=== PATIENT | female | born 1935 | race Caucasian/White ===

== ENCOUNTER 2016-07-18 16:26 | Inpatient (IN) | payer MEDICARE, OTHER ==
[~2016-07-18] VITALS: Ht 121.9 cm; Wt 68.0 kg
[2016-07-18 16:00] VITALS: BP 159/62
[2016-07-18] MEDS ORDERED: TRAM50TA2 PO (17:15)
[2016-07-18] MEDS ORDERED: MAGN30OR PO (17:15)
[2016-07-18] MEDS ORDERED: ATOR20TA PO (17:15)
[2016-07-18] MEDS ORDERED: OXYB5TAB11 PO (17:15)
[2016-07-18] MEDS ORDERED: NIFE20CA PO (17:15)
[2016-07-18] MEDS ORDERED: MAG30ORA2 PO (17:15)
[2016-07-18] MEDS ORDERED: CEPH-569 PO (17:15)
[2016-07-18] MEDS ORDERED: CLON0.1T PO (17:15)
[2016-07-18] MEDS ORDERED: ASPI-605 PO (17:15)
[2016-07-18] MEDS ORDERED: HYDR-3326 PO (17:15)
[2016-07-18] MEDS ORDERED: METO-302 PO (17:15)
[2016-07-18] MEDS ORDERED: BACL10TA PO (17:15)
[2016-07-18] MEDS ORDERED: ACET-73 PO (17:15)
[2016-07-18] MEDS ORDERED: HYDR-4076 PO (17:15)
--- NOTE | 2016-07-18 19:30 | NUR ---
RECEIVED PATIENT AWAKE AND ALERT WITH DAUGHTER JOHNIE AND OTHER FAMILY MEMBERS AT BEDSIDE IN NO ACUTE DISTRESS. AT 1999 PATIENT C/O EPIGASTRIC PAIN, POINTING TO LOWER STERNUM, UNABLE TO DISCRIBE PAIN OR RATE PAIN LEVEL PER DAUGHTER WHO TRANSLATED FROM HUNGARIAN TO JAPANESE. PATIENT DENIED FEELING NAUSEATED OR HAVING SHORTNESS OR BREATH. VITAL SIGNS TAKEN AND STABLE 154/64 HR 72 RR 16 ROOM AIR SAT 96% AND TEMP. 97.7 ORAL. DAUGHTER JOHNIE STATED PT HAS PROBLEMS WITH STOMACH. PATIENT ANSWERED YES WHEN ASKED IF HAVING ANY NUMBNESS OR TINGLING AND POINTED TO LEFT ARM AND FINGERS. AT [address] PATEL WHO JUST SAW PATIENT AND MENTIONED THE PATIENT C/O PAIN. EKG ORDERED PER DR. PATEL ALONG WITH PATIENTS RECON MEDS OK'D WITH READ BACK TELEPHONE ORDER FROM DR. OLIVIA, [facility]. AN HOUR LATER CALLED AND REPORTED RESULTS OF EKG TO DR. PATEL AND OTHER ORDERS WERE REC'D AND CARRIED OUT. 2200 TROP. AND CARDIAC ENZYMES, AND OXYGEN WAS ORDERED. PT IN NO ACUTE DISTRESS AWAKE AND ALERT TALKING TO STAFF, HS MEDS AND NORCO GIVEN FOR PAIN AND MAALOX FOR INDIGESTION. AT 2300 TROP. AND CARDIAC ENZYMES DRAWN, RESULTS PENDING.
[2016-07-18 20:00] VITALS: BP 154/60
[2016-07-18] MEDS ORDERED: HYDROCODONE/APAP 5-325MG TABLET PO PRN (21:00)
[2016-07-18] MEDS: OXYBUTYNIN CHLORIDE 5 MG TABLET PO SCH (21:00)
[2016-07-18] MEDS ORDERED: CLONIDINE HCL 0.1 MG TABLET PO PRN (21:00)
[2016-07-18] MEDS ORDERED: ACETAMINOPHEN 325 MG TABLET PO PRN (21:00)
[2016-07-18] MEDS ORDERED: TRAMADOL HCL 50 MG TABLET PO PRN (21:00)
[2016-07-18] MEDS ORDERED: MAGNESIUM HYDROXIDE 30 ML LIQUID UDC PO PRN (21:00)
[2016-07-18] MEDS ORDERED: MAG HYDROX/AL HYDROX/SIMETH 30 ML LIQUID UDC ONE (21:40)
[2016-07-18] MEDS ORDERED: METOPROLOL SUCCINATE XL 25 MG TAB.SR.24H PO ONE (21:41)
[2016-07-18] MEDS ORDERED: ATORVASTATIN 20 MG TABLET ONE (21:41)
[2016-07-18] MEDS ORDERED: OXYBUTYNIN XL 5 MG TABSR PO ONE (21:42)
[2016-07-18] MEDS ORDERED: HYDROCODONE/APAP 5-325MG TABLET ONE (21:42)
[2016-07-18] MEDS ORDERED: NITROGLYCERIN 0.3 MG/TAB BOTTLE SL PRN (22:00)
[2016-07-18] MEDS: ATORVASTATIN 20 MG TABLET PO SCH (22:12)
[2016-07-18] MEDS: METOPROLOL SUCCINATE XL 25 MG TAB.SR.24H PO SCH (22:16)
[2016-07-18] MEDS: MAG HYDROX/AL HYDROX/SIMETH 30 ML LIQUID UDC PO PRN (22:16)
--- NOTE | 2016-07-18 23:40 | NUR ---
PT QUIETLY RESTING IN BED DENIES ANY FURTHER PAIN. BP 146/56 HR 61 OXYGEN ON 2L/MIN NC 100% SAT. NEGATIVE RESULTS OF TROPONIN AND CK REPORTED TO DR. PATEL. TROP 0.027 AND CK 33, NO NEW ORDERED RECEIVED AT THIS TIME.
--- NOTE | 2016-07-19 06:38 | NUR ---
PATIENT SLEPTED INTERMITTENT;Y EASILY AROUSABLE IN NO ACUTE DISTRESS OR COMPLAINTS OF ANY PAIN. CONTINUE WITH PLAN OF CARE.
[2016-07-19 06:54] LABS: BASOPHILS # (AUTO) 0.1 K/uL (0.0-8.0); BASOPHILS % (AUTO) 0.6 % (0.0-2.0); EOSINOPHILS # (AUTO) 0.3 K/uL (0.0-0.7); EOSINOPHILS % (AUTO) 3.3 % (0.0-7.0); HEMATOCRIT 32.9 % (37-47); HEMOGLOBIN 10.9 G/DL (12.0-16.0); LYMPHOCYTES # (AUTO) 1.5 K/UL (0.8-4.8); LYMPHOCYTES % (AUTO) 17.1 % (20.5-51.5); MEAN CORPUSCULAR HEMOGLOBIN 29.6 UUG (27.0-31.0); MEAN CORPUSCULAR HGB CONC 33 g/dL (32.0-37.0); MEAN CORPUSCULAR VOLUME 89.1 FL (81.0-99.0); MONOCYTES % (AUTO) 11.3 % (0.0-11.0); NEUTROPHILS # (AUTO) 5.8 K/UL (1.8-8.9); NEUTROPHILS % (AUTO) 67.7 % (38.5-71.5); PLATELET COUNT (AUTO) 265 K/UL (150-450); RED BLOOD CELL COUNT(AUTO) 3.69 MIL/UL (4.2-5.4); WHITE BLOOD COUNT (AUTO) 8.7 K/UL (4.0-11.2)
[2016-07-19 07:21] LABS: MAGNESIUM 2.5 mg/dL (1.8-2.4); PHOSPHOROUS 3.7 mg/dL (2.5-4.9); POTASSIUM 4.7 mmol/L (3.5-5.1)
[2016-07-19 07:29] LABS: CREATININE 1.9 mg/dL (0.6-1.3)
[2016-07-19 08:00] VITALS: BP 149/59
--- NOTE | 2016-07-19 08:00 | NUR ---
Awake, alert, oriented x 3 , macanese speaking. Verbalized still with chest pain but more of epigastric. Repositioned in bed comfortably. Dr. Caicedo informed of condition, PA real estate administrative assistant's seen and examined patient. Cardio consult called
[2016-07-19] MEDS: METOPROLOL SUCCINATE XL 25 MG TAB.SR.24H PO SCH ×2 (09:41→17:51)
[2016-07-19] MEDS: OXYBUTYNIN CHLORIDE 5 MG TABLET PO SCH ×2 (09:41→21:06)
[2016-07-19] MEDS: MAG HYDROX/AL HYDROX/SIMETH 30 ML LIQUID UDC PO PRN (09:43)
[2016-07-19] MEDS ORDERED: TRAMADOL HCL 50 MG TABLET PO PRN (10:00)
--- NOTE | 2016-07-19 18:00 | NUR ---
No BM x 1 week. informed.
--- NOTE | 2016-07-19 19:00 | NUR ---
Daughter at bedside. Waiting for cardiac consult. Endorsed for further care
--- NOTE | 2016-07-19 19:15 | NUR ---
Received report from Annabelle. Received patient in bed. Alert and verbally responsive. Able to make needs known. Pt. is English speaking. Denies any pain and discomfort at this time. No acute distress. No SOB. On O2 2L via NC. Daughter at bedside at this time. Per daughter, she verbalized that she brought patient's belongings. Items added to belonging sheet. Daughter also brought home medications. Verbalized that patient takes Etodolac 400mg daily. Told her I will inform MD of medication and if it's okay for patient to receive. Medication bottle put in pharmacy bag and given to Otto at Pharmacy. Will inform MD of medication. Patient Kept clean and dry. All needs attended to promptly. Call light within reach. Will continue to monitor.
[2016-07-19 20:00] VITALS: BP 152/58
[2016-07-19] MEDS ORDERED: ETOD400T PO (20:39)
[2016-07-19] MEDS: ATORVASTATIN 20 MG TABLET PO SCH (21:06)
--- NOTE | 2016-07-19 21:30 | NUR ---
Dr. Fang in facility and examined patient with new orders noted.
[2016-07-19] MEDS ORDERED: SENNOSIDES 1 TABLET PO SCH (21:45)
[2016-07-19] MEDS ORDERED: BISACODYL 5 MG TABLET.DR PO PRN (21:45)
[2016-07-19] MEDS: DOCUSATE SODIUM 100 MG CAPSULE PO SCH (23:00)
[2016-07-19] MEDS ORDERED: SENNOSIDES 1 TABLET ONE (23:08)
[2016-07-19] MEDS ORDERED: DOCUSATE SODIUM 100 MG CAPSULE PO ONE (23:09)
--- NOTE | 2016-07-20 06:00 | NUR ---
ECG done. Will endorse to AM shift.
--- NOTE | 2016-07-20 06:25 | NUR ---
Patient is awake and verbally responsive. Able to make needs known. Slept comfortably throughout the night. Denies any pain and discomfort at this time. No acute distress. No SOB. HOB elevated. Patient requested for prune juice. Tolerated well. No BM noted at this time. AM needs provided. All needs attended to promptly. Call light within reach. Will continue to monitor.
[2016-07-20 07:03] LABS: POTASSIUM 4.7 mmol/L (3.5-5.1)
--- NOTE | 2016-07-20 07:30 | NUR ---
Received patient up in bed, awake, verbally responsive, able to make needs know, not in any form of acute distress. She denies any pain or discomfort at this time. Environmental check for safety done. Call light placed within reach.
[2016-07-20] MEDS: ASPIRIN EC 81 MG TABLET.DR PO SCH (09:29)
[2016-07-20] MEDS: OXYBUTYNIN CHLORIDE 5 MG TABLET PO SCH ×2 (09:29→20:57)
[2016-07-20] MEDS: DOCUSATE SODIUM 100 MG CAPSULE PO SCH (09:37)
[2016-07-20] MEDS: CARVEDILOL 6.25 MG TABLET PO SCH (09:37)
[2016-07-20 10:40] VITALS: BP 144/56
--- NOTE | 2016-07-20 13:01 | NUR ---
Spoke to Dr. Fang (Aids Counselor) and relayed EKG, echocardiogram and lab results with no new order. Per MD patient is ok to resume physical therapy. Patient made aware and therapy made aware.
[2016-07-20 15:07] VITALS: BP 144/56
--- NOTE | 2016-07-20 15:30 | NUR ---
Movie Stunt Performer: SW met with patient at bedside to assess needs and provide support. Pt presented in a calm and cooperative mood during interview. Per pt, she was admitted due to elevated blood pressure after leaving a [facility]. Pt verbalized she wanted to go home, however understood that her rehab treatment has not been completed. Pt also expressed that she was feeling "better" now she had a bowel movement after two weeks. She is motivated to return home. She reported she has home health RN and PT at home. Additionally, per pt her daughter Annamaria "caregives" for her. Per pt, she has a supportive and involved family. However, later pt did appear depressed regarding her decline in ambulation. Pt stated she is unable to ambulate the way she "use to." SW provided supportive counseling and active listening during interview. SW will continue to provide support throughout hospitalization. SW will provide pt and family resources in order to better support transition home. Resources will include caregiving and mental health outpatient referrals. POLST is completed and in pt's chart.
[2016-07-20 20:00] VITALS: BP 167/63
[2016-07-20] MEDS: ATORVASTATIN 20 MG TABLET PO SCH (20:57)
--- NOTE | 2016-07-21 05:22 | NUR ---
Patient alert and oriented, verbally able to let needs known. Denies any pain or discomfort at this time, shows no signs of respiratory distress. Maintained clean and dry throughout the night, call light within reach, all needs attended to
--- NOTE | 2016-07-21 07:45 | NUR ---
PATIENT IS ALERT AND ORIENTED CONCERNED MOSTLY ABOUT HER BOWELS PATIENT APPARENTLY WAS CONSTIPATED AND WAS GIVEN SOME LAXATIVES BUT SHE THINKS THAT SHE IS NOW MOVING HER BOWELS TOO MUCH BUT THE NOC RN STATED THAT SHE MOVED HER BOWELS ONLY TWICE AND THE LAST ONE WAS VERY SMALL AND SEMI FORMED.PATIENT REASSURED MADE COMFORTABLE CALL LIGHT PLACED WITHIN EASY REACH AND WILL CONTINUE TO OBSERVE.
[2016-07-21] MEDS: CARVEDILOL 6.25 MG TABLET PO SCH ×2 (08:00→17:54)
[2016-07-21 08:48] VITALS: BP 163/63
[2016-07-21] MEDS: ASPIRIN EC 81 MG TABLET.DR PO SCH (09:37)
[2016-07-21] MEDS: OXYBUTYNIN CHLORIDE 5 MG TABLET PO SCH ×2 (09:37→20:46)
[2016-07-21 10:30] VITALS: BP 147/70
--- NOTE | 2016-07-21 14:04 | NUR ---
IDT MEETING 07/21/16
--- NOTE | 2016-07-21 15:18 | NUR ---
PATIENT SEEN AND EXAMINED BY DR BANKS THE CHIEF YEOMAN WITH NEW ORDERS AND NOTED.
[2016-07-21 16:14] VITALS: BP 148/56
--- NOTE | 2016-07-21 18:00 | NUR ---
RESTING WITH NO DISTRESS AT THIS TIME.
[2016-07-21 19:59] VITALS: BP 144/47
[2016-07-21] MEDS: ATORVASTATIN 20 MG TABLET PO SCH (20:45)
--- NOTE | 2016-07-22 05:57 | NUR ---
Patient alert and oriented and verbally able to let needs known, slept intermittently throughout the night. Had no complains of pain or discomfort, no signs of SOB or distress. Maintained clean and dry, all needs attended to, call light within reach.
--- NOTE | 2016-07-22 07:10 | NUR ---
Patient received from police shift commander, resting comfortably in bed. No signs of acute distress noted, respirations even and unlabored. VS WNL, no complaints of pain, no other verbalized needs at this time. Safety precautions and fall precautions maintained, call light within reach.
[2016-07-22 08:00] VITALS: BP 148/62
[2016-07-22] MEDS: ASPIRIN EC 81 MG TABLET.DR PO SCH (09:02)
[2016-07-22] MEDS: CARVEDILOL 6.25 MG TABLET PO SCH ×2 (09:02→17:12)
[2016-07-22] MEDS: OXYBUTYNIN CHLORIDE 5 MG TABLET PO SCH ×2 (09:02→21:23)
--- NOTE | 2016-07-22 14:46 | NUR ---
PATIENT IS WALKING WITH WALKER WITH PHYSICAL THERAPY PATIENT IS TOLERATING WELL.
--- NOTE | 2016-07-22 15:27 | NUR ---
INFORMED PATIENT VIDEO SWALLOW TEST WILL BE RESCHEDULED UNTIL TOMORROW.
--- NOTE | 2016-07-22 15:27 | NUR ---
PATIENT IS WALKING BACK TO ROOM WITH WALKER AND PHYSICAL THERAPIST.
[2016-07-22 16:44] VITALS: BP 161/65
[2016-07-22] MEDS: hydrALAZINE HCL 25 MG TABLET PO PRN (18:49)
--- NOTE | 2016-07-22 19:04 | NUR ---
PATIENT IS FEELING ANIOUS WITH NOSE CONGESTION STATES DIFFICULTY SWALLOWING HAVING A VIDEO SWALLOW THAT IS PENDING TOMORROW. PATIENT ALSO STATES THAT SHE TAKES AN INHALER AT HOME ON A REGULAR BASIS WHICH SHE DOES NOT HAVE ORDER FOR HERE. CALLED DAUGHTER TO FIND OUT THE MEDICATION SHE TAKES AND INFORMED DR. GUAJARDO FOR PATIENT VENTOLIN HFA INHALER THAT SHE TAKES UPTO 4 PUFFS/DAY. PENDING CALL BACK FROM DOCTOR CASANDRA. PATIENT BP RECHECKED AND WAS ALSO 181/80 SATURATING 97% WITH HEART RATE OF 64. HYDRALAZINE PRN GIVEN AT THIS TIME.
[2016-07-22 20:00] VITALS: BP 141/57
[2016-07-22] MEDS ORDERED: ALBUTEROL SULFATE 2.5 MG/ 0.5 ML NEBU NEB PRN (20:00)
[2016-07-22] MEDS: PATIENT MAY USE OWN MED- MD OK INH SCH (20:00)
--- NOTE | 2016-07-22 20:00 | NUR ---
Patient is alert and verbally responsive. Peruvian speaking and able to make needs known. Daughters at bedside. Patient still noted to c/o congestion. Dr. Yee in patients room and examined patient. Lung sounds are clear. Congestion noted to be in the nasal area. On oxygen 2L via NC. O2 saturation at 97%. No acute distress noted. No c/o pain and discomfort at this time. Daughter Annamaria brought patient's Ventolin inhaler that patient takes at home. Dr. Yee made aware of home medication with new orders noted and carried out. Pharmacy Otto also made aware. Daughters made aware of new orders. All needs attended to promptly. Call light within reach. Will continue to monitor.
[2016-07-22] MEDS: ATORVASTATIN 20 MG TABLET PO SCH (21:23)
--- NOTE | 2016-07-22 21:45 | NUR ---
NSG: PATIENT B/P 141/57 AFTER HYDRALAZINE GIVEN. PRN EFFECTIVE.
--- NOTE | 2016-07-22 21:45 | NUR ---
GPS: Patient alert and oriented, verbally able to let needs known.Daughter @ bedside.patient c/p congestion. md ordered berating inhaler. Denies any pain at this time, md and charge nurse made aware. Maintained clean and dry, call light within reach, all needs attended.
[2016-07-23] MEDS: PATIENT MAY USE OWN MED- MD OK INH SCH ×4 (02:00→20:45)
[2016-07-23 06:53] LABS: BASOPHILS # (AUTO) 0.1 K/uL (0.0-8.0); BASOPHILS % (AUTO) 0.8 % (0.0-2.0); EOSINOPHILS # (AUTO) 0.4 K/uL (0.0-0.7); EOSINOPHILS % (AUTO) 5.3 % (0.0-7.0); HEMATOCRIT 29.3 % (37-47); HEMOGLOBIN 9.8 G/DL (12.0-16.0); LYMPHOCYTES # (AUTO) 1.1 K/UL (0.8-4.8); LYMPHOCYTES % (AUTO) 14.9 % (20.5-51.5); MEAN CORPUSCULAR HEMOGLOBIN 29.8 UUG (27.0-31.0); MEAN CORPUSCULAR HGB CONC 34 g/dL (32.0-37.0); MEAN CORPUSCULAR VOLUME 89.1 FL (81.0-99.0); MONOCYTES # (AUTO) 0.7 K/UL (0.1-1.30); NEUTROPHILS # (AUTO) 5.2 K/UL (1.8-8.9); PLATELET COUNT (AUTO) 229 K/UL (150-450); RED BLOOD CELL COUNT(AUTO) 3.28 MIL/UL (4.2-5.4); WHITE BLOOD COUNT (AUTO) 7.5 K/UL (4.0-11.2)
--- NOTE | 2016-07-23 06:55 | NUR ---
NSG: Remain alert and oriented and verbally able to let needs known, slept intermittently throughout the night. Had no complains of pain or discomfort this time, no signs of SOB or distress. Maintained clean and dry, all needs attended to, call light within reach.
[2016-07-23 07:21] LABS: THYROID STIMULATING HORMONE 0.621 mIU/mL (0.358-3.740)
[2016-07-23 07:57] LABS: ALANINE AMINOTRANSFERASE 15 U/L (14-59); ASPARTATE AMINOTRANSFERASE 19 U/L (15-37); BILIRUBIN,TOTAL 0.5 mg/dL (0.2-1.0); CARBON DIOXIDE 28 mmol/L (21-32); CHLORIDE 105 mmol/L (98-107); GLUCOSE 97 mg/dL (74-106); MAGNESIUM 2.6 mg/dL (1.8-2.4); PHOSPHOROUS 4.6 mg/dL (2.5-4.9); POTASSIUM 4.7 mmol/L (3.5-5.1); TOTAL PROTEIN, SERUM 6.1 g/dL (6.4-8.2); UREA NITROGEN, BLOOD 27 mg/dL (7-18)
[2016-07-23 08:00] VITALS: BP 173/57
[2016-07-23 08:24] LABS: ALKALINE PHOSPHATASE < 10 U/L (50-136)
[2016-07-23 08:25] LABS: CREATININE 1.9 mg/dL (0.6-1.3)
[2016-07-23] MEDS: PATIENT MAY USE OWN MED- MD OK IH PRN (08:46)
[2016-07-23] MEDS: OXYBUTYNIN CHLORIDE 5 MG TABLET PO SCH ×2 (08:47→20:46)
[2016-07-23] MEDS: CARVEDILOL 6.25 MG TABLET PO SCH ×2 (08:47→17:58)
[2016-07-23] MEDS: ASPIRIN EC 81 MG TABLET.DR PO SCH (08:47)
[2016-07-23 14:35] VITALS: BP 143/60
--- NOTE | 2016-07-23 19:30 | NUR ---
NSG: Pt a/o x 4, lithuanian speaking only. denies discomfort. however, bp elevated 174/65, hr 58. just received bp med. will cont to monitor. family at the bedside.
--- NOTE | 2016-07-23 20:20 | NUR ---
nsg: bp elevated, sbp 170's, medicated with hydralazine 25mg po prn. will recheck.
[2016-07-23 20:23] VITALS: BP 174/65
[2016-07-23] MEDS: hydrALAZINE HCL 25 MG TABLET PO PRN (20:46)
[2016-07-23] MEDS: ATORVASTATIN 20 MG TABLET PO SCH (20:46)
[2016-07-23 22:10] VITALS: BP 139/53
--- NOTE | 2016-07-23 22:10 | NUR ---
nsg: recheck bp 139/53 hr 61. denies discomfort at this time.
[2016-07-24] MEDS: PATIENT MAY USE OWN MED- MD OK INH SCH ×5 (01:30→20:00)
--- NOTE | 2016-07-24 05:23 | NUR ---
nsg: no change in condition. all needs attended. cont to monitor.
[2016-07-24 08:00] VITALS: BP 158/65
--- NOTE | 2016-07-24 08:51 | NUR ---
RECEIVED PATIENT AWAKE IN BED. ALERT AND ORIENTED. NO S/S OF DISTRESS. NO COMPLAINTS OF PAIN AT THIS TIME. NO COMPLAINTS OF SOB. MAINTAINED O2 AT 2LMP. BP AT 158/65.
[2016-07-24] MEDS: OXYBUTYNIN CHLORIDE 5 MG TABLET PO SCH ×2 (08:54→20:36)
[2016-07-24] MEDS: ASPIRIN EC 81 MG TABLET.DR PO SCH (08:54)
[2016-07-24] MEDS: CARVEDILOL 6.25 MG TABLET PO SCH ×2 (08:54→17:39)
[2016-07-24] MEDS ORDERED: CLONIDINE HCL 0.1 MG TABLET PO PRN (11:45)
[2016-07-24] MEDS ORDERED: hydrALAZINE HCL 25 MG TABLET PO PRN (11:45)
[2016-07-24] MEDS ORDERED: BACLOFEN 10 MG TABLET PO PRN (11:45)
[2016-07-24] MEDS ORDERED: ACETAMINOPHEN ES 500 MG TABLET PO PRN (11:45)
[2016-07-24] MEDS ORDERED: TRAMADOL HCL 50 MG TABLET PO PRN (11:45)
[2016-07-24] MEDS ORDERED: HYDROCODONE/APAP 5-325MG TABLET PO PRN (11:45)
[2016-07-24] MEDS: NIFEdipine XL 60 MG TABSR PO SCH (13:15)
[2016-07-24] MEDS ORDERED: OXYBUTYNIN CHLORIDE 5 MG TABLET PO SCH (17:00)
[2016-07-24] MEDS: CEPHALEXIN MONOHYDRATE 250 MG CAPSULE PO SCH (17:09)
--- NOTE | 2016-07-24 17:55 | NUR ---
PATIENT TOLERATED THERAPY WELL. NO COMPLAINTS OF PAIN OR DISCOMFORT AT THIS TIME. ENSURED SAFETY THROUGHOUT THE SHIFT. ATTENDED TO NEEDS PROMPTLY. BP AT 153/65. NO S/S OF DISTRESS. ALL DUE MEDS GIVEN. WILL CONTINUE TO MONITOR
--- NOTE | 2016-07-24 19:30 | NUR ---
Received patient awake, no s/s of distress noted. Verbalized absence of pain at this time. Reminded to call for assistance whenever necessary. Call light within reach. Will continue to monitor.
[2016-07-24 20:00] VITALS: BP 117/48
[2016-07-24] MEDS: PATIENT MAY USE OWN MED- MD OK IH PRN (20:28)
[2016-07-24] MEDS: ATORVASTATIN 20 MG TABLET PO SCH (20:36)
[2016-07-24] MEDS ORDERED: ATORVASTATIN 20 MG TABLET PO SCH (21:00)
[2016-07-24 22:12] VITALS: BP 124/47
[2016-07-25] MEDS: PATIENT MAY USE OWN MED- MD OK INH SCH ×4 (02:00→20:00)
--- NOTE | 2016-07-25 02:26 | NUR ---
Oxycodone 30mg given as ordered for pain level at 09/06. Will reassess for effectiveness. Addendum: 07/25/16 at 0229 by HA JOVEL RN WRONG PATIENT
--- NOTE | 2016-07-25 06:39 | NUR ---
Patient asleep with no s/s of distress. Respirations even and unlabored with O2 at 2L/min. Due meds given. Call light kept within reach. Needs attended. Kept clean and dry. Supervised during ambulation. Safety measures in place. Frequent checks done. Slept well throughout the night. Endorsed accordingly.
--- NOTE | 2016-07-25 06:46 | NUR ---
No complaints of pain throughout shift. Demonstrated a pleasant disposition during waking hours.
--- NOTE | 2016-07-25 08:16 | NUR ---
RECEIVED PATIENT AWAKE IN BED WITH O2 AT 2LMP. NO COMPLAINTS OF DISCOMFORT AT THIS TIME. NO S/S OF DISTRESS. BP AT 126/55. CALL LIGHT WITHIN REACH. ENSURED SAFETY.
[2016-07-25] MEDS: CARVEDILOL 6.25 MG TABLET PO SCH ×2 (08:37→17:35)
[2016-07-25] MEDS: ASPIRIN EC 81 MG TABLET.DR PO SCH (08:37)
[2016-07-25] MEDS: CEPHALEXIN MONOHYDRATE 250 MG CAPSULE PO SCH ×2 (08:38→17:35)
[2016-07-25] MEDS: NIFEdipine XL 60 MG TABSR PO SCH (08:38)
[2016-07-25] MEDS: OXYBUTYNIN CHLORIDE 5 MG TABLET PO SCH ×2 (08:38→21:00)
[2016-07-25] MEDS ORDERED: NIFEdipine 10 MG CAPSULE PO SCH (09:00)
[2016-07-25] MEDS ORDERED: ASPIRIN EC 81 MG TABLET.DR PO SCH (09:00)
--- NOTE | 2016-07-25 15:00 | NUR ---
PATIENT STILL AT O2 AT 2LPM O2 SAT AT 95%. PATIENT RESTING COMFORTABLY IN BED WITH FAMILY MEMBERS AT BEDSIDE. PATIENT TOLERATED OT AND PT WELL. NO OTHERS COMPLAINTS AT THIS TIME.
--- NOTE | 2016-07-25 18:22 | NUR ---
DAUGHTER JOHNIE AT BEDSIDE, CLARIFIED ORDER FOR DNI AND DNR WITH PATIENT AND DAUGHTER AND CONFIRMED AND CLARIFIED PREFERENCE FOR DNI AND DNR ORDER. NOTIFIED DR. PATEL OF PATIENT REQUEST.
[2016-07-25 20:37] VITALS: BP 126/62
[2016-07-25] MEDS: ATORVASTATIN 20 MG TABLET PO SCH (20:59)
[2016-07-25] MEDS: PATIENT MAY USE OWN MED- MD OK IH PRN (20:59)
[2016-07-25] MEDS ORDERED: HYDROCODONE/APAP 5-325MG TABLET PO PRN (21:00)
[2016-07-26] MEDS: PATIENT MAY USE OWN MED- MD OK INH SCH ×4 (02:00→20:45)
--- NOTE | 2016-07-26 02:13 | NUR ---
Refused inhaler at this time, stated that she doesn't need it right now
--- NOTE | 2016-07-26 05:28 | NUR ---
Patient slept intermittently throughout the night, had no complains of pain or discomfort. Didn't need supplemental O2, pulse O2 >92% throughout the shift. Patient maintained clean and dry. She does have call light within reach, will continue to monitor.
[2016-07-26 07:16] VITALS: BP 121/50
[2016-07-26] MEDS: NIFEdipine XL 60 MG TABSR PO SCH (08:29)
[2016-07-26] MEDS: ASPIRIN EC 81 MG TABLET.DR PO SCH (08:29)
[2016-07-26] MEDS: OXYBUTYNIN CHLORIDE 5 MG TABLET PO SCH ×2 (08:30→20:45)
[2016-07-26] MEDS: CARVEDILOL 6.25 MG TABLET PO SCH ×2 (08:30→17:31)
[2016-07-26] MEDS: CEPHALEXIN MONOHYDRATE 250 MG CAPSULE PO SCH ×2 (08:31→17:30)
[2016-07-26] MEDS: PATIENT MAY USE OWN MED- MD OK IH PRN ×3 (08:32→17:33)
[2016-07-26] MEDS ORDERED: IV 1/2NS 1000 ML 1,000 ML IV ONE (17:00)
--- NOTE | 2016-07-26 19:30 | NUR ---
pt shows no signs of breathe. pt given 2 puffs of ventolin for breathing. pt given 20 gaugge on left forearm w 1/2 ns @ 70mls/hr. Seen by Dr Oneil to explain to family about need of NS. pt adheres to medication and was more adherent to PT/OT exercises. Vital signs WNL. no signs of acute distress. pt assessed for edema +2. will continue to monitor for complications
--- NOTE | 2016-07-26 19:30 | NUR ---
Received patient awake on her bed with no s/s of distress. Verbalized absence of pain at this time. Call light within reach. IVF infusing well. Will continue to monitor.
[2016-07-26 20:09] VITALS: BP 135/88
[2016-07-26] MEDS: ATORVASTATIN 10 MG TABLET PO SCH (20:46)
[2016-07-26] MEDS ORDERED: ATORVASTATIN 20 MG TABLET PO SCH (21:00)
[2016-07-27] MEDS: PATIENT MAY USE OWN MED- MD OK INH SCH ×4 (02:00→20:43)
[2016-07-27 07:37] LABS: ALANINE AMINOTRANSFERASE 13 U/L (14-59); ASPARTATE AMINOTRANSFERASE 19 U/L (15-37); BILIRUBIN,TOTAL 0.4 mg/dL (0.2-1.0); CARBON DIOXIDE 26 mmol/L (21-32); CHLORIDE 104 mmol/L (98-107); GLUCOSE 95 mg/dL (74-106); MAGNESIUM 2.1 mg/dL (1.8-2.4); PHOSPHOROUS 4.7 mg/dL (2.5-4.9); POTASSIUM 4.4 mmol/L (3.5-5.1); TOTAL PROTEIN, SERUM 6.1 g/dL (6.4-8.2); UREA NITROGEN, BLOOD 26 mg/dL (7-18)
[2016-07-27 07:46] LABS: BASOPHILS % (AUTO) 0.6 % (0.0-2.0); EOSINOPHILS # (AUTO) 0.3 K/uL (0.0-0.7); EOSINOPHILS % (AUTO) 5.1 % (0.0-7.0); HEMATOCRIT 27.4 % (37-47); HEMOGLOBIN 9.6 G/DL (12.0-16.0); LYMPHOCYTES # (AUTO) 0.9 K/UL (0.8-4.8); LYMPHOCYTES % (AUTO) 15.3 % (20.5-51.5); MEAN CORPUSCULAR HGB CONC 35 g/dL (32.0-37.0); MEAN CORPUSCULAR VOLUME 88.2 FL (81.0-99.0); MONOCYTES # (AUTO) 0.6 K/UL (0.1-1.30); MONOCYTES % (AUTO) 10.1 % (0.0-11.0); NEUTROPHILS # (AUTO) 4.4 K/UL (1.8-8.9); NEUTROPHILS % (AUTO) 68.9 % (38.5-71.5); PLATELET COUNT (AUTO) 220 K/UL (150-450); RED BLOOD CELL COUNT(AUTO) 3.11 MIL/UL (4.2-5.4); WHITE BLOOD COUNT (AUTO) 6.2 K/UL (4.0-11.2)
[2016-07-27 07:47] LABS: ALKALINE PHOSPHATASE < 10 U/L (50-136)
[2016-07-27 08:04] LABS: CREATININE 1.7 mg/dL (0.6-1.3)
--- NOTE | 2016-07-27 08:10 | NUR ---
Patient awake with no s/s of distress. No complaints of pain during the shift. Call light kept within reach. Supervised during ambulation. Due meds given, needs attended. IVF infusing well. Frequent checks done. Endorsed accordingly.
[2016-07-27] MEDS: CEPHALEXIN MONOHYDRATE 250 MG CAPSULE PO SCH ×2 (08:29→17:27)
[2016-07-27] MEDS: NIFEdipine XL 60 MG TABSR PO SCH (08:30)
[2016-07-27] MEDS: CARVEDILOL 6.25 MG TABLET PO SCH ×2 (08:30→17:27)
[2016-07-27] MEDS: ASPIRIN EC 81 MG TABLET.DR PO SCH (08:31)
[2016-07-27] MEDS: OXYBUTYNIN CHLORIDE 5 MG TABLET PO SCH ×2 (08:31→20:43)
[2016-07-27 11:10] VITALS: BP 133/53
[2016-07-27] MEDS: PATIENT MAY USE OWN MED- MD OK IH PRN ×2 (15:32→17:11)
--- NOTE | 2016-07-27 18:51 | NUR ---
pt was found going up alone. took off the IV line because Dr. Oneil only ordered ns 1000ml x1. pt verbalizes that she doesnt like the other roommate. pt vital signs within normal limits. pt was given ventolin for breathing. pt vital signs stable within shift.
[2016-07-27 20:00] VITALS: BP 125/42
--- NOTE | 2016-07-27 20:00 | NUR ---
PATIENT AWAKE, RESTING IN BED. A/O X4. SOUTH KOREAN SPEAKING BUT ABLE TO MAKE NEEDS KNOWN. DENIES PAIN. DENIES SOB. VSS. HEPLOCK NOTED TO LEFT FA, INTACT AND PATENT. CALL LIGHT IN REACH. ALL NEEDS ATTENDED. WILL CONTINUE TO MONITOR.
[2016-07-27] MEDS: ATORVASTATIN 10 MG TABLET PO SCH (20:43)
[2016-07-28] MEDS: PATIENT MAY USE OWN MED- MD OK INH SCH ×4 (01:48→20:46)
--- NOTE | 2016-07-28 01:48 | NUR ---
PATIENT ASLEEP IN BED. NO S/S OF ANY PAIN OR DISCOMFORT. NO RESP. DISTRESS NOTED. CALL LIGHT IN REACH. ALL NEEDS ATTENDED.
--- NOTE | 2016-07-28 06:36 | NUR ---
PATIENT ASLEEP. NO RESP. DISTRESS NOTED. CALL LIGHT IN REACH. ALL NEEDS ATTENDED. WILL CONTINUE TO MONITOR.
[2016-07-28 08:00] VITALS: BP 130/60
[2016-07-28] MEDS: ASPIRIN EC 81 MG TABLET.DR PO SCH (08:10)
[2016-07-28] MEDS: CARVEDILOL 6.25 MG TABLET PO SCH ×2 (08:11→17:57)
[2016-07-28] MEDS: OXYBUTYNIN CHLORIDE 5 MG TABLET PO SCH ×2 (08:11→20:44)
[2016-07-28] MEDS: CEPHALEXIN MONOHYDRATE 250 MG CAPSULE PO SCH ×2 (08:12→17:58)
[2016-07-28] MEDS: NIFEdipine XL 60 MG TABSR PO SCH (08:16)
--- NOTE | 2016-07-28 12:42 | NUR ---
pt found walking on the unit. pt instructed to use call light to call for assistance or supervision. pt refuses. walked pt back to room with supervision. no signs of acute distress. will continue to provide medications.
--- NOTE | 2016-07-28 14:55 | NUR ---
IDT MEETING 07/28/16
[2016-07-28] MEDS: ATORVASTATIN 10 MG TABLET PO SCH (20:44)
[2016-07-28] MEDS: PATIENT MAY USE OWN MED- MD OK IH PRN (20:45)
--- NOTE | 2016-07-28 21:12 | NUR ---
pt vital signs stable. pt still goes out of bed when instructed by family not go up by herself. pt urinates and bmx 1. no respiratory issues. provided comfort measures and medication regimen. will continue to assess for complications
[2016-07-28 21:33] VITALS: BP 138/56
[2016-07-29] MEDS: PATIENT MAY USE OWN MED- MD OK INH SCH ×4 (02:12→20:32)
--- NOTE | 2016-07-29 06:06 | NUR ---
Patient alert and oriented and verbally able to let needs known. Stated that she feels she might have a urine infection due to the fact that she has been urinating more than normal. I told her we would contact the doctor today to see if he wanted to order a urine test for her. Also patients IV site on L forearm was removed, all pieces intact.
--- NOTE | 2016-07-29 07:05 | NUR ---
Patient received from construction services technician, resting comfortably in bed. No signs of acute distress noted, respirations even and unlabored on RA. Skin clean, dry, and intact. No other needs noted at this time. Safety precautions maintained. Call light within reach.
[2016-07-29 08:00] VITALS: BP 133/53
[2016-07-29] MEDS: CEPHALEXIN MONOHYDRATE 250 MG CAPSULE PO SCH ×2 (08:21→16:10)
[2016-07-29] MEDS: NIFEdipine XL 60 MG TABSR PO SCH (08:22)
[2016-07-29] MEDS: OXYBUTYNIN CHLORIDE 5 MG TABLET PO SCH ×2 (08:22→20:31)
[2016-07-29] MEDS: ASPIRIN EC 81 MG TABLET.DR PO SCH (08:23)
[2016-07-29] MEDS: CARVEDILOL 6.25 MG TABLET PO SCH ×2 (08:23→17:52)
[2016-07-29 20:30] VITALS: BP 121/47
[2016-07-29] MEDS: ATORVASTATIN 10 MG TABLET PO SCH (20:31)
[2016-07-29] MEDS: PATIENT MAY USE OWN MED- MD OK IH PRN (20:32)
[2016-07-30] MEDS: PATIENT MAY USE OWN MED- MD OK INH SCH ×4 (02:00→20:41)
--- NOTE | 2016-07-30 06:13 | NUR ---
Patient slept well throughout the night, had no c/o pain or discomfort. No signs of respiratory distress, didn't need O2 throughout the night. Patient has call light within reach, all needs attended to.
--- NOTE | 2016-07-30 07:05 | NUR ---
Patient received from overnight houseperson, resting comfortably in bed. No signs of acute distress noted, respirations even and unlabored, on RA. VS WNL, no complaints of pain at this time. No other complications noted at this time. Safety and fall precautions maintained, call light within reach.
[2016-07-30 08:00] VITALS: BP 135/58
[2016-07-30] MEDS: ASPIRIN EC 81 MG TABLET.DR PO SCH (09:09)
[2016-07-30] MEDS: OXYBUTYNIN CHLORIDE 5 MG TABLET PO SCH ×2 (09:09→20:40)
[2016-07-30] MEDS: CEPHALEXIN MONOHYDRATE 250 MG CAPSULE PO SCH ×2 (09:09→17:53)
[2016-07-30] MEDS: CARVEDILOL 6.25 MG TABLET PO SCH ×2 (09:10→19:06)
[2016-07-30] MEDS: NIFEdipine XL 60 MG TABSR PO SCH (09:10)
[2016-07-30 15:51] VITALS: BP 118/58
--- NOTE | 2016-07-30 20:00 | NUR ---
RECEIVED PATIENT AWAKE IN BED. A/O X4. [place]EALANDER SPEAKING BUT ABLE TO MAKE SIMPLE NEEDS KNOWN. DENIES PAIN OR DISCOMFORT. NO RESP. DISTRESS NOTED. VSS. CALL LIGHT IN REACH. ALL NEEDS ATTENDED. WILL CONTINUE TO MONITOR.
[2016-07-30 20:02] VITALS: BP 125/55
[2016-07-30] MEDS: ATORVASTATIN 10 MG TABLET PO SCH (20:40)
[2016-07-31] MEDS: PATIENT MAY USE OWN MED- MD OK INH SCH ×4 (02:00→20:50)
--- NOTE | 2016-07-31 06:07 | NUR ---
PATIENT SLEEPING. SLEPT WELL THROUGHOUT THE NIGHT. NO RESP. DISTRESS NOTED. CALL LIGHT IN REACH. ALL NEEDS ATTENDED. WILL CONTINUE TO MONITOR.
[2016-07-31 08:05] VITALS: BP 126/57
[2016-07-31] MEDS: CARVEDILOL 6.25 MG TABLET PO SCH ×2 (08:15→17:09)
[2016-07-31] MEDS: ASPIRIN EC 81 MG TABLET.DR PO SCH (08:15)
[2016-07-31] MEDS: NIFEdipine XL 60 MG TABSR PO SCH (08:16)
[2016-07-31] MEDS: OXYBUTYNIN CHLORIDE 5 MG TABLET PO SCH ×2 (08:16→20:45)
--- NOTE | 2016-07-31 09:19 | NUR ---
pt refused med. asked a supervisor cooler service to translate consequences of not taking the med. pt accepted bp meds. will continue to reassess for med side effects.
[2016-07-31] MEDS: CEPHALEXIN MONOHYDRATE 250 MG CAPSULE PO SCH ×2 (09:43→17:09)
--- NOTE | 2016-07-31 18:58 | NUR ---
pt showed no signs of acute distress during shift. pt vital signs stable throughout. pt encouraged to drink fluids because of UTI. pt provided comfort measures. pt assisted to get up on bed and minimal assist to go to the bathroom. pt seen walking around the unit. pt showed no signs of hypoxemia. pt provided meds and adhered to med regimen.
--- NOTE | 2016-07-31 19:00 | NUR ---
Received report from LEONARD Kumar. Received patient in bed. Alert and verbally responsive. Able to make needs known. Denies any pain and discomfort. No acute distress. No SOB. Kept clean and dry. All needs attended to promptly. Call light within reach. Will continue to monitor.
[2016-07-31 20:00] VITALS: BP 131/50
[2016-07-31] MEDS: ATORVASTATIN 10 MG TABLET PO SCH (20:45)
[2016-07-31] MEDS: PATIENT MAY USE OWN MED- MD OK IH PRN (20:45)
[2016-08-01] MEDS: PATIENT MAY USE OWN MED- MD OK INH SCH ×2 (02:00→08:36)
--- NOTE | 2016-08-01 06:52 | NUR ---
Patient slept well throughout the night. No c/o pain and discomfort. No acute distress noted. No SOB. Kept clean and dry. All needs attended to promptly. Call light within reach. Will continue to monitor.
--- NOTE | 2016-08-01 07:20 | NUR ---
Received report form morning shift. Safety check, bed in locked/low position, side rails up x2.
[2016-08-01 07:22] LABS: BASOPHILS % (AUTO) 0.6 % (0.0-2.0); CARBON DIOXIDE 27 mmol/L (21-32); CHLORIDE 101 mmol/L (98-107); CREATININE 1.6 mg/dL (0.6-1.3); EOSINOPHILS # (AUTO) 0.3 K/uL (0.0-0.7); EOSINOPHILS % (AUTO) 4.2 % (0.0-7.0); GLUCOSE 99 mg/dL (74-106); LYMPHOCYTES # (AUTO) 1.3 K/UL (0.8-4.8); LYMPHOCYTES % (AUTO) 15.8 % (20.5-51.5); MEAN CORPUSCULAR HEMOGLOBIN 30.7 UUG (27.0-31.0); MEAN CORPUSCULAR HGB CONC 34 g/dL (32.0-37.0); MEAN CORPUSCULAR VOLUME 89.5 FL (81.0-99.0); MONOCYTES # (AUTO) 0.7 K/UL (0.1-1.30); MONOCYTES % (AUTO) 8.6 % (0.0-11.0); NEUTROPHILS # (AUTO) 5.7 K/UL (1.8-8.9); NEUTROPHILS % (AUTO) 70.8 % (38.5-71.5); PLATELET COUNT (AUTO) 263 K/UL (150-450); POTASSIUM 4.3 mmol/L (3.5-5.1); UREA NITROGEN, BLOOD 22 mg/dL (7-18)
[2016-08-01 07:32] LABS: RED BLOOD CELL COUNT(AUTO) 3.58 MIL/UL (4.2-5.4)
[2016-08-01 08:00] VITALS: BP 124/50
[2016-08-01] MEDS: CEPHALEXIN MONOHYDRATE 250 MG CAPSULE PO SCH (08:35)
[2016-08-01] MEDS: OXYBUTYNIN CHLORIDE 5 MG TABLET PO SCH (08:36)
[2016-08-01] MEDS: ASPIRIN EC 81 MG TABLET.DR PO SCH (08:36)
[2016-08-01 08:43] VITALS: BP 120/45
[2016-08-01] MEDS: NIFEdipine XL 60 MG TABSR PO SCH (08:43)
[2016-08-01] MEDS: CARVEDILOL 6.25 MG TABLET PO SCH (08:43)
[2016-08-01] MEDS ORDERED: CARV6.252 PO (11:21)
--- NOTE | 2016-08-01 12:00 | NUR ---
Patient is ambulating with seated walker with BRP. Patient tolerated well.
--- NOTE | 2016-08-01 13:35 | NUR ---
Patient discharged to family home.
== END 2016-08-01 13:35 | disposition home health service (06) | DRG 947 ==
PROVIDERS: ADMIT Physical Medicine & Rehabilitation Pain Medicine; ATTEND Physical Medicine & Rehabilitation Pain Medicine
DX: R53.81 Other malaise (principal); N17.0 Acute kidney failure with tubular necrosis; G93.40 Encephalopathy, unspecified; N30.00 Acute cystitis without hematuria; M19.90 Unspecified osteoarthritis, unspecified site; M81.0 Age-related osteoporosis without current pathological fracture; Z96.642 Presence of left artificial hip joint; Z96.652 Presence of left artificial knee joint; R42 Dizziness and giddiness; F09 Unspecified mental disorder due to known physiological condition; Z79.1 Long term (current) use of non-steroidal anti-inflammatories (NSAID); Z87.440 Personal history of urinary (tract) infections; R53.1 Weakness; E78.5 Hyperlipidemia, unspecified; R07.89 Other chest pain; R10.9 Unspecified abdominal pain; R94.31 Abnormal electrocardiogram [ECG] [EKG]; G89.29 Other chronic pain; Z86.73 Personal history of transient ischemic attack (TIA), and cerebral infarction without residual deficits; K21.9 Gastro-esophageal reflux disease without esophagitis; I12.9 Hypertensive chronic kidney disease with stage 1 through stage 4 chronic kidney disease, or unspecified chronic kidney disease; N18.9 Chronic kidney disease, unspecified; K59.09 Other constipation; R41.89 Other symptoms and signs involving cognitive functions and awareness
CPT/HCPCS: 36415; 70030-TC; 74230; 83735; 84100; 84443; 85025; 92526; 92610; 92611; 93005; 93307; 97110; 97112; 97116; 97165; 97530; 97535; A4217; A4663; J7030

== ENCOUNTER 2016-08-07 09:42 | Inpatient (IN) | payer MEDICARE, OTHER ==
[~2016-08-07] VITALS: Ht 139.7 cm; Wt 56.7 kg
[~2016-08-07 09:42] MED LIST: ACET-73 PO; ASPI-605 PO; ATOR20TA PO; BACL10TA PO; CARV6.252 PO; CEPH-569 PO; CLON0.1T PO; ETOD400T PO; HYDR-3326 PO; HYDR-4076 PO; MAG30ORA2 PO; MAGN30OR PO; METO-302 PO; NIFE20CA PO; OXYB5TAB11 PO; TRAM50TA2 PO
[2016-08-07] MEDS ORDERED: IV NORMAL SALINE 1000 ML BAG IV ONE (10:00)
[2016-08-07] MEDS ORDERED: LEVOFLOXACIN 500 MG/D5W 100ML PIGGYBACK IV ONE (10:00)
[2016-08-07] MEDS ORDERED: GENTAMICIN SULFATE INJ 80 MG in IV DEXTROSE 5% 100 ML IV ONE (10:00)
[2016-08-07 10:30] LABS: *BILIRUBIN,URIN NEGATIVE (NEGATIVE); *BLOOD, URINE Trace-lysed (NEGATIVE); *CLARITY,URINE CLOUDY (CLEAR); *COLOR,URINE YELLOW (YELLOW); *KETONES,URINE NEGATIVE (NEGATIVE); *PROTEIN,URINE 2+ (NEGATIVE); *UROBILINOGEN,URINE 0.2 E.U./dl (NORMAL); LEUKOCYTE ESTERASE ,URINE 2+ (NEGATIVE); NITRITE, URINE POSITIVE (NEGATIVE); UGLUCOSE NEGATIVE (NEGATIVE)
[2016-08-07 10:34] LABS: CARBON DIOXIDE 26 mmol/L (21-32); CHLORIDE 102 mmol/L (98-107); CREATININE 1.5 mg/dL (0.6-1.3); GLUCOSE 103 mg/dL (74-106); UREA NITROGEN, BLOOD 23 mg/dL (7-18)
[2016-08-07 10:37] LABS: RBC,URINE 0-3 /HPF (0-3)
[2016-08-07 10:38] LABS: BACTERIA,URINE MANY /HPF (NONE SEEN); SQUAMOUS EPITHELIAL CELL,UR FEW /HPF (NONE SEEN); WBC,URINE 80-100 /HPF (0-3)
--- NOTE | 2016-08-07 10:38 | NUR ---
pt is in room #2a. dr henson evaluated the pt.
[2016-08-07 10:41] LABS: BASOPHILS % (AUTO) 0.6 % (0.0-2.0); EOSINOPHILS # (AUTO) 0.2 K/uL (0.0-0.7); EOSINOPHILS % (AUTO) 2.7 % (0.0-7.0); HEMATOCRIT 32.7 % (37-47); LYMPHOCYTES # (AUTO) 1.1 K/UL (0.8-4.8); MEAN CORPUSCULAR HEMOGLOBIN 29.7 UUG (27.0-31.0); MEAN CORPUSCULAR HGB CONC 34 g/dL (32.0-37.0); MEAN CORPUSCULAR VOLUME 88.1 FL (81.0-99.0); MONOCYTES # (AUTO) 0.5 K/UL (0.1-1.30); MONOCYTES % (AUTO) 6.7 % (0.0-11.0); NEUTROPHILS # (AUTO) 5.9 K/UL (1.8-8.9); PLATELET COUNT (AUTO) 246 K/UL (150-450); RED BLOOD CELL COUNT(AUTO) 3.71 MIL/UL (4.2-5.4); WHITE BLOOD COUNT (AUTO) 7.8 K/UL (4.0-11.2)
[2016-08-07 10:47] LABS: ALANINE AMINOTRANSFERASE 16 U/L (14-59); ALKALINE PHOSPHATASE < 10 U/L (50-136); ASPARTATE AMINOTRANSFERASE 16 U/L (15-37); BILIRUBIN,DIRECT 0.1 mg/dL (0.0-0.2); BILIRUBIN,TOTAL 0.5 mg/dL (0.2-1.0); TOTAL PROTEIN, SERUM 7.6 g/dL (6.4-8.2)
[2016-08-07] MEDS ORDERED: GENTAMICIN SULFATE 80 MG/2 ML VIAL ONE (10:56)
[2016-08-07] MEDS ORDERED: LEVOFLOXACIN 500 MG/D5W 100 ML ONE (10:57)
[2016-08-07] MEDS ORDERED: ONDANSETRON 4 MG/2 ML VIAL IV ONE (11:00)
[2016-08-07] MEDS ORDERED: ASPI81TA31 PO (11:04)
[2016-08-07] MEDS ORDERED: MAG30ORA PO (11:04)
[2016-08-07] MEDS ORDERED: NIFE60TA2 PO (11:04)
[2016-08-07] MEDS ORDERED: ATOR20TA PO (11:04)
[2016-08-07] MEDS ORDERED: OXYB5TAB11 PO (11:04)
[2016-08-07] MEDS ORDERED: CARV12.52 PO (11:04)
[2016-08-07] MEDS ORDERED: HYDR-4076 PO (11:04)
[2016-08-07] MEDS ORDERED: CLON0.1T PO (11:04)
[2016-08-07] MEDS ORDERED: TRAM50TA2 PO (11:04)
[2016-08-07] MEDS ORDERED: MAGN400O4 PO (11:04)
[2016-08-07] MEDS ORDERED: HYDR-3326 PO (11:04)
[2016-08-07] MEDS ORDERED: ACET-2154 PO (11:04)
[2016-08-07] MEDS ORDERED: BACL10TA PO (11:04)
[2016-08-07] MEDS ORDERED: ONDANSETRON 4 MG/2 ML VIAL ONE (11:21)
--- NOTE | 2016-08-07 12:28 | NUR ---
pt was transfered to telemetry room #222. report was given to manager internet.
--- NOTE | 2016-08-07 13:00 | NUR ---
At this time patient in from ER. stable. Place on telemetry monitoring, vitals as follow 98.3, heart rate of 65, rr 20, 98% on room air. 150/60. Pt's daughter at bedside.
[2016-08-07 13:23] VITALS: BP 150/60
[2016-08-07 13:49] VITALS: BP 150/60
[2016-08-07] MEDS ORDERED: TRAMADOL HCL 50 MG TABLET PO PRN (14:30)
[2016-08-07] MEDS ORDERED: CLONIDINE HCL 0.1 MG TABLET PO PRN (14:30)
[2016-08-07] MEDS ORDERED: BACLOFEN 10 MG TABLET PO PRN (14:30)
[2016-08-07] MEDS ORDERED: hydrALAZINE HCL 25 MG TABLET PO PRN (14:30)
[2016-08-07] MEDS ORDERED: HYDROCODONE/APAP 5-325MG TABLET PO PRN (14:30)
[2016-08-07] MEDS ORDERED: MAG HYDROX/AL HYDROX/SIMETH 30 ML LIQUID UDC PO PRN (14:30)
[2016-08-07] MEDS ORDERED: MAGNESIUM HYDROXIDE 30 ML LIQUID UDC PO PRN (14:30)
[2016-08-07 16:28] VITALS: BP 145/70
[2016-08-07] MEDS: CARVEDILOL 12.5 MG TABLET PO SCH (16:46)
[2016-08-07] MEDS: OXYBUTYNIN CHLORIDE 5 MG TABLET PO SCH (16:46)
--- NOTE | 2016-08-07 17:30 | NUR ---
RECEIVED PATIENT ALERT ORIENTED RESTING IN BED, DAUGHTER AT BEDSIDE.
--- NOTE | 2016-08-07 18:00 | NUR ---
INCONTINENT OF URINE, BLADDER SANDED FOR 267CC OF URINE WILL MONITOR
--- NOTE | 2016-08-07 18:33 | NUR ---
STABLE AT THIS TIME ALL NEEDS MET REPOSITIONED IN BED HEELS FLOATED
[2016-08-07 19:00] VITALS: BP 134/55
[2016-08-07] MEDS: ATORVASTATIN 20 MG TABLET PO SCH (21:11)
[2016-08-07] MEDS: PIPERACILLIN/TAZOBACTAM/D5W 2.25 G in PREMIXED 1 EACH IV SCH (21:12)
[2016-08-07] MEDS ORDERED: PIPERACILLIN/TAZOBACTAM/D5W 3.375 G in PREMIXED 1 EACH IV SCH (22:00)
[2016-08-08 00:15] VITALS: BP 119/48
[2016-08-08 05:12] VITALS: BP 104/42
[2016-08-08 07:00] LABS: CARBON DIOXIDE 28 mmol/L (21-32); CHLORIDE 105 mmol/L (98-107); CREATININE 1.6 mg/dL (0.6-1.3); GLUCOSE 88 mg/dL (74-106); PHOSPHOROUS 3.6 mg/dL (2.5-4.9); POTASSIUM 5.3 mmol/L (3.5-5.1); UREA NITROGEN, BLOOD 22 mg/dL (7-18)
[2016-08-08 07:06] LABS: BASOPHILS % (AUTO) 0.4 % (0.0-2.0); EOSINOPHILS # (AUTO) 0.1 K/uL (0.0-0.7); EOSINOPHILS % (AUTO) 1.8 % (0.0-7.0); LYMPHOCYTES # (AUTO) 1.3 K/UL (0.8-4.8); LYMPHOCYTES % (AUTO) 20.4 % (20.5-51.5); MEAN CORPUSCULAR HEMOGLOBIN 29.7 UUG (27.0-31.0); MEAN CORPUSCULAR HGB CONC 34 g/dL (32.0-37.0); MEAN CORPUSCULAR VOLUME 88.4 FL (81.0-99.0); MONOCYTES # (AUTO) 0.6 K/UL (0.1-1.30); MONOCYTES % (AUTO) 9.1 % (0.0-11.0); NEUTROPHILS # (AUTO) 4.3 K/UL (1.8-8.9); NEUTROPHILS % (AUTO) 68.3 % (38.5-71.5); PLATELET COUNT (AUTO) 231 K/UL (150-450); WHITE BLOOD COUNT (AUTO) 6.3 K/UL (4.0-11.2)
[2016-08-08] MEDS: PIPERACILLIN/TAZOBACTAM/D5W 2.25 G in PREMIXED 1 EACH IV SCH ×3 (07:07→21:00)
[2016-08-08 07:10] LABS: HEMATOCRIT 27.5 % (37-47); HEMOGLOBIN 9.3 G/DL (12.0-16.0); RED BLOOD CELL COUNT(AUTO) 3.12 MIL/UL (4.2-5.4)
--- NOTE | 2016-08-08 07:10 | NUR ---
RECEIVED REPORT FROM SALES ANALYST, SAFETY CHECK, BED IN LOW POSITION SIDE RAILS UP X2
[2016-08-08] MEDS: OXYBUTYNIN CHLORIDE 5 MG TABLET PO SCH ×2 (08:49→17:38)
[2016-08-08] MEDS: ASPIRIN 81 MG TAB.CHEW PO SCH (08:49)
[2016-08-08] MEDS: NIFEdipine XL 60 MG TABSR PO SCH (08:55)
[2016-08-08] MEDS: CARVEDILOL 12.5 MG TABLET PO SCH ×3 (08:55→17:38)
[2016-08-08 12:00] VITALS: BP 133/54
[2016-08-08] MEDS: ENOXAPARIN SODIUM 30 MG/0.3 ML DISP.SYRIN SUBCUT SCH (13:50)
--- NOTE | 2016-08-08 14:00 | NUR ---
NEW LABS ORDERED FOR POTASSIUM TO EVALUATE PRIOR ELEVATED LEVELS. POTASSIUM WITHIN NORMAL LIMITS AT SECOND DRAW.
[2016-08-08 16:14] VITALS: BP 111/43
[2016-08-08] MEDS: IV NS 1000 ML 1,000 ML IV PRN (18:12)
[2016-08-08 19:00] VITALS: BP 108/41
--- NOTE | 2016-08-08 19:00 | NUR ---
PATIENT AWAKE, SPEAK SLOVAK BUT UNDERSTAND MALAGASY, NO SOB NO CHEST PAIN, CONT TO MONITOR.
--- NOTE | 2016-08-08 19:37 | NUR ---
REPORT GIVEN TO DIE SET UP WORKER NURSE, PATIENT HAS MILD HEADACHE
[2016-08-08] MEDS: ATORVASTATIN 20 MG TABLET PO SCH (20:51)
[2016-08-08] MEDS: ACETAMINOPHEN 325 MG TABLET PO PRN (20:59)
[2016-08-09 04:42] VITALS: BP 109/48
[2016-08-09] MEDS: PIPERACILLIN/TAZOBACTAM/D5W 2.25 G in PREMIXED 1 EACH IV SCH ×2 (05:36→14:00)
--- NOTE | 2016-08-09 06:48 | NUR ---
PATIENT AWAKE ABLE TO MAKE SOME NEEDS KNOW, NO SOB NO CHEST NOTED, VOIDING FAIRLY WELL, WITH SOAK DIAPER, X2, NO S/S OF DISTRESS.
[2016-08-09 07:17] LABS: CARBON DIOXIDE 24 mmol/L (21-32); CHLORIDE 109 mmol/L (98-107); CREATININE 1.8 mg/dL (0.6-1.3); GLUCOSE 97 mg/dL (74-106); MAGNESIUM 1.8 mg/dL (1.8-2.4); POTASSIUM 4.4 mmol/L (3.5-5.1); UREA NITROGEN, BLOOD 23 mg/dL (7-18)
--- NOTE | 2016-08-09 07:20 | NUR ---
RECEIVED REPORT FROM SOCIAL MEDIA SPECIALIST, PATIENT IN BED, LOW POSITION AND SIDE RAILS UP X2.
[2016-08-09] MEDS: CARVEDILOL 12.5 MG TABLET PO SCH ×2 (09:15→18:06)
[2016-08-09] MEDS: ASPIRIN 81 MG TAB.CHEW PO SCH (09:15)
[2016-08-09] MEDS: NIFEdipine XL 60 MG TABSR PO SCH (09:15)
[2016-08-09] MEDS: OXYBUTYNIN CHLORIDE 5 MG TABLET PO SCH ×2 (09:15→17:54)
[2016-08-09] MEDS: IV NS 1000 ML 1,000 ML IV PRN (09:18)
[2016-08-09 10:03] LABS: EOSINOPHILS # (AUTO) 0.1 K/uL (0.0-0.7); EOSINOPHILS % (AUTO) 2.4 % (0.0-7.0); HEMATOCRIT 28.1 % (37-47); HEMOGLOBIN 9.7 G/DL (12.0-16.0); LYMPHOCYTES # (AUTO) 1.2 K/UL (0.8-4.8); LYMPHOCYTES % (AUTO) 22.9 % (20.5-51.5); MEAN CORPUSCULAR HEMOGLOBIN 30.9 UUG (27.0-31.0); MEAN CORPUSCULAR HGB CONC 34 g/dL (32.0-37.0); MEAN CORPUSCULAR VOLUME 89.8 FL (81.0-99.0); MONOCYTES # (AUTO) 0.5 K/UL (0.1-1.30); MONOCYTES % (AUTO) 10.4 % (0.0-11.0); NEUTROPHILS # (AUTO) 3.4 K/UL (1.8-8.9); NEUTROPHILS % (AUTO) 64.3 % (38.5-71.5); PLATELET COUNT (AUTO) 228 K/UL (150-450); RED BLOOD CELL COUNT(AUTO) 3.13 MIL/UL (4.2-5.4); WHITE BLOOD COUNT (AUTO) 5.2 K/UL (4.0-11.2)
--- NOTE | 2016-08-09 10:30 | NUR ---
PATIENT GOT UP WITH PT, PATIENT TOLERATED WELL.
[2016-08-09 11:57] VITALS: BP 102/55
--- NOTE | 2016-08-09 12:10 | NUR ---
NOTIFIED THAT PATIENT HAS ESBL IN URINE
[2016-08-09] MEDS: ENOXAPARIN SODIUM 30 MG/0.3 ML DISP.SYRIN SUBCUT SCH (13:05)
[2016-08-09 16:11] VITALS: BP 119/50
[2016-08-09] MEDS ORDERED: MEROPENEM 0.5 G in IV NORMAL SALINE 50 ML IV SCH (17:15)
[2016-08-09] MEDS: MEROPENEM 0.5 G in IV NORMAL SALINE 50 ML IV SCH (17:55)
--- NOTE | 2016-08-09 19:30 | NUR ---
GAVE REPORT TO CLAY PIGEON SETTER NURSE. PATIENT IS IN BED SIDE RAILS UP X2, BED IN LOW POSITION
[2016-08-09 20:00] VITALS: BP 136/54
[2016-08-09] MEDS: TAMSULOSIN HCL 0.4 MG CAP.SR.24H PO SCH (20:33)
[2016-08-09] MEDS: ATORVASTATIN 20 MG TABLET PO SCH (20:34)
[2016-08-09] MEDS: ACETAMINOPHEN 325 MG TABLET PO PRN (22:06)
--- NOTE | 2016-08-10 00:45 | NUR ---
INCONTINENT OF URINE. POST VOID RESIDUAL >300ML, OBTAINED 650ML VIA STRAIGHT CATH. PROCEDURE TOLERATED WELL.
[2016-08-10 04:29] VITALS: BP 131/56
[2016-08-10] MEDS: MEROPENEM 0.5 G in IV NORMAL SALINE 50 ML IV SCH ×2 (05:22→17:12)
[2016-08-10] MEDS: IV NS 1000 ML 1,000 ML IV PRN ×2 (05:24→22:11)
--- NOTE | 2016-08-10 06:47 | NUR ---
PT IN BED, SLEPT INTERMITTENTLY, IN NO ACUTE SIGN OF DISTRESS, TURNED AND REPOSITIONED, C/O OCHOA, WAS GIVEN WITH TYLENOL PRESCRIBED. NO FURTHER C/O PAIN. SAFETY MAINTAINED. CALL LIGHT WITHIN REACH.
[2016-08-10] MEDS: ASPIRIN 81 MG TAB.CHEW PO SCH (09:37)
[2016-08-10] MEDS: CARVEDILOL 12.5 MG TABLET PO SCH ×2 (09:37→16:15)
[2016-08-10] MEDS: NIFEdipine XL 60 MG TABSR PO SCH (09:37)
[2016-08-10] MEDS: OXYBUTYNIN CHLORIDE 5 MG TABLET PO SCH ×2 (09:37→16:12)
--- NOTE | 2016-08-10 10:00 | NUR ---
VOIDED 200 ML, PVR BY BLADDER SCAN 400, IN AND OUT CATH 500 ML
[2016-08-10 11:51] LABS: *BILIRUBIN,URIN NEGATIVE (NEGATIVE); *BLOOD, URINE Trace-intact (NEGATIVE); *CLARITY,URINE CLEAR (CLEAR); *COLOR,URINE LIGHT YELLOW (YELLOW); *KETONES,URINE NEGATIVE (NEGATIVE); *PROTEIN,URINE TRACE (NEGATIVE); *UROBILINOGEN,URINE 0.2 E.U./dl (NORMAL); LEUKOCYTE ESTERASE ,URINE 1+ (NEGATIVE); NITRITE, URINE NEGATIVE (NEGATIVE); UGLUCOSE NEGATIVE (NEGATIVE)
[2016-08-10 11:54] LABS: *CREATININE,URINE 30.9 mg/dL (30-125); *URINE TOTAL PROTEIN RANDOM 24.9 mg/dL (<150/24HR)
[2016-08-10 12:16] VITALS: BP 132/51
[2016-08-10 12:22] LABS: BACTERIA,URINE NONE SEEN /HPF (NONE SEEN); SQUAMOUS EPITHELIAL CELL,UR FEW /HPF (NONE SEEN)
[2016-08-10] MEDS: ENOXAPARIN SODIUM 30 MG/0.3 ML DISP.SYRIN SUBCUT SCH (12:34)
--- NOTE | 2016-08-10 12:44 | NUR ---
NO ACUTE CHANGE
--- NOTE | 2016-08-10 12:44 | NUR ---
DENIES PAIN OR DISTRESS, CONTINUE WITH IV ANTIBIOTIC ORDERED NO ADVERSE REACTION. VOIDING FREQUENTLY
[2016-08-10 16:13] VITALS: BP 144/62
--- NOTE | 2016-08-10 17:29 | NUR ---
CONTINUE IV ANTIBIOTIC FOR UTI NO ADVERSE REACTION
--- NOTE | 2016-08-10 19:40 | NUR ---
nsg: pt received a/o x 4, arabic speaking only. denies discomfort. on cont ivf. on contact isolation for esbl of urine. cont to monitor.
[2016-08-10 20:00] VITALS: BP 130/57
--- NOTE | 2016-08-10 20:30 | NUR ---
nsg: checked post void residual, pt is retaining 625ml. inserted f/c 16 fr.
[2016-08-10] MEDS: TAMSULOSIN HCL 0.4 MG CAP.SR.24H PO SCH (20:43)
[2016-08-10] MEDS: ATORVASTATIN 20 MG TABLET PO SCH (20:43)
--- NOTE | 2016-08-11 | NUR ---
nsg: no change in condition.
[2016-08-11 04:00] VITALS: BP 123/54
--- NOTE | 2016-08-11 05:41 | NUR ---
nsg: no acute distress noted. v/s stable. f/c still in place. denies discomfort.
[2016-08-11] MEDS: MEROPENEM 0.5 G in IV NORMAL SALINE 50 ML IV SCH (06:17)
[2016-08-11 06:42] LABS: BASOPHILS % (AUTO) 0.4 % (0.0-2.0); EOSINOPHILS # (AUTO) 0.1 K/uL (0.0-0.7); HEMATOCRIT 28.9 % (37-47); HEMOGLOBIN 9.9 G/DL (12.0-16.0); LYMPHOCYTES % (AUTO) 15.5 % (20.5-51.5); MEAN CORPUSCULAR HEMOGLOBIN 30.4 UUG (27.0-31.0); MEAN CORPUSCULAR HGB CONC 34 g/dL (32.0-37.0); MEAN CORPUSCULAR VOLUME 88.7 FL (81.0-99.0); MONOCYTES # (AUTO) 0.5 K/UL (0.1-1.30); MONOCYTES % (AUTO) 8.2 % (0.0-11.0); NEUTROPHILS # (AUTO) 4.8 K/UL (1.8-8.9); NEUTROPHILS % (AUTO) 73.9 % (38.5-71.5); PLATELET COUNT (AUTO) 227 K/UL (150-450); RED BLOOD CELL COUNT(AUTO) 3.26 MIL/UL (4.2-5.4); WHITE BLOOD COUNT (AUTO) 6.4 K/UL (4.0-11.2)
[2016-08-11 07:02] LABS: ALANINE AMINOTRANSFERASE 13 U/L (14-59); ALKALINE PHOSPHATASE < 10 U/L (50-136); ASPARTATE AMINOTRANSFERASE 14 U/L (15-37); BILIRUBIN,TOTAL 0.3 mg/dL (0.2-1.0); CARBON DIOXIDE 24 mmol/L (21-32); CHLORIDE 109 mmol/L (98-107); GLUCOSE 88 mg/dL (74-106); MAGNESIUM 1.6 mg/dL (1.8-2.4); POTASSIUM 4.2 mmol/L (3.5-5.1); TOTAL PROTEIN, SERUM 6.2 g/dL (6.4-8.2); UREA NITROGEN, BLOOD 15 mg/dL (7-18)
[2016-08-11] MEDS ORDERED: MERO500V IV (07:29)
[2016-08-11] MEDS ORDERED: TAMS-3 PO (07:29)
--- NOTE | 2016-08-11 08:00 | NUR ---
RESTING IN BED NO SIGNS OF PAIN OR DISTRESS WITH FLAHERTY DRAINING CLEAR ERYN URINE. IVF ORDERED PERIPHERALLY/ AOBSERVED.
[2016-08-11] MEDS: NIFEdipine XL 60 MG TABSR PO SCH (08:53)
[2016-08-11] MEDS: ASPIRIN 81 MG TAB.CHEW PO SCH (08:53)
[2016-08-11] MEDS: CARVEDILOL 12.5 MG TABLET PO SCH ×2 (08:54→17:51)
[2016-08-11] MEDS: OXYBUTYNIN CHLORIDE 5 MG TABLET PO SCH ×2 (08:54→17:51)
--- NOTE | 2016-08-11 10:00 | NUR ---
SEEN BY DR [place] WITH ORDERS FOR DISCHARGE TO [employer] AUDRA WILL NOTIFY FAMILY
[2016-08-11 12:14] VITALS: BP 142/57
[2016-08-11] MEDS: ENOXAPARIN SODIUM 30 MG/0.3 ML DISP.SYRIN SUBCUT SCH (12:41)
[2016-08-11] MEDS ORDERED: MAGNESIUM OXIDE 400 MG TABLET PO ONE (13:00)
--- NOTE | 2016-08-11 13:00 | NUR ---
LUMBER INSPECTOR AWARE OF DC ORDER MARC ZHU NOTIFIED
--- NOTE | 2016-08-11 16:03 | NUR ---
REPORT GIVEN TO [facility] FOR CONTINUITY OF CARE
[2016-08-11 16:34] VITALS: BP 132/49
[2016-08-11 17:51] VITALS: BP 136/69
--- NOTE | 2016-08-11 18:07 | NUR ---
DISCHARGED TO [facility] STABLE
== END 2016-08-11 18:20 | DRG 871 ==
LOC: ER 09:42 → TELE 12:23 → MED 08-08 11:08
PROVIDERS: ADMIT Internal Medicine; ATTEND Internal Medicine
DX: A41.9 Sepsis, unspecified organism (principal); G92 Toxic encephalopathy; I67.4 Hypertensive encephalopathy; N39.0 Urinary tract infection, site not specified; N18.4 Chronic kidney disease, stage 4 (severe); I16.1 Hypertensive emergency; N17.9 Acute kidney failure, unspecified; Z79.82 Long term (current) use of aspirin; I12.9 Hypertensive chronic kidney disease with stage 1 through stage 4 chronic kidney disease, or unspecified chronic kidney disease; E87.5 Hyperkalemia; M19.90 Unspecified osteoarthritis, unspecified site; I51.9 Heart disease, unspecified; E78.5 Hyperlipidemia, unspecified; I67.2 Cerebral atherosclerosis; E88.81 Metabolic syndrome and other insulin resistance; D64.9 Anemia, unspecified; F03.90 Unspecified dementia, unspecified severity, without behavioral disturbance, psychotic disturbance, mood disturbance, and anxiety; I70.0 Atherosclerosis of aorta; K59.00 Constipation, unspecified; K21.9 Gastro-esophageal reflux disease without esophagitis; Z16.12 Extended spectrum beta lactamase (ESBL) resistance; N13.9 Obstructive and reflux uropathy, unspecified; Z79.899 Other long term (current) drug therapy; Z96.659 Presence of unspecified artificial knee joint; Z96.649 Presence of unspecified artificial hip joint; Z87.440 Personal history of urinary (tract) infections
CPT/HCPCS: 36415; 70030-TC; 70450; 71010; 83605; 83735; 84100; 84132; 84156; 84300; 85025; 85730; 87040; 87077; 87086; 93005; 97161; A4663; J1580; J1650; J1956; J2185; J2405; J2543; J3490

== ENCOUNTER 2016-09-29 16:21 | Emergency (ER) | payer MEDICARE, OTHER ==
[~2016-09-29] VITALS: Ht 152.4 cm; Wt 56.7 kg
[~2016-09-29 16:21] MED LIST changes: +ACET-2154 PO; -ACET-73 PO; -ASPI-605 PO; +ASPI81TA31 PO; +CARV12.52 PO; -CARV6.252 PO; -CEPH-569 PO; -ETOD400T PO; +MAG30ORA PO; -MAG30ORA2 PO; -MAGN30OR PO; +MAGN400O6 PO; +MERO500V IV; -METO-302 PO; -NIFE20CA PO; +NIFE60TA2 PO; +TAMS-3 PO
--- NOTE | 2016-09-29 16:30 | NUR ---
Dr Richardson at the bedside for eval and exam. Daughter is the main health care manager and translating for pt, pt speaks mainly armenian.
[2016-09-29] MEDS: IV NORMAL SALINE 500 ML BAG IV ONE ×2 (16:45→18:10)
[2016-09-29] MEDS: PIPERACILLIN SODIUM/TAZOBACTAM 3.375 G in IV DEXTROSE 5% 50 ML IV ONE (16:53)
[2016-09-29 17:02] LABS: *BLOOD, URINE 1+ (NEGATIVE); *CLARITY,URINE CLOUDY (CLEAR); *COLOR,URINE YELLOW (YELLOW); *KETONES,URINE NEGATIVE (NEGATIVE); *PROTEIN,URINE 2+ (NEGATIVE); *UROBILINOGEN,URINE 0.2 E.U./dl (NORMAL); LEUKOCYTE ESTERASE ,URINE 1+ (NEGATIVE); NITRITE, URINE NEGATIVE (NEGATIVE); PH,URINE 5.5 (5.0-8.0); UGLUCOSE NEGATIVE (NEGATIVE)
[2016-09-29] MEDS ORDERED: PIPERACILLIN/TAZOBACTAM/D5W 50 ML IV ONE (17:03)
[2016-09-29 17:10] LABS: BASOPHILS % (AUTO) 0.4 % (0.0-2.0); EOSINOPHILS % (AUTO) 0.2 % (0.0-7.0); HEMATOCRIT 29.6 % (37-47); HEMOGLOBIN 9.7 G/DL (12.0-16.0); LYMPHOCYTES # (AUTO) 0.8 K/UL (0.8-4.8); LYMPHOCYTES % (AUTO) 8.6 % (20.5-51.5); MEAN CORPUSCULAR HEMOGLOBIN 29.4 UUG (27.0-31.0); MEAN CORPUSCULAR HGB CONC 33 g/dL (32.0-37.0); MEAN CORPUSCULAR VOLUME 89.8 FL (81.0-99.0); MONOCYTES # (AUTO) 0.9 K/UL (0.1-1.30); MONOCYTES % (AUTO) 9.4 % (0.0-11.0); NEUTROPHILS # (AUTO) 7.5 K/UL (1.8-8.9); NEUTROPHILS % (AUTO) 81.4 % (38.5-71.5); PLATELET COUNT (AUTO) 190 K/UL (150-450); WHITE BLOOD COUNT (AUTO) 9.2 K/UL (4.0-11.2)
[2016-09-29 17:34] LABS: CARBON DIOXIDE 22 mmol/L (21-32); CHLORIDE 104 mmol/L (98-107); CREATININE 1.6 mg/dL (0.6-1.3); GLUCOSE 147 mg/dL (74-106); UREA NITROGEN, BLOOD 29 mg/dL (7-18)
[2016-09-29 17:38] LABS: *BILIRUBIN,URIN NEGATIVE (NEGATIVE)
--- NOTE | 2016-09-29 17:44 | NUR ---
Patient is resting comfortably in bed with eyes closed, NAD noted.
[2016-09-29 17:49] LABS: ALANINE AMINOTRANSFERASE 22 U/L (14-59); ALKALINE PHOSPHATASE < 10 U/L (50-136); ASPARTATE AMINOTRANSFERASE 21 U/L (15-37); BILIRUBIN,DIRECT 0.2 mg/dL (0.0-0.2); BILIRUBIN,TOTAL 0.7 mg/dL (0.2-1.0); TOTAL PROTEIN, SERUM 6.5 g/dL (6.4-8.2)
--- NOTE | 2016-09-29 17:50 | NUR ---
Paged Dr Cao per md request.
[2016-09-29 17:55] LABS: LIPASE 167 U/L (73-393)
[2016-09-29 18:00] LABS: BACTERIA,URINE MANY /HPF (NONE SEEN); SQUAMOUS EPITHELIAL CELL,UR MODERATE /HPF (NONE SEEN); WBC,URINE 80-100 /HPF (0-3)
--- NOTE | 2016-09-29 18:11 | NUR ---
Dr Richardson spoke to Dr Cao, per Dr cao's request pt will have 2nd lactic acid drawn and more fluids to be given, and then reevaluated.
--- NOTE | 2016-09-29 19:10 | NUR ---
Received report from LEONARD Young. Assumed care of pt at this time. Pt up to br with steady gait using walker. Repeat lactic drawn, awaiting results.
--- NOTE | 2016-09-29 20:27 | NUR ---
Repeat lactic resulted normal. Pt stable for discharge per MD. IV dc'd, catheter intact, drsg applied. No problems noted to site. Pt and daughter given ACI. Both verbalized understanding of dc instructions. Pt ambulated out of er with steady gait using walker.
[2016-09-29 20:30] VITALS: BP 155/59
== END 2016-09-29 20:31 | disposition home or self-care (01) ==
LOC: ER 16:21
DX: N39.0 Urinary tract infection, site not specified (principal); Z79.82 Long term (current) use of aspirin; I10 Essential (primary) hypertension; K21.9 Gastro-esophageal reflux disease without esophagitis; M19.90 Unspecified osteoarthritis, unspecified site; F03.90 Unspecified dementia, unspecified severity, without behavioral disturbance, psychotic disturbance, mood disturbance, and anxiety
CPT/HCPCS: 36415; 71010; 83605; 83690; 85025; 87040; 87077; 87086; 93005; A4663; J2543; J7030

== ENCOUNTER 2017-01-01 01:35 | Emergency (ER) | payer MEDICARE, OTHER ==
[~2017-01-01] VITALS: Ht 134.6 cm; Wt 63.5 kg
[~2017-01-01 01:35] MED LIST changes: -MERO500V IV; -TAMS-3 PO
--- NOTE | 2017-01-01 02:00 | NUR ---
Pt ambulated to room with steady gait and use of walker. Pt c/o headache from elevated bp earlier. Daughter concerned about possible hypotension or adverse reaction because pt took an extra clonidine and metoprolol for her elevated bp. Pt alert and oriented at base line per daughter, no neuro deficits noted. BP WNL at triage. Dr. Pritchett at bedside, awaiting further orders.
[2017-01-01 02:11] LABS: *BILIRUBIN,URIN NEGATIVE (NEGATIVE); *BLOOD, URINE NEGATIVE (NEGATIVE); *COLOR,URINE YELLOW (YELLOW); *KETONES,URINE NEGATIVE (NEGATIVE); *PROTEIN,URINE 2+ (NEGATIVE); *UROBILINOGEN,URINE 0.2 E.U./dl (NORMAL); LEUKOCYTE ESTERASE ,URINE TRACE (NEGATIVE); NITRITE, URINE POSITIVE (NEGATIVE); UGLUCOSE NEGATIVE (NEGATIVE)
[2017-01-01 02:13] LABS: *CLARITY,URINE HAZY (CLEAR)
[2017-01-01] MEDS ORDERED: OXYCODONE/APAP 5-325 MG TABLET PO ONE (02:15)
--- NOTE | 2017-01-01 02:15 | NUR ---
Pt medicated for discomfort, will monitor for effects of medication.
[2017-01-01 02:16] LABS: BACTERIA,URINE MANY /HPF (NONE SEEN); RBC,URINE 0-3 /HPF (0-3); SQUAMOUS EPITHELIAL CELL,UR FEW /HPF (NONE SEEN)
[2017-01-01] MEDS ORDERED: OXYCODONE/APAP 5-325 MG TABLET ONE (02:27)
--- NOTE | 2017-01-01 02:35 | NUR ---
Blood pressure remains WNL. Pt sts headache improved. Pt stable for discharge per Dr. Pritchett. Pt and daughter given ACI. Both verbalized understanding of dc instructions. Pt ambulated out of ER with steady gait using walker with ride home.
[2017-01-01 03:09] VITALS: BP 142/66
== END 2017-01-01 02:35 | disposition home or self-care (01) ==
LOC: ER 01:38
DX: R51 Headache (principal); I10 Essential (primary) hypertension; K21.9 Gastro-esophageal reflux disease without esophagitis; Z79.82 Long term (current) use of aspirin; F03.90 Unspecified dementia, unspecified severity, without behavioral disturbance, psychotic disturbance, mood disturbance, and anxiety
CPT/HCPCS: 81001; 93005; 99285; A4663

== ENCOUNTER 2017-05-22 14:43 | Emergency (ER) | payer MEDICARE, OTHER ==
[~2017-05-22] VITALS: Ht 134.6 cm; Wt 63.5 kg
--- NOTE | 2017-05-22 15:09 | NUR ---
On arrival, patient was assisted to [facility] from her own wheelchair with 2 person-assist, then patient immediately requested for a bedpan. Bedpan was given accordingly.
--- NOTE | 2017-05-22 15:29 | NUR ---
Patient refused to have the bedpan removed at the moment. Comfort & safety measures maintained.
--- NOTE | 2017-05-22 15:33 | NUR ---
Bedpan off, no micturation done.
--- NOTE | 2017-05-22 16:00 | NUR ---
DR BAUTISTA AT BEDSIDE MADE PATIENT AND DAUGHTER AWARE OF TEST RESULTS.WILL BE DC HOME.
[2017-05-22 16:08] VITALS: BP 151/78
--- NOTE | 2017-05-22 16:08 | NUR ---
Patient discharged to home in stable conditon. Written and verbal after care instructions given. Patient verbalizes understanding of instructions.
== END 2017-05-22 16:11 | disposition home or self-care (01) ==
LOC: ER 14:43
DX: G89.29 Other chronic pain (principal); M25.561 Pain in right knee; I10 Essential (primary) hypertension; K21.9 Gastro-esophageal reflux disease without esophagitis; Z79.82 Long term (current) use of aspirin; Z79.899 Other long term (current) drug therapy
CPT/HCPCS: 73502; 73551; A4663

== ENCOUNTER 2017-06-18 20:04 | Emergency (ER) | payer MEDICARE, OTHER ==
[~2017-06-18] VITALS: Ht 127 cm; Wt 55.3 kg
[2017-06-18] MEDS ORDERED: ONDANSETRON 4 MG/2 ML VIAL IV ONE (20:45)
[2017-06-18] MEDS ORDERED: IV NORMAL SALINE 500 ML BAG IV ONE (20:45)
[2017-06-18 20:53] LABS: *BILIRUBIN,URIN NEGATIVE (NEGATIVE); *BLOOD, URINE NEGATIVE (NEGATIVE); *COLOR,URINE LIGHT YELLOW (YELLOW); *KETONES,URINE NEGATIVE (NEGATIVE); *PROTEIN,URINE 1+ (NEGATIVE); *UROBILINOGEN,URINE 0.2 E.U./dl (NORMAL); LEUKOCYTE ESTERASE ,URINE 1+ (NEGATIVE); NITRITE, URINE NEGATIVE (NEGATIVE); PH,URINE 6.5 (5.0-8.0); UGLUCOSE NEGATIVE (NEGATIVE)
[2017-06-18 21:02] LABS: *CLARITY,URINE HAZY (CLEAR)
[2017-06-18 21:04] LABS: BACTERIA,URINE MANY /HPF (NONE SEEN); RBC,URINE 0-3 /HPF (0-3); SQUAMOUS EPITHELIAL CELL,UR FEW /HPF (NONE SEEN); TRANSITIONAL EPI CELLS,URINE FEW /LPF (NONE SEEN); WBC,URINE 20-50 /HPF (0-3)
[2017-06-18 21:11] LABS: BASOPHILS % (AUTO) 0.5 % (0.0-2.0); EOSINOPHILS # (AUTO) 0.1 K/uL (0.0-0.7); EOSINOPHILS % (AUTO) 1.2 % (0.0-7.0); HEMATOCRIT 35.2 % (31.2-41.9); LYMPHOCYTES # (AUTO) 1.2 K/uL (20.0-40.0); MEAN CORPUSCULAR HEMOGLOBIN 30.8 uug (24.7-32.8); MEAN CORPUSCULAR HGB CONC 34 g/dL (32.3-35.6); MEAN CORPUSCULAR VOLUME 90.3 fL (75.5-95.3); MONOCYTES # (AUTO) 0.6 K/uL (2.0-10.0); MONOCYTES % (AUTO) 6.7 % (0.0-11.0); NEUTROPHILS # (AUTO) 6.7 K/uL (1.8-8.9); NEUTROPHILS % (AUTO) 77.6 % (38.5-71.5); PLATELET COUNT (AUTO) 222 K/uL (179-408); WHITE BLOOD COUNT (AUTO) 8.6 K/uL (3.8-11.8)
[2017-06-18] MEDS ORDERED: CEFTRIAXONE 1 G in IV DEXTROSE 5% 50 ML IV ONE (21:15)
[2017-06-18] MEDS ORDERED: NITROFURANTOIN/NITROFURAN MAC 100 MG CAPSULE PO ONE (21:15)
[2017-06-18] MEDS ORDERED: ONDANSETRON 4 MG/2 ML VIAL ONE (21:16)
[2017-06-18 21:18] LABS: CARBON DIOXIDE 27 mmol/L (21-32); CHLORIDE 102 mmol/L (98-107); CREATININE 1.4 mg/dL (0.6-1.3); GLUCOSE 142 mg/dL (74-106); POTASSIUM 4.3 mmol/L (3.5-5.1); UREA NITROGEN, BLOOD 35 mg/dL (7-18)
[2017-06-18 21:23] LABS: ALANINE AMINOTRANSFERASE 20 U/L (14-59); ALKALINE PHOSPHATASE 14 U/L (50-136); ASPARTATE AMINOTRANSFERASE 15 U/L (15-37); BILIRUBIN,DIRECT 0.1 mg/dL (0.0-0.2); BILIRUBIN,TOTAL 0.5 mg/dL (0.2-1.0); LIPASE 237 U/L (73-393); TOTAL PROTEIN, SERUM 7.5 g/dL (6.4-8.2)
[2017-06-18] MEDS ORDERED: CEFTRIAXONE 1 G VIAL ONE (21:31)
[2017-06-18] MEDS ORDERED: NITROFURANTOIN/NITROFURAN MAC 100 MG CAPSULE ONE (21:31)
--- NOTE | 2017-06-18 21:43 | NUR ---
PT ALONG WITH CAREGIVER AT CT
--- NOTE | 2017-06-18 21:49 | NUR ---
PT BACK FROM CT. CAREGIVER AT BEDSIDE.
--- NOTE | 2017-06-18 23:15 | NUR ---
Patient discharged to home in stable conditon. Written and verbal after care instructions given. Patient verbalizes understanding of instructions. Peripheral IV was removed. Patient able to ambulate unassisted with steady gait. Patient left with all personal belongings.
[2017-06-18 23:24] VITALS: BP 180/76
== END 2017-06-18 23:15 | disposition home or self-care (01) ==
LOC: ER 20:05
DX: N39.0 Urinary tract infection, site not specified (principal); R11.2 Nausea with vomiting, unspecified; F03.90 Unspecified dementia, unspecified severity, without behavioral disturbance, psychotic disturbance, mood disturbance, and anxiety; I10 Essential (primary) hypertension; K21.9 Gastro-esophageal reflux disease without esophagitis; Z79.891 Long term (current) use of opiate analgesic; Z79.82 Long term (current) use of aspirin; Z79.899 Other long term (current) drug therapy
CPT/HCPCS: 36415; 70030-TC; 71045; 83690; 85025; 93005; A4663; J0696; J2405; J7030; J7060

== ENCOUNTER 2017-07-04 13:06 | Inpatient (IN) | payer MEDICARE, OTHER ==
[~2017-07-04] VITALS: Ht 127 cm; Wt 54.4 kg
[2017-07-04] MEDS ORDERED: IV NS 1000 ML 1,000 ML IV PRN (14:00)
--- NOTE | 2017-07-04 14:16 | NUR ---
CALLED/SPOKE TO CLARISSA RN-CHARGE NURSE FOR TELE BED WHOM STATED NO BEDS AVAIL AT THIS TIME AND SHE WOULD CALL ME BACK WHEN THERE WAS.
[2017-07-04 14:33] LABS: BASOPHILS % (AUTO) 0.4 % (0.0-2.0); EOSINOPHILS # (AUTO) 0.2 K/uL (0.0-0.7); HEMATOCRIT 32.2 % (31.2-41.9); HEMOGLOBIN 11.3 g/dL (10.9-14.3); LYMPHOCYTES % (AUTO) 12.7 % (20.5-51.5); MEAN CORPUSCULAR HEMOGLOBIN 31.5 uug (24.7-32.8); MEAN CORPUSCULAR HGB CONC 35 g/dL (32.3-35.6); MONOCYTES # (AUTO) 0.7 K/uL (2.0-10.0); NEUTROPHILS # (AUTO) 5.8 K/uL (1.8-8.9); NEUTROPHILS % (AUTO) 75.9 % (38.5-71.5); PLATELET COUNT (AUTO) 219 K/uL (179-408); RED BLOOD CELL COUNT(AUTO) 3.58 MIL/uL (3.63-4.92); WHITE BLOOD COUNT (AUTO) 7.7 K/uL (3.8-11.8)
[2017-07-04 14:40] LABS: CARBON DIOXIDE 26 mmol/L (21-32); CHLORIDE 107 mmol/L (98-107); CREATININE 1.3 mg/dL (0.6-1.3); GLUCOSE 108 mg/dL (74-106); POTASSIUM 4.4 mmol/L (3.5-5.1); UREA NITROGEN, BLOOD 34 mg/dL (7-18)
[2017-07-04 14:46] LABS: ALANINE AMINOTRANSFERASE 20 U/L (14-59); ALKALINE PHOSPHATASE 20 U/L (50-136); ASPARTATE AMINOTRANSFERASE 15 U/L (15-37); BILIRUBIN,TOTAL 0.3 mg/dL (0.2-1.0); CREATINE KINASE, TOTAL 29 U/L (26-192); TOTAL PROTEIN, SERUM 6.9 g/dL (6.4-8.2)
--- NOTE | 2017-07-04 14:54 | NUR ---
ALL MD ORDERS COMPLETED, PRESENTLY WAITING FOR TELE BED ASSIGNMENT. BELONGINGS LIST DONE.
[2017-07-04 14:56] LABS: *BILIRUBIN,URIN NEGATIVE (NEGATIVE); *BLOOD, URINE NEGATIVE (NEGATIVE); *CLARITY,URINE CLEAR (CLEAR); *COLOR,URINE YELLOW (YELLOW); *KETONES,URINE NEGATIVE (NEGATIVE); *PROTEIN,URINE 2+ (NEGATIVE); *UROBILINOGEN,URINE 0.2 E.U./dl (NORMAL); LEUKOCYTE ESTERASE ,URINE NEGATIVE (NEGATIVE); NITRITE, URINE NEGATIVE (NEGATIVE); PH,URINE 5.5 (5.0-8.0); UGLUCOSE NEGATIVE (NEGATIVE)
[2017-07-04 15:07] LABS: BACTERIA,URINE FEW /HPF (NONE SEEN); RBC,URINE 0-3 /HPF (0-3); SQUAMOUS EPITHELIAL CELL,UR FEW /HPF (NONE SEEN)
--- NOTE | 2017-07-04 15:26 | NUR ---
MEDICATION LIST REVIEWED WITH PT'S DAUGHTER.
--- NOTE | 2017-07-04 15:47 | NUR ---
CALLED DR RODRÍGUEZ'S OFFICE, GARDEN LABOURER STATED DR ANNE FRANCES.
[2017-07-04] MEDS ORDERED: CEFTRIAXONE 1 G VIAL ONE (16:15)
[2017-07-04] MEDS ORDERED: CEFTRIAXONE 1 G in IV DEXTROSE 5% 50 ML IV ONE (16:15)
--- NOTE | 2017-07-04 16:59 | NUR ---
SBAR REPORT TO HOMER EARLIER, ADMIT ORDER WRITTEN, BELONGINGS LIST DONE.
[2017-07-04 17:30] VITALS: BP 165/51
--- NOTE | 2017-07-04 18:00 | NUR ---
Received pt from ER. Daughter at bedside. Pt alert and oriented x 4 Citizen Of [place] speaking. Noted Left forehead bruising and bump. Offered ice pack to be applied in forehead but pt refused. IV on left forearm intact. Pt agreeable on plan of care re: fall precaution. Pt agreeable with plan of care. Bed alarm on. Call light is within reach.
[2017-07-04] MEDS ORDERED: TRAMADOL HCL 50 MG TABLET PO PRN (19:30)
[2017-07-04] MEDS ORDERED: HYDROCODONE/APAP 5-325MG TABLET PO PRN (19:30)
[2017-07-04] MEDS ORDERED: MAG HYDROX/AL HYDROX/SIMETH 30 ML LIQUID UDC PO PRN (19:30)
[2017-07-04] MEDS ORDERED: MAGNESIUM HYDROXIDE 30 ML LIQUID UDC PO PRN (19:30)
[2017-07-04] MEDS ORDERED: ONDANSETRON 4 MG/2 ML VIAL IV PRN (19:30)
[2017-07-04] MEDS ORDERED: hydrALAZINE HCL 25 MG TABLET PO PRN (19:30)
[2017-07-04] MEDS ORDERED: Z GUARD REMEDY PASTE 57 GM TUBE TOP PRN (19:30)
[2017-07-04] MEDS ORDERED: ZOLPIDEM 5 MG TABLET PO PRN (19:30)
[2017-07-04] MEDS ORDERED: CLONIDINE HCL 0.1 MG TABLET PO PRN (19:30)
--- NOTE | 2017-07-04 19:45 | NUR ---
RECEIVED PATIENT IN BED, NO SOB NO CHEST PAIN, RYTHM SINUS RYTHM, CONT ON PAIN MANAGEMENT, PATIENT HAS LEFT SIDE OF HEAD HEMATOMA DUE TO FALL FROM HOME, AND A BUMP ON HEAD, NO ALOC NOTED AT THIS TIME, CALL LIGHT WITHIN REACH.
[2017-07-04 20:45] VITALS: BP 131/59
[2017-07-04] MEDS: ACETAMINOPHEN 325 MG TABLET PO SCH (21:41)
[2017-07-04] MEDS: ATORVASTATIN 20 MG TABLET PO SCH (21:42)
[2017-07-05 00:02] VITALS: BP 92/38
[2017-07-05 04:18] VITALS: BP 122/41
--- NOTE | 2017-07-05 06:52 | NUR ---
PATIENT SLEPT MOST OF THE NIGHT NO SOB NO CHEST PAIN NOTED, ASSISTED WITH TOILETING, NO COMPLAIN OF PAIN, KEPT CLEAN DRY AND COMFORTABLE, CALL LIGHT WITHIN REACH.
[2017-07-05 06:57] LABS: CARBON DIOXIDE 24 mmol/L (21-32); CHLORIDE 109 mmol/L (98-107); CHOLESTEROL 186 mg/dL (<200); CREATININE 1.2 mg/dL (0.6-1.3); GLUCOSE 91 mg/dL (74-106); HDL CHOLESTEROL 51 mg/dL (40-60); MAGNESIUM 1.9 mg/dL (1.8-2.4); PHOSPHOROUS 5.5 mg/dL (2.5-4.9); POTASSIUM 3.9 mmol/L (3.5-5.1); TRIGLYCERIDES 98 MG/DL (30-150); UREA NITROGEN, BLOOD 32 mg/dL (7-18)
[2017-07-05 07:01] LABS: EOSINOPHILS # (AUTO) 0.2 K/uL (0.0-0.7); MEAN CORPUSCULAR HGB CONC 35 g/dL (32.3-35.6); MONOCYTES # (AUTO) 0.6 K/uL (2.0-10.0); PLATELET COUNT (AUTO) 179 K/uL (179-408)
[2017-07-05 07:34] LABS: BASOPHILS % (AUTO) 0.7 % (0.0-2.0); EOSINOPHILS % (AUTO) 3.3 % (0.0-7.0); HEMATOCRIT 29.5 % (31.2-41.9); HEMOGLOBIN 10.2 g/dL (10.9-14.3); LYMPHOCYTES % (AUTO) 18.6 % (20.5-51.5); MEAN CORPUSCULAR HEMOGLOBIN 31.3 uug (24.7-32.8); MEAN CORPUSCULAR VOLUME 90.5 fL (75.5-95.3); MONOCYTES % (AUTO) 10.9 % (0.0-11.0); NEUTROPHILS # (AUTO) 3.7 K/uL (1.8-8.9); NEUTROPHILS % (AUTO) 66.5 % (38.5-71.5); RED BLOOD CELL COUNT(AUTO) 3.26 MIL/uL (3.63-4.92)
[2017-07-05 07:37] LABS: WHITE BLOOD COUNT (AUTO) 5.5 K/uL (3.8-11.8)
--- NOTE | 2017-07-05 08:00 | NUR ---
Pt is in no acute distress. Pt right leg cramping - applied hot pack effective. IV right f/a intact. Call light is within within reach.
[2017-07-05] MEDS: OXYBUTYNIN CHLORIDE 5 MG TABLET PO SCH ×2 (08:23→16:58)
[2017-07-05] MEDS: BACLOFEN 10 MG TABLET PO SCH ×2 (08:23→16:58)
[2017-07-05] MEDS: ACETAMINOPHEN 325 MG TABLET PO SCH ×4 (08:23→20:20)
[2017-07-05] MEDS: ASPIRIN 81 MG TAB.CHEW PO SCH (08:24)
[2017-07-05] MEDS: NIFEdipine XL 60 MG TABSR PO SCH (08:25)
[2017-07-05] MEDS: CARVEDILOL 12.5 MG TABLET PO SCH ×2 (08:26→16:59)
[2017-07-05 11:06] VITALS: BP 149/49
[2017-07-05] MEDS: CEFTRIAXONE 1 G in IV DEXTROSE 5% 50 ML IV SCH (15:13)
[2017-07-05 15:15] VITALS: BP 138/39
--- NOTE | 2017-07-05 18:00 | NUR ---
pt's tolerated physical/ot eval. Call light is within reach.
[2017-07-05] MEDS: ATORVASTATIN 20 MG TABLET PO SCH (20:20)
[2017-07-05 20:58] VITALS: BP 115/52
[2017-07-06 00:06] VITALS: BP 131/44
[2017-07-06 04:36] VITALS: BP 132/48
[2017-07-06] MEDS: OXYBUTYNIN CHLORIDE 5 MG TABLET PO SCH ×2 (08:33→16:03)
[2017-07-06] MEDS: BACLOFEN 10 MG TABLET PO SCH ×2 (08:33→16:03)
[2017-07-06] MEDS: ACETAMINOPHEN 325 MG TABLET PO SCH ×4 (08:33→20:15)
[2017-07-06] MEDS: ASPIRIN 81 MG TAB.CHEW PO SCH (08:33)
[2017-07-06] MEDS: NIFEdipine XL 60 MG TABSR PO SCH (08:34)
[2017-07-06] MEDS: CARVEDILOL 12.5 MG TABLET PO SCH ×2 (09:00→16:03)
--- NOTE | 2017-07-06 09:44 | NUR ---
Pt slept well through the night. Only complaining of cramping of the right leg, which is something that happens often, according to pts daughter. Otherwise, in stable condition, VSS. Offered bedpan as needed. Call light within reach.
--- NOTE | 2017-07-06 09:49 | NUR ---
9AM coreg not given due to Pyxis drawer malfunction. Pharmacy notified. Pt did receive the 9AM Procardia XL.
[2017-07-06 11:23] VITALS: BP 158/69
--- NOTE | 2017-07-06 12:50 | NUR ---
Bedside report from glass inserter r.n. patient found sleeping. vitals stable. At 1230 patient reassessed AAOX4. no c/of pain and at this time, and patient able to transfer self to chair with minimal assistance and currently sitting at bedside. First step-mattress order cancelled. Pt's skin over all c.d.i.
[2017-07-06 15:19] VITALS: BP 150/42
[2017-07-06] MEDS: CEFTRIAXONE 1 G in IV DEXTROSE 5% 50 ML IV SCH (15:58)
[2017-07-06 20:00] VITALS: BP 124/51
--- NOTE | 2017-07-06 20:00 | NUR ---
Pt observed to be sleeping at this time, easily arousable to tactile and verbal stimuli. No apparent s/s of distress noted at this time. Bed in low, locked position. Bed alarm on. Call light within reach. Will carry out orders and continue to monitor closely.
[2017-07-06] MEDS: ATORVASTATIN 20 MG TABLET PO SCH (20:15)
[2017-07-06] MEDS: IV NS 1000 ML 1,000 ML IV SCH (20:15)
[2017-07-07 04:30] VITALS: BP_SYST 145; BP_SYST 150; BP_SYST 160; BP_DIAS 50; BP_DIAS 57; BP_DIAS 64
[2017-07-07 05:19] VITALS: BP 139/58
--- NOTE | 2017-07-07 05:27 | NUR ---
Pt slept comfortably throughout the night, and remains AAO x 3 and easily arousable to verbal and tactile stimuli. No s/s of distress noted at this time. Orthostatic BP order carried out and documented. Bed in low, locked position with bed alarm on. Call light within reach. Will continue to monitor and endorse accordingly.
[2017-07-07] MEDS: IV NS 1000 ML 1,000 ML IV SCH (05:41)
[2017-07-07 06:11] LABS: BASOPHILS % (AUTO) 0.8 % (0.0-2.0); EOSINOPHILS # (AUTO) 0.2 K/uL (0.0-0.7); EOSINOPHILS % (AUTO) 3.2 % (0.0-7.0); HEMATOCRIT 33.2 % (31.2-41.9); HEMOGLOBIN 11.6 g/dL (10.9-14.3); LYMPHOCYTES # (AUTO) 1.3 K/uL (20.0-40.0); LYMPHOCYTES % (AUTO) 20.7 % (20.5-51.5); MEAN CORPUSCULAR HEMOGLOBIN 31.2 uug (24.7-32.8); MEAN CORPUSCULAR HGB CONC 35 g/dL (32.3-35.6); MEAN CORPUSCULAR VOLUME 89.6 fL (75.5-95.3); MONOCYTES # (AUTO) 0.6 K/uL (2.0-10.0); NEUTROPHILS # (AUTO) 4.1 K/uL (1.8-8.9); NEUTROPHILS % (AUTO) 66.3 % (38.5-71.5); PLATELET COUNT (AUTO) 206 K/uL (179-408); WHITE BLOOD COUNT (AUTO) 6.2 K/uL (3.8-11.8)
[2017-07-07 06:39] LABS: IRON, SERUM 63 ug/dL (50-175)
[2017-07-07 06:58] LABS: ALANINE AMINOTRANSFERASE 18 U/L (14-59); ALKALINE PHOSPHATASE 15 U/L (50-136); ASPARTATE AMINOTRANSFERASE 16 U/L (15-37); BILIRUBIN,TOTAL 0.3 mg/dL (0.2-1.0); CARBON DIOXIDE 26 mmol/L (21-32); CHLORIDE 107 mmol/L (98-107); CREATININE 1.1 mg/dL (0.6-1.3); FERRITIN 344 ng/mL (8-252); GLUCOSE 98 mg/dL (74-106); PHOSPHOROUS 4.5 mg/dL (2.5-4.9); POTASSIUM 3.8 mmol/L (3.5-5.1); TOTAL PROTEIN, SERUM 6.6 g/dL (6.4-8.2); UREA NITROGEN, BLOOD 29 mg/dL (7-18)
--- NOTE | 2017-07-07 07:10 | NUR ---
Received patient laying in bed, in no acute distress. Denies any pain or SOB at this time. IV fluids running continuously at 100cc/hr, able to tolerate well. Will continue to monitor.
[2017-07-07] MEDS: ACETAMINOPHEN 325 MG TABLET PO SCH ×3 (08:55→16:57)
[2017-07-07] MEDS: NIFEdipine XL 60 MG TABSR PO SCH (08:55)
[2017-07-07] MEDS: CARVEDILOL 12.5 MG TABLET PO SCH ×2 (08:55→16:58)
[2017-07-07] MEDS: OXYBUTYNIN CHLORIDE 5 MG TABLET PO SCH ×2 (08:55→16:57)
[2017-07-07] MEDS: ASPIRIN 81 MG TAB.CHEW PO SCH (08:55)
[2017-07-07] MEDS: BACLOFEN 10 MG TABLET PO SCH ×2 (08:55→16:57)
[2017-07-07 11:29] VITALS: BP 114/63
[2017-07-07 15:15] VITALS: BP 142/40
[2017-07-07 16:58] VITALS: BP 142/40
--- NOTE | 2017-07-07 18:05 | NUR ---
End of shift note: patient is alert and oriented x4, in no acute distress. Denies any pain or SOB at this time. Assisted to the bathroom as needed. Patient scheduled for discharge home today, awaiting for daughter to come pick her up. Will continue to monitor.
--- NOTE | 2017-07-07 19:02 | NUR ---
Patient was discharged to home accompanied by daughter via private car, in stable condition. Discharge instructions were given, paperworks were signed. Instructed patient to follow up with PCP in one week. Left the hospital in stable condition.
== END 2017-07-07 19:00 | disposition home or self-care (01) | DRG 74 ==
LOC: ER 13:06 → TELE 17:03 → MED 07-06 20:15
PROVIDERS: ADMIT Internal Medicine; ATTEND Internal Medicine
DX: G90.8 Other disorders of autonomic nervous system (principal); D64.9 Anemia, unspecified; D50.0 Iron deficiency anemia secondary to blood loss (chronic); E86.0 Dehydration; E78.5 Hyperlipidemia, unspecified; S00.03XA Contusion of scalp, initial encounter; N39.0 Urinary tract infection, site not specified; R55 Syncope and collapse; W18.30XA Fall on same level, unspecified, initial encounter; I12.9 Hypertensive chronic kidney disease with stage 1 through stage 4 chronic kidney disease, or unspecified chronic kidney disease; M19.90 Unspecified osteoarthritis, unspecified site; Y92.013 Bedroom of single-family (private) house as the place of occurrence of the external cause; Z96.652 Presence of left artificial knee joint; Z96.642 Presence of left artificial hip joint; N18.9 Chronic kidney disease, unspecified
CPT/HCPCS: 36415; 70030-TC; 70450; 71045; 72170; 73551; 83550; 83735; 84100; 84443; 85025; 85610; 93005; 93307; 93880; 97110; 97112; 97165; A4663; J0696; J7030; J7060

== ENCOUNTER 2017-09-09 13:25 | Emergency (ER) | payer MEDICARE, OTHER ==
[~2017-09-09] VITALS: Ht 147.3 cm; Wt 52.2 kg
[2017-09-09] MEDS ORDERED: MORPHINE SULFATE 4 MG/1 ML DISP.SYRIN ONE (14:56)
[2017-09-09] MEDS ORDERED: ONDANSETRON 4 MG/2 ML VIAL ONE (14:56)
[2017-09-09] MEDS ORDERED: MORPHINE SULFATE 4 MG/1 ML DISP.SYRIN IM ONE (15:00)
[2017-09-09] MEDS ORDERED: ONDANSETRON 4 MG/2 ML VIAL IM ONE (15:00)
--- NOTE | 2017-09-09 15:00 | NUR ---
ELLIE COMNPLETED, MEDS ADMIN, PT D/C'D HOME. PT GOT DRESSED AND AMBULATED WITHOUT DIFF W DAUGHTER.
[2017-09-09 15:02] VITALS: BP 144/77
== END 2017-09-09 15:03 | disposition home or self-care (01) ==
LOC: ER 13:25
DX: M47.816 Spondylosis without myelopathy or radiculopathy, lumbar region (principal); I10 Essential (primary) hypertension; K21.9 Gastro-esophageal reflux disease without esophagitis; Z79.891 Long term (current) use of opiate analgesic; Z79.82 Long term (current) use of aspirin; Z79.899 Other long term (current) drug therapy
CPT/HCPCS: 72192; A4663; J2270; J2405

== ENCOUNTER 2017-09-16 18:13 | Emergency (ER) | payer MEDICARE, OTHER ==
[~2017-09-16] VITALS: Ht 129.5 cm; Wt 55.8 kg
--- NOTE | 2017-09-16 18:30 | NUR ---
assissted md to examin pt breasts.
[2017-09-16] MEDS ORDERED: ONDANSETRON 4 MG/2 ML VIAL ONE (18:45)
[2017-09-16] MEDS ORDERED: HYDROMORPHONE 1 MG/1 ML DISP.SYRIN IM ONE (18:45)
[2017-09-16] MEDS ORDERED: ONDANSETRON 4 MG/2 ML VIAL IM ONE (18:45)
[2017-09-16] MEDS ORDERED: HYDROMORPHONE 2 MG/1 ML DISP.SYRIN ONE (18:45)
--- NOTE | 2017-09-16 18:54 | NUR ---
Patient discharged to home in stable conditon. Written and verbal after care instructions given. Patient verbalizes understanding of instructions.pt with famiy members.
[2017-09-16 18:55] VITALS: BP 158/64
== END 2017-09-16 18:56 | disposition home or self-care (01) ==
LOC: ER 18:15
DX: M19.90 Unspecified osteoarthritis, unspecified site (principal); M25.559 Pain in unspecified hip; M79.604 Pain in right leg; I10 Essential (primary) hypertension; K21.9 Gastro-esophageal reflux disease without esophagitis; Z79.891 Long term (current) use of opiate analgesic; Z79.82 Long term (current) use of aspirin; Z79.899 Other long term (current) drug therapy
CPT/HCPCS: A4663; J1170; J2405

== ENCOUNTER 2017-09-23 18:20 | Emergency (ER) | payer MEDICARE, OTHER ==
[~2017-09-23] VITALS: Ht 121.9 cm; Wt 55.8 kg
--- NOTE | 2017-09-23 18:59 | NUR ---
SBAR REPORT TO PM SHIFT
[2017-09-23] MEDS ORDERED: diphenhydrAMINE 25 MG CAP PO ONE ×2 (19:30→19:41)
[2017-09-23 19:43] LABS: BASOPHILS % (AUTO) 0.5 % (0.0-2.0); EOSINOPHILS # (AUTO) 0.4 K/uL (0.0-0.7); EOSINOPHILS % (AUTO) 5.5 % (0.0-7.0); HEMOGLOBIN 11.8 g/dL (10.9-14.3); LYMPHOCYTES # (AUTO) 1.1 K/uL (20.0-40.0); LYMPHOCYTES % (AUTO) 14.8 % (20.5-51.5); MEAN CORPUSCULAR HEMOGLOBIN 31.7 uug (24.7-32.8); MEAN CORPUSCULAR HGB CONC 35 g/dL (32.3-35.6); MEAN CORPUSCULAR VOLUME 91.4 fL (75.5-95.3); MONOCYTES # (AUTO) 0.8 K/uL (2.0-10.0); MONOCYTES % (AUTO) 10.2 % (0.0-11.0); NEUTROPHILS # (AUTO) 5.2 K/uL (1.8-8.9); PLATELET COUNT (AUTO) 211 K/uL (179-408); RED BLOOD CELL COUNT(AUTO) 3.72 MIL/uL (3.63-4.92); WHITE BLOOD COUNT (AUTO) 7.6 K/uL (3.8-11.8)
[2017-09-23 19:44] LABS: *BILIRUBIN,URIN NEGATIVE (NEGATIVE); *BLOOD, URINE Trace-intact (NEGATIVE); *COLOR,URINE YELLOW (YELLOW); *KETONES,URINE NEGATIVE (NEGATIVE); *PROTEIN,URINE 2+ (NEGATIVE); *UROBILINOGEN,URINE 0.2 E.U./dl (NORMAL); LEUKOCYTE ESTERASE ,URINE 1+ (NEGATIVE); NITRITE, URINE POSITIVE (NEGATIVE); UGLUCOSE NEGATIVE (NEGATIVE)
[2017-09-23 19:52] LABS: CARBON DIOXIDE 26 mmol/L (21-32); CHLORIDE 104 mmol/L (98-107); CREATININE 1.4 mg/dL (0.6-1.3); GLUCOSE 140 mg/dL (74-106); POTASSIUM 3.9 mmol/L (3.5-5.1); UREA NITROGEN, BLOOD 33 mg/dL (7-18)
[2017-09-23 19:53] LABS: *CLARITY,URINE SLIGHTLY CLOUDY (CLEAR)
[2017-09-23 19:55] LABS: BACTERIA,URINE MANY /HPF (NONE SEEN); SQUAMOUS EPITHELIAL CELL,UR FEW /HPF (NONE SEEN); WBC,URINE 50-80 /HPF (0-3)
[2017-09-23 19:58] LABS: ALANINE AMINOTRANSFERASE 18 U/L (14-59); ALKALINE PHOSPHATASE 24 U/L (50-136); ASPARTATE AMINOTRANSFERASE 12 U/L (15-37); BILIRUBIN,DIRECT 0.1 mg/dL (0.0-0.2); BILIRUBIN,TOTAL 0.4 mg/dL (0.2-1.0); TOTAL PROTEIN, SERUM 6.6 g/dL (6.4-8.2)
--- NOTE | 2017-09-23 20:01 | NUR ---
PT IN ROUTE TO CT IN [facility] WITH TRANSPORTER
--- NOTE | 2017-09-23 20:13 | NUR ---
PT RETURNS FROM CT IN [facility] WITH TRANSPORTER
[2017-09-23] MEDS ORDERED: CEPHALEXIN MONOHYDRATE 500 MG CAPSULE PO ONE (20:15)
[2017-09-23] MEDS ORDERED: CEPHALEXIN MONOHYDRATE 500 MG CAPSULE ONE (20:21)
[2017-09-23] MEDS ORDERED: CLONIDINE HCL 0.1 MG TABLET PO ONE (20:30)
--- NOTE | 2017-09-23 20:41 | NUR ---
PT AND PT'S DAUGHTER DECIDED TO TAKE HOME MED THAT WERE IN PATIENT'S POSSESSION AT BEDSIDE INSTEAD OF ORDERED ED MEDS. MADE AWARE.
--- NOTE | 2017-09-23 21:18 | NUR ---
Patient discharged to home in stable conditon. Written and verbal after care instructions given. Patient verbalizes understanding of instructions. Patient left assisted by daughter with walker. Patient left with all personal belongings.
[2017-09-23 21:47] VITALS: BP 188/74
== END 2017-09-23 21:18 | disposition home or self-care (01) ==
LOC: ER 18:22
DX: I10 Essential (primary) hypertension (principal); N39.0 Urinary tract infection, site not specified; R55 Syncope and collapse; K21.9 Gastro-esophageal reflux disease without esophagitis; M81.0 Age-related osteoporosis without current pathological fracture; F03.90 Unspecified dementia, unspecified severity, without behavioral disturbance, psychotic disturbance, mood disturbance, and anxiety; E78.5 Hyperlipidemia, unspecified; Z79.891 Long term (current) use of opiate analgesic; Z79.82 Long term (current) use of aspirin; Z79.899 Other long term (current) drug therapy
CPT/HCPCS: 36415; 70030-TC; 70450; 71045; 85025; 85730; 87077; 87086; 93005; A4663; Q0163

== ENCOUNTER 2017-11-25 17:01 | Emergency (ER) | payer MEDICARE, OTHER ==
[~2017-11-25] VITALS: Ht 127 cm; Wt 55.8 kg
[2017-11-25 17:37] LABS: BASOPHILS # (AUTO) 0.1 K/uL (0.0-8.0); BASOPHILS % (AUTO) 0.8 % (0.0-2.0); EOSINOPHILS # (AUTO) 0.1 K/uL (0.0-0.7); EOSINOPHILS % (AUTO) 2.3 % (0.0-7.0); HEMATOCRIT 35.7 % (31.2-41.9); HEMOGLOBIN 12.2 g/dL (10.9-14.3); LYMPHOCYTES # (AUTO) 1.1 K/uL (20.0-40.0); LYMPHOCYTES % (AUTO) 17.3 % (20.5-51.5); MEAN CORPUSCULAR HEMOGLOBIN 31.2 uug (24.7-32.8); MEAN CORPUSCULAR HGB CONC 34 g/dL (32.3-35.6); MEAN CORPUSCULAR VOLUME 91.6 fL (75.5-95.3); MONOCYTES # (AUTO) 0.5 K/uL (2.0-10.0); MONOCYTES % (AUTO) 8.4 % (0.0-11.0); NEUTROPHILS # (AUTO) 4.6 K/uL (1.8-8.9); NEUTROPHILS % (AUTO) 71.2 % (38.5-71.5); PLATELET COUNT (AUTO) 222 K/uL (179-408); RED BLOOD CELL COUNT(AUTO) 3.89 MIL/uL (3.63-4.92); WHITE BLOOD COUNT (AUTO) 6.5 K/uL (3.8-11.8)
[2017-11-25 17:47] LABS: ALANINE AMINOTRANSFERASE 18 U/L (14-59); ALKALINE PHOSPHATASE 21 U/L (50-136); ASPARTATE AMINOTRANSFERASE 14 U/L (15-37); BILIRUBIN,DIRECT 0.1 mg/dL (0.0-0.2); BILIRUBIN,TOTAL 0.3 mg/dL (0.2-1.0); CARBON DIOXIDE 25 mmol/L (21-32); CHLORIDE 108 mmol/L (98-107); CREATININE 1.4 mg/dL (0.6-1.3); GLUCOSE 121 mg/dL (74-106); POTASSIUM 4.5 mmol/L (3.5-5.1); TOTAL PROTEIN, SERUM 7.4 g/dL (6.4-8.2); UREA NITROGEN, BLOOD 44 mg/dL (7-18)
[2017-11-25 17:55] LABS: *BILIRUBIN,URIN NEGATIVE (NEGATIVE); *BLOOD, URINE Trace-intact (NEGATIVE); *COLOR,URINE YELLOW (YELLOW); *KETONES,URINE NEGATIVE (NEGATIVE); *PROTEIN,URINE 2+ (NEGATIVE); *UROBILINOGEN,URINE 0.2 E.U./dl (NORMAL); LEUKOCYTE ESTERASE ,URINE TRACE (NEGATIVE); NITRITE, URINE NEGATIVE (NEGATIVE); PH,URINE 5.5 (5.0-8.0); UGLUCOSE NEGATIVE (NEGATIVE)
[2017-11-25] MEDS ORDERED: MORPHINE SULFATE 4 MG/1 ML DISP.SYRIN ONE (17:56)
[2017-11-25 17:58] LABS: *CLARITY,URINE SLIGHTLY HAZY (CLEAR)
[2017-11-25 18:00] LABS: RBC,URINE 0-3 /HPF (0-3)
[2017-11-25] MEDS ORDERED: MORPHINE SULFATE 4 MG/1 ML DISP.SYRIN IM ONE (18:00)
[2017-11-25 18:01] LABS: MUCUS,URINE MODERATE /LPF (0-FEW); SQUAMOUS EPITHELIAL CELL,UR FEW /HPF (NONE SEEN)
[2017-11-25] MEDS ORDERED: ONDANSETRON ODT 4 MG TAB.RAPDIS ONE (18:43)
[2017-11-25] MEDS ORDERED: ONDANSETRON ODT 4 MG TAB.RAPDIS SL ONE (19:00)
[2017-11-25 19:46] VITALS: BP 159/69
== END 2017-11-25 19:49 | disposition home or self-care (01) ==
LOC: ER 17:03
DX: N39.0 Urinary tract infection, site not specified (principal); M54.5 Low back pain; R07.89 Other chest pain; I10 Essential (primary) hypertension; K21.9 Gastro-esophageal reflux disease without esophagitis; E78.5 Hyperlipidemia, unspecified
CPT/HCPCS: 36415; 71045; 85025; 87077; 87086; 93005; A4663; C1758; J2270; Q0162

== ENCOUNTER 2017-12-19 16:56 | Inpatient (IN) | payer MEDICARE, OTHER ==
[~2017-12-19] VITALS: Ht 129.5 cm; Wt 52.2 kg
[~2017-12-19 16:56] MED LIST changes: -ACET-2154 PO; -BACL10TA PO; -CLON0.1T PO; -HYDR-3326 PO; -HYDR-4076 PO; -MAG30ORA PO; -MAGN400O6 PO
[2017-12-19] MEDS ORDERED: predniSONE 20 MG TABLET ONE (17:41)
[2017-12-19] MEDS ORDERED: HYDROCODONE/APAP 10-325 MG TABLET ONE (17:41)
[2017-12-19] MEDS ORDERED: ONDANSETRON ODT 4 MG TAB.RAPDIS ONE (17:42)
[2017-12-19] MEDS ORDERED: ACETAMINOPHEN ES 500 MG TABLET PO ONE (17:45)
[2017-12-19] MEDS ORDERED: ACETAMINOPHEN ES 500 MG TABLET ONE (17:46)
[2017-12-19 17:48] LABS: BASOPHILS % (AUTO) 0.5 % (0.0-2.0); EOSINOPHILS # (AUTO) 0.3 K/uL (0.0-0.7); EOSINOPHILS % (AUTO) 3.4 % (0.0-7.0); HEMATOCRIT 35.4 % (31.2-41.9); HEMOGLOBIN 11.8 g/dL (10.9-14.3); LYMPHOCYTES # (AUTO) 1.1 K/uL (20.0-40.0); LYMPHOCYTES % (AUTO) 14.7 % (20.5-51.5); MEAN CORPUSCULAR HEMOGLOBIN 30.7 uug (24.7-32.8); MEAN CORPUSCULAR HGB CONC 33 g/dL (32.3-35.6); MEAN CORPUSCULAR VOLUME 92.2 fL (75.5-95.3); MONOCYTES # (AUTO) 0.6 K/uL (2.0-10.0); MONOCYTES % (AUTO) 7.9 % (0.0-11.0); NEUTROPHILS # (AUTO) 5.4 K/uL (1.8-8.9); NEUTROPHILS % (AUTO) 73.5 % (38.5-71.5); PLATELET COUNT (AUTO) 222 K/uL (179-408); RED BLOOD CELL COUNT(AUTO) 3.83 MIL/uL (3.63-4.92); WHITE BLOOD COUNT (AUTO) 7.4 K/uL (3.8-11.8)
--- NOTE | 2017-12-19 17:56 | NUR ---
PT IS IN ROOM #1A.
[2017-12-19 18:02] LABS: CARBON DIOXIDE 29 mmol/L (21-32); CHLORIDE 105 mmol/L (98-107); CREATININE 1.2 mg/dL (0.6-1.3); GLUCOSE 111 mg/dL (74-106); POTASSIUM 4.7 mmol/L (3.5-5.1); UREA NITROGEN, BLOOD 37 mg/dL (7-18)
[2017-12-19 18:08] LABS: ALANINE AMINOTRANSFERASE 16 U/L (14-59); ALKALINE PHOSPHATASE 21 U/L (50-136); ASPARTATE AMINOTRANSFERASE 14 U/L (15-37); BILIRUBIN,DIRECT 0.1 mg/dL (0.0-0.2); BILIRUBIN,TOTAL 0.4 mg/dL (0.2-1.0); TOTAL PROTEIN, SERUM 7.5 g/dL (6.4-8.2)
[2017-12-19] MEDS ORDERED: ACET325T53 PO (18:43)
--- NOTE | 2017-12-19 18:58 | NUR ---
REPORT GIVEN TO CAREER DEVELOPMENT ASSOCIATE RN.
--- NOTE | 2017-12-19 19:49 | NUR ---
Pt. admitted to Telemetry , under care of Dr. Suarez. Diagnosis: Syncope. Belongs List completed. Report given to Nara VALLE.
--- NOTE | 2017-12-19 20:15 | NUR ---
Received pt via [employer]. Pt awake, alert and oriented x3. Kiswahili speaking. Pt placed on tele SR-SB at HR 58-60. Plan of care discussed and reviewed. Pertinent assessments done. Unit orientation provided. Safety precautions and comfort measures implemented. Call light within reach. Will continue to monitor closely.
[2017-12-19 20:39] VITALS: BP 178/82
[2017-12-19] MEDS: CARVEDILOL 12.5 MG TABLET PO SCH (22:06)
[2017-12-19] MEDS: OXYBUTYNIN CHLORIDE 5 MG TABLET PO SCH (22:06)
[2017-12-19] MEDS: ATORVASTATIN 20 MG TABLET PO SCH (22:06)
[2017-12-20] VITALS: BP 125/41
[2017-12-20 04:00] VITALS: BP 158/46
[2017-12-20] MEDS: ACETAMINOPHEN 325 MG TABLET PO PRN ×3 (04:45→23:36)
[2017-12-20 06:02] LABS: BASOPHILS % (AUTO) 0.5 % (0.0-2.0); EOSINOPHILS # (AUTO) 0.2 K/uL (0.0-0.7); EOSINOPHILS % (AUTO) 4.3 % (0.0-7.0); HEMATOCRIT 30.1 % (31.2-41.9); HEMOGLOBIN 10.3 g/dL (10.9-14.3); LYMPHOCYTES # (AUTO) 1.2 K/uL (20.0-40.0); LYMPHOCYTES % (AUTO) 22.8 % (20.5-51.5); MEAN CORPUSCULAR HEMOGLOBIN 30.7 uug (24.7-32.8); MEAN CORPUSCULAR HGB CONC 34 g/dL (32.3-35.6); MEAN CORPUSCULAR VOLUME 90.4 fL (75.5-95.3); MONOCYTES # (AUTO) 0.5 K/uL (2.0-10.0); MONOCYTES % (AUTO) 9.9 % (0.0-11.0); NEUTROPHILS # (AUTO) 3.4 K/uL (1.8-8.9); NEUTROPHILS % (AUTO) 62.5 % (38.5-71.5); PLATELET COUNT (AUTO) 181 K/uL (179-408); RED BLOOD CELL COUNT(AUTO) 3.33 MIL/uL (3.63-4.92); WHITE BLOOD COUNT (AUTO) 5.5 K/uL (3.8-11.8)
[2017-12-20 06:24] LABS: ALANINE AMINOTRANSFERASE 12 U/L (14-59); ALKALINE PHOSPHATASE 16 U/L (50-136); ASPARTATE AMINOTRANSFERASE 11 U/L (15-37); BILIRUBIN,TOTAL 0.4 mg/dL (0.2-1.0); CARBON DIOXIDE 25 mmol/L (21-32); CHLORIDE 107 mmol/L (98-107); CREATININE 1.2 mg/dL (0.6-1.3); GLUCOSE 107 mg/dL (74-106); TOTAL PROTEIN, SERUM 6.4 g/dL (6.4-8.2); UREA NITROGEN, BLOOD 35 mg/dL (7-18)
--- NOTE | 2017-12-20 06:35 | NUR ---
Pt resting comfortably in bed, easily arousable by name call and touch. Pt alert and oriented x4. Tele noted SR-SB with HR of 58. Pain meds given x1 with effect. Compliant with care. Pt shows no s/s of acute distress. No complaints of pain at this time. Safety precautions initiated, bed alarm on and in low locked position. Call light within reach. Will continue to monitor.
[2017-12-20] MEDS ORDERED: TRAMADOL HCL 50 MG TABLET PO PRN (07:15)
[2017-12-20] MEDS ORDERED: ACETAMINOPHEN 325 MG TABLET PO PRN (07:15)
[2017-12-20] MEDS ORDERED: CARVEDILOL 12.5 MG TABLET PO SCH (08:00)
--- NOTE | 2017-12-20 08:00 | NUR ---
awake alert speak tamazight but able to follow simple direction well no acute distress or pain on aspiration and fall precaution BED ALERM ON AND CALL LIGHT IN REACH EAT BREAKFAST WITH GOOD APPETITE
[2017-12-20] MEDS: ASPIRIN 81 MG TAB.CHEW PO SCH (08:37)
[2017-12-20] MEDS: CARVEDILOL 12.5 MG TABLET PO SCH ×2 (08:37→16:58)
[2017-12-20] MEDS: OXYBUTYNIN CHLORIDE 5 MG TABLET PO SCH ×2 (08:37→20:14)
[2017-12-20] MEDS ORDERED: OXYBUTYNIN CHLORIDE 5 MG TABLET PO SCH (09:00)
[2017-12-20] MEDS ORDERED: ASPIRIN 81 MG TAB.CHEW PO SCH (09:00)
[2017-12-20] MEDS ORDERED: NIFEdipine XL 60 MG TABSR PO SCH (09:00)
--- NOTE | 2017-12-20 09:40 | NUR ---
URINE UA AND C&S SENT TO LAB THIS AM
[2017-12-20 11:02] LABS: *BILIRUBIN,URIN NEGATIVE (NEGATIVE); *BLOOD, URINE NEGATIVE (NEGATIVE); *CLARITY,URINE SLIGHTLY CLOUDY (CLEAR); *COLOR,URINE YELLOW (YELLOW); *KETONES,URINE NEGATIVE (NEGATIVE); *PROTEIN,URINE 2+ (NEGATIVE); *UROBILINOGEN,URINE 0.2 E.U./dl (NORMAL); LEUKOCYTE ESTERASE ,URINE 1+ (NEGATIVE); NITRITE, URINE POSITIVE (NEGATIVE); PH,URINE 5.5 (5.0-8.0); UGLUCOSE NEGATIVE (NEGATIVE)
[2017-12-20 11:15] VITALS: BP 136/41
[2017-12-20 11:15] LABS: BACTERIA,URINE MANY /HPF (NONE SEEN); WBC,URINE 80-100 /HPF (0-3)
[2017-12-20 11:17] LABS: SQUAMOUS EPITHELIAL CELL,UR FEW /HPF (NONE SEEN)
--- NOTE | 2017-12-20 13:30 | NUR ---
DR DURÁN HERE PT LAB AND URINE RESULT NOTIFY NEW MED ANTIBIOTICS WAS ORDERED
[2017-12-20] MEDS: CIPROFLOXACIN HCL 250 MG TABLET PO SCH ×4 (14:10→20:14)
[2017-12-20 15:44] VITALS: BP 141/49
--- NOTE | 2017-12-20 18:00 | NUR ---
STABLE HEMODYNAMIC STATUS ,NO ACUTE DISTRESS PAIN UNDER CONTROL SAFETY MEASURE PROVIDED CALL LIGHT IN REACH AND REMIND TO CALL WHEN NEED
[2017-12-20 19:17] VITALS: BP 118/49
--- NOTE | 2017-12-20 20:00 | NUR ---
Received patient laying comfortably in bed. No acute distress noted. A/O x 3. Mainly Icelandic speaking but able to make her needs known in Marshallese. TELE SB at 64. FWW at bedside. Denies pain or SOB. IV on the right FA, patent and intact. Noted right shoulder bruise. Safety initiated. Call light within reach. Bed is kept in low and locked position. Will continue to monitor.
[2017-12-20] MEDS: ATORVASTATIN 20 MG TABLET PO SCH (20:14)
[2017-12-20] MEDS ORDERED: ATORVASTATIN 20 MG TABLET PO SCH (21:00)
[2017-12-20 23:38] VITALS: BP 168/46
--- NOTE | 2017-12-21 00:41 | NUR ---
B/P elevated 184/47 HR 61, 176/[address] Ko, he ordered Nitropaste 1/2 inch on CW Q6H, HOLD FOR SPB < 110. Will continue to monitor.
[2017-12-21] MEDS: NITROGLYCERIN OINT 1 GM PACKET TP SCH ×5 (00:52→23:10)
[2017-12-21] MEDS: TRAMADOL HCL 50 MG TABLET PO PRN ×2 (02:07→20:06)
[2017-12-21 03:21] VITALS: BP 158/46
--- NOTE | 2017-12-21 06:01 | NUR ---
Patient slept intermittently t/o shift. C/o back pain, medications given, stated relief. At midnight rounding, her BP was elevated. MD made aware, new orders executed. Latest BP was 158/46 HR 52. Patient remains in room air. Sating at 96-98%. TELE SB at 55. IV on the right AC remains patent and intact. Good urine output. Ambulates with a FWW. Safety and comfort measures maintained t/o shift. All meds given as ordered. All needs met.
[2017-12-21] MEDS: OXYBUTYNIN CHLORIDE 5 MG TABLET PO SCH ×2 (07:59→20:01)
[2017-12-21] MEDS: CARVEDILOL 12.5 MG TABLET PO SCH ×2 (07:59→17:13)
[2017-12-21] MEDS: ACETAMINOPHEN 325 MG TABLET PO PRN (07:59)
[2017-12-21] MEDS: ASPIRIN 81 MG TAB.CHEW PO SCH (07:59)
--- NOTE | 2017-12-21 08:00 | NUR ---
awake alert belgian speaking C/O OF COUGHING A LOT AND SOME NAUSEA AFTER EAT BREAKFAST NO ACUTE DISTRESS RESTING QUIET WITH CALL LIGHT IN REACH AND ON FALL PRECAUTION
[2017-12-21] MEDS: CIPROFLOXACIN HCL 250 MG TABLET PO SCH ×2 (08:06→20:01)
[2017-12-21 11:12] VITALS: BP 136/43
--- NOTE | 2017-12-21 13:30 | NUR ---
DR BIRMINGHAM WAS HERE .PATIENT CONDITION URINE CULTURE RESULT WAS GM NEGATIVE ALEXANDRA NOTIFY NO NEW ORDER
[2017-12-21 15:28] VITALS: BP 151/48
--- NOTE | 2017-12-21 19:10 | NUR ---
RECEIVED PT AWAKE ON BED, AAOX3, ITALIAN SPEAKING BUT ABLE TO FOLLOW INSTRUCTIONS. DENIES ANY SOB OR CHEST PAIN. IV SITE ON RAC, PATENT AND INTACT. SAFETY MEASURES INITIATED. PT BELONGINGS, WALKER AND CALL LIGHT WITHIN REACH
[2017-12-21 19:12] VITALS: BP 166/50
[2017-12-21] MEDS: ATORVASTATIN 20 MG TABLET PO SCH (20:02)
[2017-12-22 03:15] VITALS: BP 159/46
[2017-12-22] MEDS: NITROGLYCERIN OINT 1 GM PACKET TP SCH ×2 (06:23→13:17)
[2017-12-22 06:24] LABS: BASOPHILS # (AUTO) 0.1 K/uL (0.0-8.0); BASOPHILS % (AUTO) 0.7 % (0.0-2.0); EOSINOPHILS # (AUTO) 0.2 K/uL (0.0-0.7); HEMOGLOBIN 10.5 g/dL (10.9-14.3); LYMPHOCYTES # (AUTO) 1.3 K/uL (20.0-40.0); LYMPHOCYTES % (AUTO) 16.9 % (20.5-51.5); MEAN CORPUSCULAR HGB CONC 35 g/dL (32.3-35.6); MEAN CORPUSCULAR VOLUME 91.6 fL (75.5-95.3); MONOCYTES # (AUTO) 0.8 K/uL (2.0-10.0); MONOCYTES % (AUTO) 10.9 % (0.0-11.0); NEUTROPHILS # (AUTO) 5.1 K/uL (1.8-8.9); NEUTROPHILS % (AUTO) 68.5 % (38.5-71.5); PLATELET COUNT (AUTO) 181 K/uL (179-408); RED BLOOD CELL COUNT(AUTO) 3.28 MIL/uL (3.63-4.92); WHITE BLOOD COUNT (AUTO) 7.5 K/uL (3.8-11.8)
[2017-12-22 06:36] LABS: ALANINE AMINOTRANSFERASE 12 U/L (14-59); ALKALINE PHOSPHATASE 13 U/L (50-136); ASPARTATE AMINOTRANSFERASE 11 U/L (15-37); BILIRUBIN,TOTAL 0.3 mg/dL (0.2-1.0); CARBON DIOXIDE 27 mmol/L (21-32); CHLORIDE 105 mmol/L (98-107); CREATININE 1.4 mg/dL (0.6-1.3); GLUCOSE 88 mg/dL (74-106); MAGNESIUM 1.8 mg/dL (1.8-2.4); PHOSPHOROUS 5.1 mg/dL (2.5-4.9); POTASSIUM 4.2 mmol/L (3.5-5.1); TOTAL PROTEIN, SERUM 6.5 g/dL (6.4-8.2); UREA NITROGEN, BLOOD 31 mg/dL (7-18)
--- NOTE | 2017-12-22 06:55 | NUR ---
PT RESTING COMFORTABLY ON BED, DENIES ANY DISCOMFORT AT THIS TIME. IV SITE ON RAC, PATENT AND INTACT. SAFE ENVIRONMENT MAINTAINED AT ALL TIMES, CALL DUMAS WITHIN REACH.
--- NOTE | 2017-12-22 07:30 | NUR ---
PATIENT AOX3 IN BED AWAKE. EQUATORIAL GUINEAN AND CENTRAL AFRICAN SPEAKING. RIGHT AC IV SALINE LOCKED. FLUSHING WELL. PATIENT DENIES DISCOMFORT AT THIS TIME
[2017-12-22] MEDS: OXYBUTYNIN CHLORIDE 5 MG TABLET PO SCH (08:48)
[2017-12-22] MEDS: ASPIRIN 81 MG TAB.CHEW PO SCH (08:48)
[2017-12-22] MEDS: CIPROFLOXACIN HCL 250 MG TABLET PO SCH (08:48)
[2017-12-22] MEDS: CARVEDILOL 12.5 MG TABLET PO SCH (08:48)
[2017-12-22 11:14] VITALS: BP 135/51
[2017-12-22 13:17] VITALS: BP 135/51
[2017-12-22] MEDS ORDERED: NITROFURANTOIN/NITROFURAN MAC 100 MG CAPSULE PO SCH (13:53)
--- NOTE | 2017-12-22 15:08 | NUR ---
PATIENT DISCHARGED WITH DISCHARGE INSTRUCTIONS GIVEN TO PATIENT AND REVIEWED WITH PATIENT. IV TAKEN OUT. PATIENT IN STABLE CONDITION. PATIENT ACCOMPANIED BY DAUGHTER WHO THE PATIENT LIVES WITH
== END 2017-12-22 15:00 | disposition home health service (06) | DRG 690 ==
LOC: ER 16:56 → TELE 19:43 → MED 12-21 13:02
PROVIDERS: ADMIT Internal Medicine; ATTEND Internal Medicine Nephrology
DX: N39.0 Urinary tract infection, site not specified (principal); E86.0 Dehydration; S00.93XA Contusion of unspecified part of head, initial encounter; S20.211A Contusion of right front wall of thorax, initial encounter; W18.39XA Other fall on same level, initial encounter; Y93.89 Activity, other specified; Y92.019 Unspecified place in single-family (private) house as the place of occurrence of the external cause; G89.29 Other chronic pain; M54.5 Low back pain; Z96.652 Presence of left artificial knee joint; Z96.642 Presence of left artificial hip joint; Z79.82 Long term (current) use of aspirin; E78.5 Hyperlipidemia, unspecified; I44.7 Left bundle-branch block, unspecified; I10 Essential (primary) hypertension; F03.90 Unspecified dementia, unspecified severity, without behavioral disturbance, psychotic disturbance, mood disturbance, and anxiety; B96.20 Unspecified Escherichia coli [E. coli] as the cause of diseases classified elsewhere; D64.9 Anemia, unspecified; M81.0 Age-related osteoporosis without current pathological fracture; K21.9 Gastro-esophageal reflux disease without esophagitis; M25.512 Pain in left shoulder
CPT/HCPCS: 36415; 70030-TC; 70450; 71101; 72125; 73030; 83735; 84100; 85025; 85730; 87077; 87086; 93005; 93307; A4663; A9150; G0378; J7512; Q0162

== ENCOUNTER 2018-01-13 20:37 | Inpatient (IN) | payer MEDICARE, OTHER ==
[~2018-01-13] VITALS: Ht 149.9 cm; Wt 61.2 kg
[~2018-01-13 20:37] MED LIST changes: +ACET325T53 PO; -NIFE60TA2 PO
[2018-01-13] MEDS ORDERED: IV NORMAL SALINE 1000 ML BAG IV ONE (21:30)
[2018-01-13] MEDS ORDERED: CEFTRIAXONE 1 G in IV DEXTROSE 5% 50 ML IV ONE (21:30)
[2018-01-13] MEDS ORDERED: GENTAMICIN SULFATE INJ 80 MG in IV DEXTROSE 5% 100 ML IV ONE (21:30)
[2018-01-13] MEDS ORDERED: CEFTRIAXONE 1 G VIAL ONE (21:47)
[2018-01-13 21:51] LABS: BASOPHILS # (AUTO) 0.1 K/uL (0.0-8.0); BASOPHILS % (AUTO) 0.9 % (0.0-2.0); EOSINOPHILS # (AUTO) 0.2 K/uL (0.0-0.7); EOSINOPHILS % (AUTO) 2.9 % (0.0-7.0); HEMATOCRIT 33.1 % (31.2-41.9); HEMOGLOBIN 11.4 g/dL (10.9-14.3); LYMPHOCYTES % (AUTO) 18.5 % (20.5-51.5); MEAN CORPUSCULAR HEMOGLOBIN 31.8 uug (24.7-32.8); MEAN CORPUSCULAR HGB CONC 34 g/dL (32.3-35.6); MEAN CORPUSCULAR VOLUME 92.5 fL (75.5-95.3); MONOCYTES # (AUTO) 0.5 K/uL (2.0-10.0); MONOCYTES % (AUTO) 9.8 % (0.0-11.0); NEUTROPHILS # (AUTO) 3.7 K/uL (1.8-8.9); NEUTROPHILS % (AUTO) 67.9 % (38.5-71.5); PLATELET COUNT (AUTO) 207 K/uL (179-408); RED BLOOD CELL COUNT(AUTO) 3.58 MIL/uL (3.63-4.92); WHITE BLOOD COUNT (AUTO) 5.4 K/uL (3.8-11.8)
[2018-01-13 21:52] LABS: *BILIRUBIN,URIN NEGATIVE (NEGATIVE); *BLOOD, URINE Trace-lysed (NEGATIVE); *COLOR,URINE YELLOW (YELLOW); *KETONES,URINE NEGATIVE (NEGATIVE); *PROTEIN,URINE 3+ (NEGATIVE); *UROBILINOGEN,URINE 0.2 E.U./dl (NORMAL); LEUKOCYTE ESTERASE ,URINE 1+ (NEGATIVE); NITRITE, URINE NEGATIVE (NEGATIVE); PH,URINE 5.5 (5.0-8.0); UGLUCOSE NEGATIVE (NEGATIVE)
[2018-01-13] MEDS ORDERED: GENTAMICIN SULFATE 80 MG/2 ML VIAL ONE (21:56)
[2018-01-13 21:59] LABS: CARBON DIOXIDE 25 mmol/L (21-32); CHLORIDE 106 mmol/L (98-107); CREATININE 1.5 mg/dL (0.6-1.3); GLUCOSE 103 mg/dL (74-106); POTASSIUM 4.4 mmol/L (3.5-5.1); UREA NITROGEN, BLOOD 34 mg/dL (7-18)
[2018-01-13 22:05] LABS: ALANINE AMINOTRANSFERASE 16 U/L (14-59); ALKALINE PHOSPHATASE 17 U/L (50-136); ASPARTATE AMINOTRANSFERASE 12 U/L (15-37); BILIRUBIN,DIRECT 0.1 mg/dL (0.0-0.2); BILIRUBIN,TOTAL 0.3 mg/dL (0.2-1.0); TOTAL PROTEIN, SERUM 7.2 g/dL (6.4-8.2)
[2018-01-13] MEDS ORDERED: DULO20CA PO (22:07)
[2018-01-13 22:09] LABS: *CLARITY,URINE HAZY (CLEAR)
[2018-01-13 22:11] LABS: MUCUS,URINE FEW /LPF (0-FEW); SQUAMOUS EPITHELIAL CELL,UR FEW /HPF (NONE SEEN)
[2018-01-14] MEDS ORDERED: CEFTRIAXONE 1 G in IV DEXTROSE 5% 50 ML IV SCH ×2 (00:30→21:00)
[2018-01-14] MEDS ORDERED: ACETAMINOPHEN 325 MG TABLET PO PRN ×2 (00:30→09:15)
[2018-01-14] MEDS: CARVEDILOL 12.5 MG TABLET PO SCH ×3 (00:47→17:39)
[2018-01-14 04:00] VITALS: BP 165/60
[2018-01-14] MEDS ORDERED: TRAMADOL HCL 50 MG TABLET PO PRN (09:15)
[2018-01-14] MEDS ORDERED: CARVEDILOL 12.5 MG TABLET PO SCH (09:15)
[2018-01-14] MEDS: DULOXETINE 20 MG CAPSULE.DR PO SCH (10:14)
[2018-01-14] MEDS: ASPIRIN 81 MG TAB.CHEW PO SCH (10:14)
[2018-01-14] MEDS: OXYBUTYNIN CHLORIDE 5 MG TABLET PO SCH ×2 (10:14→17:37)
[2018-01-14] MEDS: IV NS 1000 ML 1,000 ML IV PRN (10:22)
[2018-01-14 11:44] VITALS: BP 159/52
[2018-01-14 15:20] VITALS: BP 178/51
[2018-01-14 19:27] VITALS: BP 181/67
[2018-01-14] MEDS ORDERED: ATORVASTATIN 20 MG TABLET PO SCH (21:00)
[2018-01-14] MEDS ORDERED: hydrALAZINE HCL 25 MG TABLET PO SCH (21:00)
[2018-01-14] MEDS: hydrALAZINE HCL 25 MG TABLET PO PRN (21:39)
[2018-01-15 00:01] VITALS: BP 159/51
[2018-01-15] MEDS: IV NS 1000 ML 1,000 ML IV PRN (01:57)
[2018-01-15 03:51] VITALS: BP 167/42
[2018-01-15] MEDS: hydrALAZINE HCL 25 MG TABLET PO PRN (06:13)
[2018-01-15] MEDS: CARVEDILOL 12.5 MG TABLET PO SCH (08:14)
[2018-01-15] MEDS: OXYBUTYNIN CHLORIDE 5 MG TABLET PO SCH (08:14)
[2018-01-15] MEDS: DULOXETINE 20 MG CAPSULE.DR PO SCH (08:14)
[2018-01-15] MEDS: ASPIRIN 81 MG TAB.CHEW PO SCH (08:14)
[2018-01-15] MEDS ORDERED: hydrALAZINE HCL 50 MG TABLET PO PRN (08:15)
[2018-01-15] MEDS ORDERED: NIFE60TA69 PO (10:19)
[2018-01-15] MEDS ORDERED: CEFTRIAXONE 1 G in IV DEXTROSE 5% 50 ML IV ONE (11:00)
[2018-01-15 11:49] VITALS: BP 158/53
[2018-01-15 15:37] VITALS: BP 159/48
[2018-01-16] MEDS ORDERED: CEFTRIAXONE 1 G in IV DEXTROSE 5% 50 ML IV SCH (11:00)
== END 2018-01-15 16:05 | disposition home health service (06) | DRG 689 ==
LOC: ER 20:39 → MED 23:34
PROVIDERS: ADMIT Internal Medicine Nephrology; ATTEND Internal Medicine Nephrology
DX: N39.0 Urinary tract infection, site not specified (principal); G92 Toxic encephalopathy; I13.10 Hypertensive heart and chronic kidney disease without heart failure, with stage 1 through stage 4 chronic kidney disease, or unspecified chronic kidney disease; N18.9 Chronic kidney disease, unspecified; M19.90 Unspecified osteoarthritis, unspecified site; K21.9 Gastro-esophageal reflux disease without esophagitis; M81.0 Age-related osteoporosis without current pathological fracture; F03.90 Unspecified dementia, unspecified severity, without behavioral disturbance, psychotic disturbance, mood disturbance, and anxiety; E78.5 Hyperlipidemia, unspecified; D64.9 Anemia, unspecified; I44.7 Left bundle-branch block, unspecified; Z96.649 Presence of unspecified artificial hip joint; Z87.440 Personal history of urinary (tract) infections; Z96.659 Presence of unspecified artificial knee joint; Z79.82 Long term (current) use of aspirin; Z79.899 Other long term (current) drug therapy
CPT/HCPCS: 36415; 70030-TC; 71045; 83605; 85025; 85730; 87040; 87077; 87086; 93005; A4663; G0378; J0696; J1580; J7030; J7060

== ENCOUNTER 2018-02-03 16:38 | Emergency (ER) | payer MEDICARE, OTHER ==
[~2018-02-03] VITALS: Ht 152.4 cm; Wt 53.1 kg
[~2018-02-03 16:38] MED LIST changes: +DULO20CA PO; +NIFE60TA69 PO
--- NOTE | 2018-02-03 16:50 | NUR ---
BIB daughter (who is translating for the pt) in a w/c. Per daughter pt has chronic back pain but the pain has been worse for the last few days. No reported fall or trauma.
[2018-02-03] MEDS ORDERED: ONDANSETRON 4 MG/2 ML VIAL IV ONE (17:45)
[2018-02-03] MEDS ORDERED: MORPHINE SULFATE 2 MG/1 ML DISP.SYRIN IV ONE (17:45)
[2018-02-03] MEDS ORDERED: IV NORMAL SALINE 1000 ML BAG IV ONE (17:45)
[2018-02-03 18:06] LABS: BASOPHILS % (AUTO) 0.7 % (0.0-2.0); EOSINOPHILS # (AUTO) 0.1 K/uL (0.0-0.7); EOSINOPHILS % (AUTO) 2.1 % (0.0-7.0); HEMOGLOBIN 11.8 g/dL (10.9-14.3); LYMPHOCYTES # (AUTO) 1.1 K/uL (20.0-40.0); MEAN CORPUSCULAR HEMOGLOBIN 31.9 uug (24.7-32.8); MEAN CORPUSCULAR HGB CONC 35 g/dL (32.3-35.6); MEAN CORPUSCULAR VOLUME 92.3 fL (75.5-95.3); MONOCYTES # (AUTO) 0.5 K/uL (2.0-10.0); MONOCYTES % (AUTO) 7.3 % (0.0-11.0); NEUTROPHILS # (AUTO) 4.7 K/uL (1.8-8.9); NEUTROPHILS % (AUTO) 72.9 % (38.5-71.5); PLATELET COUNT (AUTO) 204 K/uL (179-408); RED BLOOD CELL COUNT(AUTO) 3.68 MIL/uL (3.63-4.92); WHITE BLOOD COUNT (AUTO) 6.5 K/uL (3.8-11.8)
[2018-02-03] MEDS ORDERED: IOHEXOL 300MG/ML 100 ML INFUS..BTL ONE (18:07)
[2018-02-03] MEDS ORDERED: SWABABLE VALVE TRANSFER SET EA MC ONE (18:07)
[2018-02-03] MEDS ORDERED: NORMAL SALINE FLUSH 10 ML DISP.SYRIN ONE (18:07)
[2018-02-03] MEDS ORDERED: IV NORMAL SALINE 250 ML IV ONE (18:07)
[2018-02-03] MEDS ORDERED: MORPHINE SULFATE 2 MG/1 ML DISP.SYRIN ONE (18:10)
[2018-02-03] MEDS ORDERED: ONDANSETRON 4 MG/2 ML VIAL ONE (18:10)
[2018-02-03 18:20] LABS: ALANINE AMINOTRANSFERASE 17 U/L (14-59); ALKALINE PHOSPHATASE 20 U/L (50-136); ASPARTATE AMINOTRANSFERASE 16 U/L (15-37); BILIRUBIN,DIRECT 0.1 mg/dL (0.0-0.2); BILIRUBIN,TOTAL 0.3 mg/dL (0.2-1.0); CARBON DIOXIDE 28 mmol/L (21-32); CHLORIDE 105 mmol/L (98-107); CREATININE 1.3 mg/dL (0.6-1.3); GLUCOSE 133 mg/dL (74-106); LIPASE 264 U/L (73-393); POTASSIUM 4.7 mmol/L (3.5-5.1); TOTAL PROTEIN, SERUM 7.2 g/dL (6.4-8.2); UREA NITROGEN, BLOOD 43 mg/dL (7-18)
[2018-02-03 18:36] LABS: *BILIRUBIN,URIN NEGATIVE (NEGATIVE); *BLOOD, URINE NEGATIVE (NEGATIVE); *CLARITY,URINE CLEAR (CLEAR); *COLOR,URINE YELLOW (YELLOW); *KETONES,URINE NEGATIVE (NEGATIVE); *PROTEIN,URINE 2+ (NEGATIVE); *UROBILINOGEN,URINE 0.2 E.U./dl (NORMAL); LEUKOCYTE ESTERASE ,URINE TRACE (NEGATIVE); NITRITE, URINE NEGATIVE (NEGATIVE); UGLUCOSE NEGATIVE (NEGATIVE)
[2018-02-03 18:40] LABS: MUCUS,URINE FEW /LPF (0-FEW); SQUAMOUS EPITHELIAL CELL,UR FEW /HPF (NONE SEEN)
--- NOTE | 2018-02-03 19:16 | NUR ---
Recceived pt alert and oriented x 4, montserratian speaking only. Daughter at bedside. No s/s of acute distress noted at this time. Per daughter, pt's back pain is relieved by morphine and rating intensity of pain at 3/10. Safe environment implemented, bed in low locked position with side rails up.
--- NOTE | 2018-02-03 20:15 | NUR ---
IV removed. Catheter intact and site benign. Pressure and 4x4 gauze applied to site. No bleeding noted. Patient discharged to home in stable conditon. Written and verbal after care instructions given to patient and pt's daughter. Patient and pt's daughter verbalizes understanding of instructions.
[2018-02-03 20:51] VITALS: BP 152/75
== END 2018-02-03 20:15 | disposition home or self-care (01) ==
LOC: ER 16:40
DX: G89.29 Other chronic pain (principal); M54.9 Dorsalgia, unspecified; R10.10 Upper abdominal pain, unspecified; E78.5 Hyperlipidemia, unspecified; K21.9 Gastro-esophageal reflux disease without esophagitis; I10 Essential (primary) hypertension; Z79.82 Long term (current) use of aspirin; Z79.899 Other long term (current) drug therapy; Z79.891 Long term (current) use of opiate analgesic
CPT/HCPCS: 36415; 71045; 74177; 80048; 80076; 81001; 83690; 84484; 85025; 87086; 93005; 96374; 96375; 99284; J2270; J2405; Q9967; 70030-TC; A4663; J3490; J7030; J7050

== ENCOUNTER 2018-03-27 11:54 | Outpatient (CLI) | payer MEDICARE, OTHER ==
[2018-03-27 13:23] LABS: ALANINE AMINOTRANSFERASE 15 U/L (14-59); ALKALINE PHOSPHATASE 25 U/L (50-136); ASPARTATE AMINOTRANSFERASE 14 U/L (15-37); BILIRUBIN,TOTAL 0.5 mg/dL (0.2-1.0); CARBON DIOXIDE 26 mmol/L (21-32); CHLORIDE 102 mmol/L (98-107); CREATININE 1.5 mg/dL (0.6-1.3); GLUCOSE 90 mg/dL (74-106); POTASSIUM 4.4 mmol/L (3.5-5.1); TOTAL PROTEIN, SERUM 7.8 g/dL (6.4-8.2); UREA NITROGEN, BLOOD 49 mg/dL (7-18)
[2018-03-27 13:25] LABS: BASOPHILS % (AUTO) 0.7 % (0.0-2.0); EOSINOPHILS # (AUTO) 0.1 K/uL (0.0-0.7); EOSINOPHILS % (AUTO) 2.1 % (0.0-7.0); HEMATOCRIT 35.8 % (31.2-41.9); HEMOGLOBIN 12.1 g/dL (10.9-14.3); LYMPHOCYTES # (AUTO) 0.9 K/uL (20.0-40.0); LYMPHOCYTES % (AUTO) 14.5 % (20.5-51.5); MEAN CORPUSCULAR HEMOGLOBIN 30.2 uug (24.7-32.8); MEAN CORPUSCULAR HGB CONC 34 g/dL (32.3-35.6); MEAN CORPUSCULAR VOLUME 89.6 fL (75.5-95.3); MONOCYTES # (AUTO) 0.5 K/uL (2.0-10.0); MONOCYTES % (AUTO) 7.4 % (0.0-11.0); NEUTROPHILS # (AUTO) 4.7 K/uL (1.8-8.9); NEUTROPHILS % (AUTO) 75.3 % (38.5-71.5); PLATELET COUNT (AUTO) 246 K/uL (179-408); RED BLOOD CELL COUNT(AUTO) 3.99 MIL/uL (3.63-4.92); WHITE BLOOD COUNT (AUTO) 6.3 K/uL (3.8-11.8)
[2018-03-28 14:08] LABS: CANCER AG, 125 8.5 U/mL (0.0-38.1)
[2018-05-19] MEDS ORDERED: PANT40VI IV (22:18)
== END 2018-03-27 23:59 | disposition home or self-care (01) ==
LOC: LAB 11:54
DX: K86.2 Cyst of pancreas (principal)
CPT/HCPCS: 36415; 82378; 85025; 85610; 85730

== ENCOUNTER 2018-04-15 10:14 | Inpatient (IN) | payer MEDICARE, MEDICAID ==
[~2018-04-15] VITALS: Ht 121.9 cm; Wt 56.7 kg
--- NOTE | 2018-04-15 10:25 | NUR ---
at bedside for MSE.
--- NOTE | 2018-04-15 10:44 | NUR ---
PATEINT IS AWAKE AND ALERT IN NO DISTRESS. DAUGHTER AT BEDSIDE.
[2018-04-15] MEDS ORDERED: ASPIRIN 81 MG TAB.CHEW ONE (10:59)
[2018-04-15 11:00] LABS: *BILIRUBIN,URIN NEGATIVE (NEGATIVE); *BLOOD, URINE Trace-lysed (NEGATIVE); *CLARITY,URINE CLEAR (CLEAR); *COLOR,URINE YELLOW (YELLOW); *KETONES,URINE NEGATIVE (NEGATIVE); *UROBILINOGEN,URINE 0.2 E.U./dl (NORMAL); LEUKOCYTE ESTERASE ,URINE TRACE (NEGATIVE); NITRITE, URINE NEGATIVE (NEGATIVE); UGLUCOSE NEGATIVE (NEGATIVE)
[2018-04-15] MEDS ORDERED: ASPIRIN 81 MG TAB.CHEW PO ONE (11:00)
[2018-04-15 11:11] LABS: BACTERIA,URINE FEW /HPF (NONE SEEN); RBC,URINE 0-3 /HPF (0-3); SQUAMOUS EPITHELIAL CELL,UR FEW /HPF (NONE SEEN)
[2018-04-15 11:18] LABS: BASOPHILS % (AUTO) 0.7 % (0.0-2.0); EOSINOPHILS # (AUTO) 0.2 K/uL (0.0-0.7); EOSINOPHILS % (AUTO) 2.3 % (0.0-7.0); HEMATOCRIT 34.1 % (31.2-41.9); HEMOGLOBIN 11.7 g/dL (10.9-14.3); LYMPHOCYTES # (AUTO) 0.9 K/uL (20.0-40.0); LYMPHOCYTES % (AUTO) 12.1 % (20.5-51.5); MEAN CORPUSCULAR HEMOGLOBIN 30.8 uug (24.7-32.8); MEAN CORPUSCULAR HGB CONC 34 g/dL (32.3-35.6); MEAN CORPUSCULAR VOLUME 89.6 fL (75.5-95.3); MONOCYTES # (AUTO) 0.6 K/uL (2.0-10.0); MONOCYTES % (AUTO) 7.7 % (0.0-11.0); NEUTROPHILS # (AUTO) 5.6 K/uL (1.8-8.9); NEUTROPHILS % (AUTO) 77.2 % (38.5-71.5); PLATELET COUNT (AUTO) 200 K/uL (179-408); RED BLOOD CELL COUNT(AUTO) 3.81 MIL/uL (3.63-4.92); WHITE BLOOD COUNT (AUTO) 7.3 K/uL (3.8-11.8)
[2018-04-15 11:25] LABS: CARBON DIOXIDE 29 mmol/L (21-32); CHLORIDE 104 mmol/L (98-107); CREATININE 1.6 mg/dL (0.6-1.3); GLUCOSE 106 mg/dL (74-106); POTASSIUM 4.3 mmol/L (3.5-5.1); UREA NITROGEN, BLOOD 42 mg/dL (7-18)
[2018-04-15 11:30] LABS: ALANINE AMINOTRANSFERASE 14 U/L (14-59); ALKALINE PHOSPHATASE 20 U/L (50-136); ASPARTATE AMINOTRANSFERASE 15 U/L (15-37); BILIRUBIN,DIRECT 0.1 mg/dL (0.0-0.2); BILIRUBIN,TOTAL 0.5 mg/dL (0.2-1.0); TOTAL PROTEIN, SERUM 7.6 g/dL (6.4-8.2)
[2018-04-15] MEDS ORDERED: CEFTRIAXONE 1 G in IV DEXTROSE 5% 50 ML IV ONE (11:45)
[2018-04-15] MEDS ORDERED: CEFTRIAXONE 1 G VIAL ONE (11:50)
--- NOTE | 2018-04-15 12:11 | NUR ---
JARON speaking with Dr. Wilson
--- NOTE | 2018-04-15 12:15 | NUR ---
PATIENT ADMIT TO TELE, NSR ON MONITOR, NO CHEST PAIN AT THE MOMENT FAMILY AT BEDSIDE DEVELOP PLAN OF CARE
--- NOTE | 2018-04-15 12:33 | NUR ---
PATIENT AND FAMILY AWARE OF PENDING ADMISSION TO HOSPITAL. REPORT GIVEN TO MIRANDA VALLE.
[2018-04-15 12:59] VITALS: BP 184/48
[2018-04-15 13:30] VITALS: BP 176/56
[2018-04-15] MEDS ORDERED: ACETAMINOPHEN 325 MG TABLET PO PRN (13:45)
[2018-04-15] MEDS ORDERED: TRAMADOL HCL 50 MG TABLET PO PRN ×2 (13:45)
[2018-04-15] MEDS: NIFEdipine XL 60 MG TABSR PO SCH (14:17)
[2018-04-15 15:16] VITALS: BP 138/35
[2018-04-15] MEDS: DULOXETINE 20 MG CAPSULE.DR PO SCH (15:49)
[2018-04-15] MEDS: CARVEDILOL 12.5 MG TABLET PO SCH (17:27)
[2018-04-15 17:28] VITALS: BP 140/58
--- NOTE | 2018-04-15 18:51 | NUR ---
PATIENT IS A/O 4, NO SOB , NO CHEST PAIN , NO DISTRESS, ON TELE NSR 70S, SAFETY REINFORCED, ORDERS CARED OUT, IV INTACT
--- NOTE | 2018-04-15 19:30 | NUR ---
RECEIVED PATIENT IN BED ALERT ORIENTED, SPEAK GREENLANDIC BUT UNDERSTAND WELSH. NO SOB NO CHEST PAIN, TELE SINUS RHYTHM AT THIS TIME. NO COMPLAIN OF PAIN AT THIS TIME. CALL LIGHT WITHIN REACH.
[2018-04-15 20:26] VITALS: BP 107/51
[2018-04-15] MEDS: ATORVASTATIN 20 MG TABLET PO SCH (20:43)
[2018-04-15] MEDS: OXYBUTYNIN CHLORIDE 5 MG TABLET PO SCH (20:43)
[2018-04-15 23:13] VITALS: BP 124/42
[2018-04-16 04:08] VITALS: BP 121/34
--- NOTE | 2018-04-16 04:27 | NUR ---
PATIENT SLEPT ON AND OFF, NO SOB NO CHEST PAIN, BUT COMPLAIN OF LEFT BREAST PAIN, MEDICATED WITH HELP AFTER ONE HOUR. PATIENT TURN AND REPOSITION SELF, DIAPER CHANGED NEEDED. PATIENT REFUSED DVT PUMP, KEPT BILATERAL LEGS WITH PILLOWS. CALL LIGHT WITHIN REACH.
[2018-04-16 05:40] LABS: BASOPHILS % (AUTO) 0.6 % (0.0-2.0); EOSINOPHILS # (AUTO) 0.2 K/uL (0.0-0.7); EOSINOPHILS % (AUTO) 3.3 % (0.0-7.0); HEMATOCRIT 30.2 % (31.2-41.9); HEMOGLOBIN 10.3 g/dL (10.9-14.3); LYMPHOCYTES # (AUTO) 1.1 K/uL (20.0-40.0); MEAN CORPUSCULAR HEMOGLOBIN 30.5 uug (24.7-32.8); MEAN CORPUSCULAR HGB CONC 34 g/dL (32.3-35.6); MEAN CORPUSCULAR VOLUME 89.3 fL (75.5-95.3); MONOCYTES # (AUTO) 0.6 K/uL (2.0-10.0); MONOCYTES % (AUTO) 9.4 % (0.0-11.0); NEUTROPHILS % (AUTO) 67.7 % (38.5-71.5); PLATELET COUNT (AUTO) 181 K/uL (179-408); RED BLOOD CELL COUNT(AUTO) 3.39 MIL/uL (3.63-4.92); WHITE BLOOD COUNT (AUTO) 5.9 K/uL (3.8-11.8)
[2018-04-16 05:51] LABS: CARBON DIOXIDE 26 mmol/L (21-32); CHLORIDE 104 mmol/L (98-107); CREATININE 1.3 mg/dL (0.6-1.3); GLUCOSE 94 mg/dL (74-106); POTASSIUM 4.1 mmol/L (3.5-5.1); UREA NITROGEN, BLOOD 40 mg/dL (7-18)
--- NOTE | 2018-04-16 07:30 | NUR ---
awake alert and oriented, bengali speaking but understands little Jamaican, states has mild pain below left breast, states doesnt need pain med at this time, denies of shortness of breath, tele SR 64, explained plan of care- verbalized understanding, safety measures maintained, call light within reach
[2018-04-16 08:00] VITALS: BP 132/41
[2018-04-16] MEDS: DULOXETINE 20 MG CAPSULE.DR PO SCH (08:22)
[2018-04-16] MEDS: ASPIRIN 81 MG TAB.CHEW PO SCH (08:23)
[2018-04-16] MEDS: CARVEDILOL 12.5 MG TABLET PO SCH ×2 (08:40→17:42)
[2018-04-16] MEDS ORDERED: ACETAMINOPHEN 325 MG TABLET PO PRN (08:45)
--- NOTE | 2018-04-16 08:51 | NUR ---
seen by Dr Wilson with orders
--- NOTE | 2018-04-16 09:15 | NUR ---
seen by PT for eval- see notes
[2018-04-16] MEDS ORDERED: MIRALAX 17 GM POWD.PACK PO PRN (09:30)
[2018-04-16] MEDS: NIFEdipine XL 60 MG TABSR PO SCH (09:55)
[2018-04-16] MEDS ORDERED: DULO30CA2 PO (11:37)
[2018-04-16 12:00] VITALS: BP 128/40
[2018-04-16] MEDS: CEFTRIAXONE 1 G in IV DEXTROSE 5% 50 ML IV SCH (12:00)
--- NOTE | 2018-04-16 12:00 | NUR ---
appetite good, turns herself independently, call light within reach, dvt pumps on
[2018-04-16 15:44] VITALS: BP 119/40
--- NOTE | 2018-04-16 19:01 | NUR ---
family at bedside, no acute distress, all needs attended, safety mesures maintained
[2018-04-16 19:52] VITALS: BP 123/43
[2018-04-16] MEDS: ATORVASTATIN 20 MG TABLET PO SCH (20:11)
[2018-04-16] MEDS: OXYBUTYNIN CHLORIDE 5 MG TABLET PO SCH (20:11)
[2018-04-17 04:36] VITALS: BP 127/40
--- NOTE | 2018-04-17 05:24 | NUR ---
patient rested well in between care; no acute distress; repositioned for comfort; report given to Zoey who assumed care.
--- NOTE | 2018-04-17 05:51 | NUR ---
PT RESTING IN BED, IN NO ACUTE SIGNS OF DISTRESS, TURNED AND REPOSITIONED FOR COMFORT, DIAPER CHANGED, PERICARE DONE. NO C/O PAIN AT THIS TIME.
[2018-04-17] MEDS: NIFEdipine XL 60 MG TABSR PO SCH (09:00)
[2018-04-17] MEDS: CARVEDILOL 12.5 MG TABLET PO SCH (09:00)
[2018-04-17] MEDS: ASPIRIN 81 MG TAB.CHEW PO SCH (10:14)
[2018-04-17] MEDS: DULOXETINE 20 MG CAPSULE.DR PO SCH (10:14)
[2018-04-17 11:27] VITALS: BP 119/49
--- NOTE | 2018-04-17 11:36 | NUR ---
DR. DURÁN NOTIFIED THAT BP MEDS WERE HELD FOR DT=737/33.
[2018-04-17] MEDS: CEFTRIAXONE 1 G in IV DEXTROSE 5% 50 ML IV SCH (13:22)
[2018-04-17 15:38] VITALS: BP 141/48
--- NOTE | 2018-04-17 18:00 | NUR ---
IV DISC. HOME INSTRUCTIONS ARE REVIEWED WITH PATIENT AND DAUGHTER D/C TO HOME WITH DAUGHTER PATIENT AND THE DAUGHTER UNDERSTOOD THE INSTRUCTIONS BY VERBALIZING THEM
[2018-05-19] MEDS ORDERED: PANT40VI IV (22:18)
== END 2018-04-17 18:00 | disposition home or self-care (01) | DRG 205 ==
LOC: ER 10:14 → TELE 12:17
PROVIDERS: ADMIT Internal Medicine Nephrology; ATTEND Internal Medicine Nephrology
DX: M94.0 Chondrocostal junction syndrome [Tietze] (principal); G92 Toxic encephalopathy; N39.0 Urinary tract infection, site not specified; N17.9 Acute kidney failure, unspecified; I13.10 Hypertensive heart and chronic kidney disease without heart failure, with stage 1 through stage 4 chronic kidney disease, or unspecified chronic kidney disease; N18.9 Chronic kidney disease, unspecified; E78.5 Hyperlipidemia, unspecified; K21.9 Gastro-esophageal reflux disease without esophagitis; M81.0 Age-related osteoporosis without current pathological fracture; M19.90 Unspecified osteoarthritis, unspecified site; Z96.642 Presence of left artificial hip joint; Z87.440 Personal history of urinary (tract) infections; F03.90 Unspecified dementia, unspecified severity, without behavioral disturbance, psychotic disturbance, mood disturbance, and anxiety; R00.1 Bradycardia, unspecified
CPT/HCPCS: 36415; 70030-TC; 71045; 73030; 85025; 85730; 93005; 97110; 97116; 97165; 97530; A4663; G0378; J0696; J3490; J7050; J7060

== ENCOUNTER 2018-04-20 16:02 | Emergency (ER) | payer MEDICARE, MEDICAID ==
[~2018-04-20] VITALS: Ht 121.9 cm; Wt 56.7 kg
[~2018-04-20 16:02] MED LIST changes: -DULO20CA PO; +DULO30CA2 PO
--- NOTE | 2018-04-20 16:40 | NUR ---
Dr perkins at the bedside for MSE.
[2018-04-20] MEDS ORDERED: IV NORMAL SALINE 500 ML BAG IV ONE (17:00)
[2018-04-20 17:02] LABS: BASOPHILS % (AUTO) 0.6 % (0.0-2.0); EOSINOPHILS # (AUTO) 0.1 K/uL (0.0-0.7); EOSINOPHILS % (AUTO) 1.7 % (0.0-7.0); HEMATOCRIT 32.8 % (31.2-41.9); HEMOGLOBIN 11.3 g/dL (10.9-14.3); LYMPHOCYTES % (AUTO) 12.7 % (20.5-51.5); MEAN CORPUSCULAR HEMOGLOBIN 30.6 uug (24.7-32.8); MEAN CORPUSCULAR HGB CONC 35 g/dL (32.3-35.6); MEAN CORPUSCULAR VOLUME 88.6 fL (75.5-95.3); MONOCYTES # (AUTO) 0.7 K/uL (2.0-10.0); MONOCYTES % (AUTO) 8.1 % (0.0-11.0); NEUTROPHILS # (AUTO) 6.2 K/uL (1.8-8.9); NEUTROPHILS % (AUTO) 76.9 % (38.5-71.5); PLATELET COUNT (AUTO) 239 K/uL (179-408)
[2018-04-20 17:13] LABS: CARBON DIOXIDE 28 mmol/L (21-32); CHLORIDE 106 mmol/L (98-107); CREATININE 1.3 mg/dL (0.6-1.3); GLUCOSE 112 mg/dL (74-106); POTASSIUM 3.9 mmol/L (3.5-5.1); UREA NITROGEN, BLOOD 35 mg/dL (7-18)
[2018-04-20 17:25] LABS: ALANINE AMINOTRANSFERASE 13 U/L (14-59); ALKALINE PHOSPHATASE 16 U/L (50-136); ASPARTATE AMINOTRANSFERASE 14 U/L (15-37); BILIRUBIN,DIRECT 0.1 mg/dL (0.0-0.2); BILIRUBIN,TOTAL 0.4 mg/dL (0.2-1.0); TOTAL PROTEIN, SERUM 7.2 g/dL (6.4-8.2)
[2018-04-20] MEDS ORDERED: hydrALAZINE HCL 20 MG/1 ML VIAL IV ONE (17:45)
[2018-04-20] MEDS ORDERED: hydrALAZINE HCL 20 MG/1 ML VIAL ONE (17:47)
[2018-04-20 18:17] VITALS: BP 145/61
--- NOTE | 2018-04-20 18:18 | NUR ---
Patient discharged to home in stable conditon. Written and verbal after care instructions given. Patient and pt's daughter verbalize understanding of instructions.
[2018-05-19] MEDS ORDERED: PANT40VI IV (22:18)
== END 2018-04-20 18:18 | disposition home or self-care (01) ==
LOC: ER 16:04
DX: R07.89 Other chest pain (principal); E78.5 Hyperlipidemia, unspecified; K21.9 Gastro-esophageal reflux disease without esophagitis; I10 Essential (primary) hypertension; Z79.82 Long term (current) use of aspirin; Z79.899 Other long term (current) drug therapy
CPT/HCPCS: 36415; 71045; 80048; 80076; 83880; 84484; 85025; 85730; 93005; 96374; 99284; J0360; 70030-TC; A4663; J7040

== ENCOUNTER 2018-06-15 11:54 | Outpatient (CLI) | payer MEDICARE, MEDICAID ==
[~2018-06-15 11:54] MED LIST changes: +PANT40VI IV
[2018-06-15 12:25] LABS: BASOPHILS % (AUTO) 0.7 % (0.0-2.0); EOSINOPHILS # (AUTO) 0.1 K/uL (0.0-0.7); EOSINOPHILS % (AUTO) 1.6 % (0.0-7.0); HEMATOCRIT 33.5 % (31.2-41.9); HEMOGLOBIN 11.3 g/dL (10.9-14.3); LYMPHOCYTES # (AUTO) 1.2 K/uL (20.0-40.0); LYMPHOCYTES % (AUTO) 20.3 % (20.5-51.5); MEAN CORPUSCULAR HEMOGLOBIN 30.1 uug (24.7-32.8); MEAN CORPUSCULAR HGB CONC 34 g/dL (32.3-35.6); MEAN CORPUSCULAR VOLUME 89.6 fL (75.5-95.3); MONOCYTES # (AUTO) 0.4 K/uL (2.0-10.0); MONOCYTES % (AUTO) 7.4 % (0.0-11.0); NEUTROPHILS # (AUTO) 4.2 K/uL (1.8-8.9); PLATELET COUNT (AUTO) 213 K/uL (179-408); RED BLOOD CELL COUNT(AUTO) 3.74 MIL/uL (3.63-4.92)
[2018-06-15 12:40] LABS: ALANINE AMINOTRANSFERASE 20 U/L (14-59); ALKALINE PHOSPHATASE 17 U/L (50-136); ASPARTATE AMINOTRANSFERASE 17 U/L (15-37); BILIRUBIN,TOTAL 0.5 mg/dL (0.2-1.0); CARBON DIOXIDE 25 mmol/L (21-32); CHLORIDE 104 mmol/L (98-107); CREATININE 1.2 mg/dL (0.6-1.3); GLUCOSE 92 mg/dL (74-106); POTASSIUM 4.6 mmol/L (3.5-5.1); UREA NITROGEN, BLOOD 29 mg/dL (7-18)
== END 2018-06-15 23:59 | disposition home or self-care (01) ==
LOC: LAB 11:54
DX: K86.2 Cyst of pancreas (principal); E11.9 Type 2 diabetes mellitus without complications; I10 Essential (primary) hypertension; N39.0 Urinary tract infection, site not specified
CPT/HCPCS: 36415; 85025; 86301

== ENCOUNTER 2018-06-24 18:08 | Emergency (ER) | payer MEDICARE, MEDICAID ==
[~2018-06-24] VITALS: Ht 121.9 cm; Wt 54.4 kg
--- NOTE | 2018-06-24 19:15 | NUR ---
PT IS IN ROOM #1A. DR CLARK EVALUATED THE PT.
--- NOTE | 2018-06-24 19:23 | NUR ---
Received report from yvan RN, pt. resting in bed w/ female nematologist at bedside, bed in low position, NAD
[2018-06-24] MEDS ORDERED: GENTAMICIN SULFATE INJ 80 MG in IV DEXTROSE 5% 100 ML IV ONE (19:45)
[2018-06-24] MEDS ORDERED: DEXAMETHASONE SOD PHOSPHATE 4 MG INJ IV ONE (19:45)
[2018-06-24] MEDS ORDERED: IV NORMAL SALINE 1000 ML BAG IV ONE (19:45)
[2018-06-24] MEDS ORDERED: PIPERACILLIN SODIUM/TAZOBACTAM 3.375 G in IV DEXTROSE 5% 50 ML IV ONE (19:45)
[2018-06-24 19:53] LABS: BASOPHILS % (AUTO) 0.7 % (0.0-2.0); EOSINOPHILS # (AUTO) 0.1 K/uL (0.0-0.7); EOSINOPHILS % (AUTO) 1.8 % (0.0-7.0); HEMATOCRIT 32.5 % (31.2-41.9); HEMOGLOBIN 11.3 g/dL (10.9-14.3); LYMPHOCYTES # (AUTO) 1.1 K/uL (20.0-40.0); LYMPHOCYTES % (AUTO) 17.7 % (20.5-51.5); MEAN CORPUSCULAR HEMOGLOBIN 31.2 uug (24.7-32.8); MEAN CORPUSCULAR HGB CONC 35 g/dL (32.3-35.6); MEAN CORPUSCULAR VOLUME 89.9 fL (75.5-95.3); MONOCYTES # (AUTO) 0.5 K/uL (2.0-10.0); MONOCYTES % (AUTO) 8.7 % (0.0-11.0); NEUTROPHILS # (AUTO) 4.3 K/uL (1.8-8.9); NEUTROPHILS % (AUTO) 71.1 % (38.5-71.5); PLATELET COUNT (AUTO) 228 K/uL (179-408); RED BLOOD CELL COUNT(AUTO) 3.61 MIL/uL (3.63-4.92)
[2018-06-24 20:02] LABS: CARBON DIOXIDE 26 mmol/L (21-32); CHLORIDE 105 mmol/L (98-107); CREATININE 1.2 mg/dL (0.6-1.3); GLUCOSE 113 mg/dL (74-106); POTASSIUM 4.1 mmol/L (3.5-5.1); UREA NITROGEN, BLOOD 31 mg/dL (7-18)
[2018-06-24 20:14] LABS: ALANINE AMINOTRANSFERASE 15 U/L (14-59); ALKALINE PHOSPHATASE 23 U/L (50-136); ASPARTATE AMINOTRANSFERASE 14 U/L (15-37); BILIRUBIN,DIRECT 0.1 mg/dL (0.0-0.2); BILIRUBIN,TOTAL 0.4 mg/dL (0.2-1.0); TOTAL PROTEIN, SERUM 6.8 g/dL (6.4-8.2)
[2018-06-24] MEDS ORDERED: DEXAMETHASONE SOD PHOSPHATE 10 MG INJ ONE (20:46)
[2018-06-24] MEDS ORDERED: PIPERACILLIN/TAZOBACTAM/D5W 50 ML IV ONE (20:47)
[2018-06-24 21:40] LABS: *BILIRUBIN,URIN NEGATIVE (NEGATIVE); *CLARITY,URINE CLEAR (CLEAR); *COLOR,URINE YELLOW (YELLOW); *KETONES,URINE NEGATIVE (NEGATIVE); *UROBILINOGEN,URINE 0.2 E.U./dl (NORMAL); LEUKOCYTE ESTERASE ,URINE 1+ (NEGATIVE); NITRITE, URINE NEGATIVE (NEGATIVE); PH,URINE 6.5 (5.0-8.0); UGLUCOSE NEGATIVE (NEGATIVE)
--- NOTE | 2018-06-24 21:40 | NUR ---
Pt. given bedpan to urinate - specimen collected and sent to lab - clear yellow fluid, no odor, no blood noted,
[2018-06-24 21:42] LABS: *BLOOD, URINE TRACE (NEGATIVE)
[2018-06-24] MEDS ORDERED: GENTAMICIN SULFATE 80 MG/2 ML VIAL ONE (21:42)
[2018-06-24 21:48] LABS: BACTERIA,URINE FEW /HPF (NONE SEEN); RBC,URINE 0-3 /HPF (0-3)
[2018-06-24 21:49] LABS: SQUAMOUS EPITHELIAL CELL,UR FEW /HPF (NONE SEEN)
[2018-06-24] MEDS ORDERED: hydrALAZINE HCL 20 MG/1 ML VIAL IV ONE ×2 (22:15→23:30)
[2018-06-24] MEDS ORDERED: LABETALOL HCL 100 MG/20 ML VIAL IV ONE (22:45)
--- NOTE | 2018-06-24 22:51 | NUR ---
Called Resolution Manager to request labetelol
[2018-06-24] MEDS ORDERED: LABETALOL HCL 100 MG/20 ML VIAL ONE (22:57)
[2018-06-24] MEDS ORDERED: hydrALAZINE HCL 20 MG/1 ML VIAL ONE (23:40)
--- NOTE | 2018-06-25 00:10 | NUR ---
Patient discharged to home in stable conditon. Written and verbal after care instructions given. Patient verbalizes understanding of instructions. Pt. d/c per MD order, d/c papers signed, all belongings w/ pt., IV/ID band removed, ambulated off unit using personal walker accompanied by daughter, DAYANA
[2018-06-25 00:33] VITALS: BP 168/72
== END 2018-06-25 00:13 | disposition home or self-care (01) ==
LOC: ER 18:08
DX: M54.5 Low back pain (principal); K21.9 Gastro-esophageal reflux disease without esophagitis; I10 Essential (primary) hypertension; E78.5 Hyperlipidemia, unspecified; Z79.82 Long term (current) use of aspirin; Z79.899 Other long term (current) drug therapy
CPT/HCPCS: 36415; 71045; 74176; 80048; 80076; 81001; 83605; 83880; 84484; 85025; 85730; 87040 ×2; 87086; 93005; 96365; 96366; 96367; 96375; 99284; J0360; J1100; J1580; J2543; J3490; J7060; 70030-TC; A4663; J7030

== ENCOUNTER 2018-09-28 22:49 | Emergency (ER) | payer MEDICARE, MEDICAID ==
[~2018-09-28] VITALS: Ht 121.9 cm; Wt 55.3 kg
[2018-09-28] MEDS ORDERED: HYDRALAZINE 25 MG (23:09)
[2018-09-28] MEDS ORDERED: VALSARTAN 160 MG (23:09)
[2018-09-28] MEDS ORDERED: CLONIDINE 0.1 MG (23:09)
[2018-09-28] MEDS ORDERED: ACETAMINOPHEN ES 500 MG TABLET ONE (23:28)
[2018-09-28] MEDS ORDERED: ACETAMINOPHEN ES 500 MG TABLET PO ONE (23:30)
--- NOTE | 2018-09-29 01:42 | NUR ---
Patient discharged to home in stable conditon WITH DAUGHTER TAKING PATIENT HOME. Written and verbal after care instructions given. Patient verbalizes understanding of instructions.
[2018-09-29 01:44] VITALS: BP 144/65
== END 2018-09-29 01:45 | disposition home or self-care (01) ==
LOC: ER 22:49
DX: I10 Essential (primary) hypertension (principal); R51 Headache; E78.5 Hyperlipidemia, unspecified; K21.9 Gastro-esophageal reflux disease without esophagitis; Z79.82 Long term (current) use of aspirin; Z79.899 Other long term (current) drug therapy
CPT/HCPCS: 70450; 93005; A4663; A9150

== ENCOUNTER 2018-11-13 19:35 | Inpatient (IN) | payer MEDICARE, MEDICAID ==
[~2018-11-13] VITALS: Ht 121.9 cm; Wt 54.4 kg
[~2018-11-13 19:35] MED LIST changes: +CLONIDINE 0.1 MG PO; +HYDRALAZINE 25 MG PO; +VALSARTAN 160 MG PO
[2018-11-13] MEDS ORDERED: GABAPENTIN 300 MG CAPSULE PO ONE (20:15)
[2018-11-13] MEDS ORDERED: GABAPENTIN 300 MG CAPSULE ONE (20:39)
[2018-11-13 21:44] LABS: BASOPHILS % (AUTO) 0.8 % (0.0-2.0); EOSINOPHILS # (AUTO) 0.2 K/uL (0.0-0.7); EOSINOPHILS % (AUTO) 2.6 % (0.0-7.0); HEMATOCRIT 34.5 % (31.2-41.9); HEMOGLOBIN 11.6 g/dL (10.9-14.3); LYMPHOCYTES # (AUTO) 1.2 K/uL (20.0-40.0); LYMPHOCYTES % (AUTO) 19.4 % (20.5-51.5); MEAN CORPUSCULAR HEMOGLOBIN 31.2 uug (24.7-32.8); MEAN CORPUSCULAR HGB CONC 34 g/dL (32.3-35.6); MEAN CORPUSCULAR VOLUME 93.1 fL (75.5-95.3); MONOCYTES # (AUTO) 0.5 K/uL (2.0-10.0); MONOCYTES % (AUTO) 8.4 % (0.0-11.0); NEUTROPHILS # (AUTO) 4.3 K/uL (1.8-8.9); NEUTROPHILS % (AUTO) 68.8 % (38.5-71.5); PLATELET COUNT (AUTO) 220 K/uL (179-408); WHITE BLOOD COUNT (AUTO) 6.2 K/uL (3.8-11.8)
[2018-11-13] MEDS ORDERED: hydrALAZINE HCL 20 MG/1 ML VIAL IV ONE (21:45)
[2018-11-13 21:50] LABS: CREATININE 1.2 mg/dL (0.6-1.3); POTASSIUM 4.4 mmol/L (3.5-5.1)
[2018-11-13 21:55] LABS: BILIRUBIN,DIRECT 0.1 mg/dL (0.0-0.2); BILIRUBIN,TOTAL 0.4 mg/dL (0.2-1.0); TOTAL PROTEIN, SERUM 7.2 g/dL (6.4-8.2)
[2018-11-13] MEDS ORDERED: hydrALAZINE HCL 20 MG/1 ML VIAL ONE ×2 (21:57→23:47)
[2018-11-13 23:46] LABS: *BILIRUBIN,URIN NEGATIVE (NEGATIVE); *CLARITY,URINE SLIGHTLY CLOUDY (CLEAR); *COLOR,URINE YELLOW (YELLOW); *KETONES,URINE NEGATIVE (NEGATIVE); *UROBILINOGEN,URINE 0.2 E.U./dl (NORMAL); LEUKOCYTE ESTERASE ,URINE TRACE (NEGATIVE); NITRITE, URINE POSITIVE (NEGATIVE); PH,URINE 5.5 (5.0-8.0); UGLUCOSE NEGATIVE (NEGATIVE)
[2018-11-13 23:59] LABS: *BLOOD, URINE TRACE (NEGATIVE)
[2018-11-14] MEDS ORDERED: hydrALAZINE HCL 20 MG/1 ML VIAL IV ONE
[2018-11-14 00:03] LABS: BACTERIA,URINE MANY /HPF (NONE SEEN); SQUAMOUS EPITHELIAL CELL,UR FEW /HPF (NONE SEEN); WBC,URINE 80-100 /HPF (0-3)
[2018-11-14 00:30] VITALS: BP 108/54
[2018-11-14] MEDS ORDERED: ACETAMINOPHEN 325 MG TABLET PO PRN (00:45)
[2018-11-14] MEDS ORDERED: CEFTRIAXONE 1 G in IV DEXTROSE 5% 50 ML IV SCH (00:45)
[2018-11-14] MEDS ORDERED: MAGNESIUM HYDROXIDE 30 ML LIQUID UDC PO PRN (00:45)
[2018-11-14] MEDS ORDERED: ZOLPIDEM 5 MG TABLET PO PRN (00:45)
[2018-11-14] MEDS ORDERED: Z GUARD REMEDY PASTE 57 GM TUBE TOP PRN (00:45)
[2018-11-14] MEDS ORDERED: ONDANSETRON 4 MG/2 ML VIAL IV PRN (00:45)
[2018-11-14] MEDS: VALSARTAN 160 MG TABLET PO SCH ×2 (01:00→09:00)
[2018-11-14] MEDS: hydrALAZINE HCL 50 MG TABLET PO SCH ×3 (01:00→13:45)
[2018-11-14] MEDS ORDERED: CLONIDINE 0.1 MG PO PRN (01:00)
[2018-11-14] MEDS ORDERED: CEFTRIAXONE 1 G VIAL ONE (01:08)
[2018-11-14 04:00] VITALS: BP 128/60
[2018-11-14] MEDS ORDERED: CLONIDINE HCL 0.1 MG TABLET PO PRN (07:00)
[2018-11-14] MEDS: CARVEDILOL 12.5 MG TABLET PO SCH ×2 (08:58→17:29)
[2018-11-14] MEDS ORDERED: NIFEdipine XL 60 MG TABSR PO SCH (09:00)
[2018-11-14] MEDS ORDERED: ASPIRIN 81 MG TAB.CHEW PO SCH (09:00)
[2018-11-14] MEDS ORDERED: HEPARIN SODIUM,PORCINE 5,000 UNITS/ML VIAL SQ SCH (09:00)
[2018-11-14] MEDS ORDERED: PANTOPRAZOLE SODIUM 40 MG VIAL IV SCH ×2 (09:00)
[2018-11-14] MEDS ORDERED: PANTOPRAZOLE SODIUM 40 MG TABLET.DR PO SCH (11:30)
[2018-11-14 11:55] VITALS: BP 112/46
[2018-11-14 16:07] VITALS: BP 133/38
[2018-11-14] MEDS ORDERED: CEPH-569 PO (19:40)
[2018-11-14 19:48] VITALS: BP 135/42
[2018-11-14] MEDS ORDERED: OXYBUTYNIN CHLORIDE 5 MG TABLET PO SCH (21:00)
[2018-11-14] MEDS ORDERED: ATORVASTATIN 20 MG TABLET PO SCH (21:00)
== END 2018-11-14 21:00 | disposition home or self-care (01) | DRG 305 ==
LOC: ER 19:40 → TELE3 23:00
PROVIDERS: ADMIT Internal Medicine; ATTEND Internal Medicine
DX: I16.0 Hypertensive urgency (principal); N39.0 Urinary tract infection, site not specified; M79.602 Pain in left arm; E78.5 Hyperlipidemia, unspecified; K21.9 Gastro-esophageal reflux disease without esophagitis; I13.10 Hypertensive heart and chronic kidney disease without heart failure, with stage 1 through stage 4 chronic kidney disease, or unspecified chronic kidney disease; F03.90 Unspecified dementia, unspecified severity, without behavioral disturbance, psychotic disturbance, mood disturbance, and anxiety; Z79.82 Long term (current) use of aspirin; Z79.899 Other long term (current) drug therapy; N18.9 Chronic kidney disease, unspecified; I44.7 Left bundle-branch block, unspecified; E86.0 Dehydration
CPT/HCPCS: 36415; 70030-TC; 71045; 73060; 73090; 85025; 85730; 87077; 87086; 93005; 93307; A4663; G0378; J0360; J0696; J1644; J7060

== ENCOUNTER 2019-04-05 19:54 | Inpatient (IN) | payer MEDICARE, OTHER ==
[~2019-04-05] VITALS: Ht 121.9 cm; Wt 57.3 kg
[2019-04-05 20:45] LABS: BASOPHILS % (AUTO) 0.7 % (0.0-2.0); EOSINOPHILS # (AUTO) 0.1 K/uL (0.0-0.7); EOSINOPHILS % (AUTO) 1.1 % (0.0-7.0); HEMATOCRIT 33.9 % (31.2-41.9); HEMOGLOBIN 11.5 g/dL (10.9-14.3); LYMPHOCYTES # (AUTO) 0.8 K/uL (20.0-40.0); LYMPHOCYTES % (AUTO) 12.7 % (20.5-51.5); MEAN CORPUSCULAR HGB CONC 34 g/dL (32.3-35.6); MEAN CORPUSCULAR VOLUME 91.5 fL (75.5-95.3); MONOCYTES # (AUTO) 0.7 K/uL (2.0-10.0); MONOCYTES % (AUTO) 11.4 % (0.0-11.0); NEUTROPHILS # (AUTO) 4.6 K/uL (1.8-8.9); NEUTROPHILS % (AUTO) 74.1 % (38.5-71.5); PLATELET COUNT (AUTO) 220 K/uL (179-408); WHITE BLOOD COUNT (AUTO) 6.2 K/uL (3.8-11.8)
--- NOTE | 2019-04-05 20:45 | NUR ---
PT ABLE TO STAND, TRANSFER GURNEY TO WHEELCHAIR TOWARDS RESTROOM
[2019-04-05 20:54] LABS: CARBON DIOXIDE 25 mmol/L (21-32); CHLORIDE 104 mmol/L (98-107); CREATININE 1.4 mg/dL (0.6-1.3); GLUCOSE 106 mg/dL (74-106); POTASSIUM 4.7 mmol/L (3.5-5.1); UREA NITROGEN, BLOOD 37 mg/dL (7-18)
--- NOTE | 2019-04-05 20:57 | NUR ---
PT DENIES PAIN RA C/O COUGHING MONITORED ACCORDINGLY
[2019-04-05 20:59] LABS: ALANINE AMINOTRANSFERASE 21 U/L (14-59); ALKALINE PHOSPHATASE 10 U/L (50-136); ASPARTATE AMINOTRANSFERASE 16 U/L (15-37); BILIRUBIN,DIRECT 0.1 mg/dL (0.0-0.2); BILIRUBIN,TOTAL 0.4 mg/dL (0.2-1.0); TOTAL PROTEIN, SERUM 7.9 g/dL (6.4-8.2)
[2019-04-05 21:10] LABS: *BILIRUBIN,URIN NEGATIVE (NEGATIVE); *BLOOD, URINE NEGATIVE (NEGATIVE); *COLOR,URINE YELLOW (YELLOW); *KETONES,URINE NEGATIVE (NEGATIVE); *UROBILINOGEN,URINE 0.2 E.U./dl (NORMAL); LEUKOCYTE ESTERASE ,URINE TRACE (NEGATIVE); NITRITE, URINE POSITIVE (NEGATIVE); UGLUCOSE NEGATIVE (NEGATIVE)
[2019-04-05] MEDS ORDERED: ALBUTEROL SULFATE 2.5 MG/3 ML NEBU NEB ONE (21:15)
[2019-04-05] MEDS ORDERED: IPRATROPIUM BROMIDE 0.5 MG/2.5 ML NEBU NEB ONE (21:15)
--- NOTE | 2019-04-05 21:23 | NUR ---
pt able to tolerate breathing tx O2SAT AT 96%
[2019-04-05 21:26] LABS: *CLARITY,URINE HAZY (CLEAR)
--- NOTE | 2019-04-05 21:26 | NUR ---
[facility] PAGED: [facility] CALL FOR BED DONE WAITING FOR CALL BACK FR TECHNICAL PROGRAMS MANAGER
[2019-04-05 21:27] LABS: BACTERIA,URINE MANY /HPF (NONE SEEN); MUCUS,URINE FEW /LPF (0-FEW); SQUAMOUS EPITHELIAL CELL,UR FEW /HPF (NONE SEEN)
--- NOTE | 2019-04-05 21:36 | NUR ---
ZULEMA CALLED BACK PT OK TO ADMIT TO TELE RM DX: [facility] PN RENAL INSUFFICIENCY PROLNGED QT BELONGINGS LIST SIGNED WAITING CALL BACK FRM SOFTWARE CLERK FOR BED
--- NOTE | 2019-04-05 22:50 | NUR ---
HAND OFF AND SBAR GIVEN TO JONATHAN
[2019-04-05] MEDS ORDERED: MAGNESIUM HYDROXIDE 30 ML LIQUID UDC PO PRN (23:00)
[2019-04-05] MEDS ORDERED: ONDANSETRON 4 MG/2 ML VIAL IV PRN (23:00)
[2019-04-05] MEDS ORDERED: Z GUARD REMEDY PASTE 57 GM TUBE TOP PRN (23:00)
[2019-04-05] MEDS ORDERED: HYDROCODONE/APAP 5-325MG TABLET PO PRN (23:00)
--- NOTE | 2019-04-05 23:11 | NUR ---
TRANSPORTED TO FLOOR VIA [facility] BY ORIANA ELIZALDE W/ IV INTACT TO R AC
--- NOTE | 2019-04-05 23:42 | NUR ---
New Admit Patient received into care from ER via [facility] with family at side. Patient is Central African speaking only but understands some Azeri and is alert/oriented x3 with no complaints of pain or acute distress at this time. Patient has left AC peripheral IV 20g which is patent and intact. All pertinent assessments completed and PMH received. All safety and fall precaution measures are in place. Call light and personal items are within reach at all times. Will continue to monitor and assess.
--- NOTE | 2019-04-06 01:55 | NUR ---
Patient has previous history of hypertensive crisis at this hospital and has a current BP of 170/57 HR 70. Notified REGULATORY COMPLIANCE COORDINATOR Alan requesting PRN BP med. Review of patient's home medications reflects PRN clonidine 0.1mg for BP >160. Waiting for REGULATORY COMPLIANCE COORDINATOR's response. Will continue to monitor and assess.
[2019-04-06 04:00] VITALS: BP 170/62
[2019-04-06] MEDS: IV 1/2NS 1000 ML 1,000 ML IV PRN ×2 (04:21→17:49)
--- NOTE | 2019-04-06 06:00 | NUR ---
Patient slept intermittently throughout night after admission with no complaints of pain or discomfort verbalized or noted/observed by nurse. IV fluids are running as ordered. All nursing needs were met promptly and patient is warm, dry, and comfortable. All safety and fall precaution measures remain in place. Call light and personal items remain within reach at all times.
[2019-04-06 06:33] LABS: BASOPHILS % (AUTO) 0.8 % (0.0-2.0); EOSINOPHILS # (AUTO) 0.1 K/uL (0.0-0.7); EOSINOPHILS % (AUTO) 1.1 % (0.0-7.0); HEMATOCRIT 30.2 % (31.2-41.9); HEMOGLOBIN 10.3 g/dL (10.9-14.3); LYMPHOCYTES # (AUTO) 0.9 K/uL (20.0-40.0); LYMPHOCYTES % (AUTO) 16.3 % (20.5-51.5); MEAN CORPUSCULAR HEMOGLOBIN 31.4 uug (24.7-32.8); MEAN CORPUSCULAR HGB CONC 34 g/dL (32.3-35.6); MEAN CORPUSCULAR VOLUME 91.8 fL (75.5-95.3); MONOCYTES # (AUTO) 0.9 K/uL (2.0-10.0); MONOCYTES % (AUTO) 16.1 % (0.0-11.0); NEUTROPHILS # (AUTO) 3.8 K/uL (1.8-8.9); NEUTROPHILS % (AUTO) 65.7 % (38.5-71.5); PLATELET COUNT (AUTO) 197 K/uL (179-408); WHITE BLOOD COUNT (AUTO) 5.7 K/uL (3.8-11.8)
[2019-04-06 08:04] LABS: CARBON DIOXIDE 22 mmol/L (21-32); CHLORIDE 108 mmol/L (98-107); CHOLESTEROL 227 mg/dL (<200); CREATININE 1.3 mg/dL (0.6-1.3); GLUCOSE 90 mg/dL (74-106); HDL CHOLESTEROL 48 mg/dL (40-60); MAGNESIUM 2.3 mg/dL (1.8-2.4); PHOSPHOROUS 5.4 mg/dL (2.5-4.9); POTASSIUM 4.4 mmol/L (3.5-5.1); TRIGLYCERIDES 194 MG/DL (30-150); UREA NITROGEN, BLOOD 34 mg/dL (7-18)
[2019-04-06 08:21] LABS: LYMPHOCYTES % (MANUAL) 17 % (20-40); MONOCYTES % (MANUAL) 11 % (2-10); NEUTROPHILS % (MANUAL) 72 % (42-75)
[2019-04-06] MEDS: ASPIRIN EC 81 MG TABLET.DR PO SCH (08:39)
[2019-04-06] MEDS ORDERED: ACETAMINOPHEN 325 MG TABLET PO PRN (09:30)
[2019-04-06] MEDS: hydrALAZINE HCL 25 MG TABLET PO SCH ×2 (09:42→20:34)
[2019-04-06] MEDS: CARVEDILOL 12.5 MG TABLET PO SCH ×2 (09:42→17:58)
[2019-04-06 11:53] VITALS: BP 146/46
[2019-04-06] MEDS: AMOXICILLIN-CLAVUL 500-125MG TABLET PO SCH ×2 (11:58→20:34)
[2019-04-06] MEDS: BENZONATATE 100 MG CAPSULE PO PRN ×2 (11:59→20:50)
[2019-04-06] MEDS: VALSARTAN 160 MG TABLET PO SCH (12:00)
[2019-04-06 15:36] VITALS: BP 113/55
[2019-04-06] MEDS ORDERED: HYDRALAZINE 25 MG PO SCH (17:00)
[2019-04-06] MEDS: ACETAMINOPHEN 325 MG TABLET PO PRN (17:42)
--- NOTE | 2019-04-06 18:39 | NUR ---
PATIENT IN BED RESTING WITH NO SOB NOTED AND NO C/O PAIN AT THIS TIME. IV INTACT AND PATENT. KEPT CLEAN AND DRY AT ALL TIMES. CALL LIGHT WITHIN REACH AND WILL CONTINUE TO MONITOR
[2019-04-06 20:17] VITALS: BP 171/46
[2019-04-06] MEDS: ATORVASTATIN 20 MG TABLET PO SCH (20:34)
[2019-04-06] MEDS ORDERED: AMOXICILLIN-CLAVUL 875-125MG TABLET PO SCH (21:00)
--- NOTE | 2019-04-06 23:18 | NUR ---
patient was short of breath, 84% on room air. Put on 2L via nasal cannula
[2019-04-07 04:56] VITALS: BP 142/64
[2019-04-07 07:13] LABS: CREATININE 1.1 mg/dL (0.6-1.3); MAGNESIUM 2.1 mg/dL (1.8-2.4); PHOSPHOROUS 5.1 mg/dL (2.5-4.9); POTASSIUM 4.5 mmol/L (3.5-5.1)
--- NOTE | 2019-04-07 07:30 | NUR ---
Received patient in Bed, awake and verbally responsive. Fijian speaking. No signs of distress noted. No SOB. On Oxygen at 2 LPM via Nasal canula, No complain of Pain or discomfort. denies chest pain. kept comfortable. Will continue to monitor.
[2019-04-07 08:11] LABS: BASOPHILS % (AUTO) 0.5 % (0.0-2.0); EOSINOPHILS # (AUTO) 0.1 K/uL (0.0-0.7); EOSINOPHILS % (AUTO) 2.4 % (0.0-7.0); HEMATOCRIT 27.9 % (31.2-41.9); HEMOGLOBIN 9.5 g/dL (10.9-14.3); LYMPHOCYTES % (AUTO) 16.8 % (20.5-51.5); MEAN CORPUSCULAR HEMOGLOBIN 31.6 uug (24.7-32.8); MEAN CORPUSCULAR HGB CONC 34 g/dL (32.3-35.6); MEAN CORPUSCULAR VOLUME 92.7 fL (75.5-95.3); MONOCYTES # (AUTO) 0.8 K/uL (2.0-10.0); MONOCYTES % (AUTO) 13.5 % (0.0-11.0); NEUTROPHILS # (AUTO) 4.1 K/uL (1.8-8.9); NEUTROPHILS % (AUTO) 66.8 % (38.5-71.5); PLATELET COUNT (AUTO) 175 K/uL (179-408); RED BLOOD CELL COUNT(AUTO) 3.01 MIL/uL (3.63-4.92); WHITE BLOOD COUNT (AUTO) 6.1 K/uL (3.8-11.8)
[2019-04-07] MEDS: CARVEDILOL 12.5 MG TABLET PO SCH ×2 (08:13→17:30)
[2019-04-07] MEDS: AMOXICILLIN-CLAVUL 500-125MG TABLET PO SCH ×2 (08:56→20:35)
[2019-04-07] MEDS: ASPIRIN EC 81 MG TABLET.DR PO SCH (08:56)
[2019-04-07] MEDS: NIFEdipine XL 60 MG TABSR PO SCH (08:56)
[2019-04-07] MEDS: VALSARTAN 160 MG TABLET PO SCH (08:56)
[2019-04-07] MEDS: hydrALAZINE HCL 25 MG TABLET PO SCH ×2 (08:56→20:35)
[2019-04-07] MEDS ORDERED: VALSARTAN 160 MG PO SCH (09:00)
[2019-04-07] MEDS: BENZONATATE 100 MG CAPSULE PO PRN ×3 (09:04→22:31)
[2019-04-07 11:33] VITALS: BP 164/65
[2019-04-07 15:23] VITALS: BP 129/50
--- NOTE | 2019-04-07 18:22 | NUR ---
patient in Bed, awake and verbally responsive. On Oxygen at 2LPM via nasal canula, saturating 94%. No SOB noted. No complain of Pain or discomfort. denies chest pain. Cough medication given as ordered. Still awaiting for UA C&S, All needs attended. Kept clean and comfortable. Will Endorse to Oncoming Nurse.
--- NOTE | 2019-04-07 19:52 | NUR ---
Received patient in bed, awake and verbally responsive. Barbadian speaking. No c/o pain or any discomfort. Verbalizes need for diaper change. No signs of distress noted. No SOB. On Oxygen at 2 LPM via Nasal canula. Denies chest pain. kept comfortable. Will continue to monitor.
[2019-04-07 20:07] VITALS: BP 143/52
[2019-04-07] MEDS: ATORVASTATIN 20 MG TABLET PO SCH (20:35)
[2019-04-08 05:40] VITALS: BP 132/64
[2019-04-08] MEDS: VALSARTAN 160 MG TABLET PO SCH (08:25)
[2019-04-08] MEDS: hydrALAZINE HCL 25 MG TABLET PO SCH ×2 (08:25→20:27)
[2019-04-08] MEDS: AMOXICILLIN-CLAVUL 500-125MG TABLET PO SCH ×2 (08:26→20:27)
[2019-04-08] MEDS: NIFEdipine XL 60 MG TABSR PO SCH (08:26)
[2019-04-08] MEDS: ASPIRIN EC 81 MG TABLET.DR PO SCH (08:26)
[2019-04-08] MEDS: CARVEDILOL 12.5 MG TABLET PO SCH ×2 (08:27→17:59)
[2019-04-08] MEDS: BENZONATATE 100 MG CAPSULE PO PRN (08:30)
[2019-04-08] MEDS ORDERED: POTASSIUM CHLORIDE 20 MEQ TAB.PRT.SR PO ONE (09:15)
[2019-04-08 11:47] VITALS: BP 146/65
[2019-04-08 15:47] VITALS: BP 123/51
[2019-04-08] MEDS: ACETAMINOPHEN 325 MG TABLET PO PRN (18:37)
--- NOTE | 2019-04-08 18:42 | NUR ---
PATIENT IN BED RESTING WATCHING TV WITH FAMILY AT BEDSIDE, NO SOB NOTED, C/O HEADACHE AND TYLENOL GIVEN ORDERED. KEPT CLEAN AND DRY AT ALL TIMES, SAFETY AND COMFORT PROVIDED. WILL CONTINUE TO MONITOR. CALL LIGHT WITHIN REACH.
[2019-04-08] MEDS: ATORVASTATIN 20 MG TABLET PO SCH (20:26)
[2019-04-08 20:43] VITALS: BP 134/48
[2019-04-09 06:35] LABS: CREATININE 1.3 mg/dL (0.6-1.3); MAGNESIUM 2.3 mg/dL (1.8-2.4); PHOSPHOROUS 4.8 mg/dL (2.5-4.9); POTASSIUM 4.4 mmol/L (3.5-5.1)
[2019-04-09 06:36] LABS: BASOPHILS % (AUTO) 0.4 % (0.0-2.0); EOSINOPHILS # (AUTO) 0.2 K/uL (0.0-0.7); EOSINOPHILS % (AUTO) 3.2 % (0.0-7.0); HEMOGLOBIN 9.9 g/dL (10.9-14.3); LYMPHOCYTES # (AUTO) 1.3 K/uL (20.0-40.0); LYMPHOCYTES % (AUTO) 19.8 % (20.5-51.5); MEAN CORPUSCULAR HEMOGLOBIN 31.3 uug (24.7-32.8); MEAN CORPUSCULAR HGB CONC 34 g/dL (32.3-35.6); MEAN CORPUSCULAR VOLUME 91.6 fL (75.5-95.3); MONOCYTES # (AUTO) 0.7 K/uL (2.0-10.0); MONOCYTES % (AUTO) 9.7 % (0.0-11.0); NEUTROPHILS # (AUTO) 4.5 K/uL (1.8-8.9); NEUTROPHILS % (AUTO) 66.9 % (38.5-71.5); PLATELET COUNT (AUTO) 203 K/uL (179-408); RED BLOOD CELL COUNT(AUTO) 3.17 MIL/uL (3.63-4.92); WHITE BLOOD COUNT (AUTO) 6.7 K/uL (3.8-11.8)
[2019-04-09 06:57] VITALS: BP 130/54
[2019-04-09] MEDS: CARVEDILOL 12.5 MG TABLET PO SCH ×2 (08:00→17:12)
[2019-04-09] MEDS: AMOXICILLIN-CLAVUL 500-125MG TABLET PO SCH ×2 (08:47→20:00)
[2019-04-09] MEDS: hydrALAZINE HCL 25 MG TABLET PO SCH ×2 (08:47→20:00)
[2019-04-09] MEDS: NIFEdipine XL 60 MG TABSR PO SCH (08:47)
[2019-04-09] MEDS: ASPIRIN EC 81 MG TABLET.DR PO SCH (08:48)
[2019-04-09] MEDS: VALSARTAN 160 MG TABLET PO SCH (08:48)
--- NOTE | 2019-04-09 10:11 | NUR ---
receievd patient aox2-3 on her bed , patient calm cooperative , watching TV, patient has heplock inplaced on her Right Forearm, noted some redness on the site , IV heplock removed applied sterile dressing on the site, patient tolerated the procedure
--- NOTE | 2019-04-09 10:51 | NUR ---
received patient AOx3-4, patient verbalizes that shes in pain, 8/10 pain scale that radiates in her back, pain meds given as needed , returned after an hour and check on the patient , patient asleep, denies any pain at this time, will continue monitor
[2019-04-09 11:57] VITALS: BP 142/64
--- NOTE | 2019-04-09 13:33 | NUR ---
patient sleeping in her room, denies any pain , in no distress at this time
[2019-04-09 15:37] VITALS: BP 126/56
--- NOTE | 2019-04-09 17:26 | NUR ---
patient calm cooperative, in good mood no distress at this time, compliant with her medication
[2019-04-09] MEDS: ATORVASTATIN 20 MG TABLET PO SCH (20:00)
--- NOTE | 2019-04-09 20:00 | NUR ---
RECEIVED PATIENT AWAKE IN BED. PATIENT IS A/O X3. ARMENIAN SPEAKING BUT ABLE TO MAKE SIMPLE NEEDS KNOWN. DENIES PAIN OR DISCOMFORT. NO RESP. DISTRESS NOTED. REPORTED DURING SHIFT CHANGE REPORT THAT PATIENT DOES NOT HAVE IV ACCESS, MD AWARE. BED ALARM ON. CALL LIGHT IN REACH. ALL NEEDS ATTENDED. WILL CONTINUE TO MONITOR AND ASSESS.
[2019-04-09 20:59] VITALS: BP 160/52
--- NOTE | 2019-04-09 21:00 | NUR ---
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 WANTS TO GO IN AM. PATENT COUNSEL NOTIFIED. WILL CONTINUE TO MONITOR AND ASSESS.
[2019-04-10 05:44] VITALS: BP 140/72
--- NOTE | 2019-04-10 06:50 | NUR ---
PATIENT ASLEEP IN BED. SLEPT WELL THROUGHOUT THE NIGHT. VSS. CALL LIGHT IN REACH. ALL NEEDS ATTENDED. WILL CONTINUE TO MONITOR AND ASSESS.
--- NOTE | 2019-04-10 07:30 | NUR ---
Patient calm and comfortable with no signs of distress; patient will continue to be monitored through out shift.
[2019-04-10] MEDS: AMOXICILLIN-CLAVUL 500-125MG TABLET PO SCH ×2 (10:00→20:56)
[2019-04-10] MEDS: ASPIRIN EC 81 MG TABLET.DR PO SCH (10:01)
[2019-04-10] MEDS: VALSARTAN 160 MG TABLET PO SCH (10:01)
[2019-04-10] MEDS: hydrALAZINE HCL 25 MG TABLET PO SCH ×2 (10:02→20:56)
[2019-04-10] MEDS: NIFEdipine XL 60 MG TABSR PO SCH (10:02)
[2019-04-10] MEDS: CARVEDILOL 12.5 MG TABLET PO SCH ×2 (10:02→19:00)
[2019-04-10 11:32] VITALS: BP 129/48
[2019-04-10 15:47] VITALS: BP 122/40
--- NOTE | 2019-04-10 18:25 | NUR ---
Patient calm and comfortable through out shift with no signs of distress; patient with stable vital signs ; ct scan ordered and relayed to attending ;md stated he wanted to have patient continue to stay due to results and will order thyroid ultrasound for further diagnostics. Patient otherwise medication compliant ; patient educated to hydrate more as not having regular urinary pattern. Patient had 1 BM during morning. Report given to oncoming nurse.
[2019-04-10] MEDS: BENZONATATE 100 MG CAPSULE PO PRN (19:03)
[2019-04-10 20:06] VITALS: BP 123/45
[2019-04-10] MEDS: ATORVASTATIN 20 MG TABLET PO SCH (20:56)
[2019-04-10 22:25] LABS: *BILIRUBIN,URIN NEGATIVE (NEGATIVE); *BLOOD, URINE NEGATIVE (NEGATIVE); *COLOR,URINE YELLOW (YELLOW); *KETONES,URINE NEGATIVE (NEGATIVE); *UROBILINOGEN,URINE 0.2 E.U./dl (NORMAL); LEUKOCYTE ESTERASE ,URINE TRACE (NEGATIVE); NITRITE, URINE NEGATIVE (NEGATIVE); UGLUCOSE NEGATIVE (NEGATIVE)
[2019-04-10 22:33] LABS: *CLARITY,URINE SLIGHTLY HAZY (CLEAR)
[2019-04-10 22:34] LABS: *URINE TOTAL PROTEIN RANDOM 75.8 mg/dL (<150/24HR)
[2019-04-10 22:35] LABS: MUCUS,URINE FEW /LPF (0-FEW); SQUAMOUS EPITHELIAL CELL,UR MODERATE /HPF (NONE SEEN)
[2019-04-11 04:15] VITALS: BP 131/46
--- NOTE | 2019-04-11 08:00 | NUR ---
Received patient in Bed, awake and verbally responsive. Kyrgyz speaking. No signs of distress noted. No SOB. Pt on RA with saturation of 93%, No complain of Pain or discomfort. denies chest pain. Pt states feeling much better today than in previous days.Will continue to monitor. for safety and comfort.
[2019-04-11] MEDS: CARVEDILOL 12.5 MG TABLET PO SCH ×2 (08:26→18:00)
[2019-04-11] MEDS ORDERED: CEphaleXIN 500 MG CAPSULE PO SCH (08:30)
[2019-04-11] MEDS: CEphaleXIN 250 MG CAPSULE PO SCH ×2 (08:55→13:48)
[2019-04-11] MEDS: ASPIRIN EC 81 MG TABLET.DR PO SCH (08:56)
[2019-04-11] MEDS: VALSARTAN 160 MG TABLET PO SCH (08:56)
[2019-04-11] MEDS: hydrALAZINE HCL 25 MG TABLET PO SCH (08:57)
[2019-04-11] MEDS: NIFEdipine XL 60 MG TABSR PO SCH (08:57)
[2019-04-11 09:33] LABS: BASOPHILS # (AUTO) 0.1 K/uL (0.0-8.0); EOSINOPHILS # (AUTO) 0.2 K/uL (0.0-0.7); HEMATOCRIT 29.6 % (31.2-41.9); HEMOGLOBIN 10.1 g/dL (10.9-14.3); LYMPHOCYTES % (AUTO) 14.1 % (20.5-51.5); MEAN CORPUSCULAR HEMOGLOBIN 31.4 uug (24.7-32.8); MEAN CORPUSCULAR HGB CONC 34 g/dL (32.3-35.6); MEAN CORPUSCULAR VOLUME 92.1 fL (75.5-95.3); MONOCYTES # (AUTO) 0.6 K/uL (2.0-10.0); MONOCYTES % (AUTO) 8.9 % (0.0-11.0); PLATELET COUNT (AUTO) 237 K/uL (179-408); RED BLOOD CELL COUNT(AUTO) 3.22 MIL/uL (3.63-4.92); WHITE BLOOD COUNT (AUTO) 6.9 K/uL (3.8-11.8)
[2019-04-11 11:00] VITALS: BP 110/34
[2019-04-11 11:16] LABS: ALANINE AMINOTRANSFERASE 8 U/L (14-59); ALKALINE PHOSPHATASE < 10 U/L (50-136); ASPARTATE AMINOTRANSFERASE 12 U/L (15-37); BILIRUBIN,TOTAL 0.4 mg/dL (0.2-1.0); CARBON DIOXIDE 27 mmol/L (21-32); CHLORIDE 105 mmol/L (98-107); CREATININE 1.2 mg/dL (0.6-1.3); GLUCOSE 173 mg/dL (74-106); MAGNESIUM 2.5 mg/dL (1.8-2.4); PHOSPHOROUS 6.3 mg/dL (2.5-4.9); POTASSIUM 4.3 mmol/L (3.5-5.1); TOTAL PROTEIN, SERUM 6.5 g/dL (6.4-8.2); UREA NITROGEN, BLOOD 33 mg/dL (7-18)
[2019-04-11 13:15] LABS: *CREATININE,URINE 73.3 mg/dL (30-125)
[2019-04-11 15:10] VITALS: BP 103/35
[2019-04-11] MEDS ORDERED: ALBUTEROL SULFATE 8 GM HFA.AER.AD IH PRN (15:45)
[2019-04-11] MEDS: ACETAMINOPHEN 325 MG TABLET PO PRN (16:10)
[2019-04-11] MEDS ORDERED: ALBUTEROL SULFATE 2.5 MG/3 ML NEBU NEB PRN ×2 (16:45)
[2019-04-11 18:00] VITALS: BP 103/40
--- NOTE | 2019-04-11 18:20 | NUR ---
DISCHARGE ORDER RECEIVED. NO ACUTE DISTRESS OR SOB NOTED. DISCHARGE INSTRUCTIONS GIVEN TO PATIENT WITH GOOD UNDERSTANDING. BELONGINGS LIST SIGNED. BELONGINGS RETURNED. RX SENT ELECTRONICALLY TO PT'S PREFERRED PHARMACY. AWAITING FOR NELLI (DAUGHTER) TO PICK PATIENT ON PRIVATE TRANSPORT. NO IV LINE PRESENT. WILL GIVE REPORT TO INCOMING NURSE.
--- NOTE | 2019-04-11 20:00 | NUR ---
DAUGHTER AT BEDSIDE TO ADVERTISING SALES CONSULTANT PATIENT TO TAKE HOME. PATIENT IS A/O X3. DENIES PAIN OR DISCOMFORT. NO RESP. DISTRESS NOTED. VSS. PATIENT LEFT FACILITY IN STABLE CONDITION.
== END 2019-04-11 21:04 | disposition home or self-care (01) | DRG 193 ==
LOC: ER 19:58 → TELE3 22:56 → MEDSURG3 04-06 15:45
PROVIDERS: ADMIT Student in an Organized Health Care Education/Training Program; ATTEND Student in an Organized Health Care Education/Training Program
DX: J18.9 Pneumonia, unspecified organism (principal); N17.0 Acute kidney failure with tubular necrosis; N39.0 Urinary tract infection, site not specified; J98.11 Atelectasis; D68.59 Other primary thrombophilia; J20.9 Acute bronchitis, unspecified; R07.89 Other chest pain; E78.5 Hyperlipidemia, unspecified; F03.90 Unspecified dementia, unspecified severity, without behavioral disturbance, psychotic disturbance, mood disturbance, and anxiety; I44.7 Left bundle-branch block, unspecified; I35.1 Nonrheumatic aortic (valve) insufficiency; B96.20 Unspecified Escherichia coli [E. coli] as the cause of diseases classified elsewhere; I13.10 Hypertensive heart and chronic kidney disease without heart failure, with stage 1 through stage 4 chronic kidney disease, or unspecified chronic kidney disease; N18.9 Chronic kidney disease, unspecified; K21.9 Gastro-esophageal reflux disease without esophagitis; B96.89 Other specified bacterial agents as the cause of diseases classified elsewhere; Z79.82 Long term (current) use of aspirin; I12.9 Hypertensive chronic kidney disease with stage 1 through stage 4 chronic kidney disease, or unspecified chronic kidney disease; N18.2 Chronic kidney disease, stage 2 (mild); E28.2 Polycystic ovarian syndrome; Z96.649 Presence of unspecified artificial hip joint; Z87.440 Personal history of urinary (tract) infections; J45.909 Unspecified asthma, uncomplicated; Z74.09 Other reduced mobility
CPT/HCPCS: 36415; 70030-TC; 71045; 71250; 83605; 83735; 84100; 84156; 84300; 84443; 85025; 87040; 87077; 87086; 87400; 93005; 93307; A4663; G0378; J3490; J3590; J7030

== ENCOUNTER 2020-03-31 15:40 | Emergency (ER) | payer MEDICARE, OTHER ==
[~2020-03-31] VITALS: Ht 121.9 cm; Wt 53.1 kg
[~2020-03-31 15:40] MED LIST changes: +CEPH250C PO; -CLONIDINE 0.1 MG PO; -DULO30CA2 PO; +NIFE-34 PO; -NIFE60TA69 PO; -OXYB5TAB11 PO; -PANT40VI IV; -TRAM50TA2 PO
[2020-03-31] MEDS ORDERED: BENAZEPRIL HCL 10 MG TABLET PO ONE (16:00)
[2020-03-31 16:03] VITALS: BP 192/84
[2020-03-31] MEDS ORDERED: BENAZEPRIL HCL 10 MG TABLET ONE (16:05)
[2020-03-31 16:19] LABS: CREATININE 1.3 mg/dL (0.6-1.3); POTASSIUM 5.3 mmol/L (3.5-5.1)
[2020-03-31 16:20] LABS: BASOPHILS # (AUTO) 0.1 K/uL (0.0-8.0); BASOPHILS % (AUTO) 0.8 % (0.0-2.0); EOSINOPHILS # (AUTO) 0.1 K/uL (0.0-0.7); EOSINOPHILS % (AUTO) 1.6 % (0.0-7.0); HEMATOCRIT 32.7 % (31.2-41.9); HEMOGLOBIN 10.9 g/dL (10.9-14.3); LYMPHOCYTES % (AUTO) 15.4 % (20.5-51.5); MEAN CORPUSCULAR HGB CONC 33 g/dL (32.3-35.6); MEAN CORPUSCULAR VOLUME 92.9 fL (75.5-95.3); MONOCYTES # (AUTO) 0.5 K/uL (2.0-10.0); MONOCYTES % (AUTO) 7.7 % (0.0-11.0); NEUTROPHILS % (AUTO) 74.5 % (38.5-71.5); PLATELET COUNT (AUTO) 275 K/uL (179-408); RED BLOOD CELL COUNT(AUTO) 3.52 MIL/uL (3.63-4.92); WHITE BLOOD COUNT (AUTO) 6.7 K/uL (3.8-11.8)
--- NOTE | 2020-03-31 16:37 | NUR ---
Dr. Richardson made aware of K 5.3
[2020-03-31] MEDS ORDERED: BENA20TA9 PO (16:43)
--- NOTE | 2020-03-31 16:51 | NUR ---
Per Dr. Richardson, pt stable for discharge. Made aware of BP of 192/82 at time of discharge. Stated ok to discharge patient. Pt left in care of daughter using a walker.
== END 2020-03-31 16:56 | disposition home or self-care (01) ==
LOC: ER 15:40
DX: I12.9 Hypertensive chronic kidney disease with stage 1 through stage 4 chronic kidney disease, or unspecified chronic kidney disease (principal); N18.9 Chronic kidney disease, unspecified; I44.7 Left bundle-branch block, unspecified; F03.90 Unspecified dementia, unspecified severity, without behavioral disturbance, psychotic disturbance, mood disturbance, and anxiety; Z87.01 Personal history of pneumonia (recurrent); Z96.652 Presence of left artificial knee joint; E78.5 Hyperlipidemia, unspecified; M19.90 Unspecified osteoarthritis, unspecified site; Z79.899 Other long term (current) drug therapy; Z79.82 Long term (current) use of aspirin
CPT/HCPCS: 36415; 70030-TC; 71045; 85025; 93005; A4663

== ENCOUNTER 2020-04-28 17:32 | Emergency (ER) | payer MEDICARE, OTHER ==
[~2020-04-28] VITALS: Ht 121.9 cm; Wt 53.1 kg
[~2020-04-28 17:32] MED LIST changes: +BENA20TA9 PO; -CEPH250C PO
[2020-04-28] MEDS ORDERED: ONDANSETRON 4 MG/2 ML VIAL IV ONE (18:00)
[2020-04-28] MEDS ORDERED: ONDANSETRON 4 MG/2 ML VIAL ONE (18:05)
[2020-04-28 18:19] LABS: *BILIRUBIN,URIN NEGATIVE (NEGATIVE); *BLOOD, URINE NEGATIVE (NEGATIVE); *CLARITY,URINE SLIGHTLY CLOUDY (CLEAR); *COLOR,URINE YELLOW (YELLOW); *KETONES,URINE NEGATIVE (NEGATIVE); *UROBILINOGEN,URINE 0.2 E.U./dl (NORMAL); LEUKOCYTE ESTERASE ,URINE TRACE (NEGATIVE); NITRITE, URINE NEGATIVE (NEGATIVE); UGLUCOSE NEGATIVE (NEGATIVE)
[2020-04-28 18:27] LABS: ALANINE AMINOTRANSFERASE 13 U/L (14-59); ALKALINE PHOSPHATASE 19 U/L (50-136); ASPARTATE AMINOTRANSFERASE 14 U/L (15-37); BILIRUBIN,DIRECT 0.1 mg/dL (0.0-0.2); BILIRUBIN,TOTAL 0.5 mg/dL (0.2-1.0); CARBON DIOXIDE 23 mmol/L (21-32); CHLORIDE 103 mmol/L (98-107); CREATININE 1.4 mg/dL (0.6-1.3); GLUCOSE 102 mg/dL (74-106); LIPASE 191 U/L (73-393); POTASSIUM 5.2 mmol/L (3.5-5.1); TOTAL PROTEIN, SERUM 7.5 g/dL (6.4-8.2)
[2020-04-28 18:29] LABS: BASOPHILS # (AUTO) 0.1 K/uL (0.0-8.0); BASOPHILS % (AUTO) 0.8 % (0.0-2.0); EOSINOPHILS # (AUTO) 0.1 K/uL (0.0-0.7); EOSINOPHILS % (AUTO) 1.7 % (0.0-7.0); HEMATOCRIT 32.8 % (31.2-41.9); HEMOGLOBIN 11.1 g/dL (10.9-14.3); LYMPHOCYTES # (AUTO) 1.1 K/uL (20.0-40.0); LYMPHOCYTES % (AUTO) 14.6 % (20.5-51.5); MEAN CORPUSCULAR HEMOGLOBIN 31.6 uug (24.7-32.8); MEAN CORPUSCULAR HGB CONC 34 g/dL (32.3-35.6); MEAN CORPUSCULAR VOLUME 93.6 fL (75.5-95.3); MONOCYTES # (AUTO) 0.5 K/uL (2.0-10.0); MONOCYTES % (AUTO) 6.6 % (0.0-11.0); NEUTROPHILS # (AUTO) 5.9 K/uL (1.8-8.9); NEUTROPHILS % (AUTO) 76.3 % (38.5-71.5); PLATELET COUNT (AUTO) 274 K/uL (179-408); WHITE BLOOD COUNT (AUTO) 7.7 K/uL (3.8-11.8)
[2020-04-28 18:42] LABS: UREA NITROGEN, BLOOD 40 mg/dL (7-18)
[2020-04-28] MEDS ORDERED: HYDROMORPHONE 1 MG/1 ML DISP.SYRIN IV ONE (18:45)
[2020-04-28] MEDS ORDERED: HYDROMORPHONE 1 MG/1 ML DISP.SYRIN ONE (18:51)
[2020-04-28] MEDS ORDERED: PANT40TA49 PO (19:13)
[2020-04-28] MEDS ORDERED: DULO30CA2 PO (19:13)
[2020-04-28] MEDS ORDERED: ONDA4TAB5 PO (19:13)
[2020-04-28] MEDS ORDERED: MIRA25TA PO (19:13)
[2020-04-28] MEDS ORDERED: DOCU100C36 PO (19:13)
[2020-04-28] MEDS ORDERED: LORA10TA7 PO (19:13)
[2020-04-28] MEDS ORDERED: ROPI0.5T4 PO (19:13)
[2020-04-28] MEDS ORDERED: TRAM50TA2 PO (19:13)
[2020-04-28] MEDS ORDERED: IV NORMAL SALINE 1000 ML BAG IV ONE (19:30)
[2020-04-28] MEDS ORDERED: CLONIDINE HCL 0.1 MG TABLET PO ONE (19:45)
[2020-04-28] MEDS ORDERED: CLONIDINE HCL 0.1 MG TABLET ONE (19:47)
--- NOTE | 2020-04-28 20:01 | NUR ---
Patient discharged to home in stable condition. Written and verbal after care instructions given. Patient verbalizes understanding of instructions. Stressed follow up or return to ER for worsening s/s. Patient's daughter taking her home. BP elevated. Pt was given catapres 0.1 mg. ok to discharge home per Dr. Pritchett. Patient verbalizes understanding to check BP at home in 1 hour & if systolic still high ok to take nighttime BP medication.
[2020-04-28 20:05] VITALS: BP 187/77
[2020-04-28 21:02] LABS: BACTERIA,URINE MODERATE /HPF (NONE SEEN); RBC,URINE 0-3 /HPF (0-3); SQUAMOUS EPITHELIAL CELL,UR FEW /HPF (NONE SEEN)
== END 2020-04-28 20:05 | disposition home or self-care (01) ==
LOC: ER 17:34
DX: R10.9 Unspecified abdominal pain (principal); R11.2 Nausea with vomiting, unspecified; R51.9 Headache, unspecified; I10 Essential (primary) hypertension; I44.7 Left bundle-branch block, unspecified; F03.90 Unspecified dementia, unspecified severity, without behavioral disturbance, psychotic disturbance, mood disturbance, and anxiety; Z87.01 Personal history of pneumonia (recurrent); K21.9 Gastro-esophageal reflux disease without esophagitis; N39.41 Urge incontinence; E78.5 Hyperlipidemia, unspecified; M19.90 Unspecified osteoarthritis, unspecified site; E28.2 Polycystic ovarian syndrome; Z79.899 Other long term (current) drug therapy
CPT/HCPCS: 36415; 70450; 71045; 74176; 80048; 80076; 81001; 83690; 84484; 85025; 87077; 87086; 87186; 93005; 96374; 96375; 99285; J1170; J2405; 70030-TC; A4663

== ENCOUNTER 2020-08-09 13:41 | Emergency (ER) | payer MEDICARE, OTHER ==
[~2020-08-09] VITALS: Ht 152.4 cm; Wt 52.2 kg
[~2020-08-09 13:41] MED LIST changes: -ASPI81TA31 PO; -ATOR20TA PO; +DOCU100C36 PO; +DULO30CA2 PO; -HYDRALAZINE 25 MG PO; +LORA10TA7 PO; +MIRA25TA PO; -NIFE-34 PO; +ONDA4TAB5 PO; +PANT40TA49 PO; +ROPI0.5T4 PO; +TRAM50TA2 PO; -VALSARTAN 160 MG PO
--- NOTE | 2020-08-09 14:10 | NUR ---
MD at bedside for assessment, small rash noted to right forearm
[2020-08-09 14:45] LABS: BASOPHILS % (AUTO) 0.6 % (0.0-2.0); EOSINOPHILS # (AUTO) 0.3 K/uL (0.0-0.7); EOSINOPHILS % (AUTO) 4.7 % (0.0-7.0); HEMATOCRIT 29.5 % (31.2-41.9); HEMOGLOBIN 9.9 g/dL (10.9-14.3); LYMPHOCYTES # (AUTO) 1.1 K/uL (20.0-40.0); LYMPHOCYTES % (AUTO) 18.3 % (20.5-51.5); MEAN CORPUSCULAR HGB CONC 34 g/dL (32.3-35.6); MEAN CORPUSCULAR VOLUME 92.3 fL (75.5-95.3); MONOCYTES # (AUTO) 0.5 K/uL (2.0-10.0); MONOCYTES % (AUTO) 8.9 % (0.0-11.0); NEUTROPHILS # (AUTO) 3.9 K/uL (1.8-8.9); NEUTROPHILS % (AUTO) 67.5 % (38.5-71.5); PLATELET COUNT (AUTO) 247 K/uL (179-408); WHITE BLOOD COUNT (AUTO) 5.8 K/uL (3.8-11.8)
[2020-08-09 14:53] LABS: CARBON DIOXIDE 25 mmol/L (21-32); CHLORIDE 110 mmol/L (98-107); CREATININE 1.7 mg/dL (0.6-1.3); GLUCOSE 109 mg/dL (74-106); POTASSIUM 4.5 mmol/L (3.5-5.1); UREA NITROGEN, BLOOD 40 mg/dL (7-18)
[2020-08-09 14:59] LABS: ALANINE AMINOTRANSFERASE 15 U/L (14-59); ALKALINE PHOSPHATASE 26 U/L (50-136); ASPARTATE AMINOTRANSFERASE 13 U/L (15-37); BILIRUBIN,TOTAL 0.2 mg/dL (0.2-1.0); TOTAL PROTEIN, SERUM 6.6 g/dL (6.4-8.2)
--- NOTE | 2020-08-09 15:21 | NUR ---
Patient discharged to home in stable condition. Patient assisted to car with daughter with use of walker. Written and verbal after care instructions given. Patient verbalizes understanding of instructions. Stressed follow up or return to ER for worsening s/s.
[2020-08-09 15:23] VITALS: BP 143/96
== END 2020-08-09 15:24 | disposition home or self-care (01) ==
LOC: ER 13:41
DX: D69.2 Other nonthrombocytopenic purpura (principal); F03.90 Unspecified dementia, unspecified severity, without behavioral disturbance, psychotic disturbance, mood disturbance, and anxiety; E78.5 Hyperlipidemia, unspecified; K21.9 Gastro-esophageal reflux disease without esophagitis; J45.909 Unspecified asthma, uncomplicated; I44.7 Left bundle-branch block, unspecified; Z87.01 Personal history of pneumonia (recurrent); Z79.899 Other long term (current) drug therapy; M19.90 Unspecified osteoarthritis, unspecified site; I10 Essential (primary) hypertension; Z87.440 Personal history of urinary (tract) infections; Z96.659 Presence of unspecified artificial knee joint; Z96.649 Presence of unspecified artificial hip joint
CPT/HCPCS: 36415; 85025; 85730; A4663

== ENCOUNTER 2020-09-02 16:35 | Inpatient (IN) | payer MEDICARE, OTHER ==
[~2020-09-02] VITALS: Ht 121.9 cm; Wt 52.2 kg
[2020-09-02] MEDS ORDERED: ONDA4TAB5 PO (17:21)
[2020-09-02] MEDS ORDERED: HYDR-894 PO (17:21)
[2020-09-02] MEDS ORDERED: NIFE-34 PO (17:21)
[2020-09-02] MEDS ORDERED: BENZ200C53 PO (17:21)
[2020-09-02] MEDS ORDERED: DOCU100C36 PO (17:21)
[2020-09-02] MEDS ORDERED: BENA20TA9 PO (17:21)
[2020-09-02 18:09] LABS: HEMATOCRIT 28.9 % (31.2-41.9); MEAN CORPUSCULAR HEMOGLOBIN 31.8 uug (24.7-32.8); MEAN CORPUSCULAR VOLUME 92.4 fL (75.5-95.3); PLATELET COUNT (AUTO) 262 K/uL (179-408)
[2020-09-02 18:12] LABS: *BILIRUBIN,URIN NEGATIVE (NEGATIVE); *COLOR,URINE YELLOW (YELLOW); *KETONES,URINE NEGATIVE (NEGATIVE); *UROBILINOGEN,URINE 0.2 E.U./dl (NORMAL); LEUKOCYTE ESTERASE ,URINE 1+ (NEGATIVE); NITRITE, URINE POSITIVE (NEGATIVE); PH,URINE 5.5 (5.0-8.0); UGLUCOSE NEGATIVE (NEGATIVE)
[2020-09-02 18:13] LABS: *BLOOD, URINE TRACE (NEGATIVE)
[2020-09-02 18:24] LABS: ALANINE AMINOTRANSFERASE 16 U/L (14-59); ALKALINE PHOSPHATASE 35 U/L (50-136); ASPARTATE AMINOTRANSFERASE 12 U/L (15-37); BILIRUBIN,DIRECT 0.1 mg/dL (0.0-0.2); BILIRUBIN,TOTAL 0.2 mg/dL (0.2-1.0); CARBON DIOXIDE 25 mmol/L (21-32); CHLORIDE 110 mmol/L (98-107); CREATININE 1.4 mg/dL (0.6-1.3); GLUCOSE 114 mg/dL (74-106); POTASSIUM 4.6 mmol/L (3.5-5.1); TOTAL PROTEIN, SERUM 6.6 g/dL (6.4-8.2); UREA NITROGEN, BLOOD 37 mg/dL (7-18)
[2020-09-02 18:31] LABS: THYROID STIMULATING HORMONE 0.244 mIU/mL (0.358-3.740)
[2020-09-02 18:49] LABS: *CLARITY,URINE SLIGHTLY CLOUDY (CLEAR)
[2020-09-02 18:50] LABS: BACTERIA,URINE MANY /HPF (NONE SEEN); SQUAMOUS EPITHELIAL CELL,UR FEW /HPF (NONE SEEN)
--- NOTE | 2020-09-02 19:10 | NUR ---
Pt resting with NAD noted. Daughter remains at bedside. Hand off report given to LEONARD Pardo.
[2020-09-02] MEDS ORDERED: CEFTRIAXONE 1 G in IV DEXTROSE 5% 50 ML IV ONE ×2 (19:15→21:15)
[2020-09-02] MEDS ORDERED: CEFTRIAXONE /D5W 50ML IVPB **ER PYXIS IV ONE (19:25)
--- NOTE | 2020-09-02 20:48 | NUR ---
MVP paged, Dr. Cao space controller.
--- NOTE | 2020-09-02 21:56 | NUR ---
Pt. admitted to med/surge , under care of Dr. Cao Belongs List completed. Report given to LEONARD Tanner
[2020-09-02] MEDS ORDERED: ACETAMINOPHEN 325 MG TABLET PO PRN (22:45)
[2020-09-02] MEDS ORDERED: hydrALAZINE HCL 25 MG TABLET PO PRN (22:45)
[2020-09-02] MEDS ORDERED: TRAMADOL HCL 50 MG TABLET PO PRN (22:45)
[2020-09-02] MEDS ORDERED: HYDROCODONE/APAP 5-325MG TABLET PO PRN (22:45)
[2020-09-02] MEDS ORDERED: NIFEdipine XL 60 MG TABSR PO SCH (23:00)
[2020-09-02] MEDS ORDERED: BENAZEPRIL HCL 20 MG TABLET PO SCH (23:00)
[2020-09-02] MEDS: CARVEDILOL 12.5 MG TABLET PO SCH (23:09)
[2020-09-02 23:11] VITALS: BP 187/60
[2020-09-03 04:10] VITALS: BP 152/41
[2020-09-03] MEDS ORDERED: ACETAMINOPHEN 325 MG TABLET PO PRN (07:30)
[2020-09-03] MEDS ORDERED: ONDANSETRON HCL 4 MG TABLET PO PRN (07:30)
[2020-09-03] MEDS ORDERED: TRAMADOL HCL 50 MG TABLET PO PRN ×2 (07:30→07:45)
[2020-09-03] MEDS ORDERED: hydrALAZINE HCL 25 MG TABLET PO PRN (07:30)
--- NOTE | 2020-09-03 07:30 | NUR ---
RECEIVED PATIENT IN BED AWAKE ALERT VERBALLY RESPONSIVE MOSTLY IN TELUGU BUT UNDERSTANDS SIMPLE BARBADIAN ABLE TO MAKE NEEDS KNOWN REMAIN ON ATB ORDERED WITH NO ADVERSE OR ALLERGIC REACTIONS AT THIS TIME CALL LIGHTS AND PERSONAL BELONGINGS ARE WITHIN EASY REACH WILL CONTINUE TO OBSERVE.
[2020-09-03] MEDS ORDERED: BENZONATATE 100 MG CAPSULE PO PRN (07:33)
[2020-09-03] MEDS: DOCUSATE SODIUM 100 MG CAPSULE PO SCH ×2 (08:25→17:15)
[2020-09-03] MEDS: NIFEdipine XL 60 MG TABSR PO SCH ×2 (08:26→20:19)
[2020-09-03] MEDS: CARVEDILOL 12.5 MG TABLET PO SCH ×2 (08:26→17:29)
--- NOTE | 2020-09-03 08:56 | NUR ---
ALL DUE MEDICATIONS GIVEN AND TOLERATED WELL EATING BREAKFAST FEEDING SELF WITH NO C/O AT THIS TIME.
[2020-09-03] MEDS ORDERED: LORATADINE 10 MG TABLET PO SCH (09:00)
[2020-09-03 12:00] VITALS: BP 125/42
[2020-09-03] MEDS: BENAZEPRIL HCL 20 MG TABLET PO SCH ×2 (12:12→20:19)
--- NOTE | 2020-09-03 13:49 | NUR ---
CALLED AND SPOKE WITH PATIENTS DAUGHTER NELLI REGARDING BRINGING IN [facility] AND SHE STATED WILL TRY TO GO TO THE PATIENTS HOUSE LATER TO BRING THE MEDICINE HERE.
[2020-09-03 17:01] VITALS: BP 121/46
--- NOTE | 2020-09-03 17:02 | NUR ---
PATIENT SEEN AND EXAMINED BY DR BRIANA COE WITH NEW ORDERS AND NOTED.
[2020-09-03] MEDS: DULOXETINE 30 MG CAPSULE.DR PO SCH (17:33)
--- NOTE | 2020-09-03 18:04 | NUR ---
PATIENTS DAUGHTER NELLI HERE AND BROUGHT PATIENTS MEDICATIONS WILL SEND IT TO THE PHARMACY FOR VERIFICATION.
[2020-09-03] MEDS: MYRBETRIQ 25MG TABLET PO SCH (19:37)
[2020-09-03 20:00] VITALS: BP 115/60
[2020-09-03] MEDS ORDERED: CEFTRIAXONE 1 G in IV DEXTROSE 5% 50 ML IV SCH ×2 (20:00→22:00)
[2020-09-04 04:55] VITALS: BP 125/68
[2020-09-04 05:54] LABS: CARBON DIOXIDE 24 mmol/L (21-32); CHLORIDE 108 mmol/L (98-107); CREATININE 1.4 mg/dL (0.6-1.3); GLUCOSE 96 mg/dL (74-106); POTASSIUM 4.7 mmol/L (3.5-5.1); UREA NITROGEN, BLOOD 35 mg/dL (7-18)
[2020-09-04 06:01] LABS: IRON, SERUM 48 ug/dL (50-175)
[2020-09-04] MEDS ORDERED: PANTOPRAZOLE SODIUM 40 MG TABLET.DR PO SCH (07:33)
[2020-09-04] MEDS: DULOXETINE 30 MG CAPSULE.DR PO SCH (08:14)
[2020-09-04] MEDS: DOCUSATE SODIUM 100 MG CAPSULE PO SCH ×2 (08:14→16:24)
[2020-09-04] MEDS: CARVEDILOL 12.5 MG TABLET PO SCH ×2 (08:14→17:34)
[2020-09-04] MEDS: NIFEdipine XL 60 MG TABSR PO SCH (08:14)
[2020-09-04] MEDS: BENAZEPRIL HCL 20 MG TABLET PO SCH (08:15)
[2020-09-04 11:06] VITALS: BP 130/36
--- NOTE | 2020-09-04 11:12 | NUR ---
PT ENDORSED TO [facility]. PT STABLE AND IN NO ACUTE DISTRESS. PRESCRIBED MEDICATION TOLERATED WELL.
--- NOTE | 2020-09-04 11:15 | NUR ---
RECEIVED PATIENT. A&O X3. AMBULATORY WITH ASSISTANCE.
[2020-09-04] MEDS ORDERED: CEPH250C PO (13:41)
[2020-09-04 15:26] VITALS: BP 135/43
--- NOTE | 2020-09-04 16:00 | NUR ---
Prepared for discharge. iv DC'D. aNGIOCATH REMOVED INTACT. PREPARED FOR DISCHARGE.
[2020-09-04] MEDS: MYRBETRIQ 25MG TABLET PO SCH (16:24)
[2020-09-04 17:34] VITALS: BP 135/43
--- NOTE | 2020-09-04 18:00 | NUR ---
DISCHARGED VIA W/C, ACCOMPANIED BY DAUGHTER TO AUTO. NO C/O DISCOMFORT.
[2020-09-05] MEDS ORDERED: LORATADINE 10 MG TABLET PO SCH (09:00)
== END 2020-09-04 18:00 | disposition home or self-care (01) | DRG 689 ==
LOC: ER 16:42 → MEDSURG3 21:56
PROVIDERS: ADMIT Internal Medicine Nephrology; ATTEND Internal Medicine Nephrology
DX: N39.0 Urinary tract infection, site not specified (principal); N17.0 Acute kidney failure with tubular necrosis; Z96.642 Presence of left artificial hip joint; B96.20 Unspecified Escherichia coli [E. coli] as the cause of diseases classified elsewhere; I10 Essential (primary) hypertension; D64.9 Anemia, unspecified; E78.5 Hyperlipidemia, unspecified; F03.90 Unspecified dementia, unspecified severity, without behavioral disturbance, psychotic disturbance, mood disturbance, and anxiety
CPT/HCPCS: 36415; 70030-TC; 71045; 72170; 76770; 83550; 84443; 85025; 85730; 87077; 87086; 93005; A4663; G0378; J0696; J7040; J7060

== ENCOUNTER 2020-10-04 14:39 | Emergency (ER) | payer MEDICARE, OTHER ==
[~2020-10-04] VITALS: Ht 121.9 cm; Wt 53.5 kg
[~2020-10-04 14:39] MED LIST changes: +BENZ200C53 PO; +HYDR-894 PO; +NIFE-34 PO; -ROPI0.5T4 PO
[2020-10-04 15:26] LABS: *BILIRUBIN,URIN NEGATIVE (NEGATIVE); *BLOOD, URINE NEGATIVE (NEGATIVE); *COLOR,URINE YELLOW (YELLOW); *KETONES,URINE NEGATIVE (NEGATIVE); *UROBILINOGEN,URINE 0.2 E.U./dl (NORMAL); LEUKOCYTE ESTERASE ,URINE NEGATIVE (NEGATIVE); NITRITE, URINE NEGATIVE (NEGATIVE); PH,URINE 5.5 (5.0-8.0); UGLUCOSE NEGATIVE (NEGATIVE)
[2020-10-04 15:28] LABS: HEMATOCRIT 31.4 % (31.2-41.9); MEAN CORPUSCULAR HEMOGLOBIN 31.2 uug (24.7-32.8); MEAN CORPUSCULAR VOLUME 91.9 fL (75.5-95.3); PLATELET COUNT (AUTO) 231 K/uL (179-408)
[2020-10-04 15:28] LABS: *CLARITY,URINE HAZY (CLEAR); BACTERIA,URINE MODERATE /HPF (NONE SEEN); RBC,URINE 0-3 /HPF (0-3); SQUAMOUS EPITHELIAL CELL,UR FEW /HPF (NONE SEEN)
[2020-10-04 15:40] LABS: CARBON DIOXIDE 25 mmol/L (21-32); CHLORIDE 105 mmol/L (98-107); CREATININE 1.5 mg/dL (0.6-1.3); GLUCOSE 86 mg/dL (74-106); POTASSIUM 5.1 mmol/L (3.5-5.1); UREA NITROGEN, BLOOD 36 mg/dL (7-18)
[2020-10-04 15:45] LABS: ALANINE AMINOTRANSFERASE 8 U/L (14-59); ALKALINE PHOSPHATASE 15 U/L (50-136); ASPARTATE AMINOTRANSFERASE 12 U/L (15-37); BILIRUBIN,DIRECT 0.1 mg/dL (0.0-0.2); BILIRUBIN,TOTAL 0.3 mg/dL (0.2-1.0); TOTAL PROTEIN, SERUM 6.8 g/dL (6.4-8.2)
[2020-10-04] MEDS ORDERED: CEPH500T PO (16:34)
[2020-10-04 17:31] VITALS: BP 132/56
== END 2020-10-04 17:32 | disposition home or self-care (01) ==
LOC: ER 14:39
DX: M54.5 Low back pain (principal); I44.7 Left bundle-branch block, unspecified; F03.90 Unspecified dementia, unspecified severity, without behavioral disturbance, psychotic disturbance, mood disturbance, and anxiety; J45.909 Unspecified asthma, uncomplicated; K21.9 Gastro-esophageal reflux disease without esophagitis; E78.5 Hyperlipidemia, unspecified; I11.9 Hypertensive heart disease without heart failure; Z79.899 Other long term (current) drug therapy; Z87.01 Personal history of pneumonia (recurrent)
CPT/HCPCS: 36415; 70030-TC; 71045; 85025; 87077; 87086; 93005; A4663

== ENCOUNTER 2021-01-05 20:32 | Inpatient (IN) | payer MEDICARE, OTHER ==
[~2021-01-05] VITALS: Ht 157.5 cm; Wt 51.0 kg
[~2021-01-05 20:32] MED LIST changes: +CEPH500T PO
--- NOTE | 2021-01-05 20:32 | NUR ---
PT CAME TO ER WITH DAUGHTER CO PT CALLING THE DAUGHTER AT 1700 TODAY CO RIGHT THUMB/RIGHT HAND WEAKNESS, PT'S DAUGHTER ALSO NOTICED THAT THE PT SPEECH WAS NOT USUAL. UPON ARRIVAL, PT'S DAUGHTER SAYS THAT THE PT'S SPEECH HAS IMPROVED. PT ALSO MENTIONS THE THE WEAKNESS IN THE RIGHT HAND HAS IMPROVED. PT HAS BLE LIMITED ROM A BASE LINE.
--- NOTE | 2021-01-05 21:00 | NUR ---
ER CALLED FOR CODE STROKE
--- NOTE | 2021-01-05 21:05 | NUR ---
TELE STROKE INITIATED VIA TELE MED IQ
[2021-01-05 21:10] LABS: HEMATOCRIT 34.2 % (31.2-41.9); MEAN CORPUSCULAR HEMOGLOBIN 30.8 uug (24.7-32.8); MEAN CORPUSCULAR VOLUME 90.5 fL (75.5-95.3); PLATELET COUNT (AUTO) 296 K/uL (179-408)
[2021-01-05 21:16] LABS: CARBON DIOXIDE 24 mmol/L (21-32); CHLORIDE 107 mmol/L (98-107); CREATININE 1.8 mg/dL (0.6-1.3); GLUCOSE 115 mg/dL (74-106); POTASSIUM 4.7 mmol/L (3.5-5.1); UREA NITROGEN, BLOOD 31 mg/dL (7-18)
--- NOTE | 2021-01-05 21:30 | NUR ---
DR. MARIA GUADALUPE GUZMÁN TALKING TO PT'S DAUGHTRER VIA PHONE AND TELE STROKE MONITOR
[2021-01-05] MEDS ORDERED: ROPI0.5T4 PO (22:00)
[2021-01-05 22:26] LABS: *BILIRUBIN,URIN NEGATIVE (NEGATIVE); *BLOOD, URINE NEGATIVE (NEGATIVE); *CLARITY,URINE SLIGHTLY CLOUDY (CLEAR); *COLOR,URINE YELLOW (YELLOW); *KETONES,URINE NEGATIVE (NEGATIVE); *UROBILINOGEN,URINE 0.2 E.U./dl (NORMAL); LEUKOCYTE ESTERASE ,URINE 1+ (NEGATIVE); NITRITE, URINE NEGATIVE (NEGATIVE); PH,URINE 5.5 (5.0-8.0); UGLUCOSE NEGATIVE (NEGATIVE)
[2021-01-05 22:34] LABS: BACTERIA,URINE MANY /HPF (NONE SEEN); RBC,URINE 0-3 /HPF (0-3); SQUAMOUS EPITHELIAL CELL,UR FEW /HPF (NONE SEEN)
--- NOTE | 2021-01-05 23:40 | NUR ---
DR. COE ADMITTED THE PT TO TELE. NO BED AVAILABLE AT THIS TIME
[2021-01-05] MEDS ORDERED: ACETAMINOPHEN 325 MG TABLET PO PRN (23:45)
[2021-01-05] MEDS ORDERED: ONDANSETRON HCL 4 MG TABLET PO PRN (23:45)
--- NOTE | 2021-01-06 05:57 | NUR ---
TEXTED DR. HAND FOR MRI APPROVAL.
[2021-01-06 06:30] LABS: THYROID STIMULATING HORMONE 0.508 mIU/mL (0.358-3.740)
--- NOTE | 2021-01-06 07:31 | NUR ---
PT IS IN ROOM #2B. PT IS RESTING COMFORTABLY IN BED NO S/S OF ACUTE DISTRESS. CONTINUE TO MONITOR THE PT.
[2021-01-06] MEDS ORDERED: PANTOPRAZOLE SODIUM 40 MG TABLET.DR PO SCH (09:00)
[2021-01-06] MEDS ORDERED: ASPIRIN 81 MG TAB.CHEW PO SCH (09:00)
[2021-01-06] MEDS: DULOXETINE 30 MG CAPSULE.DR PO SCH (09:34)
[2021-01-06] MEDS: NIFEdipine XL 60 MG TABSR PO SCH ×2 (09:34→16:38)
[2021-01-06] MEDS: BENAZEPRIL HCL 20 MG TABLET PO SCH ×2 (09:35→16:38)
[2021-01-06] MEDS: DOCUSATE SODIUM 100 MG CAPSULE PO SCH ×2 (09:42→16:38)
[2021-01-06] MEDS: LORATADINE 10 MG TABLET PO SCH (09:42)
[2021-01-06] MEDS: PANTOPRAZOLE SODIUM 40 MG TABLET.DR PO SCH (09:43)
[2021-01-06] MEDS: CARVEDILOL 12.5 MG TABLET PO SCH ×2 (09:43→16:38)
[2021-01-06] MEDS ORDERED: LORATADINE 10 MG TABLET ONE (09:45)
[2021-01-06] MEDS ORDERED: DOCUSATE SODIUM 100 MG CAPSULE PO ONE (09:46)
[2021-01-06] MEDS ORDERED: CARVEDILOL 12.5 MG TABLET ONE (09:46)
[2021-01-06] MEDS ORDERED: PANTOPRAZOLE SODIUM 40 MG TABLET.DR PO ONE (09:47)
--- NOTE | 2021-01-06 10:37 | NUR ---
PT IS GOING TO BE TRANSFERED [facility]IA [facility] FOR MRI OF THE BRAIN. [facility] ([facility] [phone]) WILL EMAIL MARKETING MANAGER THE PT AT 13:00.
[2021-01-06 11:37] VITALS: BP 163/47
--- NOTE | 2021-01-06 12:11 | NUR ---
PT WAS TRANSFERED TO ROOM #304. REPORT WAS GIVEN TO MECHANICAL PIPING DESIGNER.
--- NOTE | 2021-01-06 13:00 | NUR ---
Received pt from ER. Noted Weakness on right side. Sacrum redness noted. SNR in TELE no ectopy noted. IV on LEFT arm infiltrated. Restarted IV on RIGHT AC #22. PT denies any c/o pain. welsh speaking but able to make her needs known. Call light is within reach.
--- NOTE | 2021-01-06 13:30 | NUR ---
PT picked up for MRI.
[2021-01-06 15:42] VITALS: BP 127/43
[2021-01-06] MEDS: ASPIRIN 81 MG TAB.CHEW PO SCH (16:32)
[2021-01-06] MEDS: CEFTRIAXONE 1 G in IV DEXTROSE 5% 50 ML IV SCH (16:34)
--- NOTE | 2021-01-06 16:45 | NUR ---
Dr marsh notified of acute infarct result from MRI. Notified DR May neurology of result. Placed call to MARIA GUADALUPE DEL CID TElemed awaiting call back Addendum: 01/06/21 at 1955 by BLANK MAHONEY RN DR RESTREPO wanted maria guadalupe del cid to be contacted instead of DR may. awaiting call back.
--- NOTE | 2021-01-06 17:05 | NUR ---
Call back from DR vivian DONIS [phone] covering MARIA GUADALUPE del cid neuro. States that they dont usually follow pt care after first tele robot. notified dr cristina.
[2021-01-06 20:05] VITALS: BP 117/43
[2021-01-06] MEDS: CLOPIDOGREL 75 MG TABLET PO SCH (20:51)
[2021-01-06] MEDS ORDERED: ropiniROLE 0.5 MG TABLET PO SCH (21:00)
[2021-01-06] MEDS ORDERED: ATORVASTATIN 40 MG TABLET PO SCH (21:00)
[2021-01-07 00:05] VITALS: BP_SYST 117; BP_SYST 122; BP_DIAS 43; BP_DIAS 45
[2021-01-07 04:05] VITALS: BP 117/43
--- NOTE | 2021-01-07 06:00 | NUR ---
Pt rested well in between care; no acute distress; neuro check done q4h; safety maintaine; assisted with hygiene needs; continue to monitor.
[2021-01-07 07:01] LABS: CARBON DIOXIDE 24 mmol/L (21-32); CHLORIDE 108 mmol/L (98-107); CREATININE 1.4 mg/dL (0.6-1.3); GLUCOSE 91 mg/dL (74-106); POTASSIUM 4.5 mmol/L (3.5-5.1); UREA NITROGEN, BLOOD 32 mg/dL (7-18)
--- NOTE | 2021-01-07 08:00 | NUR ---
AWAKE ALERT AND VERBALLY RESPONSIVE, ANSWERS QUESTIONS APPROPRIATELY SR ON MONITOR
[2021-01-07] MEDS: ASPIRIN 81 MG TAB.CHEW PO SCH (09:11)
[2021-01-07] MEDS: NIFEdipine XL 60 MG TABSR PO SCH ×2 (09:13→16:45)
[2021-01-07] MEDS: CARVEDILOL 12.5 MG TABLET PO SCH ×2 (09:13→16:45)
[2021-01-07] MEDS: DOCUSATE SODIUM 100 MG CAPSULE PO SCH ×2 (09:13→16:45)
[2021-01-07] MEDS: PANTOPRAZOLE SODIUM 40 MG TABLET.DR PO SCH (09:14)
[2021-01-07] MEDS: LORATADINE 10 MG TABLET PO SCH (09:14)
[2021-01-07] MEDS: DULOXETINE 30 MG CAPSULE.DR PO SCH (09:14)
[2021-01-07] MEDS: BENAZEPRIL HCL 20 MG TABLET PO SCH ×2 (09:14→16:45)
--- NOTE | 2021-01-07 10:35 | NUR ---
WOUND CARE CONSULT: PT PRESENTS WITH SOME SACRAL SCARRING/DISCOLORATION, PRESENT ON ADMISSION. PT IS INCONTINENT. RECOMMENDATIONS MADE FOR SKIN PROTECTION. DISCUSSED WITH NURSING STAFF. MD IN AGREEMENT WITH PLAN OF CARE.
[2021-01-07] MEDS ORDERED: Z GUARD REMEDY PASTE 57 GM TUBE TOP PRN (10:45)
[2021-01-07] MEDS ORDERED: ATOR40TA PO (11:10)
[2021-01-07] MEDS ORDERED: CLOP75TA33 PO (11:10)
[2021-01-07] MEDS ORDERED: ASPI81TA31 PO (11:10)
[2021-01-07] MEDS ORDERED: NITR100C6 PO (11:10)
[2021-01-07 11:46] VITALS: BP 158/50
--- NOTE | 2021-01-07 12:00 | NUR ---
SEEN BY PHYSICAL THERAPIST, OT SEE NOTES
[2021-01-07] MEDS: CEFTRIAXONE 1 G in IV DEXTROSE 5% 50 ML IV SCH (14:52)
[2021-01-07] MEDS: CLOPIDOGREL 75 MG TABLET PO SCH (14:53)
[2021-01-07 16:00] VITALS: BP 139/56
[2021-01-07 16:45] VITALS: BP 139/56
--- NOTE | 2021-01-07 18:22 | NUR ---
SEEN BY NEUROLOGIST SAID WILL CONTINUE TO FOLLOW-UP PATIENT. PLAN DC TO [facility]
[2021-01-07] MEDS ORDERED: Z GUARD REMEDY PASTE 57 GM TUBE TOP SCH (21:00)
[2021-01-07] MEDS ORDERED: ROPI0.5T4 PO (21:25)
[2021-01-07] MEDS ORDERED: PANT40TA2 PO (21:25)
[2021-01-07] MEDS ORDERED: ONDA-104 PO (21:25)
== END 2021-01-07 19:56 | DRG 64 ==
LOC: ER 20:40 → OBSER 01-06 08:31 → TRANSITION 01-06 08:32 → TELE3 01-06 10:33
PROVIDERS: ADMIT Internal Medicine Nephrology; ATTEND Internal Medicine
DX: I63.9 Cerebral infarction, unspecified (principal); N17.0 Acute kidney failure with tubular necrosis; N39.0 Urinary tract infection, site not specified; I10 Essential (primary) hypertension; E78.5 Hyperlipidemia, unspecified; F03.90 Unspecified dementia, unspecified severity, without behavioral disturbance, psychotic disturbance, mood disturbance, and anxiety; Z86.73 Personal history of transient ischemic attack (TIA), and cerebral infarction without residual deficits; Z87.440 Personal history of urinary (tract) infections; R29.704 NIHSS score 4; J45.909 Unspecified asthma, uncomplicated; K21.9 Gastro-esophageal reflux disease without esophagitis; Z79.82 Long term (current) use of aspirin; Z96.642 Presence of left artificial hip joint; R47.1 Dysarthria and anarthria; R53.1 Weakness; Z20.822 Contact with and (suspected) exposure to COVID-19
CPT/HCPCS: 36415; 70030-TC; 70450; 70551; 71045; 84443; 85025; 85730; 86850; 86900; 86901; 87086; 93005; 93307; 93880; 97161; A4663; G0378; J0696; J7060

== ENCOUNTER 2021-01-07 15:14 | Inpatient (IN) | payer MEDICARE, OTHER ==
[~2021-01-07] VITALS: Ht 152.4 cm; Wt 54.4 kg
[~2021-01-07 15:14] MED LIST changes: +ASPI81TA31 PO; +ATOR40TA PO; -CEPH500T PO; +CLOP75TA33 PO; +NITR100C6 PO; +ROPI0.5T4 PO
[2021-01-07 20:05] VITALS: BP 119/44
[2021-01-07] MEDS ORDERED: ONDA-104 PO (21:25)
[2021-01-07] MEDS ORDERED: PANT40TA2 PO (21:25)
[2021-01-07] MEDS ORDERED: ROPI0.5T4 PO (21:25)
[2021-01-07] MEDS ORDERED: ONDANSETRON HCL 4 MG TABLET PO PRN (21:45)
[2021-01-07] MEDS ORDERED: hydrALAZINE HCL 25 MG TABLET PO PRN (21:45)
--- NOTE | 2021-01-08 02:29 | NUR ---
Received a 85 yr old female admitted for REHAB with admitting diagnosis of Acute CVA with left side weakness. Hx of HTN, Dementia, GERD and syncope. AAOx3-4 with periods of forgetfulness. Chinese speaking only.Lung CTA. Abdomen soft non tender. Last BM 01/06/21. Incontinent of bowel and bladder. Kept clean and dry. Skin intact. Will monitor patient. VSS. No acute distress noted. Kept comfortable.
[2021-01-08 04:05] VITALS: BP 139/61
[2021-01-08] MEDS: TRAMADOL HCL 50 MG TABLET PO PRN (04:18)
--- NOTE | 2021-01-08 07:50 | NUR ---
Received patient awake, alert, oriented x 4, Setswana speaking afebrile, not in any form of respiratory distress distress on room air. He denies any pain or discomfort. Incontinent of B&B pt noted with right side weakness Assisted with his needs. Call light and frequently used items placed within patient's reach. Will continue to monitor closely.
[2021-01-08] MEDS ORDERED: NITROFURANTOIN/NITROFURAN MAC 100 MG CAPSULE PO SCH ×2 (08:00)
[2021-01-08 08:45] VITALS: BP 139/53
[2021-01-08] MEDS ORDERED: CARVEDILOL 12.5 MG TABLET PO SCH (09:00)
[2021-01-08] MEDS: PANTOPRAZOLE SODIUM 40 MG TABLET.DR PO SCH (09:02)
[2021-01-08] MEDS: DOCUSATE SODIUM 100 MG CAPSULE PO SCH ×2 (09:03→16:36)
[2021-01-08] MEDS: BENAZEPRIL HCL 20 MG TABLET PO SCH ×2 (09:03→21:50)
[2021-01-08] MEDS: ASPIRIN 81 MG TAB.CHEW PO SCH (09:03)
[2021-01-08] MEDS: DULOXETINE 30 MG CAPSULE.DR PO SCH (09:04)
[2021-01-08] MEDS: CLOPIDOGREL 75 MG TABLET PO SCH (09:04)
[2021-01-08] MEDS: BENZONATATE 100 MG CAPSULE PO SCH ×3 (09:04→16:36)
[2021-01-08] MEDS: LORATADINE 10 MG TABLET PO SCH (09:05)
[2021-01-08] MEDS: NIFEdipine XL 60 MG TABSR PO SCH ×2 (11:12→21:50)
--- NOTE | 2021-01-08 11:30 | NUR ---
SW NOTE: SW meet with patient and conducted the PHQ9 post stroke depression screening and patient scored (16) which requires a psychiatry consultation and RN must conduct a suicide risk screening. Commissions Manager informed about the importance of stroke. Patient accepted stroke referrals such as: Stroke Family Warm[facility] at (2-764-4-STROKE) and Caring for a stroke survivor ( ). farmworker pullet farm also educated patient on the signs of Stroke and to immediately call 911. Commissions Manager provided patient with a stroke educational packet with information such as; Dietary food, what stroke is, risks, emotional support, finding support, medical management, and effects of stroke. SW spoke with LEONARD Cassidy and informed that patient scored high on the PHQ9 and requires a psychiatry consultation.
[2021-01-08 12:04] VITALS: BP 117/51
[2021-01-08 15:57] VITALS: BP 145/55
[2021-01-08] MEDS: CARVEDILOL 12.5 MG TABLET PO SCH (17:02)
[2021-01-08] MEDS: MYRBETRIQ 25 MG PO SCH (18:01)
--- NOTE | 2021-01-08 18:11 | NUR ---
Pt remain AAOx4. Kiswahili speaking only. no respiratory distress ,respiration even and unlabored Abdomen soft not tender .Last BM 01/06/21. Incontinent of bowel and bladder. Kept clean and dry up in W/C by PT visited by aids social worker today. Skin intact with right side weakness. all do meds given as order Will monitor patient. family at bed side no acute distress noted. Kept comfortable.
--- NOTE | 2021-01-08 19:10 | NUR ---
Received report, pt sitting up watching tv, awake, alert, oriented x 4. Call lights within reach, bed alarm on, safety measures initiated. Will continue to monitor
[2021-01-08 20:05] VITALS: BP 124/46
[2021-01-08] MEDS: ropiniROLE 0.5 MG TABLET PO SCH (20:09)
[2021-01-08] MEDS: ATORVASTATIN 40 MG TABLET PO SCH (20:10)
[2021-01-08] MEDS: CEphaleXIN 250 MG CAPSULE PO SCH (23:50)
[2021-01-08] MEDS ORDERED: CEphaleXIN 250 MG CAPSULE ONE (23:54)
[2021-01-09 04:05] VITALS: BP 129/46
[2021-01-09] MEDS: CEphaleXIN 250 MG CAPSULE PO SCH ×3 (05:18→21:32)
--- NOTE | 2021-01-09 07:10 | NUR ---
Received report. Patient asleep. Bed placed in lowest position with call light within reach.
[2021-01-09 07:41] VITALS: BP 124/45
[2021-01-09] MEDS: MYRBETRIQ 25 MG PO SCH (08:17)
[2021-01-09] MEDS: DULOXETINE 30 MG CAPSULE.DR PO SCH (08:18)
[2021-01-09] MEDS: BENZONATATE 100 MG CAPSULE PO SCH ×3 (08:18→16:30)
[2021-01-09] MEDS: NIFEdipine XL 60 MG TABSR PO SCH ×2 (08:19→20:37)
[2021-01-09] MEDS: CLOPIDOGREL 75 MG TABLET PO SCH (08:21)
[2021-01-09] MEDS: DOCUSATE SODIUM 100 MG CAPSULE PO SCH ×2 (08:22→16:30)
[2021-01-09] MEDS: LORATADINE 10 MG TABLET PO SCH (08:23)
[2021-01-09] MEDS: CARVEDILOL 12.5 MG TABLET PO SCH ×2 (08:23→18:00)
[2021-01-09] MEDS: PANTOPRAZOLE SODIUM 40 MG TABLET.DR PO SCH (08:23)
[2021-01-09] MEDS: ASPIRIN 81 MG TAB.CHEW PO SCH (08:24)
[2021-01-09] MEDS: TRAMADOL HCL 50 MG TABLET PO PRN (08:29)
[2021-01-09] MEDS: BENAZEPRIL HCL 20 MG TABLET PO SCH ×2 (08:30→20:37)
[2021-01-09 15:32] VITALS: BP 101/52
--- NOTE | 2021-01-09 19:50 | NUR ---
nsg: Received pt lying on bed.patient is awake, alert, oriented x 4 St Helenian speaking.Call lights within reach, bed alarm on, safety measures initiated. Will continue to monitor
[2021-01-09 20:10] VITALS: BP 119/50
[2021-01-09] MEDS: ATORVASTATIN 40 MG TABLET PO SCH (20:36)
[2021-01-09] MEDS: ropiniROLE 0.5 MG TABLET PO SCH (20:36)
--- NOTE | 2021-01-09 23:30 | NUR ---
patient sleeping comfortably. no s/s of pain or discomfort noted. call light w/in reach.
[2021-01-10 04:06] VITALS: BP 117/59
--- NOTE | 2021-01-10 05:04 | NUR ---
NSG: Remain alert and oriented x 4, Kittitian speaking afebrile, no s/s of respiratory distress. on room air. patient denies any pain or discomfort at this time. Incontinent of B&B good viji care provided. Right side weakness need Assisted with his adl's. Call light within patient's reach. Will continue to monitor closely.
[2021-01-10] MEDS: CEphaleXIN 250 MG CAPSULE PO SCH ×3 (05:27→21:14)
[2021-01-10 07:35] VITALS: BP 124/45
[2021-01-10] MEDS: MYRBETRIQ 25 MG PO SCH (08:04)
[2021-01-10] MEDS: ASPIRIN 81 MG TAB.CHEW PO SCH (08:04)
[2021-01-10] MEDS: NIFEdipine XL 60 MG TABSR PO SCH ×2 (08:05→21:13)
[2021-01-10] MEDS: DOCUSATE SODIUM 100 MG CAPSULE PO SCH ×2 (08:05→16:19)
[2021-01-10] MEDS: TRAMADOL HCL 50 MG TABLET PO PRN (08:05)
[2021-01-10] MEDS: BENAZEPRIL HCL 20 MG TABLET PO SCH ×2 (08:05→21:13)
[2021-01-10] MEDS: CLOPIDOGREL 75 MG TABLET PO SCH (08:05)
[2021-01-10] MEDS: CARVEDILOL 12.5 MG TABLET PO SCH ×2 (08:05→17:03)
[2021-01-10] MEDS: PANTOPRAZOLE SODIUM 40 MG TABLET.DR PO SCH (08:05)
[2021-01-10] MEDS: LORATADINE 10 MG TABLET PO SCH (08:05)
[2021-01-10] MEDS: BENZONATATE 100 MG CAPSULE PO SCH ×3 (08:05→16:19)
[2021-01-10] MEDS: DULOXETINE 30 MG CAPSULE.DR PO SCH (08:05)
[2021-01-10] MEDS: ENSURE ENLIVE (VAN) 240 ML LIQUID PO SCH (09:10)
[2021-01-10] MEDS ORDERED: OXYCODONE/APAP 5-325 MG TABLET PO PRN (13:15)
[2021-01-10] MEDS: PREGABALIN 25 MG CAPSULE PO SCH ×2 (13:29→21:14)
--- NOTE | 2021-01-10 13:37 | NUR ---
INDIVIDUALIZED PLAN OF CARE
--- NOTE | 2021-01-10 14:32 | NUR ---
INDIVIDUALIZED PLAN OF CARE
[2021-01-10 15:11] VITALS: BP 109/43
[2021-01-10 20:03] VITALS: BP 138/45
[2021-01-10] MEDS: ropiniROLE 0.5 MG TABLET PO SCH (21:13)
[2021-01-10] MEDS: ATORVASTATIN 40 MG TABLET PO SCH (21:14)
--- NOTE | 2021-01-10 21:29 | NUR ---
Received pt sleeping comfortably. Aroused easily to verbal stimuli. Alert and oriented x4, Albanian speaking, able to make needs known. No acute distress noted. Denies pain/ discomfort. Due meds given as ordered, given one at a time with apple sauce, tolerated well. Safety measures maintained. Call light within reach. Will continue to monitor.
[2021-01-11] MEDS: CEphaleXIN 250 MG CAPSULE PO SCH ×3 (05:01→21:01)
[2021-01-11] MEDS: PREGABALIN 25 MG CAPSULE PO SCH ×3 (05:01→20:59)
[2021-01-11 07:30] VITALS: BP 121/36
--- NOTE | 2021-01-11 08:00 | NUR ---
Pt Kinyarwanda speaking but able to make her needs known. Fall precaution implemented. Turn Pt q 2 hrs. Pt denies any c/o pain.
[2021-01-11] MEDS: ENSURE ENLIVE (VAN) 240 ML LIQUID PO SCH (09:00)
[2021-01-11] MEDS: DOCUSATE SODIUM 100 MG CAPSULE PO SCH ×2 (10:09→17:11)
[2021-01-11] MEDS: DULOXETINE 30 MG CAPSULE.DR PO SCH (10:10)
[2021-01-11] MEDS: NIFEdipine XL 60 MG TABSR PO SCH ×2 (10:10→20:59)
[2021-01-11] MEDS: BENAZEPRIL HCL 20 MG TABLET PO SCH ×2 (10:10→20:59)
[2021-01-11] MEDS: PANTOPRAZOLE SODIUM 40 MG TABLET.DR PO SCH (10:10)
[2021-01-11] MEDS: ASPIRIN 81 MG TAB.CHEW PO SCH (10:10)
[2021-01-11] MEDS: CLOPIDOGREL 75 MG TABLET PO SCH (10:10)
[2021-01-11] MEDS: CARVEDILOL 12.5 MG TABLET PO SCH ×2 (10:10→17:11)
[2021-01-11] MEDS: LORATADINE 10 MG TABLET PO SCH (10:11)
[2021-01-11] MEDS: BENZONATATE 100 MG CAPSULE PO SCH ×3 (10:11→17:11)
[2021-01-11] MEDS: MYRBETRIQ 25 MG PO SCH (10:12)
[2021-01-11] MEDS ORDERED: LORAZEPAM 2 MG/1 ML VIAL IV PRN (10:30)
[2021-01-11 16:21] VITALS: BP 152/45
[2021-01-11] MEDS ORDERED: MAGNESIUM HYDROXIDE 30 ML LIQUID UDC PO PRN (18:00)
[2021-01-11] MEDS: CULTURELLE CAPSULE PO SCH (18:22)
[2021-01-11] MEDS: ropiniROLE 0.5 MG TABLET PO SCH (20:59)
[2021-01-11] MEDS: POLYVINYL ALCOHOL OPHT DROPS 15 ML BOTTLE EACHEYE SCH (21:02)
[2021-01-11] MEDS: ATORVASTATIN 40 MG TABLET PO SCH (21:02)
[2021-01-11 22:15] VITALS: BP 124/55
[2021-01-12] MEDS: PREGABALIN 25 MG CAPSULE PO SCH ×2 (05:33→14:37)
[2021-01-12] MEDS: CEphaleXIN 250 MG CAPSULE PO SCH ×3 (05:34→21:05)
[2021-01-12 06:32] VITALS: BP 117/46
--- NOTE | 2021-01-12 06:54 | NUR ---
PT is in no acute distress. Call light is within reach.
[2021-01-12 07:30] VITALS: BP 145/48
--- NOTE | 2021-01-12 08:00 | NUR ---
Received pt sleeping comfortably. easily aroused to verbal stimuli. Alert and oriented x4, Latvian speaking, able to make needs known. No acute distress noted. Denies pain/ discomfort at this time c/o of feeling tired. Due meds given as ordered, given one at a time with apple sauce, tolerated well. Safety measures maintained. Call light within reach. Will continue to monitor.
[2021-01-12] MEDS: CLOPIDOGREL 75 MG TABLET PO SCH (08:39)
[2021-01-12] MEDS: DULOXETINE 30 MG CAPSULE.DR PO SCH (08:39)
[2021-01-12] MEDS: BENAZEPRIL HCL 20 MG TABLET PO SCH ×2 (08:39→20:58)
[2021-01-12] MEDS: CARVEDILOL 12.5 MG TABLET PO SCH ×2 (08:39→17:49)
[2021-01-12] MEDS: PANTOPRAZOLE SODIUM 40 MG TABLET.DR PO SCH (08:40)
[2021-01-12] MEDS: ASPIRIN 81 MG TAB.CHEW PO SCH (08:40)
[2021-01-12] MEDS: DOCUSATE SODIUM 100 MG CAPSULE PO SCH ×2 (08:40→17:47)
[2021-01-12] MEDS: NIFEdipine XL 60 MG TABSR PO SCH ×2 (08:40→20:58)
[2021-01-12] MEDS: BENZONATATE 100 MG CAPSULE PO SCH ×3 (08:41→17:47)
[2021-01-12] MEDS: MYRBETRIQ 25 MG PO SCH (08:51)
[2021-01-12] MEDS: LORATADINE 10 MG TABLET PO SCH (08:51)
[2021-01-12] MEDS: ENSURE ENLIVE (VAN) 240 ML LIQUID PO SCH (08:52)
[2021-01-12 15:37] VITALS: BP 108/45
--- NOTE | 2021-01-12 16:24 | NUR ---
Notified DR PATEL of PT C/O of feeling sleepy and tired she believed can be the pain medicine Lyrica [address] replied and give new order to change Lyrica 25 mg Q12 order noted and carry out will continue to monitor closely
[2021-01-12] MEDS: CULTURELLE CAPSULE PO SCH (17:47)
[2021-01-12] MEDS: POLYVINYL ALCOHOL OPHT DROPS 15 ML BOTTLE EACHEYE SCH (17:47)
--- NOTE | 2021-01-12 19:45 | NUR ---
patient in bed sleeping comfortably. no s/s of pain or discomfort noted. call light w/in reach.all needs attended
[2021-01-12 20:41] VITALS: BP 135/48
[2021-01-12] MEDS: ropiniROLE 0.5 MG TABLET PO SCH (20:57)
[2021-01-12] MEDS: ATORVASTATIN 40 MG TABLET PO SCH (20:58)
[2021-01-13 04:42] VITALS: BP 106/43
[2021-01-13] MEDS: CEphaleXIN 250 MG CAPSULE PO SCH ×2 (05:54→13:16)
--- NOTE | 2021-01-13 06:44 | NUR ---
Shift End Report: VS stable. Slept good. Medicated once with [place] for complaint of pain on right hand and lower back with relief. No further complaint presented. All needs attended and met. No significant event reported all night. Safety measures and fall prevention observed and maintained. Continue care as planned.
--- NOTE | 2021-01-13 06:47 | NUR ---
Shift End Report: VS stable. Slept good. Medicated once with [place] for complaint of pain left hip incision site with relief. No further complaint presented. All needs attended and met. No significant event reported all night. Safety measures and fall prevention observed and maintained. Continue care as planned.
--- NOTE | 2021-01-13 07:47 | NUR ---
Received pt sleeping comfortably. easily aroused to verbal stimuli. Alert and oriented x4, Kyrgyz speaking, able to make needs known. No acute distress noted. Denies pain/ discomfort , tolerated well. Safety and aspiration measures maintained. Call light within reach. Will continue to monitor.
[2021-01-13 08:00] VITALS: BP 113/47
[2021-01-13] MEDS: POLYVINYL ALCOHOL OPHT DROPS 15 ML BOTTLE EACHEYE SCH ×2 (08:29→17:06)
[2021-01-13] MEDS: ASPIRIN 81 MG TAB.CHEW PO SCH (08:29)
[2021-01-13] MEDS: DULOXETINE 30 MG CAPSULE.DR PO SCH (08:29)
[2021-01-13] MEDS: LORATADINE 10 MG TABLET PO SCH (08:29)
[2021-01-13] MEDS: DOCUSATE SODIUM 100 MG CAPSULE PO SCH ×2 (08:29→17:07)
[2021-01-13] MEDS: PANTOPRAZOLE SODIUM 40 MG TABLET.DR PO SCH (08:30)
[2021-01-13] MEDS: CLOPIDOGREL 75 MG TABLET PO SCH (08:30)
[2021-01-13] MEDS: PREGABALIN 25 MG CAPSULE PO SCH ×2 (08:30→20:45)
[2021-01-13] MEDS: BENZONATATE 100 MG CAPSULE PO SCH ×3 (08:30→17:07)
[2021-01-13] MEDS: CARVEDILOL 12.5 MG TABLET PO SCH ×2 (08:30→17:07)
[2021-01-13] MEDS: ENSURE ENLIVE (VAN) 240 ML LIQUID PO SCH (08:31)
[2021-01-13] MEDS: MYRBETRIQ 25 MG PO SCH (08:31)
[2021-01-13] MEDS: BENAZEPRIL HCL 20 MG TABLET PO SCH ×2 (09:00→20:46)
[2021-01-13] MEDS: NIFEdipine XL 60 MG TABSR PO SCH (09:00)
[2021-01-13 16:00] VITALS: BP 101/41
[2021-01-13] MEDS: CULTURELLE CAPSULE PO SCH (17:06)
[2021-01-13 20:15] VITALS: BP 115/48
[2021-01-13] MEDS: ropiniROLE 0.5 MG TABLET PO SCH (20:45)
[2021-01-13] MEDS: ATORVASTATIN 40 MG TABLET PO SCH (20:45)
[2021-01-13] MEDS: NIFEdipine XL 30 MG TABSR PO SCH (20:46)
[2021-01-13] MEDS ORDERED: NIFEdipine XL 60 MG TABSR PO SCH (21:00)
[2021-01-14 04:15] VITALS: BP 146/49
--- NOTE | 2021-01-14 04:33 | NUR ---
awake alert and oriented x2-3 . Confused and disoriented at times. Needs attended. BP meds held earlier this shift, BP 115/48 Patient asymptomatic. Incontinenet of bowel and bladder. No acute distress noted. No BM noted this shift. Fall precautions maintained. On Keflex for UTI. Needs attended. Kept comfortable.Siderails up for safety.
[2021-01-14 07:41] VITALS: BP 180/64
[2021-01-14] MEDS: BENZONATATE 100 MG CAPSULE PO SCH ×3 (08:31→16:58)
[2021-01-14] MEDS: ASPIRIN 81 MG TAB.CHEW PO SCH (08:31)
[2021-01-14] MEDS: PREGABALIN 25 MG CAPSULE PO SCH (08:31)
[2021-01-14] MEDS: LORATADINE 10 MG TABLET PO SCH (08:31)
[2021-01-14] MEDS: PANTOPRAZOLE SODIUM 40 MG TABLET.DR PO SCH (08:31)
[2021-01-14] MEDS: DULOXETINE 30 MG CAPSULE.DR PO SCH (08:31)
[2021-01-14] MEDS: CLOPIDOGREL 75 MG TABLET PO SCH (08:31)
[2021-01-14] MEDS: DOCUSATE SODIUM 100 MG CAPSULE PO SCH ×2 (08:31→16:58)
[2021-01-14] MEDS: ENSURE ENLIVE (VAN) 240 ML LIQUID PO SCH (08:36)
[2021-01-14] MEDS: POLYVINYL ALCOHOL OPHT DROPS 15 ML BOTTLE EACHEYE SCH ×2 (08:36→16:58)
[2021-01-14] MEDS: NIFEdipine XL 30 MG TABSR PO SCH ×2 (08:41→20:55)
[2021-01-14] MEDS: CARVEDILOL 12.5 MG TABLET PO SCH ×2 (08:41→18:20)
[2021-01-14] MEDS: BENAZEPRIL HCL 20 MG TABLET PO SCH ×2 (08:42→20:56)
[2021-01-14] MEDS: MYRBETRIQ 25 MG PO SCH (10:19)
[2021-01-14 11:55] VITALS: BP 137/48
--- NOTE | 2021-01-14 13:37 | NUR ---
INTERDISCIPLINARY TEAM CONFERENCE
[2021-01-14 16:00] VITALS: BP 116/41
[2021-01-14] MEDS: CULTURELLE CAPSULE PO SCH (18:05)
[2021-01-14 20:00] VITALS: BP 113/38
[2021-01-14] MEDS: ropiniROLE 0.5 MG TABLET PO SCH (20:55)
[2021-01-14] MEDS: ATORVASTATIN 40 MG TABLET PO SCH (20:56)
[2021-01-15] MEDS: ACETAMINOPHEN 325 MG TABLET PO PRN (01:30)
[2021-01-15 04:00] VITALS: BP 128/33
--- NOTE | 2021-01-15 06:50 | NUR ---
Shift End Report: VS stable. Slept well. No significant event reported all night. Continue care as planned.
[2021-01-15 07:33] VITALS: BP 151/48
[2021-01-15] MEDS: POLYVINYL ALCOHOL OPHT DROPS 15 ML BOTTLE EACHEYE SCH ×2 (08:20→16:29)
[2021-01-15] MEDS: PANTOPRAZOLE SODIUM 40 MG TABLET.DR PO SCH (08:21)
[2021-01-15] MEDS: CARVEDILOL 12.5 MG TABLET PO SCH ×2 (08:21→17:07)
[2021-01-15] MEDS: ASPIRIN 81 MG TAB.CHEW PO SCH (08:21)
[2021-01-15] MEDS: LORATADINE 10 MG TABLET PO SCH (08:21)
[2021-01-15] MEDS: DULOXETINE 30 MG CAPSULE.DR PO SCH (08:22)
[2021-01-15] MEDS: NIFEdipine XL 30 MG TABSR PO SCH ×2 (08:22→20:18)
[2021-01-15] MEDS: DOCUSATE SODIUM 100 MG CAPSULE PO SCH ×2 (08:22→16:30)
[2021-01-15] MEDS: CLOPIDOGREL 75 MG TABLET PO SCH (08:22)
[2021-01-15] MEDS: MYRBETRIQ 25 MG PO SCH (08:22)
[2021-01-15] MEDS: BENZONATATE 100 MG CAPSULE PO SCH ×3 (08:22→16:30)
[2021-01-15] MEDS: BENAZEPRIL HCL 20 MG TABLET PO SCH ×2 (08:23→20:17)
[2021-01-15] MEDS: ENSURE ENLIVE (VAN) 240 ML LIQUID PO SCH (08:23)
[2021-01-15 15:06] VITALS: BP 133/45
[2021-01-15] MEDS: CULTURELLE CAPSULE PO SCH (17:07)
--- NOTE | 2021-01-15 18:46 | NUR ---
Skin intact. Kept patient patient comfortable during the shift. all needs attended. denies pain or discomfort. Kept call light within reach. safety measure maintained at all times. will continue to monitor.
[2021-01-15 20:05] VITALS: BP 108/40
[2021-01-15] MEDS: ATORVASTATIN 40 MG TABLET PO SCH (20:19)
[2021-01-15] MEDS: ropiniROLE 0.5 MG TABLET PO SCH (20:19)
[2021-01-16 04:05] VITALS: BP 128/40
--- NOTE | 2021-01-16 06:24 | NUR ---
patient remained comfortable and no distress identified during the shift. denies pain or discomfort. kept call light within reach. all due meds given as ordered. safety measures maintained. frequent checks done. all needs attended. will endorse to the next shift for continuity of care.
[2021-01-16 08:00] VITALS: BP 142/44
[2021-01-16] MEDS: PANTOPRAZOLE SODIUM 40 MG TABLET.DR PO SCH (09:54)
[2021-01-16] MEDS: BENZONATATE 100 MG CAPSULE PO SCH ×3 (09:54→16:34)
[2021-01-16] MEDS: BENAZEPRIL HCL 20 MG TABLET PO SCH ×2 (09:54→21:00)
[2021-01-16] MEDS: LORATADINE 10 MG TABLET PO SCH (09:54)
[2021-01-16] MEDS: NIFEdipine XL 30 MG TABSR PO SCH ×2 (09:55→21:00)
[2021-01-16] MEDS: DOCUSATE SODIUM 100 MG CAPSULE PO SCH ×2 (09:55→16:34)
[2021-01-16] MEDS: CARVEDILOL 12.5 MG TABLET PO SCH ×2 (09:55→16:34)
[2021-01-16] MEDS: DULOXETINE 30 MG CAPSULE.DR PO SCH (09:55)
[2021-01-16] MEDS: ASPIRIN 81 MG TAB.CHEW PO SCH (09:55)
[2021-01-16] MEDS: POLYVINYL ALCOHOL OPHT DROPS 15 ML BOTTLE EACHEYE SCH ×2 (09:55→16:34)
[2021-01-16] MEDS: ENSURE ENLIVE (VAN) 240 ML LIQUID PO SCH (09:56)
[2021-01-16] MEDS: CLOPIDOGREL 75 MG TABLET PO SCH (09:56)
[2021-01-16] MEDS: MYRBETRIQ 25 MG PO SCH (09:56)
[2021-01-16 15:12] VITALS: BP 112/40
[2021-01-16] MEDS: CULTURELLE CAPSULE PO SCH (16:34)
[2021-01-16 20:05] VITALS: BP 113/56
[2021-01-16] MEDS: ATORVASTATIN 40 MG TABLET PO SCH (20:17)
[2021-01-16] MEDS: ropiniROLE 0.5 MG TABLET PO SCH (20:17)
--- NOTE | 2021-01-16 21:09 | NUR ---
Received pt resting in bed. AAO x2-3, Cymraes speaking, able to make needs known. No acute distress noted. Denies pain/ discomfort. Due meds given as ordered. Held BP meds this evening due to decreased BP. Denies dizziness, SOB, or CP. Safety measures maintained. Call light and personal items within reach. Will continue to monitor.
[2021-01-17 04:05] VITALS: BP 151/45
[2021-01-17 08:00] VITALS: BP 85/50
[2021-01-17] MEDS: DOCUSATE SODIUM 100 MG CAPSULE PO SCH ×2 (09:09→17:51)
[2021-01-17] MEDS: LORATADINE 10 MG TABLET PO SCH (09:10)
[2021-01-17] MEDS: BENAZEPRIL HCL 20 MG TABLET PO SCH ×2 (09:10→20:28)
[2021-01-17] MEDS: BENZONATATE 100 MG CAPSULE PO SCH ×3 (09:10→17:51)
[2021-01-17] MEDS: PANTOPRAZOLE SODIUM 40 MG TABLET.DR PO SCH (09:10)
[2021-01-17] MEDS: ASPIRIN 81 MG TAB.CHEW PO SCH (09:11)
[2021-01-17] MEDS: CARVEDILOL 12.5 MG TABLET PO SCH ×2 (09:11→17:51)
[2021-01-17] MEDS: NIFEdipine XL 30 MG TABSR PO SCH ×2 (09:11→20:28)
[2021-01-17] MEDS: POLYVINYL ALCOHOL OPHT DROPS 15 ML BOTTLE EACHEYE SCH ×2 (09:12→17:52)
[2021-01-17] MEDS: DULOXETINE 30 MG CAPSULE.DR PO SCH (09:12)
[2021-01-17] MEDS: CLOPIDOGREL 75 MG TABLET PO SCH (09:12)
[2021-01-17] MEDS: MYRBETRIQ 25 MG PO SCH (09:12)
[2021-01-17] MEDS: ENSURE ENLIVE (VAN) 240 ML LIQUID PO SCH (09:13)
[2021-01-17 12:00] VITALS: BP 102/54
[2021-01-17] MEDS ORDERED: METHYL SALICYLATE/MENTHOL CREAM 28 GM TUBE TOP PRN (15:45)
[2021-01-17] MEDS ORDERED: TRAMADOL HCL 50 MG TABLET PO PRN (15:45)
[2021-01-17 16:33] VITALS: BP 162/45
[2021-01-17] MEDS: CULTURELLE CAPSULE PO SCH (17:51)
[2021-01-17 20:25] VITALS: BP 105/59
[2021-01-17 20:26] VITALS: BP 150/80
[2021-01-17] MEDS: ropiniROLE 0.5 MG TABLET PO SCH (20:27)
[2021-01-17] MEDS: ATORVASTATIN 40 MG TABLET PO SCH (20:27)
[2021-01-18 04:00] VITALS: BP 116/39
[2021-01-18 06:22] LABS: MEAN CORPUSCULAR VOLUME 90.6 fL (75.5-95.3); PLATELET COUNT (AUTO) 297 K/uL (179-408)
--- NOTE | 2021-01-18 06:28 | NUR ---
PATIENT REMAINED COMFORTABLE AND STABLE DURING THE SHIFT. NO DISTRESS OR PAIN IDENTIFIED. KEPT CALL LIGHT WITHIN REACH. ALL DUE MEDS GIVEN ORDERED. SAFETY AND ASPIRATION PRECAUTION MAINTAINED. FREQUENT CHECKS DONE. ALL NEEDS ATTENDED. WILL ENDORSE TO THE NEXT SHIFT FOR CONTINUITY OF CARE.
[2021-01-18 06:36] LABS: CARBON DIOXIDE 29 mmol/L (21-32); CHLORIDE 103 mmol/L (98-107); CREATININE 1.5 mg/dL (0.6-1.3); GLUCOSE 93 mg/dL (74-106); POTASSIUM 4.8 mmol/L (3.5-5.1); UREA NITROGEN, BLOOD 44 mg/dL (7-18)
[2021-01-18 07:25] VITALS: BP 143/47
[2021-01-18] MEDS: ASPIRIN 81 MG TAB.CHEW PO SCH (08:24)
[2021-01-18] MEDS: LORATADINE 10 MG TABLET PO SCH (08:24)
[2021-01-18] MEDS: DOCUSATE SODIUM 100 MG CAPSULE PO SCH ×2 (08:25→16:36)
[2021-01-18] MEDS: PANTOPRAZOLE SODIUM 40 MG TABLET.DR PO SCH (08:32)
[2021-01-18] MEDS: CLOPIDOGREL 75 MG TABLET PO SCH (08:32)
[2021-01-18] MEDS: CARVEDILOL 12.5 MG TABLET PO SCH ×2 (08:32→17:48)
[2021-01-18] MEDS: BENZONATATE 100 MG CAPSULE PO SCH ×3 (08:32→16:36)
[2021-01-18] MEDS: DULOXETINE 30 MG CAPSULE.DR PO SCH (08:32)
[2021-01-18] MEDS: ENSURE ENLIVE (VAN) 240 ML LIQUID PO SCH (08:33)
[2021-01-18] MEDS: POLYVINYL ALCOHOL OPHT DROPS 15 ML BOTTLE EACHEYE SCH ×2 (08:33→16:36)
[2021-01-18] MEDS: MYRBETRIQ 25 MG PO SCH (08:33)
[2021-01-18] MEDS: NIFEdipine XL 30 MG TABSR PO SCH ×2 (10:00→21:00)
[2021-01-18] MEDS: BENAZEPRIL HCL 20 MG TABLET PO SCH ×2 (10:00→21:00)
[2021-01-18 15:06] VITALS: BP 101/41
[2021-01-18] MEDS: CULTURELLE CAPSULE PO SCH (17:47)
--- NOTE | 2021-01-18 18:56 | NUR ---
Patient remains alert, oriented x 4, not in any form of distress, on room air. She is compliant with medications and care. Daughter at bed side. Assisted with her needs promptly. Patient participated with PT and OT. Call light and frequently used items placed within patient's reach.
--- NOTE | 2021-01-18 19:30 | NUR ---
Received patient sleeping in bed. AOX3-4. On room air, saturating at 95%. No acute distress noted at this time. Patient denies chest pain, shortness of breath or dizziness. Safety and comfort measures initiated. Call light button and bedside table within reach. Will continue to monitor.
[2021-01-18 20:32] VITALS: BP 120/42
[2021-01-18] MEDS: ATORVASTATIN 40 MG TABLET PO SCH (21:47)
[2021-01-18] MEDS: ropiniROLE 0.5 MG TABLET PO SCH (21:47)
[2021-01-19 05:05] VITALS: BP 133/42
--- NOTE | 2021-01-19 06:58 | NUR ---
Patient slept through the night. No acute distress noted at this time. Patient denies SOB, chest pain or dizziness. All due medications were given as ordered. Aspiration precautions maintained. Safety and comfort measures maintained. Call light button and bedside table within reach. Will endorse to day shift nurse.
[2021-01-19 07:32] VITALS: BP 141/45
[2021-01-19] MEDS: DOCUSATE SODIUM 100 MG CAPSULE PO SCH ×2 (09:15→17:01)
[2021-01-19] MEDS: ASPIRIN 81 MG TAB.CHEW PO SCH (09:15)
[2021-01-19] MEDS: CLOPIDOGREL 75 MG TABLET PO SCH (09:15)
[2021-01-19] MEDS: PANTOPRAZOLE SODIUM 40 MG TABLET.DR PO SCH (09:15)
[2021-01-19] MEDS: BENZONATATE 100 MG CAPSULE PO SCH ×3 (09:15→17:01)
[2021-01-19] MEDS: DULOXETINE 30 MG CAPSULE.DR PO SCH (09:16)
[2021-01-19] MEDS: LORATADINE 10 MG TABLET PO SCH (09:16)
[2021-01-19] MEDS: CARVEDILOL 12.5 MG TABLET PO SCH ×2 (09:17→17:01)
[2021-01-19] MEDS: MYRBETRIQ 25 MG PO SCH (09:17)
[2021-01-19] MEDS: BENAZEPRIL HCL 20 MG TABLET PO SCH ×2 (09:17→20:33)
[2021-01-19] MEDS: NIFEdipine XL 30 MG TABSR PO SCH ×2 (09:17→20:33)
[2021-01-19] MEDS: POLYVINYL ALCOHOL OPHT DROPS 15 ML BOTTLE EACHEYE SCH ×2 (09:18→17:02)
[2021-01-19] MEDS: ENSURE ENLIVE (VAN) 240 ML LIQUID PO SCH (09:18)
[2021-01-19 15:15] VITALS: BP 138/43
[2021-01-19] MEDS: CULTURELLE CAPSULE PO SCH (17:02)
--- NOTE | 2021-01-19 18:50 | NUR ---
Patient remained pleasant and cooperative throughout shift. Medications administered as due. Tolerated well. VSS. No signs of acute distress noted. Safety precautions maintained. Call light within reach. Will endorse accordingly
[2021-01-19 20:03] VITALS: BP 127/42
[2021-01-19] MEDS: ropiniROLE 0.5 MG TABLET PO SCH (20:32)
[2021-01-19] MEDS: ATORVASTATIN 40 MG TABLET PO SCH (20:33)
[2021-01-20 04:03] VITALS: BP 122/52
[2021-01-20 07:30] VITALS: BP 104/41
--- NOTE | 2021-01-20 07:41 | NUR ---
Patient received sleeping in bed. On room air. No signs of acute distress noted.Call light within reach, safety precautions in place. Will continue to monitor
[2021-01-20] MEDS: CARVEDILOL 12.5 MG TABLET PO SCH ×2 (08:00→17:57)
[2021-01-20] MEDS: LORATADINE 10 MG TABLET PO SCH (08:42)
[2021-01-20] MEDS: CLOPIDOGREL 75 MG TABLET PO SCH (08:42)
[2021-01-20] MEDS: DOCUSATE SODIUM 100 MG CAPSULE PO SCH ×2 (08:42→17:56)
[2021-01-20] MEDS: BENZONATATE 100 MG CAPSULE PO SCH ×3 (08:42→17:56)
[2021-01-20] MEDS: ASPIRIN 81 MG TAB.CHEW PO SCH (08:42)
[2021-01-20] MEDS: PANTOPRAZOLE SODIUM 40 MG TABLET.DR PO SCH (08:42)
[2021-01-20] MEDS: DULOXETINE 30 MG CAPSULE.DR PO SCH (08:42)
[2021-01-20] MEDS: MYRBETRIQ 25 MG PO SCH (08:43)
[2021-01-20] MEDS: POLYVINYL ALCOHOL OPHT DROPS 15 ML BOTTLE EACHEYE SCH ×2 (08:43→17:56)
[2021-01-20] MEDS: ENSURE ENLIVE (VAN) 240 ML LIQUID PO SCH (08:44)
[2021-01-20] MEDS: BENAZEPRIL HCL 20 MG TABLET PO SCH ×2 (08:44→20:53)
[2021-01-20] MEDS: NIFEdipine XL 30 MG TABSR PO SCH ×2 (08:44→20:53)
[2021-01-20 15:46] VITALS: BP 111/42
[2021-01-20] MEDS: CULTURELLE CAPSULE PO SCH (17:56)
[2021-01-20 20:05] VITALS: BP 104/41
[2021-01-20] MEDS: ATORVASTATIN 40 MG TABLET PO SCH (20:53)
[2021-01-20] MEDS: ropiniROLE 0.5 MG TABLET PO SCH (20:53)
[2021-01-21 04:05] VITALS: BP 136/43
[2021-01-21 08:00] VITALS: BP 165/41
--- NOTE | 2021-01-21 09:00 | NUR ---
Patient remains alert, oriented x 4, not in any form of distress, on room air. She is compliant with medications and care. Up ambulating with walker Assisted with as needs it. Patient participated with PT and OT. Call light and frequently used items placed within patient's reach.
[2021-01-21] MEDS: ASPIRIN 81 MG TAB.CHEW PO SCH (09:29)
[2021-01-21] MEDS: BENZONATATE 100 MG CAPSULE PO SCH ×3 (09:30→16:57)
[2021-01-21] MEDS: POLYVINYL ALCOHOL OPHT DROPS 15 ML BOTTLE EACHEYE SCH ×2 (09:30→16:56)
[2021-01-21] MEDS: PANTOPRAZOLE SODIUM 40 MG TABLET.DR PO SCH (09:30)
[2021-01-21] MEDS: DULOXETINE 30 MG CAPSULE.DR PO SCH (09:30)
[2021-01-21] MEDS: BENAZEPRIL HCL 20 MG TABLET PO SCH ×2 (09:31→20:52)
[2021-01-21] MEDS: CLOPIDOGREL 75 MG TABLET PO SCH (09:32)
[2021-01-21] MEDS: DOCUSATE SODIUM 100 MG CAPSULE PO SCH ×2 (09:32→16:57)
[2021-01-21] MEDS: NIFEdipine XL 30 MG TABSR PO SCH ×2 (09:32→20:52)
[2021-01-21] MEDS: LORATADINE 10 MG TABLET PO SCH (09:33)
[2021-01-21] MEDS: CARVEDILOL 12.5 MG TABLET PO SCH ×2 (09:33→17:18)
[2021-01-21] MEDS: MYRBETRIQ 25 MG PO SCH (09:33)
[2021-01-21] MEDS: ENSURE ENLIVE (VAN) 240 ML LIQUID PO SCH (09:41)
--- NOTE | 2021-01-21 10:41 | NUR ---
INTERDISCIPLINARY TEAM CONFERENCE
[2021-01-21 16:00] VITALS: BP 110/47
[2021-01-21] MEDS: CULTURELLE CAPSULE PO SCH (17:18)
--- NOTE | 2021-01-21 18:30 | NUR ---
Patient remained comfortable and no distress noted during the shift. denies pain or discomfort. Up in WC with PT/OT tolerated exercises well, kept call light within reach. all due meds given as ordered. safety measures maintained. frequent checks done. all needs attended. will endorse to the next shift for continuity of care.
[2021-01-21 20:05] VITALS: BP 134/39
[2021-01-21] MEDS: ropiniROLE 0.5 MG TABLET PO SCH (20:51)
[2021-01-21] MEDS: ATORVASTATIN 40 MG TABLET PO SCH (20:52)
[2021-01-22 04:05] VITALS: BP 146/43
[2021-01-22] MEDS: BENZONATATE 100 MG CAPSULE PO SCH ×3 (08:06→16:59)
[2021-01-22] MEDS: CARVEDILOL 12.5 MG TABLET PO SCH ×2 (08:06→17:00)
[2021-01-22] MEDS: DOCUSATE SODIUM 100 MG CAPSULE PO SCH ×2 (08:06→16:59)
[2021-01-22] MEDS: ASPIRIN 81 MG TAB.CHEW PO SCH (08:07)
[2021-01-22] MEDS: BENAZEPRIL HCL 20 MG TABLET PO SCH ×2 (08:07→20:32)
[2021-01-22] MEDS: CLOPIDOGREL 75 MG TABLET PO SCH (08:07)
[2021-01-22] MEDS: NIFEdipine XL 30 MG TABSR PO SCH ×2 (08:07→20:31)
[2021-01-22] MEDS: PANTOPRAZOLE SODIUM 40 MG TABLET.DR PO SCH (08:07)
[2021-01-22] MEDS: DULOXETINE 30 MG CAPSULE.DR PO SCH (08:07)
[2021-01-22] MEDS: LORATADINE 10 MG TABLET PO SCH (08:07)
[2021-01-22] MEDS: MYRBETRIQ 25 MG PO SCH (08:08)
[2021-01-22] MEDS: ENSURE ENLIVE (VAN) 240 ML LIQUID PO SCH (08:09)
[2021-01-22] MEDS: POLYVINYL ALCOHOL OPHT DROPS 15 ML BOTTLE EACHEYE SCH ×2 (08:09→16:59)
[2021-01-22 16:00] VITALS: BP 147/48
[2021-01-22] MEDS: CULTURELLE CAPSULE PO SCH (17:00)
--- NOTE | 2021-01-22 17:29 | NUR ---
PT STABLE THROUGHOUT THE SHIFT. SEEN BY PT/OT UP IN THE WHEELCHAIR. BP WELL CONTROLLED. DENIES PAIN/ACUTE DISTRESS. COMFORT CARE AND NEEDS ATTENDED. SAFETY MEASURES IN PLACE. WILL ENDORSE TO ONCOMING NURSE.
--- NOTE | 2021-01-22 19:49 | NUR ---
received with no iv access. with no untoward complaints
[2021-01-22 20:07] VITALS: BP 124/43
[2021-01-22] MEDS: ropiniROLE 0.5 MG TABLET PO SCH (20:31)
[2021-01-22] MEDS: ATORVASTATIN 40 MG TABLET PO SCH (20:31)
[2021-01-23 04:25] VITALS: BP 133/41
[2021-01-23 07:31] VITALS: BP 103/40
[2021-01-23] MEDS: CARVEDILOL 12.5 MG TABLET PO SCH ×2 (08:00→17:24)
[2021-01-23] MEDS: BENAZEPRIL HCL 20 MG TABLET PO SCH ×2 (09:00→20:20)
[2021-01-23] MEDS: PANTOPRAZOLE SODIUM 40 MG TABLET.DR PO SCH (09:00)
[2021-01-23] MEDS: NIFEdipine XL 30 MG TABSR PO SCH (09:00)
[2021-01-23] MEDS: CLOPIDOGREL 75 MG TABLET PO SCH (09:02)
[2021-01-23] MEDS: MYRBETRIQ 25 MG PO SCH (09:03)
[2021-01-23] MEDS: BENZONATATE 100 MG CAPSULE PO SCH ×3 (09:03→17:24)
[2021-01-23] MEDS: ASPIRIN 81 MG TAB.CHEW PO SCH (09:03)
[2021-01-23] MEDS: DULOXETINE 30 MG CAPSULE.DR PO SCH (09:03)
[2021-01-23] MEDS: LORATADINE 10 MG TABLET PO SCH (09:03)
[2021-01-23] MEDS: DOCUSATE SODIUM 100 MG CAPSULE PO SCH ×2 (09:03→17:24)
[2021-01-23] MEDS: TRAMADOL HCL 50 MG TABLET PO PRN (09:08)
[2021-01-23] MEDS: POLYVINYL ALCOHOL OPHT DROPS 15 ML BOTTLE EACHEYE SCH ×2 (09:29→17:25)
[2021-01-23] MEDS: ENSURE ENLIVE (VAN) 240 ML LIQUID PO SCH (09:29)
[2021-01-23] MEDS: ACETAMINOPHEN 325 MG TABLET PO PRN (13:41)
[2021-01-23 15:35] VITALS: BP 137/47
[2021-01-23] MEDS: CULTURELLE CAPSULE PO SCH (17:24)
--- NOTE | 2021-01-23 19:30 | NUR ---
Received patient sleeping in bed. AOX4.Patient denies chest pain, dizziness or shortness of breath. Skin is intact. Safety and comfort measures maintained. Bed in locked position, call light and frequently used items within reach. Will continue to monitor.
[2021-01-23 20:00] VITALS: BP 140/49
[2021-01-23] MEDS: ropiniROLE 0.5 MG TABLET PO SCH (20:13)
[2021-01-23] MEDS: ATORVASTATIN 40 MG TABLET PO SCH (20:17)
[2021-01-24 04:00] VITALS: BP 135/50
[2021-01-24 06:22] LABS: HEMATOCRIT 27.2 % (31.2-41.9); MEAN CORPUSCULAR HEMOGLOBIN 30.6 uug (24.7-32.8); MEAN CORPUSCULAR VOLUME 91.1 fL (75.5-95.3); PLATELET COUNT (AUTO) 264 K/uL (179-408)
--- NOTE | 2021-01-24 06:30 | NUR ---
Patient slept through the night. No acute distress noted at this time. All medications were given as ordered. All needs were attended to and met. Safety measures and aspiration precautions were maintained. Will endorse to AM shift.
[2021-01-24 07:28] LABS: ALANINE AMINOTRANSFERASE 14 U/L (14-59); ALKALINE PHOSPHATASE 22 U/L (50-136); ASPARTATE AMINOTRANSFERASE 13 U/L (15-37); BILIRUBIN,TOTAL 0.2 mg/dL (0.2-1.0); CARBON DIOXIDE 29 mmol/L (21-32); CHLORIDE 102 mmol/L (98-107); CHOLESTEROL 151 mg/dL (<200); CREATININE 1.8 mg/dL (0.6-1.3); GLUCOSE 87 mg/dL (74-106); HDL CHOLESTEROL 44 mg/dL (40-60); MAGNESIUM 2.1 mg/dL (1.8-2.4); PHOSPHOROUS 6.2 mg/dL (2.5-4.9); POTASSIUM 4.6 mmol/L (3.5-5.1); TOTAL PROTEIN, SERUM 6.2 g/dL (6.4-8.2); TRIGLYCERIDES 129 MG/DL (30-150); UREA NITROGEN, BLOOD 43 mg/dL (7-18)
[2021-01-24 08:00] VITALS: BP 127/44
[2021-01-24] MEDS: CARVEDILOL 12.5 MG TABLET PO SCH ×2 (08:31→17:04)
[2021-01-24] MEDS: BENZONATATE 100 MG CAPSULE PO SCH ×3 (08:31→17:01)
[2021-01-24] MEDS: DOCUSATE SODIUM 100 MG CAPSULE PO SCH ×2 (08:31→17:01)
[2021-01-24] MEDS: PANTOPRAZOLE SODIUM 40 MG TABLET.DR PO SCH (08:31)
[2021-01-24] MEDS: DULOXETINE 30 MG CAPSULE.DR PO SCH (08:31)
[2021-01-24] MEDS: CLOPIDOGREL 75 MG TABLET PO SCH (08:32)
[2021-01-24] MEDS: ASPIRIN 81 MG TAB.CHEW PO SCH (08:32)
[2021-01-24] MEDS: BENAZEPRIL HCL 20 MG TABLET PO SCH ×2 (08:32→20:51)
[2021-01-24] MEDS: MYRBETRIQ 25 MG PO SCH (08:33)
[2021-01-24] MEDS: LORATADINE 10 MG TABLET PO SCH (08:33)
[2021-01-24] MEDS: POLYVINYL ALCOHOL OPHT DROPS 15 ML BOTTLE EACHEYE SCH ×2 (08:34→17:00)
[2021-01-24] MEDS: ENSURE ENLIVE (VAN) 240 ML LIQUID PO SCH (08:34)
--- NOTE | 2021-01-24 10:00 | NUR ---
Received pt from plant operator/shift supervisor. pt is a/o x 4 liberian speaking only. Pt participated with PT today and is currently sitting in the chair. pt able to take a few steps form bed to wheelchair with walker and assistance. Pt is stable on room air, takes medications as prescribed. No signs of acute distress, call light within reach. Will continue to monitor.
[2021-01-24 11:47] VITALS: BP 140/45
[2021-01-24 16:12] VITALS: BP 156/49
[2021-01-24 16:16] LABS: *BILIRUBIN,URIN NEGATIVE (NEGATIVE); *BLOOD, URINE 2+ (NEGATIVE); *COLOR,URINE YELLOW (YELLOW); *KETONES,URINE NEGATIVE (NEGATIVE); *UROBILINOGEN,URINE 0.2 E.U./dl (NORMAL); LEUKOCYTE ESTERASE ,URINE 3+ (NEGATIVE); NITRITE, URINE NEGATIVE (NEGATIVE); PH,URINE 6.5 (5.0-8.0); UGLUCOSE NEGATIVE (NEGATIVE)
[2021-01-24 16:23] LABS: *CREATININE,URINE 59.9 mg/dL (30-125); *URINE TOTAL PROTEIN RANDOM 64.7 mg/dL (<150/24HR)
[2021-01-24 16:25] LABS: *CLARITY,URINE TURBID (CLEAR); WBC,URINE TNTC /HPF (0-3)
[2021-01-24 16:27] LABS: BACTERIA,URINE MANY /HPF (NONE SEEN); SQUAMOUS EPITHELIAL CELL,UR FEW /HPF (NONE SEEN)
[2021-01-24] MEDS: CULTURELLE CAPSULE PO SCH (17:01)
--- NOTE | 2021-01-24 19:30 | NUR ---
Received patient sleeping in bed. AOX4, estonian speaking. Patient denies chest pain, dizziness or shortness of breath. Skin is intact. Safety and comfort measures maintained. Bed in locked position, call light and frequently used items within reach. Will continue to monitor.
[2021-01-24 20:00] VITALS: BP 122/50
[2021-01-24] MEDS: ATORVASTATIN 40 MG TABLET PO SCH (20:51)
[2021-01-24] MEDS: ropiniROLE 0.5 MG TABLET PO SCH (20:51)
[2021-01-25 04:00] VITALS: BP 141/40
--- NOTE | 2021-01-25 06:33 | NUR ---
Patient slept through the night with no complains of shortness of breath, chest pain or dizziness. All due medications were given as ordered. Safety measures and aspiration precautions were maintained.
[2021-01-25 07:30] VITALS: BP 146/48
--- NOTE | 2021-01-25 08:00 | NUR ---
Pt is awake, calm on approach, no distress noted. Breathing is non-labored. pt denies distress. Safety measures are in place. Side rails are up and call light is in reach.
[2021-01-25 08:25] LABS: HEMATOCRIT 27.4 % (31.2-41.9); MEAN CORPUSCULAR HEMOGLOBIN 30.6 uug (24.7-32.8); MEAN CORPUSCULAR VOLUME 91.2 fL (75.5-95.3); PLATELET COUNT (AUTO) 246 K/uL (179-408)
[2021-01-25 08:38] LABS: CARBON DIOXIDE 29 mmol/L (21-32); CHLORIDE 107 mmol/L (98-107); CREATININE 1.6 mg/dL (0.6-1.3); GLUCOSE 91 mg/dL (74-106); MAGNESIUM 2.2 mg/dL (1.8-2.4); PHOSPHOROUS 6.4 mg/dL (2.5-4.9); UREA NITROGEN, BLOOD 43 mg/dL (7-18)
[2021-01-25] MEDS: POLYVINYL ALCOHOL OPHT DROPS 15 ML BOTTLE EACHEYE SCH ×2 (09:46→17:38)
[2021-01-25] MEDS: BENAZEPRIL HCL 20 MG TABLET PO SCH ×2 (09:47→20:12)
[2021-01-25] MEDS: DOCUSATE SODIUM 100 MG CAPSULE PO SCH ×2 (09:48→17:36)
[2021-01-25] MEDS: LORATADINE 10 MG TABLET PO SCH (09:48)
[2021-01-25] MEDS: DULOXETINE 30 MG CAPSULE.DR PO SCH (09:48)
[2021-01-25] MEDS: PANTOPRAZOLE SODIUM 40 MG TABLET.DR PO SCH (09:48)
[2021-01-25] MEDS: MYRBETRIQ 25 MG PO SCH (09:48)
[2021-01-25] MEDS: CARVEDILOL 12.5 MG TABLET PO SCH ×2 (09:48→17:37)
[2021-01-25] MEDS: BENZONATATE 100 MG CAPSULE PO SCH ×3 (09:48→17:36)
[2021-01-25] MEDS: CLOPIDOGREL 75 MG TABLET PO SCH (09:48)
[2021-01-25] MEDS: ASPIRIN 81 MG TAB.CHEW PO SCH (09:48)
[2021-01-25] MEDS: ENSURE ENLIVE (VAN) 240 ML LIQUID PO SCH (09:57)
[2021-01-25] MEDS: ACETAMINOPHEN 325 MG TABLET PO PRN (13:58)
[2021-01-25 16:01] VITALS: BP 140/49
[2021-01-25] MEDS: CULTURELLE CAPSULE PO SCH (17:36)
[2021-01-25 20:03] VITALS: BP 143/41
[2021-01-25] MEDS: ropiniROLE 0.5 MG TABLET PO SCH (20:11)
[2021-01-25] MEDS: TRAMADOL HCL 50 MG TABLET PO PRN (20:12)
[2021-01-25] MEDS: ATORVASTATIN 40 MG TABLET PO SCH (20:12)
[2021-01-26 04:06] VITALS: BP 149/45
--- NOTE | 2021-01-26 05:37 | NUR ---
Shift End Report: Slept good. No significant event reported all night. All needs attended and met. Continue current rehab plan of care. VS stable.
[2021-01-26 08:00] VITALS: BP 161/51
[2021-01-26] MEDS: ASPIRIN 81 MG TAB.CHEW PO SCH (08:20)
[2021-01-26] MEDS: CLOPIDOGREL 75 MG TABLET PO SCH (08:20)
[2021-01-26] MEDS: LORATADINE 10 MG TABLET PO SCH (08:20)
[2021-01-26] MEDS: CARVEDILOL 12.5 MG TABLET PO SCH ×2 (08:20→17:22)
[2021-01-26] MEDS: PANTOPRAZOLE SODIUM 40 MG TABLET.DR PO SCH (08:20)
[2021-01-26] MEDS: DULOXETINE 30 MG CAPSULE.DR PO SCH (08:20)
[2021-01-26] MEDS: BENAZEPRIL HCL 20 MG TABLET PO SCH ×2 (08:20→20:49)
[2021-01-26] MEDS: BENZONATATE 100 MG CAPSULE PO SCH ×3 (08:20→16:31)
[2021-01-26] MEDS: DOCUSATE SODIUM 100 MG CAPSULE PO SCH ×2 (08:21→16:31)
[2021-01-26] MEDS: ENSURE ENLIVE (VAN) 240 ML LIQUID PO SCH ×2 (08:22→16:32)
[2021-01-26] MEDS: MYRBETRIQ 25 MG PO SCH (08:28)
[2021-01-26] MEDS: POLYVINYL ALCOHOL OPHT DROPS 15 ML BOTTLE EACHEYE SCH ×2 (08:28→16:31)
[2021-01-26 15:53] VITALS: BP 136/64
[2021-01-26] MEDS: CULTURELLE CAPSULE PO SCH (17:22)
--- NOTE | 2021-01-26 18:18 | NUR ---
PATIENT REMAINED STABLE DURING THE SHIFT. DENIES PAIN AND DISCOMFORT. ALL DUE MEDS GIVEN ORDERED. ALL NEEDS ATTENDED. KEPT CALL LIGHT WITHIN REACH. FREQUENT CHECKS DONE. SAFETY MEASURES MAINTAINED. ENDORSED TO THE NEXT SHIFT.
[2021-01-26 20:05] VITALS: BP 143/50
[2021-01-26] MEDS: ATORVASTATIN 40 MG TABLET PO SCH (20:48)
[2021-01-26] MEDS: ropiniROLE 0.5 MG TABLET PO SCH (20:49)
--- NOTE | 2021-01-27 03:13 | NUR ---
Patient sleeping in bed, No acute distress noted at this time. All medications were given as ordered. All needs were attended to and met. Safety measures and aspiration precautions were maintained. continue with current plan of care. Will endorse to AM shift accordingly.
[2021-01-27 04:03] VITALS: BP 139/50
[2021-01-27 07:30] VITALS: BP 148/42
[2021-01-27] MEDS: POLYVINYL ALCOHOL OPHT DROPS 15 ML BOTTLE EACHEYE SCH (08:56)
[2021-01-27] MEDS: MYRBETRIQ 25 MG PO SCH (08:57)
[2021-01-27] MEDS: ASPIRIN 81 MG TAB.CHEW PO SCH (08:57)
[2021-01-27] MEDS: BENZONATATE 100 MG CAPSULE PO SCH ×2 (08:57→12:29)
[2021-01-27] MEDS: BENAZEPRIL HCL 20 MG TABLET PO SCH (08:57)
[2021-01-27 08:58] VITALS: BP 148/42
[2021-01-27] MEDS: PANTOPRAZOLE SODIUM 40 MG TABLET.DR PO SCH (08:58)
[2021-01-27] MEDS: DOCUSATE SODIUM 100 MG CAPSULE PO SCH (08:58)
[2021-01-27] MEDS: CARVEDILOL 12.5 MG TABLET PO SCH (08:58)
[2021-01-27] MEDS: LORATADINE 10 MG TABLET PO SCH (08:58)
[2021-01-27] MEDS: DULOXETINE 30 MG CAPSULE.DR PO SCH (08:58)
[2021-01-27] MEDS: CLOPIDOGREL 75 MG TABLET PO SCH (08:58)
[2021-01-27] MEDS: ENSURE ENLIVE (VAN) 240 ML LIQUID PO SCH (08:59)
--- NOTE | 2021-01-27 15:00 | NUR ---
DISCHARGED PATIENT VIA AMBULANCE WITH 2 ORACLE ENGINEER TO [facility], REPORT GIVEN TO LEONARD MOORE. PATIENT REMAINED STABLE, NO DISTRESS IDENTIFIED DURING THE SHIFT. DISCHARGE INSTRUCTIONS GIVEN AND SIGNED. BELONGINGS SIGNED AND WITH THE PATIENT. SKIN IS INTACT. PHOTO TAKEN IN CHART. ALL NEEDS ATTENDED. KEPT PATIENT SAFE AND MAINTAINED COMFORT. ALL DUE MEDS GIVEN ORDERED.
[2021-01-28] MEDS ORDERED: SULFAMETH/TRIMETH 800/160 MG TABLET PO SCH (09:00)
== END 2021-01-27 15:00 | DRG 56 ==
PROVIDERS: ADMIT Physical Medicine & Rehabilitation Pain Medicine; ATTEND Physical Medicine & Rehabilitation Pain Medicine
DX: I69.331 Monoplegia of upper limb following cerebral infarction affecting right dominant side (principal); N17.0 Acute kidney failure with tubular necrosis; I69.351 Hemiplegia and hemiparesis following cerebral infarction affecting right dominant side; N39.0 Urinary tract infection, site not specified; I69.322 Dysarthria following cerebral infarction; E78.5 Hyperlipidemia, unspecified; F03.90 Unspecified dementia, unspecified severity, without behavioral disturbance, psychotic disturbance, mood disturbance, and anxiety; I10 Essential (primary) hypertension; K21.9 Gastro-esophageal reflux disease without esophagitis; Z79.82 Long term (current) use of aspirin; Z96.642 Presence of left artificial hip joint; B96.89 Other specified bacterial agents as the cause of diseases classified elsewhere; Z79.899 Other long term (current) drug therapy; G89.29 Other chronic pain; M51.16 Intervertebral disc disorders with radiculopathy, lumbar region; M19.90 Unspecified osteoarthritis, unspecified site; M25.531 Pain in right wrist; R26.89 Other abnormalities of gait and mobility
CPT/HCPCS: 36415; 73110; 83735; 84100; 84156; 84300; 85025; 87077; 87086; 97161; A4663; A6209

== ENCOUNTER 2021-05-16 14:42 | Inpatient (IN) | payer MEDICARE, OTHER ==
[~2021-05-16] VITALS: Ht 152.4 cm; Wt 49.9 kg
[~2021-05-16 14:42] MED LIST changes: +ONDA-104 PO; +PANT40TA2 PO
[2021-05-16] MEDS ORDERED: PROP15DR EACHEYE (15:09)
--- NOTE | 2021-05-16 15:20 | NUR ---
Pending MD evaluation. Patient alert and oriented x2-3, complaints of Right upper extremities pain 8/10 and Right hand swelling. History of lower back pain, hyperlipidemia and hypertension, s/p fall in nursing facility 2 months ago. Vitals stable. No complaints of headache, nausea/vomiting, not in any form of distress.
--- NOTE | 2021-05-16 15:25 | NUR ---
MD at bedside, medeical screening exam in process.
--- NOTE | 2021-05-16 16:36 | NUR ---
Urine collected using in and out straight catheter 8 german aseptically. Urine specimen sent to lab.
[2021-05-16 16:45] LABS: CARBON DIOXIDE 25 mmol/L (21-32); CHLORIDE 104 mmol/L (98-107); CREATININE 1.6 mg/dL (0.6-1.3); GLUCOSE 133 mg/dL (74-106); HEMATOCRIT 28.4 % (31.2-41.9); MEAN CORPUSCULAR HEMOGLOBIN 30.8 uug (24.7-32.8); MEAN CORPUSCULAR VOLUME 90.7 fL (75.5-95.3); PLATELET COUNT (AUTO) 231 K/uL (179-408); POTASSIUM 5.6 mmol/L (3.5-5.1); UREA NITROGEN, BLOOD 42 mg/dL (7-18)
[2021-05-16 16:58] LABS: ALANINE AMINOTRANSFERASE 21 U/L (14-59); ALKALINE PHOSPHATASE 27 U/L (50-136); ASPARTATE AMINOTRANSFERASE 17 U/L (15-37); BILIRUBIN,DIRECT 0.1 mg/dL (0.0-0.2); BILIRUBIN,TOTAL 0.4 mg/dL (0.2-1.0); TOTAL PROTEIN, SERUM 6.6 g/dL (6.4-8.2)
[2021-05-16 17:08] LABS: *BILIRUBIN,URIN NEGATIVE (NEGATIVE); *BLOOD, URINE NEGATIVE (NEGATIVE); *CLARITY,URINE CLEAR (CLEAR); *COLOR,URINE YELLOW (YELLOW); *KETONES,URINE NEGATIVE (NEGATIVE); *UROBILINOGEN,URINE 0.2 E.U./dl (NORMAL); LEUKOCYTE ESTERASE ,URINE NEGATIVE (NEGATIVE); NITRITE, URINE NEGATIVE (NEGATIVE); PH,URINE 5.5 (5.0-8.0); UGLUCOSE NEGATIVE (NEGATIVE)
[2021-05-16] MEDS ORDERED: DEXTROSE 50% 50 ML DISP.SYRIN IV ONE (18:00)
[2021-05-16] MEDS ORDERED: INSULIN REGULAR, HUMAN 300 UNIT/3 ML VIAL IV ONE (18:00)
[2021-05-16] MEDS ORDERED: SODIUM BICARBONATE 8.4% 50 MEQ/50 ML DISP.SYRIN IV ONE ×2 (18:00→18:44)
[2021-05-16] MEDS ORDERED: SODIUM POLYSTYRENE SULFONATE 15 G/60 ML LIQUID UDC PO ONE (18:00)
[2021-05-16] MEDS ORDERED: DEXTROSE 50% 50 ML DISP.SYRIN ONE (18:41)
[2021-05-16] MEDS ORDERED: INSULIN REGULAR, HUMAN 300 UNIT/3 ML VIAL ONE (18:44)
[2021-05-16] MEDS ORDERED: SODIUM POLYSTYRENE SULFONATE 15 G/60 ML LIQUID UDC ONE (18:44)
[2021-05-16] MEDS ORDERED: ONDANSETRON 4 MG/2 ML VIAL IV PRN (19:15)
[2021-05-16] MEDS ORDERED: ACETAMINOPHEN 325 MG TABLET PO PRN (19:15)
[2021-05-16] MEDS ORDERED: MORPHINE SULFATE 2 MG/1 ML DISP.SYRIN IV PRN (19:15)
[2021-05-16] MEDS ORDERED: MAGNESIUM HYDROXIDE 30 ML LIQUID UDC PO PRN (19:15)
--- NOTE | 2021-05-16 20:14 | NUR ---
bed assigned, pt and family updated as to plan of care. pt lying in bed alert, vitals stable, family at the bedside. RN attempted to give report accepting RN unavailable. accepting floor states they will call ROTATIONAL MOULDING OPERATOR back.
--- NOTE | 2021-05-16 20:55 | NUR ---
RN attempted to give report, accepting RN unavailable, will call AUDIO RECORDING ENGINEER back in 10-15 minutes. pt and family updated on plan of care. pt complaining increased pain to right upper extremity, ER MD reassessed pt, and ordered additional medication. AUDIO RECORDING ENGINEER administered medication providing pt with moderate relief. vitals stable NAD noted
[2021-05-16] MEDS ORDERED: MORPHINE SULFATE 2 MG/1 ML DISP.SYRIN IV ONE (21:00)
[2021-05-16] MEDS ORDERED: VANCOMYCIN 1G/D5W 200 ML PIGGYBACK IV ONE (21:00)
[2021-05-16] MEDS ORDERED: MORPHINE SULFATE 2 MG/1 ML DISP.SYRIN ONE (21:29)
[2021-05-16] MEDS ORDERED: VANCOMYCIN IV 200 ML ONE (21:30)
--- NOTE | 2021-05-16 21:41 | NUR ---
Pts daughter Krystyna [phone] - at bedside
--- NOTE | 2021-05-16 22:00 | NUR ---
Received patient from ER via gurney, transferred to bed, Alert, oriented x 1-2, not in respiratory distress, With IV line at at Right arm g-20, intact and patent. Routine admission care done. Instructed for the use of call light.
[2021-05-16 23:14] VITALS: BP 140/43
[2021-05-16] MEDS: ATORVASTATIN 40 MG TABLET PO SCH (23:22)
[2021-05-17] MEDS: IV NS 1000 ML 1,000 ML IV PRN ×2 (01:32→15:10)
[2021-05-17 04:30] VITALS: BP 152/56
[2021-05-17 06:34] LABS: HEMATOCRIT 27.3 % (31.2-41.9); MEAN CORPUSCULAR HEMOGLOBIN 30.9 uug (24.7-32.8); MEAN CORPUSCULAR VOLUME 90.9 fL (75.5-95.3); PLATELET COUNT (AUTO) 212 K/uL (179-408)
[2021-05-17] MEDS: PANTOPRAZOLE SODIUM 40 MG TABLET.DR PO SCH (06:44)
[2021-05-17 06:54] LABS: CARBON DIOXIDE 26 mmol/L (21-32); CHLORIDE 105 mmol/L (98-107); CREATININE 1.5 mg/dL (0.6-1.3); GLUCOSE 101 mg/dL (74-106); MAGNESIUM 2.3 mg/dL (1.8-2.4); POTASSIUM 4.1 mmol/L (3.5-5.1); UREA NITROGEN, BLOOD 38 mg/dL (7-18)
--- NOTE | 2021-05-17 07:00 | NUR ---
Patient slept well, no shortness of breath, on room air. IV line dislodged, inserted new IV line at left arm g-22. With continuous NS 1L at 75cc/hr as ordered. No complaint of pain. Right arm elevated with 1 pillow. Patient in fair condition.
[2021-05-17] MEDS: DOCUSATE SODIUM 100 MG CAPSULE PO SCH ×2 (08:58→17:27)
[2021-05-17] MEDS: CLOPIDOGREL 75 MG TABLET PO SCH (08:59)
[2021-05-17] MEDS: DULOXETINE 30 MG CAPSULE.DR PO SCH (08:59)
[2021-05-17] MEDS: BENAZEPRIL HCL 20 MG TABLET PO SCH ×2 (08:59→17:27)
[2021-05-17] MEDS: BENZONATATE 100 MG CAPSULE PO SCH ×3 (08:59→17:27)
[2021-05-17] MEDS: CARVEDILOL 12.5 MG TABLET PO SCH ×2 (08:59→17:28)
[2021-05-17] MEDS ORDERED: PANTOPRAZOLE SODIUM 40 MG TABLET.DR PO SCH (09:00)
[2021-05-17] MEDS ORDERED: NIFEdipine XL 60 MG TABSR PO SCH (09:00)
[2021-05-17] MEDS: HYDROCODONE/APAP 5-325MG TABLET PO PRN ×2 (09:14→20:09)
[2021-05-17 11:54] VITALS: BP 140/50
[2021-05-17 15:18] VITALS: BP 106/62
[2021-05-17 16:14] LABS: THYROID STIMULATING HORMONE 0.535 mIU/mL (0.358-3.740)
[2021-05-17] MEDS: ATORVASTATIN 40 MG TABLET PO SCH (20:09)
[2021-05-17] MEDS: NIFEdipine XL 60 MG TABSR PO SCH (20:11)
[2021-05-17 20:12] VITALS: BP 120/48
[2021-05-18] MEDS: IV NS 1000 ML 1,000 ML IV PRN ×2 (04:00→22:19)
[2021-05-18 04:12] VITALS: BP 143/45
--- NOTE | 2021-05-18 06:14 | NUR ---
TEXT DR. HAND FOR MRI APPROVAL.
[2021-05-18] MEDS: PANTOPRAZOLE SODIUM 40 MG TABLET.DR PO SCH (06:16)
--- NOTE | 2021-05-18 06:45 | NUR ---
Telephone consent received from daughter Annamaria for MRI/MRA with contrast. Second nurse witnessed consent.
[2021-05-18] MEDS: BENZONATATE 100 MG CAPSULE PO SCH ×3 (08:12→16:42)
[2021-05-18] MEDS: CLOPIDOGREL 75 MG TABLET PO SCH (08:12)
[2021-05-18] MEDS: DOCUSATE SODIUM 100 MG CAPSULE PO SCH ×2 (08:12→16:42)
[2021-05-18] MEDS: DULOXETINE 30 MG CAPSULE.DR PO SCH (08:12)
[2021-05-18] MEDS: BENAZEPRIL HCL 20 MG TABLET PO SCH ×2 (08:13→16:42)
[2021-05-18] MEDS: CARVEDILOL 12.5 MG TABLET PO SCH ×2 (08:13→16:42)
[2021-05-18] MEDS: NIFEdipine XL 60 MG TABSR PO SCH ×2 (08:30→20:41)
--- NOTE | 2021-05-18 09:45 | NUR ---
PATIENT IS FOR MRI BRAIN AND MRA NECK AND MULTIPLE ATTEMPTS TO INSERT IV FAILED MD AWARE WITH NEW ORDER FOR MID LINE INSERTION AND NOTED LEONARDO ANDERSON AWARE AND WILL INSERT LATER RUIZ FREGOSO NOTIFIED.
--- NOTE | 2021-05-18 11:31 | NUR ---
LEONARDO ANNE RAILROAD SURVEYOR HERE AND INSERTED A MIDLINE TO HER LEFT UPPER ARM AND TOLERATED PROCEDURE WELL
--- NOTE | 2021-05-18 11:43 | NUR ---
[facility] HERE AND PATIENT TAKEN TO [place] FOR MRA AND MRA ORDERED.
[2021-05-18 11:44] VITALS: BP 122/60
--- NOTE | 2021-05-18 14:15 | NUR ---
PATIENT RETURNED TO HER ROOM FROM [facility] AFTER MRI/MRA DONE AWAITING FOR RESULTS.
[2021-05-18 16:16] VITALS: BP 146/53
[2021-05-18] MEDS: REMEDY ESSENTIAL ZINC PASTE 113 GM TP PRN (16:51)
--- NOTE | 2021-05-18 17:00 | NUR ---
DR VELAZQUEZ HERE AND SEEN PATIENT WITH NEW ORDERS.
--- NOTE | 2021-05-18 17:30 | NUR ---
CALLED AND SPOKE WITH DR VELAZQUEZ TO CLARIFY HIS ORDERS STATED WANTS PATIENT TO DO THE MRI SPINE STATED THAT HE DID SEE THE FILMS OF THE PREVIOUS MRI AND MRA DONE TODAY.
--- NOTE | 2021-05-18 17:31 | NUR ---
PATIENTS DAUGHTER JOHNIE HERE AND SIGNED CONSCENT FOR THE MRI SPINE ORDERED.
--- NOTE | 2021-05-18 18:37 | NUR ---
PATIENT IN BED WITH HER DAUGHTER AT THE BEDSIDE AND THE PATIENT C/O HAVING CHEST PAIN AT THIS TIME VITALS CHECKED PULSE IS 77 B/P 109/30 O2 IS 9/ PERCENT WITH O2 AT 2L DR GAURANG NEUMANN CALLED WITH ORDERS FOR STAT EKG AND TROPONIN AND NOTED.
--- NOTE | 2021-05-18 19:00 | NUR ---
RESULT OF THE EKG CALLED IN TO DR GAURANG NEUMANN WITH NO NEW ORDERS AT THIS TIME STILL AWAITING FOR THE TROPONIN RESULT ENDORSED PATIENT IS COMFORTABLE WITH NO C/O CHEST PAIN AT THIS TIME.
--- NOTE | 2021-05-18 19:37 | NUR ---
Patient resting comfortable in bed, no complaints of chest pain. Troponin levels reported to Dr. Tucker, no new orders. Still noted with swelling to right arm and weakness. Mexican speaking, able to make needs known. Safety measures initiated.
[2021-05-18 20:00] VITALS: BP 104/42
[2021-05-18] MEDS: HYDROCODONE/APAP 5-325MG TABLET PO PRN (20:29)
[2021-05-18] MEDS: ATORVASTATIN 40 MG TABLET PO SCH (20:29)
[2021-05-19 04:00] VITALS: BP 136/51
[2021-05-19] MEDS: PANTOPRAZOLE SODIUM 40 MG TABLET.DR PO SCH (06:10)
--- NOTE | 2021-05-19 06:14 | NUR ---
No further complaints of chest pain. Slept well this shift. No agitation or trying to get out of bed unattended. Safety measures continued. Call light within reach.
[2021-05-19 06:25] LABS: HEMATOCRIT 23.9 % (31.2-41.9); MEAN CORPUSCULAR VOLUME 89.5 fL (75.5-95.3); PLATELET COUNT (AUTO) 198 K/uL (179-408)
[2021-05-19 06:41] LABS: CREATININE 1.1 mg/dL (0.6-1.3); MAGNESIUM 1.9 mg/dL (1.8-2.4); PHOSPHOROUS 5.6 mg/dL (2.5-4.9); POTASSIUM 3.8 mmol/L (3.5-5.1)
[2021-05-19] MEDS: DULOXETINE 30 MG CAPSULE.DR PO SCH (08:42)
[2021-05-19] MEDS: DOCUSATE SODIUM 100 MG CAPSULE PO SCH ×2 (08:42→16:16)
[2021-05-19] MEDS: BENZONATATE 100 MG CAPSULE PO SCH ×3 (08:42→16:16)
[2021-05-19] MEDS: CLOPIDOGREL 75 MG TABLET PO SCH (08:42)
[2021-05-19] MEDS: REMEDY ESSENTIAL ZINC PASTE 113 GM TP PRN (08:45)
[2021-05-19] MEDS: BENAZEPRIL HCL 20 MG TABLET PO SCH ×2 (08:47→16:17)
[2021-05-19] MEDS: CARVEDILOL 12.5 MG TABLET PO SCH ×2 (08:48→16:17)
[2021-05-19] MEDS: NIFEdipine XL 60 MG TABSR PO SCH ×2 (08:48→20:54)
--- NOTE | 2021-05-19 09:00 | NUR ---
RECEIVED PATIENT IN BED AWAKE MORE ALERT BUT MOSTLY NEPALI WITH LITTLE POLISH ON O2 AT 2L/M BY NASAL CANULA WITH NO SOB AT THIS TIME ABLE TO MAKE SIMPLE NEEDS KNOWN TOTALLY DEPENDENT FOR ALL ADL ASSISTED WITH REPOSITIONING Q2H DUE MEDICATIONS GIVEN CALL LIGHTS AND PERSONAL BELONGINGS ARE WITHIN EASY REACH IVF VIA MIDLINE WITH NO S/S OF INFILTERATION ON SITE MADE COMFORTABLE WILL CONTINUE TO OBSERVE.
--- NOTE | 2021-05-19 10:17 | NUR ---
CALL RECEIVED FROM LENNIE AT [facility] STATED THAT PATIENT HAS AN APPOINTMENT AT 1300 FOR MRI SPINE BOMB LOADER AWARE AND WILL ARRANGE TRANSPORTATION.
--- NOTE | 2021-05-19 11:30 | NUR ---
PER THE CLOTH PAINTER AMBULANCE IS SCHEDULED TO NEMATOLOGIST PATIENT AT 1300 CALLED AND NOTIFIED LENNIE.
[2021-05-19 12:00] VITALS: BP 161/54
[2021-05-19] MEDS: IV NS 1000 ML 1,000 ML IV PRN (12:24)
--- NOTE | 2021-05-19 12:30 | NUR ---
PATIENT PICKED UP BY AMBULANCE TO [facility] FOR MRI OF SPINE ORDERED.
[2021-05-19 13:20] VITALS: BP 105/54
[2021-05-19] MEDS: GLUCERNA SHAKE VANILLA 237 ML CAN PO SCH (14:47)
--- NOTE | 2021-05-19 15:48 | NUR ---
PATIENT RETUNED AND BACK TO BED RESTING COMFORTABLY AT THIS TIME.
[2021-05-19 16:00] VITALS: BP 156/52
--- NOTE | 2021-05-19 16:33 | NUR ---
CURRENT BLOOD PRESSURE IS 156/52 HR 73DUE BLOOD PRESSURE MEDICATIONS GIVEN ORDERED MADE COMFORTABLE.
--- NOTE | 2021-05-19 17:56 | NUR ---
PATIENT IS ACCEPTED TO ACUTE REHAB PENDING CLEARANCE FROM DR PULLIAM AND A DISCHARGE PROCESS
--- NOTE | 2021-05-19 19:00 | NUR ---
Patient alert no sob no chest pain, no complain of pain, r arm elevated with pillow. patient require total assist with adl's, cont to monitor.
[2021-05-19 20:02] VITALS: BP 122/56
[2021-05-19] MEDS: ATORVASTATIN 40 MG TABLET PO SCH (20:54)
[2021-05-20 04:00] VITALS: BP 122/62
[2021-05-20] MEDS: PANTOPRAZOLE SODIUM 40 MG TABLET.DR PO SCH (06:27)
--- NOTE | 2021-05-20 06:56 | NUR ---
Patient awake no complain of pain at this time, patient was turn and reposition, kept comfortable. cont to monitor.
[2021-05-20] MEDS: DULOXETINE 30 MG CAPSULE.DR PO SCH (08:28)
[2021-05-20] MEDS: BENZONATATE 100 MG CAPSULE PO SCH ×2 (08:28→12:27)
[2021-05-20] MEDS: DOCUSATE SODIUM 100 MG CAPSULE PO SCH (08:28)
[2021-05-20] MEDS: CARVEDILOL 12.5 MG TABLET PO SCH (08:29)
[2021-05-20] MEDS: NIFEdipine XL 60 MG TABSR PO SCH (08:29)
[2021-05-20] MEDS: BENAZEPRIL HCL 20 MG TABLET PO SCH (08:30)
[2021-05-20] MEDS: CLOPIDOGREL 75 MG TABLET PO SCH (08:30)
[2021-05-20] MEDS: GLUCERNA SHAKE VANILLA 237 ML CAN PO SCH (08:35)
[2021-05-20] MEDS: HYDROCODONE/APAP 5-325MG TABLET PO PRN (11:14)
[2021-05-20 11:29] VITALS: BP 140/53
--- NOTE | 2021-05-20 12:06 | NUR ---
NEW ORDER TO D/C PATIENT. PATIENT TO BE ADMITTED UNDER ARU STATUS
--- NOTE | 2021-05-20 12:26 | NUR ---
discharge complete all paperwork signed. inventory list complete all belongings present
[2021-05-20] MEDS ORDERED: MAGN30OR PO (13:59)
[2021-05-20] MEDS ORDERED: HYDR-4209 PO (14:03)
[2021-05-20] MEDS ORDERED: hydrocodone (14:03)
== END 2021-05-20 12:28 | DRG 552 ==
LOC: ER 14:58 → TELE3 21:50 → MEDSURG3 22:22
PROC: 05HC33Z Insertion of Infusion Device into Left Basilic Vein, Percutaneous Approach (ICD-10-PCS; principal; 2021-05-18)
DX: M50.121 Cervical disc disorder at C4-C5 level with radiculopathy (principal); I69.351 Hemiplegia and hemiparesis following cerebral infarction affecting right dominant side; I67.89 Other cerebrovascular disease; M48.02 Spinal stenosis, cervical region; E87.5 Hyperkalemia; E28.2 Polycystic ovarian syndrome; I12.9 Hypertensive chronic kidney disease with stage 1 through stage 4 chronic kidney disease, or unspecified chronic kidney disease; N18.30 Chronic kidney disease, stage 3 unspecified; K21.9 Gastro-esophageal reflux disease without esophagitis; Z79.02 Long term (current) use of antithrombotics/antiplatelets; Z20.822 Contact with and (suspected) exposure to COVID-19; F32.A Depression, unspecified; F03.90 Unspecified dementia, unspecified severity, without behavioral disturbance, psychotic disturbance, mood disturbance, and anxiety; I25.10 Atherosclerotic heart disease of native coronary artery without angina pectoris; Z87.01 Personal history of pneumonia (recurrent); E78.5 Hyperlipidemia, unspecified; M19.90 Unspecified osteoarthritis, unspecified site; M79.89 Other specified soft tissue disorders; G89.29 Other chronic pain; Z91.81 History of falling; J44.9 Chronic obstructive pulmonary disease, unspecified; Z79.899 Other long term (current) drug therapy
CPT/HCPCS: 36415; 70030-TC; 70450; 70553; 71045; 72141; 72170; 73030; 73090; 73130; 73502; 83605; 83735; 84100; 84443; 84484; 85025; 85651; 87040; 87086; 93005; 93307; 97161; A4663; A6209; G0378; J1815; J2270; J3370; J3490; J7030; J7050

== ENCOUNTER 2021-05-20 13:17 | Inpatient (IN) | payer MEDICARE, OTHER ==
[~2021-05-20] VITALS: Ht 152.4 cm; Wt 49.9 kg
[~2021-05-20 13:17] MED LIST changes: -ASPI81TA31 PO; -LORA10TA7 PO; -NITR100C6 PO; -PANT40TA2 PO; +PROP15DR EACHEYE; -ROPI0.5T4 PO
--- NOTE | 2021-05-20 13:52 | NUR ---
swallow evaluation completed: D/W LEONARD Canas. Pt is alert and able to follow, agreeable to be visited premorbid diet: Reg/thin Dentition: u/l dentures (slightly loose) oral periphaeral WFL Trials: soft solids, dense solids, and thin oral phase: mild residue, slightly increased in a/p transit time, and functional bolus manipulation for softer textures.good oral acceptance, control, and initiation. pharyngeal phase: WFL with all consistencies. No s/sx of aspiration noted. Educated on aspiration precautions; results reviewed with RN/pt pt demonstrated back aspiration precautions meds: cut in half or whole with water or food
[2021-05-20] MEDS ORDERED: MAGN30OR PO (13:59)
[2021-05-20] MEDS ORDERED: REMEDY ESSENTIAL ZINC PASTE 113 GM TOP PRN (14:00)
[2021-05-20] MEDS ORDERED: hydrocodone (14:03)
[2021-05-20] MEDS ORDERED: HYDR-4209 PO (14:03)
[2021-05-20] MEDS ORDERED: ONDANSETRON HCL 4 MG TABLET PO PRN (15:15)
[2021-05-20] MEDS: DOCUSATE SODIUM 100 MG CAPSULE PO SCH (16:16)
[2021-05-20 16:20] VITALS: BP 148/47
--- NOTE | 2021-05-20 20:00 | NUR ---
NSG: Received patient lying on bed. left upper arm midline patent. right arm wrapped with amadou band. no c/o pain or discomfort noted at this time. call light w/in reach.
[2021-05-20 20:10] VITALS: BP 144/58
[2021-05-20] MEDS: BENAZEPRIL HCL 20 MG TABLET PO SCH ×2 (21:05→21:11)
[2021-05-20] MEDS: CARVEDILOL 12.5 MG TABLET PO SCH ×2 (21:05→21:13)
[2021-05-20] MEDS: NIFEdipine XL 60 MG TABSR PO SCH ×2 (21:06→21:11)
[2021-05-20] MEDS: ATORVASTATIN 40 MG TABLET PO SCH (21:06)
[2021-05-21 04:26] VITALS: BP 134/46
--- NOTE | 2021-05-21 04:54 | NUR ---
NSG: Remain calm and cooperative. assisted with adl's. call light w/in reach. bed alarm on for safety.
[2021-05-21] MEDS: PANTOPRAZOLE SODIUM 40 MG TABLET.DR PO SCH (06:06)
[2021-05-21] MEDS: DOCUSATE SODIUM 100 MG CAPSULE PO SCH ×2 (08:46→17:24)
[2021-05-21] MEDS: CARVEDILOL 12.5 MG TABLET PO SCH ×2 (08:47→20:48)
[2021-05-21] MEDS: DULOXETINE 30 MG CAPSULE.DR PO SCH (08:48)
[2021-05-21] MEDS: NIFEdipine XL 60 MG TABSR PO SCH ×2 (08:48→20:48)
[2021-05-21] MEDS: CLOPIDOGREL 75 MG TABLET PO SCH (08:48)
[2021-05-21] MEDS: BENAZEPRIL HCL 20 MG TABLET PO SCH ×2 (08:49→20:47)
[2021-05-21] MEDS ORDERED: PANTOPRAZOLE SODIUM 40 MG TABLET.DR PO SCH (09:00)
--- NOTE | 2021-05-21 10:15 | NUR ---
Received patient on bed sitting having breakfast.Respirations even and unlabored no SOB. left upper arm midline patent. right arm wrapped with amadou band .Up on W/C with PT ambulating with FWW . no c/o pain or discomfort at this time. call light w/in reach,bed in low position
[2021-05-21 11:52] VITALS: BP 148/49
[2021-05-21 16:00] VITALS: BP 136/49
[2021-05-21] MEDS: ENSURE ENLIVE (VAN) 240 ML LIQUID PO SCH (17:23)
[2021-05-21 20:00] VITALS: BP 147/47
[2021-05-21] MEDS: ATORVASTATIN 40 MG TABLET PO SCH (20:47)
[2021-05-21] MEDS: HYDROCODONE/APAP 5-325MG TABLET PO PRN (20:59)
--- NOTE | 2021-05-21 22:00 | NUR ---
NSG: Received patient lying on bed. midline on left upper am. Right arm wrapped with amadou band. c/o pain norco given and effective. bed alarm on. call light w/in reach.
[2021-05-22 04:00] VITALS: BP 143/50
--- NOTE | 2021-05-22 05:26 | NUR ---
NSG: Remain calm and cooperative. assisted with adl's. call light w/in reach. Denied pain at this time.bed alarm on for safety.
[2021-05-22] MEDS: PANTOPRAZOLE SODIUM 40 MG TABLET.DR PO SCH (06:20)
[2021-05-22 07:23] VITALS: BP 132/57
--- NOTE | 2021-05-22 07:30 | NUR ---
Awake, alert, oriented x 3, Greenlandic speaking. Room air O2 sat 96%
[2021-05-22] MEDS: CLOPIDOGREL 75 MG TABLET PO SCH (08:44)
[2021-05-22] MEDS: BENAZEPRIL HCL 20 MG TABLET PO SCH ×2 (08:44→20:38)
[2021-05-22] MEDS: CARVEDILOL 12.5 MG TABLET PO SCH ×2 (08:44→20:39)
[2021-05-22] MEDS: DULOXETINE 30 MG CAPSULE.DR PO SCH (08:44)
[2021-05-22] MEDS: NIFEdipine XL 60 MG TABSR PO SCH ×2 (08:45→20:38)
[2021-05-22] MEDS: DOCUSATE SODIUM 100 MG CAPSULE PO SCH ×3 (08:47→16:32)
[2021-05-22] MEDS: ENSURE ENLIVE (VAN) 240 ML LIQUID PO SCH ×2 (08:47→16:32)
[2021-05-22] MEDS: HYDROCODONE/APAP 5-325MG TABLET PO PRN ×2 (08:50→18:07)
--- NOTE | 2021-05-22 09:00 | NUR ---
Reports of R/L arm pain. [place] 1 tab po given with relief
--- NOTE | 2021-05-22 14:00 | NUR ---
Initially refused, but agreed to participate with PT. Ambulated in the hallway.
[2021-05-22 15:26] VITALS: BP 146/50
--- NOTE | 2021-05-22 18:18 | NUR ---
Reports of right arm pain. Noted swelling of RUE, agreed to amadou wrap, applied. [place] po given as ordered.
[2021-05-22 20:09] VITALS: BP 139/54
[2021-05-22] MEDS: ATORVASTATIN 40 MG TABLET PO SCH (20:38)
[2021-05-23 04:12] VITALS: BP 147/51
[2021-05-23] MEDS: PANTOPRAZOLE SODIUM 40 MG TABLET.DR PO SCH (06:30)
[2021-05-23 07:26] VITALS: BP 142/41
[2021-05-23] MEDS: HYDROCODONE/APAP 5-325MG TABLET PO PRN (08:42)
[2021-05-23] MEDS: DULOXETINE 30 MG CAPSULE.DR PO SCH (08:43)
[2021-05-23] MEDS: CARVEDILOL 12.5 MG TABLET PO SCH ×2 (08:43→20:26)
[2021-05-23] MEDS: CLOPIDOGREL 75 MG TABLET PO SCH (08:43)
[2021-05-23] MEDS: NIFEdipine XL 60 MG TABSR PO SCH ×2 (08:43→20:27)
[2021-05-23] MEDS: BENAZEPRIL HCL 20 MG TABLET PO SCH ×2 (08:43→20:27)
[2021-05-23] MEDS: DOCUSATE SODIUM 100 MG CAPSULE PO SCH ×2 (08:44→16:07)
[2021-05-23] MEDS: ENSURE ENLIVE (VAN) 240 ML LIQUID PO SCH ×2 (08:44→16:08)
[2021-05-23 11:13] VITALS: BP 129/55
[2021-05-23] MEDS ORDERED: ALBUTEROL SULFATE 2.5 MG/3 ML NEBU NEB PRN (11:30)
--- NOTE | 2021-05-23 12:07 | NUR ---
INDIVIDUALIZED PLAN OF CARE
[2021-05-23] MEDS: PREGABALIN 25 MG CAPSULE PO SCH ×2 (15:01→20:57)
[2021-05-23 15:14] VITALS: BP 138/52
--- NOTE | 2021-05-23 17:51 | NUR ---
no events noted during shift
--- NOTE | 2021-05-23 19:00 | NUR ---
Received patient on bed, awake, alert, no shortness of breath noted. Kept right arm elevated with 1 pillow. No complaint of pain and discomfort.
[2021-05-23] MEDS: ATORVASTATIN 40 MG TABLET PO SCH (20:26)
[2021-05-23 20:34] VITALS: BP 149/48
--- NOTE | 2021-05-23 20:45 | NUR ---
Pregabalin 25mg PO changed to BID ([id number]) as ordered.
[2021-05-24 04:53] VITALS: BP 135/53
[2021-05-24] MEDS: PANTOPRAZOLE SODIUM 40 MG TABLET.DR PO SCH (06:19)
[2021-05-24 06:28] LABS: HEMATOCRIT 25.6 % (31.2-41.9); MEAN CORPUSCULAR HEMOGLOBIN 30.9 uug (24.7-32.8); MEAN CORPUSCULAR VOLUME 89.6 fL (75.5-95.3); PLATELET COUNT (AUTO) 243 K/uL (179-408)
[2021-05-24 06:42] LABS: CREATININE 1.2 mg/dL (0.6-1.3); MAGNESIUM 1.9 mg/dL (1.8-2.4); PHOSPHOROUS 4.8 mg/dL (2.5-4.9); POTASSIUM 4.4 mmol/L (3.5-5.1)
--- NOTE | 2021-05-24 06:55 | NUR ---
Patient slept well, no complaint of pain. repositioned for comfort. Patient in fair condition.
[2021-05-24 08:00] VITALS: BP 136/48
[2021-05-24] MEDS: CLOPIDOGREL 75 MG TABLET PO SCH (08:00)
[2021-05-24] MEDS: DOCUSATE SODIUM 100 MG CAPSULE PO SCH ×2 (08:00→16:03)
[2021-05-24] MEDS: ENSURE ENLIVE (VAN) 240 ML LIQUID PO SCH ×2 (08:00→16:03)
[2021-05-24] MEDS: NIFEdipine XL 60 MG TABSR PO SCH ×2 (08:01→21:00)
[2021-05-24] MEDS: DULOXETINE 30 MG CAPSULE.DR PO SCH (08:01)
[2021-05-24] MEDS: PREGABALIN 25 MG CAPSULE PO SCH ×2 (08:01→16:03)
[2021-05-24] MEDS: BENAZEPRIL HCL 20 MG TABLET PO SCH ×2 (08:01→21:00)
[2021-05-24] MEDS: CARVEDILOL 12.5 MG TABLET PO SCH ×2 (08:02→21:36)
[2021-05-24 16:07] VITALS: BP 112/40
--- NOTE | 2021-05-24 19:00 | NUR ---
Received patient on bed, alert, no shortness of breath, no complaint of pain or discomfort.
[2021-05-24 20:12] VITALS: BP 114/47
[2021-05-24] MEDS: ATORVASTATIN 40 MG TABLET PO SCH (21:36)
[2021-05-25 04:09] VITALS: BP 156/55
--- NOTE | 2021-05-25 05:15 | NUR ---
Patient slept well, no complaint of pain. Right arm kept elevated with pillow. Patient needs minimal to moderate assist when changing diaper. Patient in fair condition.
[2021-05-25] MEDS: PANTOPRAZOLE SODIUM 40 MG TABLET.DR PO SCH (06:07)
[2021-05-25 08:00] VITALS: BP 133/50
[2021-05-25] MEDS: ENSURE ENLIVE (VAN) 240 ML LIQUID PO SCH ×2 (08:00→16:14)
[2021-05-25] MEDS: NIFEdipine XL 60 MG TABSR PO SCH ×2 (08:07→20:36)
[2021-05-25] MEDS: CLOPIDOGREL 75 MG TABLET PO SCH (08:07)
[2021-05-25] MEDS: CARVEDILOL 12.5 MG TABLET PO SCH ×2 (08:07→20:36)
[2021-05-25] MEDS: BENAZEPRIL HCL 20 MG TABLET PO SCH ×2 (08:07→20:35)
[2021-05-25] MEDS: PREGABALIN 25 MG CAPSULE PO SCH ×2 (08:07→16:14)
[2021-05-25] MEDS: DOCUSATE SODIUM 100 MG CAPSULE PO SCH ×2 (08:07→16:14)
[2021-05-25] MEDS: DULOXETINE 30 MG CAPSULE.DR PO SCH (08:07)
[2021-05-25 16:20] VITALS: BP 134/64
[2021-05-25] MEDS: ACETAMINOPHEN 325 MG TABLET PO PRN (19:34)
[2021-05-25 20:00] VITALS: BP 148/41
[2021-05-25] MEDS: ATORVASTATIN 40 MG TABLET PO SCH (20:35)
[2021-05-26 04:00] VITALS: BP 132/43
[2021-05-26] MEDS: PANTOPRAZOLE SODIUM 40 MG TABLET.DR PO SCH (06:12)
[2021-05-26 07:54] VITALS: BP 136/61
[2021-05-26] MEDS: ENSURE ENLIVE (VAN) 240 ML LIQUID PO SCH ×2 (08:55→17:31)
[2021-05-26] MEDS: DOCUSATE SODIUM 100 MG CAPSULE PO SCH ×2 (08:56→17:30)
[2021-05-26] MEDS: PREGABALIN 25 MG CAPSULE PO SCH ×2 (08:56→17:30)
[2021-05-26] MEDS: DULOXETINE 30 MG CAPSULE.DR PO SCH (08:56)
[2021-05-26] MEDS: BENAZEPRIL HCL 20 MG TABLET PO SCH ×2 (08:56→21:18)
[2021-05-26] MEDS: CARVEDILOL 12.5 MG TABLET PO SCH ×2 (08:56→21:18)
[2021-05-26] MEDS: NIFEdipine XL 60 MG TABSR PO SCH ×2 (08:57→21:18)
[2021-05-26] MEDS: CLOPIDOGREL 75 MG TABLET PO SCH (08:57)
[2021-05-26 16:27] VITALS: BP 112/68
[2021-05-26] MEDS: HYDROCODONE/APAP 5-325MG TABLET PO PRN (18:00)
--- NOTE | 2021-05-26 19:30 | NUR ---
Pt resting in bed, watching TV. Bengali speaking. No BP or blood draw on R ARM noted. No signs of acute distress noted at this time. Call lights within reach. Safety measures initiated.
[2021-05-26 20:12] VITALS: BP 127/44
[2021-05-26] MEDS: ATORVASTATIN 40 MG TABLET PO SCH (20:14)
[2021-05-27 04:12] VITALS: BP 115/41
--- NOTE | 2021-05-27 05:13 | NUR ---
Pt slept throughout the night. On room air saturating at 94% Pt is able to assist with turning during diaper changes. Right arm elevated. No signs of acute distress noted. Compliant with medication and care. Needs have been met. Call lights within reach. Safety measures maintained.
[2021-05-27] MEDS: PANTOPRAZOLE SODIUM 40 MG TABLET.DR PO SCH (06:13)
[2021-05-27] MEDS: HYDROCODONE/APAP 5-325MG TABLET PO PRN (06:16)
[2021-05-27 08:00] VITALS: BP 112/46
[2021-05-27] MEDS: ENSURE ENLIVE (VAN) 240 ML LIQUID PO SCH ×2 (09:19→16:50)
[2021-05-27] MEDS: CARVEDILOL 12.5 MG TABLET PO SCH ×2 (09:21→20:28)
[2021-05-27] MEDS: CLOPIDOGREL 75 MG TABLET PO SCH (09:21)
[2021-05-27] MEDS: DULOXETINE 30 MG CAPSULE.DR PO SCH (09:22)
[2021-05-27] MEDS: DOCUSATE SODIUM 100 MG CAPSULE PO SCH ×2 (09:22→16:50)
[2021-05-27] MEDS: NIFEdipine XL 60 MG TABSR PO SCH ×2 (09:22→20:30)
[2021-05-27] MEDS: BENAZEPRIL HCL 20 MG TABLET PO SCH ×2 (09:22→20:29)
[2021-05-27] MEDS: PREGABALIN 25 MG CAPSULE PO SCH ×3 (09:22→22:15)
[2021-05-27] MEDS: ACETAMINOPHEN 325 MG TABLET PO PRN (12:37)
--- NOTE | 2021-05-27 15:09 | NUR ---
INTERDISCIPLINARY TEAM CONFERENCE
[2021-05-27 16:00] VITALS: BP 137/55
[2021-05-27 20:00] VITALS: BP 104/56
[2021-05-27] MEDS: ATORVASTATIN 40 MG TABLET PO SCH (20:27)
[2021-05-28 04:00] VITALS: BP 124/58
--- NOTE | 2021-05-28 04:22 | NUR ---
In bed resting upon initial rounds watching TV. All needs attended. 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 All due meds given without difficulty. Incontinent of bowel and bladder. Kept clean and dry. Will monitor patient. Fall precautions maintained. No dizziness nor any vomiting noted.
[2021-05-28] MEDS: PANTOPRAZOLE SODIUM 40 MG TABLET.DR PO SCH (06:08)
[2021-05-28 07:51] VITALS: BP 126/47
[2021-05-28] MEDS: ENSURE ENLIVE (VAN) 240 ML LIQUID PO SCH ×2 (09:38→17:31)
[2021-05-28] MEDS: DOCUSATE SODIUM 100 MG CAPSULE PO SCH ×2 (09:38→17:08)
[2021-05-28] MEDS: DULOXETINE 30 MG CAPSULE.DR PO SCH (09:39)
[2021-05-28] MEDS: CLOPIDOGREL 75 MG TABLET PO SCH (09:39)
[2021-05-28] MEDS: NIFEdipine XL 60 MG TABSR PO SCH ×2 (09:39→21:42)
[2021-05-28] MEDS: CARVEDILOL 12.5 MG TABLET PO SCH ×2 (09:39→21:42)
[2021-05-28] MEDS: BENAZEPRIL HCL 20 MG TABLET PO SCH ×2 (09:40→21:42)
[2021-05-28] MEDS: PREGABALIN 25 MG CAPSULE PO SCH ×2 (09:40→17:08)
[2021-05-28] MEDS ORDERED: TRIAMCINOLONE ACETONIDE 40 MG/1 ML VIAL IJ ONE (11:30)
[2021-05-28 12:00] VITALS: BP 151/83
[2021-05-28] MEDS ORDERED: LIDOCAINE HCL 1% 20 ML VIAL IJ ONE ×2 (12:00→12:15)
[2021-05-28] MEDS ORDERED: LIDOCAINE-MPF 2% , 2 ML VIAL IJ ONE ×2 (12:15)
[2021-05-28] MEDS ORDERED: LIDOCAINE HCL-MPF 1% 5 ML VIAL IJ ONE (12:15)
--- NOTE | 2021-05-28 13:16 | NUR ---
Pt seen by Dr Yee he administer triamcinolone 40 mg with Lidocaine 1% injection for right arm pain tolerated well.
[2021-05-28 16:00] VITALS: BP 158/51
[2021-05-28] MEDS: ACETAMINOPHEN 325 MG TABLET PO PRN (18:45)
--- NOTE | 2021-05-28 19:00 | NUR ---
Received patient on bed, no shortness of breath noted, no complaint of pain, rigth upper arm swelling noted with reduced swelling compaired to initial assessment, rigth arm kept elevated with 1 pillow. No complaint of pain.
[2021-05-28 20:00] VITALS: BP 155/62
[2021-05-28] MEDS: ATORVASTATIN 40 MG TABLET PO SCH (21:41)
[2021-05-29 04:00] VITALS: BP 146/65
--- NOTE | 2021-05-29 05:54 | NUR ---
Patient slept well, no complaint of pain, no shortness of breath, no significant unusualities noted. Patient able to tolerate her meds. Patient in fair condition.
[2021-05-29] MEDS: PANTOPRAZOLE SODIUM 40 MG TABLET.DR PO SCH (06:34)
[2021-05-29 07:57] VITALS: BP 110/39
[2021-05-29] MEDS: ENSURE ENLIVE (VAN) 240 ML LIQUID PO SCH ×2 (09:59→17:12)
[2021-05-29] MEDS: DOCUSATE SODIUM 100 MG CAPSULE PO SCH ×2 (10:01→17:11)
[2021-05-29] MEDS: CARVEDILOL 12.5 MG TABLET PO SCH ×2 (10:01→21:00)
[2021-05-29] MEDS: BENAZEPRIL HCL 20 MG TABLET PO SCH ×2 (10:02→21:00)
[2021-05-29] MEDS: CLOPIDOGREL 75 MG TABLET PO SCH (10:02)
[2021-05-29] MEDS: NIFEdipine XL 60 MG TABSR PO SCH ×2 (10:02→21:00)
[2021-05-29] MEDS: DULOXETINE 30 MG CAPSULE.DR PO SCH (10:03)
[2021-05-29] MEDS: PREGABALIN 25 MG CAPSULE PO SCH ×2 (10:06→17:11)
--- NOTE | 2021-05-29 11:30 | NUR ---
Received patient resting on bed, no shortness of breath noted, no complaint of pain, right upper arm swelling noted with reduced swelling , right arm kept elevated with a pillow. No complaint of pain at this time Up in W/C with PT for therapeutic exercises tolerated well safety measures in place will continue to monitor for comfort and safety.
[2021-05-29 16:36] VITALS: BP 120/40
--- NOTE | 2021-05-29 19:00 | NUR ---
Received patient resting on bed, no shortness of breath noted, alert, no complaint of pain, right upper arm swelling noted with reduced swelling , right arm kept elevated with a pillow. No complaint of pain.
[2021-05-29 20:37] VITALS: BP 105/38
[2021-05-29] MEDS: ATORVASTATIN 40 MG TABLET PO SCH (23:21)
[2021-05-30 04:00] VITALS: BP 122/36
[2021-05-30] MEDS: PANTOPRAZOLE SODIUM 40 MG TABLET.DR PO SCH (06:24)
--- NOTE | 2021-05-30 07:04 | NUR ---
Patient slept well, no complaint of pain, Repositioned for comfort , Meds given, tolerated well. No significant notation noted. Patient in fair condition.
[2021-05-30 08:00] VITALS: BP 122/48
[2021-05-30] MEDS: PREGABALIN 25 MG CAPSULE PO SCH ×2 (10:22→17:34)
[2021-05-30] MEDS: CLOPIDOGREL 75 MG TABLET PO SCH (10:22)
[2021-05-30] MEDS: NIFEdipine XL 60 MG TABSR PO SCH ×2 (10:22→20:25)
[2021-05-30] MEDS: BENAZEPRIL HCL 20 MG TABLET PO SCH ×2 (10:22→20:25)
[2021-05-30] MEDS: DULOXETINE 30 MG CAPSULE.DR PO SCH (10:23)
[2021-05-30] MEDS: CARVEDILOL 12.5 MG TABLET PO SCH ×2 (10:23→20:25)
[2021-05-30] MEDS: ENSURE ENLIVE (VAN) 240 ML LIQUID PO SCH ×2 (10:24→17:35)
[2021-05-30] MEDS: DOCUSATE SODIUM 100 MG CAPSULE PO SCH ×2 (10:26→17:34)
[2021-05-30 15:24] VITALS: BP 148/55
--- NOTE | 2021-05-30 19:22 | NUR ---
Received pt resting in bed. Japanese speaking, able to make needs known. No signs of acute distress noted. No complaints of pain at the moment. Call lights within reach. Safety measures initiated.
[2021-05-30 20:00] VITALS: BP 158/49
[2021-05-30] MEDS: ATORVASTATIN 40 MG TABLET PO SCH (20:25)
[2021-05-31 04:00] VITALS: BP 115/55
--- NOTE | 2021-05-31 05:24 | NUR ---
Patient slept comfortably throughout the night. Right arm kept elevated. No signs of acute distress. No complaints of pain. MI midline intact. Compliant with medication and care. Call lights within reach. Safety measures maintained. Will endorse to am shift.
[2021-05-31] MEDS: PANTOPRAZOLE SODIUM 40 MG TABLET.DR PO SCH (06:01)
[2021-05-31 07:30] VITALS: BP 134/49
[2021-05-31] MEDS: ENSURE ENLIVE (VAN) 240 ML LIQUID PO SCH ×2 (08:13→16:29)
[2021-05-31] MEDS: CARVEDILOL 12.5 MG TABLET PO SCH ×2 (10:07→22:08)
[2021-05-31] MEDS: NIFEdipine XL 60 MG TABSR PO SCH ×2 (10:07→22:08)
[2021-05-31] MEDS: DOCUSATE SODIUM 100 MG CAPSULE PO SCH ×2 (10:08→16:28)
[2021-05-31] MEDS: DULOXETINE 30 MG CAPSULE.DR PO SCH (10:09)
[2021-05-31] MEDS: CLOPIDOGREL 75 MG TABLET PO SCH (10:09)
[2021-05-31] MEDS: PREGABALIN 25 MG CAPSULE PO SCH ×2 (10:09→16:28)
[2021-05-31] MEDS: BENAZEPRIL HCL 20 MG TABLET PO SCH ×2 (10:11→22:08)
[2021-05-31 15:11] VITALS: BP 136/46
--- NOTE | 2021-05-31 19:00 | NUR ---
Received patient on bed, alert, no shortness of breath noted, no complaint of pain.
[2021-05-31 20:38] VITALS: BP 127/55
[2021-05-31] MEDS: ATORVASTATIN 40 MG TABLET PO SCH (22:08)
[2021-06-01 04:51] VITALS: BP 159/46
[2021-06-01] MEDS: PANTOPRAZOLE SODIUM 40 MG TABLET.DR PO SCH (06:27)
--- NOTE | 2021-06-01 06:48 | NUR ---
Patient slept well, no shortness of breath, compliant with medications, able to tolerate whole pills. Repositioned for comfort. Right arm reduced swelling from initial assessment. No complaint of pain. Patient in fair condition.
[2021-06-01 07:45] VITALS: BP 147/57
[2021-06-01] MEDS: PREGABALIN 25 MG CAPSULE PO SCH ×2 (10:22→16:33)
[2021-06-01] MEDS: DULOXETINE 30 MG CAPSULE.DR PO SCH (10:22)
[2021-06-01] MEDS: BENAZEPRIL HCL 20 MG TABLET PO SCH ×2 (10:26→18:54)
[2021-06-01] MEDS: CARVEDILOL 12.5 MG TABLET PO SCH ×2 (10:26→21:04)
[2021-06-01] MEDS: DOCUSATE SODIUM 100 MG CAPSULE PO SCH ×2 (10:27→16:33)
[2021-06-01] MEDS: NIFEdipine XL 60 MG TABSR PO SCH ×2 (10:27→21:04)
[2021-06-01] MEDS: CLOPIDOGREL 75 MG TABLET PO SCH (10:27)
[2021-06-01] MEDS: ENSURE ENLIVE (VAN) 240 ML LIQUID PO SCH ×2 (10:27→16:34)
[2021-06-01 16:26] VITALS: BP 164/48
--- NOTE | 2021-06-01 17:58 | NUR ---
Around 1630 Pt's BP is 164/48 OH: 68, no signs of distress, no signs of anxiety, no signs of pain. Patient looks comfortable in the bed. Recheck again after an hour the BP was : 169/51 OH: 67. Pt is having her dinner, no signs & symptoms of pain, no s/s of distress, no s/s anxiety. There is no BP PRN so I called [facility] hotline and spoke to Dr Lomax. As per MD continue to monitor Pt but if BP still high, I can give the BP medication early before the scheduled time at 2100.
[2021-06-01 20:34] VITALS: BP 125/50
[2021-06-01] MEDS: ATORVASTATIN 40 MG TABLET PO SCH (21:04)
[2021-06-02 04:11] VITALS: BP 110/43
[2021-06-02] MEDS: PANTOPRAZOLE SODIUM 40 MG TABLET.DR PO SCH (06:12)
--- NOTE | 2021-06-02 06:32 | NUR ---
No significant changes noted. BP WNL. Due medications given. All needs attended. Call light placed within reach. Will endorse to next shift.
[2021-06-02 07:48] VITALS: BP 147/40
[2021-06-02] MEDS: DULOXETINE 30 MG CAPSULE.DR PO SCH (09:45)
[2021-06-02] MEDS: CARVEDILOL 12.5 MG TABLET PO SCH ×2 (09:45→20:52)
[2021-06-02] MEDS: BENAZEPRIL HCL 20 MG TABLET PO SCH ×2 (09:45→20:51)
[2021-06-02] MEDS: DOCUSATE SODIUM 100 MG CAPSULE PO SCH ×2 (09:45→17:01)
[2021-06-02] MEDS: NIFEdipine XL 60 MG TABSR PO SCH ×2 (09:46→20:51)
[2021-06-02] MEDS: ENSURE ENLIVE (VAN) 240 ML LIQUID PO SCH ×2 (09:47→17:01)
[2021-06-02] MEDS: CLOPIDOGREL 75 MG TABLET PO SCH (09:47)
[2021-06-02] MEDS: PREGABALIN 25 MG CAPSULE PO SCH ×2 (09:47→17:00)
[2021-06-02] MEDS: HYDROCODONE/APAP 5-325MG TABLET PO PRN (09:55)
[2021-06-02 16:00] VITALS: BP 129/42
--- NOTE | 2021-06-02 18:47 | NUR ---
No concerns identified during the shift. remained stable. safety measures maintained. kept call light within reach. all due meds given. all needs attended. will endorse to the next shift for continuity of care.
--- NOTE | 2021-06-02 19:00 | NUR ---
Patient alert oriented, no sob no chest pain, no complain of pain at this time, cont to monitor.
[2021-06-02 20:24] VITALS: BP 121/40
--- NOTE | 2021-06-02 20:54 | NUR ---
Patient BP is low 110/34, held procardia, lotensin and coreg at this time.
[2021-06-02] MEDS: ATORVASTATIN 40 MG TABLET PO SCH (23:11)
[2021-06-03 04:00] VITALS: BP 118/35
--- NOTE | 2021-06-03 04:40 | NUR ---
Patient slept the night, no sob no chest pain, no complain of pain at this time, Patient kept clean and dry, midline on left upper arm dressing intact, and patent, call light within reach.
[2021-06-03 06:23] LABS: HEMATOCRIT 24.4 % (31.2-41.9); MEAN CORPUSCULAR HEMOGLOBIN 30.4 uug (24.7-32.8); MEAN CORPUSCULAR VOLUME 91.1 fL (75.5-95.3); PLATELET COUNT (AUTO) 268 K/uL (179-408)
[2021-06-03] MEDS: PANTOPRAZOLE SODIUM 40 MG TABLET.DR PO SCH (06:28)
[2021-06-03 06:51] LABS: THYROID STIMULATING HORMONE 1.129 mIU/mL (0.358-3.740)
[2021-06-03 07:10] LABS: ALANINE AMINOTRANSFERASE 19 U/L (14-59); ALKALINE PHOSPHATASE 44 U/L (50-136); ASPARTATE AMINOTRANSFERASE 13 U/L (15-37); BILIRUBIN,TOTAL 0.2 mg/dL (0.2-1.0); CARBON DIOXIDE 28 mmol/L (21-32); CHLORIDE 107 mmol/L (98-107); CHOLESTEROL 161 mg/dL (<200); GLUCOSE 95 mg/dL (74-106); HDL CHOLESTEROL 47 mg/dL (40-60); MAGNESIUM 2.4 mg/dL (1.8-2.4); PHOSPHOROUS 7.5 mg/dL (2.5-4.9); TOTAL PROTEIN, SERUM 5.5 g/dL (6.4-8.2); TRIGLYCERIDES 106 MG/DL (30-150); UREA NITROGEN, BLOOD 66 mg/dL (7-18)
[2021-06-03 08:04] VITALS: BP 116/43
[2021-06-03 08:11] LABS: POTASSIUM 6.2 mmol/L (3.5-5.1)
[2021-06-03] MEDS: DOCUSATE SODIUM 100 MG CAPSULE PO SCH ×2 (08:34→16:06)
[2021-06-03] MEDS: ENSURE ENLIVE (VAN) 240 ML LIQUID PO SCH ×2 (08:34→16:06)
[2021-06-03] MEDS: PREGABALIN 25 MG CAPSULE PO SCH ×2 (08:35→16:06)
[2021-06-03] MEDS: NIFEdipine XL 60 MG TABSR PO SCH ×2 (08:35→20:42)
[2021-06-03] MEDS: BENAZEPRIL HCL 20 MG TABLET PO SCH ×2 (08:36→20:42)
[2021-06-03] MEDS: DULOXETINE 30 MG CAPSULE.DR PO SCH (08:36)
[2021-06-03] MEDS: CARVEDILOL 12.5 MG TABLET PO SCH ×2 (08:36→20:41)
[2021-06-03] MEDS: CLOPIDOGREL 75 MG TABLET PO SCH (08:36)
[2021-06-03 10:14] LABS: CARBON DIOXIDE 24 mmol/L (21-32); CHLORIDE 106 mmol/L (98-107); CREATININE 1.8 mg/dL (0.6-1.3); GLUCOSE 135 mg/dL (74-106); POTASSIUM 4.8 mmol/L (3.5-5.1); UREA NITROGEN, BLOOD 64 mg/dL (7-18)
--- NOTE | 2021-06-03 11:26 | NUR ---
INTERDISCIPLINARY TEAM CONFERENCE
[2021-06-03 16:28] VITALS: BP 151/48
--- NOTE | 2021-06-03 18:23 | NUR ---
Patient tolerated care today as well as PT exercises. Patient in no apparent distress or discomfort during shift. IV site intact and patent. Bed left in lowest position with call light within reach. Will endorse information to PM nurse.
[2021-06-03] MEDS: ATORVASTATIN 40 MG TABLET PO SCH (20:35)
[2021-06-03 20:42] VITALS: BP 114/45
[2021-06-04 04:00] VITALS: BP 128/44
[2021-06-04] MEDS: PANTOPRAZOLE SODIUM 40 MG TABLET.DR PO SCH (06:17)
--- NOTE | 2021-06-04 06:27 | NUR ---
Received pt awake on bed with no respiratory distress upon initial rounds. She is alert and oriented x4, able to make needs known. BP is low 104/55 at 2100H, held procardia, lotensin and coreg. Denies pain and discomfort. All needs attended. Call light placed within reach. Will endorse to next shift.
[2021-06-04 08:00] VITALS: BP 140/48
[2021-06-04] MEDS: ENSURE ENLIVE (VAN) 240 ML LIQUID PO SCH ×2 (08:00→16:42)
[2021-06-04] MEDS: PREGABALIN 25 MG CAPSULE PO SCH ×2 (09:36→16:44)
[2021-06-04] MEDS: DULOXETINE 30 MG CAPSULE.DR PO SCH (09:37)
[2021-06-04] MEDS: CLOPIDOGREL 75 MG TABLET PO SCH (09:37)
[2021-06-04] MEDS: DOCUSATE SODIUM 100 MG CAPSULE PO SCH ×2 (09:37→16:44)
[2021-06-04] MEDS: CARVEDILOL 12.5 MG TABLET PO SCH ×2 (09:37→20:49)
[2021-06-04] MEDS: NIFEdipine XL 60 MG TABSR PO SCH ×2 (09:37→20:50)
[2021-06-04] MEDS: BENAZEPRIL HCL 20 MG TABLET PO SCH ×2 (09:37→20:47)
[2021-06-04 16:35] VITALS: BP 141/48
--- NOTE | 2021-06-04 18:35 | NUR ---
Patient tolerated and received care well today. Patient's IV site is intact and patent. Bed left in lowest position with call light within reach. Comfort measures provided. Will endorse information to PM nurse.
[2021-06-04 20:09] VITALS: BP 119/83
[2021-06-04] MEDS: ATORVASTATIN 40 MG TABLET PO SCH (20:47)
[2021-06-05 04:09] VITALS: BP 127/45
[2021-06-05] MEDS: PANTOPRAZOLE SODIUM 40 MG TABLET.DR PO SCH (06:16)
[2021-06-05 08:05] VITALS: BP 149/51
[2021-06-05] MEDS: DULOXETINE 30 MG CAPSULE.DR PO SCH (10:17)
[2021-06-05] MEDS: DOCUSATE SODIUM 100 MG CAPSULE PO SCH ×2 (10:26→17:00)
[2021-06-05] MEDS: ENSURE ENLIVE (VAN) 240 ML LIQUID PO SCH ×2 (10:26→18:21)
[2021-06-05] MEDS: CARVEDILOL 12.5 MG TABLET PO SCH ×2 (10:26→20:44)
[2021-06-05] MEDS: BENAZEPRIL HCL 20 MG TABLET PO SCH ×2 (10:27→20:44)
[2021-06-05] MEDS: NIFEdipine XL 60 MG TABSR PO SCH ×2 (10:27→20:44)
[2021-06-05] MEDS: PREGABALIN 25 MG CAPSULE PO SCH ×2 (10:27→18:21)
[2021-06-05] MEDS: CLOPIDOGREL 75 MG TABLET PO SCH (10:27)
[2021-06-05 16:47] VITALS: BP 133/60
[2021-06-05] MEDS ORDERED: MIRALAX 17 GM POWD.PACK PO PRN (19:45)
[2021-06-05 20:41] VITALS: BP 142/55
[2021-06-05] MEDS: ATORVASTATIN 40 MG TABLET PO SCH (20:43)
[2021-06-05] MEDS: HYDROCODONE/APAP 5-325MG TABLET PO PRN (20:44)
--- NOTE | 2021-06-06 00:04 | NUR ---
Awake upon initial rounds. Watching TV. All due meds given. VSS. No acute distress noted. Complained of pain on right arm, [place] 1 tab given as needed with relief noted. Fall precautions maintained. Continent/incontinent of bowel and bladder. All needs attended. Will monitor patient. Kept comfortable. Remain stable this shift.
[2021-06-06 04:41] VITALS: BP 112/46
[2021-06-06] MEDS: PANTOPRAZOLE SODIUM 40 MG TABLET.DR PO SCH (06:08)
[2021-06-06 06:42] LABS: HEMATOCRIT 26.1 % (31.2-41.9); MEAN CORPUSCULAR HEMOGLOBIN 30.3 uug (24.7-32.8); MEAN CORPUSCULAR VOLUME 90.7 fL (75.5-95.3); PLATELET COUNT (AUTO) 234 K/uL (179-408)
[2021-06-06 06:51] LABS: ALANINE AMINOTRANSFERASE 16 U/L (14-59); ALKALINE PHOSPHATASE 21 U/L (50-136); ASPARTATE AMINOTRANSFERASE 12 U/L (15-37); BILIRUBIN,TOTAL 0.4 mg/dL (0.2-1.0); CARBON DIOXIDE 26 mmol/L (21-32); CHLORIDE 106 mmol/L (98-107); CREATININE 1.4 mg/dL (0.6-1.3); GLUCOSE 87 mg/dL (74-106); MAGNESIUM 2.3 mg/dL (1.8-2.4); PHOSPHOROUS 6.5 mg/dL (2.5-4.9); POTASSIUM 5.4 mmol/L (3.5-5.1); UREA NITROGEN, BLOOD 47 mg/dL (7-18)
[2021-06-06 08:00] VITALS: BP 108/45
[2021-06-06] MEDS: ENSURE ENLIVE (VAN) 240 ML LIQUID PO SCH (09:09)
[2021-06-06] MEDS: DOCUSATE SODIUM 100 MG CAPSULE PO SCH (09:09)
[2021-06-06] MEDS: DULOXETINE 30 MG CAPSULE.DR PO SCH (09:12)
[2021-06-06] MEDS: CARVEDILOL 12.5 MG TABLET PO SCH (09:12)
[2021-06-06] MEDS: CLOPIDOGREL 75 MG TABLET PO SCH (09:12)
[2021-06-06] MEDS: PREGABALIN 25 MG CAPSULE PO SCH (09:12)
[2021-06-06 09:13] VITALS: BP 121/59
[2021-06-06] MEDS: BENAZEPRIL HCL 20 MG TABLET PO SCH (09:13)
[2021-06-06] MEDS: NIFEdipine XL 60 MG TABSR PO SCH (09:13)
[2021-06-06] MEDS ORDERED: SODIUM POLYSTYRENE SULFONATE 15 G/60 ML LIQUID UDC PO ONE (09:15)
--- NOTE | 2021-06-06 09:27 | NUR ---
Received pt resting in bed. Slovak speaking only, able to make needs known. No signs of acute distress noted. No complaints of pain at the moment. Notified DR Oneil of Pt labs results of Potassium 5.4 with new order for Kayexalate 15 g po one time order noted and carried our Call lights within reach. Safety measures initiated.
--- NOTE | 2021-06-06 11:00 | NUR ---
Pt was discharge home , Discharge instructions given to daughter and patient at bed side. Daughter Melvi verbalized understanding. written prescription faxed to RX. All personal belongings given to family ID band and MI mid line was removed pt was taken to the lobby by W/C and left in stable condition accompany by daughter and granddaughter via private car
== END 2021-06-06 11:00 | disposition home health service (06) | DRG 551 ==
PROVIDERS: ADMIT Physical Medicine & Rehabilitation Pain Medicine; ATTEND Physical Medicine & Rehabilitation Pain Medicine
DX: M50.121 Cervical disc disorder at C4-C5 level with radiculopathy (principal); N17.0 Acute kidney failure with tubular necrosis; I69.351 Hemiplegia and hemiparesis following cerebral infarction affecting right dominant side; D68.59 Other primary thrombophilia; M48.02 Spinal stenosis, cervical region; R53.1 Weakness; I12.9 Hypertensive chronic kidney disease with stage 1 through stage 4 chronic kidney disease, or unspecified chronic kidney disease; N18.30 Chronic kidney disease, stage 3 unspecified; I25.10 Atherosclerotic heart disease of native coronary artery without angina pectoris; D50.9 Iron deficiency anemia, unspecified; E78.5 Hyperlipidemia, unspecified; K21.9 Gastro-esophageal reflux disease without esophagitis; J45.909 Unspecified asthma, uncomplicated; E28.2 Polycystic ovarian syndrome; F01.50 Vascular dementia, unspecified severity, without behavioral disturbance, psychotic disturbance, mood disturbance, and anxiety; D63.1 Anemia in chronic kidney disease; E87.5 Hyperkalemia; F32.A Depression, unspecified; M12.9 Arthropathy, unspecified; R19.5 Other fecal abnormalities; M77.8 Other enthesopathies, not elsewhere classified; R60.0 Localized edema
CPT/HCPCS: 36415; 83550; 83735; 84100; 84443; 85025; 97161; 97535-GO-CO; A4663; J3301; J3490; Q0162

== ENCOUNTER 2021-08-22 17:46 | Emergency (ER) | payer MEDICARE, OTHER ==
[~2021-08-22] VITALS: Ht 142.2 cm; Wt 45.4 kg
[~2021-08-22 17:46] MED LIST changes: -BENZ200C53 PO; +HYDR-4209 PO; -HYDR-894 PO; +MAGN30OR PO; -ONDA-104 PO; -TRAM50TA2 PO
--- NOTE | 2021-08-22 17:50 | NUR ---
Patient accompanied by daughter with complaints of right shoulder pain 08/07, pt fell today unwitnessed. Denies nausea/vomiting, SOB,chest pain.
[2021-08-22] MEDS ORDERED: ONDANSETRON ODT 4 MG TAB.RAPDIS ONE (18:57)
[2021-08-22] MEDS ORDERED: HYDROCODONE/APAP 5-325MG TABLET ONE (18:57)
[2021-08-22] MEDS ORDERED: HYDR-4209 PO (18:59)
[2021-08-22] MEDS ORDERED: ONDA4TAB5 PO (18:59)
[2021-08-22] MEDS ORDERED: ONDANSETRON ODT 4 MG TAB.RAPDIS SL ONE (19:00)
[2021-08-22] MEDS ORDERED: HYDROCODONE/APAP 5-325MG TABLET PO ONE (19:00)
--- NOTE | 2021-08-22 19:13 | NUR ---
Patient discharged to home in stable condition. Written and verbal after care instructions given to pt and daughter. Patient and daughter verbalizes understanding of instructions. Stressed follow up or return to ER for worsening s/s.
[2021-08-22 19:14] VITALS: BP 110/70
== END 2021-08-22 19:14 | disposition home or self-care (01) ==
LOC: ER 17:50
DX: S42.211A Unspecified displaced fracture of surgical neck of right humerus, initial encounter for closed fracture (principal); W19.XXXA Unspecified fall, initial encounter; Y92.019 Unspecified place in single-family (private) house as the place of occurrence of the external cause; Z86.73 Personal history of transient ischemic attack (TIA), and cerebral infarction without residual deficits; I10 Essential (primary) hypertension; Z79.02 Long term (current) use of antithrombotics/antiplatelets; E78.5 Hyperlipidemia, unspecified; J45.909 Unspecified asthma, uncomplicated
CPT/HCPCS: 73030; A4663; Q0162

== ENCOUNTER 2021-09-21 18:39 | Emergency (ER) | payer MEDICARE, OTHER ==
[~2021-09-21] VITALS: Ht 121.9 cm; Wt 52.2 kg
--- NOTE | 2021-09-21 20:25 | NUR ---
Dr Romano in room. MSE in progress
--- NOTE | 2021-09-21 20:50 | NUR ---
Patient taken to CT
[2021-09-21 21:32] LABS: HEMATOCRIT 31.2 % (31.2-41.9); MEAN CORPUSCULAR HEMOGLOBIN 30.6 uug (24.7-32.8); MEAN CORPUSCULAR VOLUME 89.9 fL (75.5-95.3); PLATELET COUNT (AUTO) 272 K/uL (179-408)
[2021-09-21 21:33] LABS: *BILIRUBIN,URIN NEGATIVE (NEGATIVE); *CLARITY,URINE CLEAR (CLEAR); *COLOR,URINE YELLOW (YELLOW); *KETONES,URINE NEGATIVE (NEGATIVE); *UROBILINOGEN,URINE 0.2 E.U./dl (NORMAL); LEUKOCYTE ESTERASE ,URINE 2+ (NEGATIVE); NITRITE, URINE POSITIVE (NEGATIVE); PH,URINE 5.5 (5.0-8.0); UGLUCOSE NEGATIVE (NEGATIVE)
[2021-09-21 21:39] LABS: ALANINE AMINOTRANSFERASE < 6 U/L (14-59); ALKALINE PHOSPHATASE 25 U/L (50-136); ASPARTATE AMINOTRANSFERASE < 5 U/L (15-37); BILIRUBIN,DIRECT 0.1 mg/dL (0.0-0.2); BILIRUBIN,TOTAL 0.4 mg/dL (0.2-1.0); CARBON DIOXIDE 27 mmol/L (21-32); CHLORIDE 103 mmol/L (98-107); CREATININE 1.5 mg/dL (0.6-1.3); GLUCOSE 115 mg/dL (74-106); LIPASE 157 U/L (73-393); POTASSIUM 5.1 mmol/L (3.5-5.1); TOTAL PROTEIN, SERUM 7.4 g/dL (6.4-8.2); UREA NITROGEN, BLOOD 29 mg/dL (7-18)
[2021-09-21 21:45] LABS: *BLOOD, URINE TRACE (NEGATIVE)
[2021-09-21 21:54] LABS: BACTERIA,URINE MANY /HPF (NONE SEEN); SQUAMOUS EPITHELIAL CELL,UR FEW /HPF (NONE SEEN); WBC,URINE 80-100 /HPF (0-3)
[2021-09-21 21:59] LABS: MAGNESIUM 2.3 mg/dL (1.8-2.4)
[2021-09-21 22:21] LABS: THYROID STIMULATING HORMONE 0.433 mIU/mL (0.358-3.740)
[2021-09-21] MEDS ORDERED: CEFTRIAXONE 1 G in IV DEXTROSE 5% 50 ML IV ONE (23:00)
[2021-09-21] MEDS ORDERED: CEFTRIAXONE /D5W 50ML IVPB **ER PYXIS IV ONE (23:09)
[2021-09-21] MEDS ORDERED: IV NS 1000 ML 1,000 ML IV ONE (23:15)
[2021-09-21] MEDS ORDERED: BISA10SU61 RC (23:31)
[2021-09-21] MEDS ORDERED: SULF1TAB48 PO (23:31)
[2021-09-21] MEDS ORDERED: BISA-79 PO (23:31)
--- NOTE | 2021-09-22 01:19 | NUR ---
Patient discharged to home in stable condition. Written and verbal after care instructions given. Patient and patient's daughter verbalizes understanding of instructions. Stressed follow up or return to ER for worsening s/s. Patient is a/ox4,NAD noted. Patient is accompanied by her daughter
[2021-09-22 01:20] VITALS: BP 123/65
== END 2021-09-22 01:20 | disposition home or self-care (01) ==
LOC: ER 18:41
DX: N39.0 Urinary tract infection, site not specified (principal); F09 Unspecified mental disorder due to known physiological condition; R11.2 Nausea with vomiting, unspecified; S42.201D Unspecified fracture of upper end of right humerus, subsequent encounter for fracture with routine healing; W19.XXXD Unspecified fall, subsequent encounter; Z86.73 Personal history of transient ischemic attack (TIA), and cerebral infarction without residual deficits; K21.9 Gastro-esophageal reflux disease without esophagitis; Z87.01 Personal history of pneumonia (recurrent); J45.909 Unspecified asthma, uncomplicated; I10 Essential (primary) hypertension; Z79.899 Other long term (current) drug therapy
CPT/HCPCS: 99284; 74176; 96365; 71045; 80076; 80048; 81001; 82607; 83690; 83735; 84443; 85025; 87186; 87086; 87077; 84484; 36415; J0696; J7040; A4663

== ENCOUNTER 2022-01-20 02:03 | Inpatient (IN) | payer MEDICARE, OTHER ==
[~2022-01-20] VITALS: Ht 121.9 cm; Wt 47.6 kg
[~2022-01-20 02:03] MED LIST changes: +BISA-79 PO; +BISA10SU61 RC; +SULF1TAB48 PO
--- NOTE | 2022-01-20 02:15 | NUR ---
Patient's primary langauge is Yakut. A/O x3. NAD noted.Daughter at bedside.
[2022-01-20] MEDS ORDERED: MORPHINE SULFATE 2 MG/1 ML DISP.SYRIN IV ONE (03:00)
[2022-01-20] MEDS ORDERED: MORPHINE SULFATE 2 MG/1 ML DISP.SYRIN ONE (03:15)
[2022-01-20 03:25] LABS: HEMATOCRIT 34.8 % (31.2-41.9); MEAN CORPUSCULAR HEMOGLOBIN 30.9 uug (24.7-32.8); MEAN CORPUSCULAR VOLUME 89.6 fL (75.5-95.3); PLATELET COUNT (AUTO) 276 K/uL (179-408)
--- NOTE | 2022-01-20 03:26 | NUR ---
Patient taken downstairs for CT.
[2022-01-20 03:38] LABS: CARBON DIOXIDE 24 mmol/L (21-32); CHLORIDE 104 mmol/L (98-107); CREATININE 1.5 mg/dL (0.6-1.3); GLUCOSE 119 mg/dL (74-106); POTASSIUM 4.5 mmol/L (3.5-5.1); UREA NITROGEN, BLOOD 25 mg/dL (7-18)
--- NOTE | 2022-01-20 03:45 | NUR ---
Patient back from CT.
[2022-01-20 03:52] LABS: ALANINE AMINOTRANSFERASE 14 U/L (14-59); ALKALINE PHOSPHATASE 30 U/L (50-136); ASPARTATE AMINOTRANSFERASE 12 U/L (15-37); BILIRUBIN,DIRECT 0.1 mg/dL (0.0-0.2); BILIRUBIN,TOTAL 0.4 mg/dL (0.2-1.0); LIPASE 213 U/L (73-393); TOTAL PROTEIN, SERUM 7.6 g/dL (6.4-8.2)
[2022-01-20] MEDS ORDERED: ONDANSETRON 4 MG/2 ML VIAL IV ONE ×2 (04:00→06:45)
[2022-01-20] MEDS ORDERED: FENTANYL CITRATE 100 MCG/2 ML AMPUL IV ONE (04:15)
[2022-01-20] MEDS ORDERED: IV NS 1000 ML 1,000 ML IV ONE (04:30)
[2022-01-20 04:54] LABS: *BILIRUBIN,URIN NEGATIVE (NEGATIVE); *COLOR,URINE YELLOW (YELLOW); *KETONES,URINE NEGATIVE (NEGATIVE); *UROBILINOGEN,URINE 0.2 E.U./dl (NORMAL); LEUKOCYTE ESTERASE ,URINE 1+ (NEGATIVE); NITRITE, URINE NEGATIVE (NEGATIVE); PH,URINE 5.5 (5.0-8.0); UGLUCOSE NEGATIVE (NEGATIVE)
[2022-01-20 04:55] LABS: *BLOOD, URINE TRACE (NEGATIVE); *CLARITY,URINE HAZY (CLEAR)
[2022-01-20 04:58] LABS: BACTERIA,URINE FEW /HPF (NONE SEEN); SQUAMOUS EPITHELIAL CELL,UR FEW /HPF (NONE SEEN)
[2022-01-20] MEDS ORDERED: CEFTRIAXONE 1 G in IV DEXTROSE 5% 50 ML IV ONE (05:30)
[2022-01-20] MEDS ORDERED: FENTANYL CITRATE 100 MCG/2 ML AMPUL ONE (05:39)
[2022-01-20] MEDS ORDERED: CEFTRIAXONE /D5W 50ML IVPB **ER PYXIS IV ONE (05:55)
[2022-01-20] MEDS ORDERED: ONDANSETRON 4 MG/2 ML VIAL IV PRN (06:00)
[2022-01-20] MEDS ORDERED: hydrALAZINE HCL 20 MG/1 ML VIAL IV PRN (06:00)
[2022-01-20] MEDS ORDERED: ONDANSETRON 4 MG/2 ML VIAL ONE ×2 (06:06→06:42)
--- NOTE | 2022-01-20 06:08 | NUR ---
Verbally instructed to give patient Zofran 4mg. Pt refused and med was placed in return bin with reciept.
[2022-01-20] MEDS ORDERED: KETOROLAC TROMETHAMINE 30 MG INJ IVP ONE (07:00)
[2022-01-20] MEDS ORDERED: TAMSULOSIN HCL 0.4 MG CAP.SR.24H PO ONE (07:00)
--- NOTE | 2022-01-20 07:26 | NUR ---
Report given to LUCERO Menjivar.
[2022-01-20] MEDS ORDERED: DULOXETINE 30 MG CAPSULE.DR PO SCH (09:00)
[2022-01-20] MEDS ORDERED: DOCUSATE SODIUM 100 MG CAPSULE PO SCH ×2 (09:00)
--- NOTE | 2022-01-20 09:50 | NUR ---
Admitted this 86 Y/O female patient from ER floor, report rec'd from ER nurse. Patient is a Yi speaking, has following diagnosis/Hx: Abdominal pain, infected kidney stone, Ischemic stroke, arrhythmia, GERD, history of left and right hip arthroplasty, DM, lives home with a daughter (per nurse giving report). Patient is alert and Ox3-4, able to answer all questions asked, overall lung sounds clear upon auscultation, RR even and unlabored, no cough/congestion noted. Patient denies any pain. Able to hear and see adequately. Abdomen soft and non distended with regular BS present in all quadrants. Incontinent of both. Patient has a 22" G to left F/A for continuation of IV atb and IV fluids. Patient is on R/A and tiera. well, cat scan done with 0.1 CM non obstructing kidney stone, CT head (-), BUN=25, Creat 1.5, (+) UTI, IVF initiated as ordered; further medication executed/finalized by Hospitalist. Patient's daughter, Annamaria is highly involved in patient's care and provided a copy of the POLST:DNR with selective treatment , no artificial means of nutrition, including feeding tubes, copy placed in patient's chart. A copy of covid-19 Pfyzer vaccine record: step #1 rec'd on 05/02/20, step #2 rec'd 05/23/20 both vaccines given at [facility]. & copies placed in patient's chart.
[2022-01-20] MEDS: MIRALAX 17 GM POWD.PACK PO SCH (10:04)
[2022-01-20] MEDS: CLOPIDOGREL 75 MG TABLET PO SCH (10:05)
[2022-01-20] MEDS: DOCUSATE SODIUM 100 MG CAPSULE PO SCH ×2 (10:05→17:27)
[2022-01-20] MEDS: CARVEDILOL 12.5 MG TABLET PO SCH ×2 (10:05→17:25)
[2022-01-20] MEDS: NIFEdipine XL 60 MG TABSR PO SCH ×2 (10:05→20:32)
--- NOTE | 2022-01-20 10:05 | NUR ---
Patient discharged to home in stable condition. Written and verbal after care instructions given. Patient verbalizes understanding of instructions. Stressed follow up or return to ER for worsening s/s.
[2022-01-20] MEDS: BENAZEPRIL HCL 20 MG TABLET PO SCH ×2 (10:06→17:27)
[2022-01-20] MEDS: PANTOPRAZOLE SODIUM 40 MG TABLET.DR PO SCH (10:06)
[2022-01-20] MEDS: HEPARIN SODIUM,PORCINE 5,000 UNITS/ML VIAL SQ SCH ×2 (10:07→20:35)
[2022-01-20] MEDS: IV NS 1000 ML 1,000 ML IV SCH ×2 (10:09→17:29)
[2022-01-20 11:28] VITALS: BP 145/62
[2022-01-20] MEDS ORDERED: FAMO40TA71 PO (11:57)
[2022-01-20] MEDS ORDERED: MONT10TA33 PO (11:57)
[2022-01-20] MEDS ORDERED: TRAM50TA2 PO (11:57)
[2022-01-20] MEDS ORDERED: PHENAZOPYRIDINE HCL 100 MG TABLET PO SCH (14:00)
[2022-01-20 16:08] VITALS: BP 138/65
--- NOTE | 2022-01-20 17:05 | NUR ---
Left a message for Dr. Jourdan Jacobson @ [phone] regarding patient 24 hour urine collection orders. Pt. is unable to ambulate to commode. Needs orders for a reeves. Have not received a call back yet.
--- NOTE | 2022-01-20 17:55 | NUR ---
0900-Patient was seen by Dr. Tucker (hospitalist) admitting orders finalized by . 0 Addendum: 01/20/22 at 1800 by SAROJ PERRY RN INCORRECT ENTRY/PATIENT.
--- NOTE | 2022-01-20 17:56 | NUR ---
3:30pm-Patient was seen by Dr. Jourdan Jacobson with orders for 24hr urine collection. 5:00pm-Seen by Dr. Sami MD gave orders to for reeves catheter placement for the 24HR urine collection. Order noted and carried out.
--- NOTE | 2022-01-20 18:49 | NUR ---
183-Dee catheter 18Fr inserted, explained procedure prior to insertion, aseptic tech. applied, patient tolerated well procedure. Good urine returned obtained, F/C draining to gravity. Endorsed to relieving license for 24hr urine collection.
[2022-01-20] MEDS: MONTELUKAST SODIUM 10 MG TABLET PO SCH (20:32)
[2022-01-20] MEDS: ATORVASTATIN 40 MG TABLET PO SCH (20:32)
[2022-01-20 20:46] VITALS: BP 115/49
[2022-01-21 04:26] VITALS: BP 111/61
[2022-01-21] MEDS: IV NS 1000 ML 1,000 ML IV SCH ×2 (05:48→15:28)
[2022-01-21] MEDS: CEFTRIAXONE 1 G in IV DEXTROSE 5% 50 ML IV SCH (05:50)
[2022-01-21 06:17] LABS: HEMATOCRIT 28.6 % (31.2-41.9); MEAN CORPUSCULAR HEMOGLOBIN 30.7 uug (24.7-32.8); MEAN CORPUSCULAR VOLUME 91.3 fL (75.5-95.3); PLATELET COUNT (AUTO) 229 K/uL (179-408)
[2022-01-21] MEDS: PANTOPRAZOLE SODIUM 40 MG TABLET.DR PO SCH (06:31)
--- NOTE | 2022-01-21 07:22 | NUR ---
24 HOUR URINE COLLECTIO IN PROGRESS. ENDS AT 1830. PT WITH MULTIPLE TESTS PENDING , SLEPT FOR LONG PERIODS. PIV INFUSING.
[2022-01-21 07:31] LABS: BILIRUBIN,TOTAL 0.3 mg/dL (0.2-1.0); CREATININE 1.3 mg/dL (0.6-1.3); PHOSPHOROUS 4.6 mg/dL (2.5-4.9); POTASSIUM 4.2 mmol/L (3.5-5.1); TOTAL PROTEIN, SERUM 5.4 g/dL (6.4-8.2)
[2022-01-21] MEDS: CLOPIDOGREL 75 MG TABLET PO SCH (08:05)
[2022-01-21] MEDS: BENAZEPRIL HCL 20 MG TABLET PO SCH ×2 (08:05→16:59)
[2022-01-21] MEDS: CARVEDILOL 12.5 MG TABLET PO SCH ×2 (08:05→16:59)
[2022-01-21] MEDS: NIFEdipine XL 60 MG TABSR PO SCH ×2 (08:05→20:20)
[2022-01-21] MEDS: DOCUSATE SODIUM 100 MG CAPSULE PO SCH ×2 (08:05→16:59)
[2022-01-21] MEDS: MIRALAX 17 GM POWD.PACK PO SCH (08:05)
[2022-01-21] MEDS: HEPARIN SODIUM,PORCINE 5,000 UNITS/ML VIAL SQ SCH ×2 (08:06→20:23)
[2022-01-21] MEDS: MORPHINE SULFATE 2 MG/1 ML DISP.SYRIN IV PRN ×2 (09:10→17:06)
[2022-01-21 11:54] VITALS: BP 126/48
[2022-01-21 15:52] VITALS: BP 122/52
[2022-01-21] MEDS: ACETAMINOPHEN 325 MG TABLET PO PRN (20:19)
[2022-01-21] MEDS: ATORVASTATIN 40 MG TABLET PO SCH (20:20)
[2022-01-21 20:24] VITALS: BP 131/50
[2022-01-21] MEDS: MONTELUKAST SODIUM 10 MG TABLET PO SCH (20:24)
[2022-01-22] MEDS: IV NS 1000 ML 1,000 ML IV SCH (01:16)
[2022-01-22 04:15] VITALS: BP 130/51
[2022-01-22] MEDS: CEFTRIAXONE 1 G in IV DEXTROSE 5% 50 ML IV SCH (05:35)
[2022-01-22] MEDS: PANTOPRAZOLE SODIUM 40 MG TABLET.DR PO SCH (06:05)
[2022-01-22 06:32] LABS: HEMATOCRIT 25.1 % (31.2-41.9); MEAN CORPUSCULAR HEMOGLOBIN 30.7 uug (24.7-32.8); MEAN CORPUSCULAR VOLUME 91.3 fL (75.5-95.3); PLATELET COUNT (AUTO) 188 K/uL (179-408)
[2022-01-22 06:50] LABS: CARBON DIOXIDE 21 mmol/L (21-32); CHLORIDE 111 mmol/L (98-107); CREATININE 1.4 mg/dL (0.6-1.3); GLUCOSE 102 mg/dL (74-106); MAGNESIUM 1.7 mg/dL (1.8-2.4); PHOSPHOROUS 4.1 mg/dL (2.5-4.9); POTASSIUM 4.3 mmol/L (3.5-5.1); UREA NITROGEN, BLOOD 17 mg/dL (7-18)
[2022-01-22] MEDS: CARVEDILOL 12.5 MG TABLET PO SCH ×2 (08:09→16:05)
[2022-01-22] MEDS: CLOPIDOGREL 75 MG TABLET PO SCH (08:09)
[2022-01-22] MEDS: BENAZEPRIL HCL 20 MG TABLET PO SCH ×2 (08:09→16:05)
[2022-01-22] MEDS: NIFEdipine XL 60 MG TABSR PO SCH ×2 (08:09→20:22)
[2022-01-22] MEDS: MIRALAX 17 GM POWD.PACK PO SCH (08:09)
[2022-01-22] MEDS: DOCUSATE SODIUM 100 MG CAPSULE PO SCH ×2 (08:09→16:05)
[2022-01-22] MEDS: HEPARIN SODIUM,PORCINE 5,000 UNITS/ML VIAL SQ SCH ×2 (08:10→20:23)
[2022-01-22] MEDS: MORPHINE SULFATE 2 MG/1 ML DISP.SYRIN IV PRN (08:56)
[2022-01-22] MEDS ORDERED: MAGNESIUM OXIDE 400 MG TABLET PO ONE (09:15)
[2022-01-22 11:38] VITALS: BP 110/42
[2022-01-22] MEDS ORDERED: KETOROLAC TROMETHAMINE 15 MG INJ IVP ONE (12:15)
[2022-01-22 13:15] LABS: THYROID STIMULATING HORMONE 1.049 mIU/mL (0.358-3.740)
[2022-01-22 15:06] LABS: A/G RATIO 1.2 (0.7-1.7); ALBUMIN 2.7 g/dL (2.9-4.4); ALPHA-1-GLOBULIN 0.2 g/dL (0.0-0.4); ALPHA-2-GLOBULIN 0.5 g/dL (0.4-1.0); BETA GLOBULIN 0.6 g/dL (0.7-1.3); GAMMA GLOBULIN 0.8 g/dL (0.4-1.8); GLOBULIN, TOTAL 2.2 g/dL (2.2-3.9); M-SPIKE Not Observed g/dL (Not Observed)
[2022-01-22 16:00] VITALS: BP 117/48
[2022-01-22 20:00] VITALS: BP 130/53
[2022-01-22] MEDS: ATORVASTATIN 40 MG TABLET PO SCH (20:22)
[2022-01-22] MEDS: MONTELUKAST SODIUM 10 MG TABLET PO SCH (20:22)
[2022-01-22] MEDS: TAMSULOSIN HCL 0.4 MG CAP.SR.24H PO SCH (20:22)
[2022-01-22] MEDS: HYDROMORPHONE 1 MG/1 ML DISP.SYRIN IV PRN (21:02)
[2022-01-23 03:49] VITALS: BP 129/44
[2022-01-23] MEDS: HYDROMORPHONE 1 MG/1 ML DISP.SYRIN IV PRN (04:36)
[2022-01-23] MEDS: CEFTRIAXONE 1 G in IV DEXTROSE 5% 50 ML IV SCH (05:03)
[2022-01-23 06:07] LABS: *IMMUNOGLOBULIN G, SERUM 862 mg/dL (586-1602); IMMUNOGLOBULIN M, SERUM 107 mg/dL (26-217)
[2022-01-23 07:10] LABS: HEMATOCRIT 27.2 % (31.2-41.9); MEAN CORPUSCULAR HEMOGLOBIN 31.5 uug (24.7-32.8); MEAN CORPUSCULAR VOLUME 89.6 fL (75.5-95.3); PLATELET COUNT (AUTO) 220 K/uL (179-408)
[2022-01-23] MEDS: PANTOPRAZOLE SODIUM 40 MG TABLET.DR PO SCH (07:15)
[2022-01-23 07:36] LABS: CREATININE 1.3 mg/dL (0.6-1.3); MAGNESIUM 1.8 mg/dL (1.8-2.4); POTASSIUM 4.4 mmol/L (3.5-5.1)
[2022-01-23] MEDS: CLOPIDOGREL 75 MG TABLET PO SCH (08:06)
[2022-01-23] MEDS: BENAZEPRIL HCL 20 MG TABLET PO SCH ×2 (08:06→16:23)
[2022-01-23] MEDS: CARVEDILOL 12.5 MG TABLET PO SCH ×2 (08:06→16:23)
[2022-01-23] MEDS: MIRALAX 17 GM POWD.PACK PO SCH (08:06)
[2022-01-23] MEDS: NIFEdipine XL 60 MG TABSR PO SCH ×2 (08:06→20:47)
[2022-01-23] MEDS: DOCUSATE SODIUM 100 MG CAPSULE PO SCH ×2 (08:06→16:24)
[2022-01-23] MEDS: HEPARIN SODIUM,PORCINE 5,000 UNITS/ML VIAL SQ SCH ×2 (08:07→20:48)
[2022-01-23 11:50] VITALS: BP 135/49
[2022-01-23] MEDS: BACLOFEN 10 MG TABLET PO PRN (13:25)
[2022-01-23 15:06] LABS: BETA-2 MICROGLOBULIN, SERUM 3.7 mg/L (0.6-2.4)
[2022-01-23 16:00] VITALS: BP 137/55
[2022-01-23 20:00] VITALS: BP 126/48
[2022-01-23] MEDS: TAMSULOSIN HCL 0.4 MG CAP.SR.24H PO SCH (20:47)
[2022-01-23] MEDS: MONTELUKAST SODIUM 10 MG TABLET PO SCH (20:47)
[2022-01-23] MEDS: ATORVASTATIN 40 MG TABLET PO SCH (20:47)
[2022-01-24 04:26] VITALS: BP 135/46
[2022-01-24] MEDS: CEFTRIAXONE 1 G in IV DEXTROSE 5% 50 ML IV SCH (05:31)
[2022-01-24] MEDS: PANTOPRAZOLE SODIUM 40 MG TABLET.DR PO SCH (06:06)
[2022-01-24] MEDS: NIFEdipine XL 60 MG TABSR PO SCH ×2 (08:02→20:35)
[2022-01-24] MEDS: BENAZEPRIL HCL 20 MG TABLET PO SCH ×2 (08:02→16:11)
[2022-01-24] MEDS: DOCUSATE SODIUM 100 MG CAPSULE PO SCH ×2 (08:02→16:11)
[2022-01-24] MEDS: CLOPIDOGREL 75 MG TABLET PO SCH (08:02)
[2022-01-24] MEDS: CARVEDILOL 12.5 MG TABLET PO SCH ×2 (08:02→16:11)
[2022-01-24] MEDS: HEPARIN SODIUM,PORCINE 5,000 UNITS/ML VIAL SQ SCH ×2 (08:03→20:36)
[2022-01-24] MEDS: MIRALAX 17 GM POWD.PACK PO SCH (08:03)
[2022-01-24] MEDS ORDERED: BUPIVACAINE 0.25% 30 ML VIAL INJ PRN (11:15)
[2022-01-24] MEDS ORDERED: LIDOCAINE HCL 1% 20 ML VIAL IJ PRN (11:15)
[2022-01-24 12:00] VITALS: BP 144/63
[2022-01-24 16:00] VITALS: BP 123/49
[2022-01-24] MEDS: FERROUS SULFATE 325 MG TABEC PO SCH (20:34)
[2022-01-24] MEDS: ATORVASTATIN 40 MG TABLET PO SCH (20:35)
[2022-01-24] MEDS: MONTELUKAST SODIUM 10 MG TABLET PO SCH (20:35)
[2022-01-24] MEDS: TAMSULOSIN HCL 0.4 MG CAP.SR.24H PO SCH (20:35)
[2022-01-24] MEDS: BACLOFEN 10 MG TABLET PO PRN (20:44)
[2022-01-24] MEDS: ACETAMINOPHEN 325 MG TABLET PO PRN (20:44)
[2022-01-24 20:51] VITALS: BP 116/36
[2022-01-25 05:00] VITALS: BP 133/50
[2022-01-25] MEDS: CEFTRIAXONE 1 G in IV DEXTROSE 5% 50 ML IV SCH (05:32)
[2022-01-25] MEDS: PANTOPRAZOLE SODIUM 40 MG TABLET.DR PO SCH (07:00)
[2022-01-25 07:06] LABS: CREATININE 1.3 mg/dL (0.6-1.3); POTASSIUM 4.9 mmol/L (3.5-5.1)
[2022-01-25 07:13] LABS: HEMATOCRIT 27.6 % (31.2-41.9); MEAN CORPUSCULAR HEMOGLOBIN 30.5 uug (24.7-32.8); MEAN CORPUSCULAR VOLUME 91.1 fL (75.5-95.3); PLATELET COUNT (AUTO) 207 K/uL (179-408)
[2022-01-25] MEDS: DOCUSATE SODIUM 100 MG CAPSULE PO SCH ×2 (08:27→16:05)
[2022-01-25] MEDS: CARVEDILOL 12.5 MG TABLET PO SCH ×2 (08:27→16:06)
[2022-01-25] MEDS: CLOPIDOGREL 75 MG TABLET PO SCH (08:27)
[2022-01-25] MEDS: NIFEdipine XL 60 MG TABSR PO SCH ×2 (08:27→20:23)
[2022-01-25] MEDS: FERROUS SULFATE 325 MG TABEC PO SCH (08:27)
[2022-01-25] MEDS: MIRALAX 17 GM POWD.PACK PO SCH (08:27)
[2022-01-25] MEDS: BENAZEPRIL HCL 20 MG TABLET PO SCH ×2 (08:27→16:06)
[2022-01-25] MEDS: HEPARIN SODIUM,PORCINE 5,000 UNITS/ML VIAL SQ SCH ×2 (08:29→20:26)
[2022-01-25] MEDS ORDERED: HYDROCODONE/APAP 5-325MG TABLET PO PRN (11:30)
[2022-01-25 12:00] VITALS: BP 146/50
[2022-01-25 16:00] VITALS: BP 137/48
[2022-01-25] MEDS: SOD FERRIC GLUC COMPLX/SUCROSE 125 MG in IV NORMAL SALINE 100 ML IV SCH (20:05)
[2022-01-25] MEDS: ATORVASTATIN 40 MG TABLET PO SCH (20:22)
[2022-01-25] MEDS: TAMSULOSIN HCL 0.4 MG CAP.SR.24H PO SCH (20:22)
[2022-01-25] MEDS: MONTELUKAST SODIUM 10 MG TABLET PO SCH (20:22)
[2022-01-25 20:40] VITALS: BP 151/48
[2022-01-26 00:59] LABS: *OCCULT BLOOD STOOL NEGATIVE (NEGATIVE)
[2022-01-26] MEDS: GUAIFENESIN/DEXTROMETHORPHAN 5 ML UDC PO PRN (02:17)
[2022-01-26 04:48] VITALS: BP 124/49
[2022-01-26 05:06] LABS: CANCER AG, 125 11.6 U/mL (0.0-38.1); CANCER ANTIGEN 15-3 5.1 U/mL (0.0-25.0)
[2022-01-26] MEDS: CEFTRIAXONE 1 G in IV DEXTROSE 5% 50 ML IV SCH (05:40)
[2022-01-26] MEDS: PANTOPRAZOLE SODIUM 40 MG TABLET.DR PO SCH (06:20)
[2022-01-26 06:39] LABS: CREATININE 1.2 mg/dL (0.6-1.3); POTASSIUM 4.8 mmol/L (3.5-5.1)
[2022-01-26 06:43] LABS: MAGNESIUM 1.8 mg/dL (1.8-2.4)
[2022-01-26 07:03] LABS: HEMATOCRIT 26.7 % (31.2-41.9); MEAN CORPUSCULAR VOLUME 90.4 fL (75.5-95.3); PLATELET COUNT (AUTO) 195 K/uL (179-408)
[2022-01-26] MEDS: MIRALAX 17 GM POWD.PACK PO SCH (08:15)
[2022-01-26] MEDS: CARVEDILOL 12.5 MG TABLET PO SCH ×2 (08:16→16:12)
[2022-01-26] MEDS: NIFEdipine XL 60 MG TABSR PO SCH ×2 (08:16→21:32)
[2022-01-26] MEDS: BENAZEPRIL HCL 20 MG TABLET PO SCH ×2 (08:16→16:12)
[2022-01-26] MEDS: CLOPIDOGREL 75 MG TABLET PO SCH (08:16)
[2022-01-26] MEDS: DOCUSATE SODIUM 100 MG CAPSULE PO SCH ×2 (08:16→16:12)
[2022-01-26] MEDS: HEPARIN SODIUM,PORCINE 5,000 UNITS/ML VIAL SQ SCH ×2 (08:17→21:34)
[2022-01-26 11:55] VITALS: BP 120/48
[2022-01-26] MEDS ORDERED: SOD FERRIC GLUC COMPLX/SUCROSE 125 MG in IV NORMAL SALINE 100 ML IV SCH ×6 (14:00)
[2022-01-26] MEDS: SOD FERRIC GLUC COMPLX/SUCROSE 125 MG in IV NORMAL SALINE 100 ML IV SCH (14:06)
[2022-01-26 15:52] VITALS: BP 141/63
[2022-01-26 20:00] VITALS: BP 129/44
[2022-01-26] MEDS: MONTELUKAST SODIUM 10 MG TABLET PO SCH (21:31)
[2022-01-26] MEDS: ATORVASTATIN 40 MG TABLET PO SCH (21:32)
[2022-01-26] MEDS: TAMSULOSIN HCL 0.4 MG CAP.SR.24H PO SCH (21:42)
[2022-01-27 04:00] VITALS: BP 176/50
[2022-01-27] MEDS: PANTOPRAZOLE SODIUM 40 MG TABLET.DR PO SCH (06:05)
[2022-01-27 06:28] LABS: HEMATOCRIT 25.9 % (31.2-41.9); MEAN CORPUSCULAR HEMOGLOBIN 31.3 uug (24.7-32.8); MEAN CORPUSCULAR VOLUME 90.9 fL (75.5-95.3); PLATELET COUNT (AUTO) 202 K/uL (179-408)
[2022-01-27 06:57] LABS: CREATININE 1.2 mg/dL (0.6-1.3); MAGNESIUM 1.9 mg/dL (1.8-2.4); PHOSPHOROUS 4.5 mg/dL (2.5-4.9); POTASSIUM 5.3 mmol/L (3.5-5.1)
--- NOTE | 2022-01-27 08:00 | NUR ---
resting in bed, Tanzanian speaking,denies of pain, has right sided weakness from old cva, on r/a no shortness of breath noted, safety measudres in place, call light within reach, bed alarm on, needs attended
[2022-01-27] MEDS: DOCUSATE SODIUM 100 MG CAPSULE PO SCH ×2 (09:00→16:37)
[2022-01-27] MEDS: MIRALAX 17 GM POWD.PACK PO SCH (09:00)
[2022-01-27] MEDS: CLOPIDOGREL 75 MG TABLET PO SCH (09:20)
[2022-01-27] MEDS: HEPARIN SODIUM,PORCINE 5,000 UNITS/ML VIAL SQ SCH ×2 (09:22→21:12)
[2022-01-27] MEDS: BENAZEPRIL HCL 20 MG TABLET PO SCH (09:23)
[2022-01-27] MEDS: CARVEDILOL 12.5 MG TABLET PO SCH ×2 (09:23→16:39)
[2022-01-27] MEDS: NIFEdipine XL 60 MG TABSR PO SCH ×2 (09:24→21:14)
[2022-01-27 12:00] VITALS: BP 111/47
--- NOTE | 2022-01-27 12:00 | NUR ---
eating lunch- no coughing episode noted, appetite good, had BM earlier and washed and kept dry
[2022-01-27] MEDS: SOD FERRIC GLUC COMPLX/SUCROSE 125 MG in IV NORMAL SALINE 100 ML IV SCH (14:11)
[2022-01-27] MEDS ORDERED: SODIUM POLYSTYRENE SULFONATE 15 G/60 ML LIQUID UDC PO ONE (14:45)
[2022-01-27 15:06] LABS: *ALPHA-1-GLOBULIN, 24 3.4 % (.); *ALPHA-2-GLOBULIN, U24 11.2 % (.); *PEU ALBUMIN, 24 49.3 % (.); *PROTEIN, TOTAL, UR 24 HR 25.6 mg/dL (Not Estab.)
[2022-01-27 16:00] VITALS: BP 137/52
--- NOTE | 2022-01-27 17:51 | NUR ---
no distress noted, all needs attended and met, call light within reach
[2022-01-27 20:00] VITALS: BP 146/54
[2022-01-27] MEDS: TAMSULOSIN HCL 0.4 MG CAP.SR.24H PO SCH (21:13)
[2022-01-27] MEDS: ATORVASTATIN 40 MG TABLET PO SCH (21:14)
[2022-01-27] MEDS: MONTELUKAST SODIUM 10 MG TABLET PO SCH (21:14)
[2022-01-28 04:00] VITALS: BP 128/66
[2022-01-28] MEDS: PANTOPRAZOLE SODIUM 40 MG TABLET.DR PO SCH (06:09)
[2022-01-28 07:10] LABS: CREATININE 1.1 mg/dL (0.6-1.3); PHOSPHOROUS 5.2 mg/dL (2.5-4.9); POTASSIUM 4.3 mmol/L (3.5-5.1)
[2022-01-28] MEDS: CARVEDILOL 12.5 MG TABLET PO SCH ×2 (08:25→16:27)
[2022-01-28] MEDS: DOCUSATE SODIUM 100 MG CAPSULE PO SCH ×2 (08:25→16:27)
[2022-01-28] MEDS: NIFEdipine XL 60 MG TABSR PO SCH ×2 (08:25→20:44)
[2022-01-28] MEDS: CLOPIDOGREL 75 MG TABLET PO SCH (08:25)
[2022-01-28] MEDS: MIRALAX 17 GM POWD.PACK PO SCH (08:26)
[2022-01-28] MEDS: HEPARIN SODIUM,PORCINE 5,000 UNITS/ML VIAL SQ SCH ×2 (08:26→20:43)
[2022-01-28] MEDS ORDERED: BENAZEPRIL HCL 20 MG TABLET PO SCH (09:00)
[2022-01-28 09:42] LABS: HEMATOCRIT 27.1 % (31.2-41.9); MEAN CORPUSCULAR HEMOGLOBIN 30.7 uug (24.7-32.8); MEAN CORPUSCULAR VOLUME 91.5 fL (75.5-95.3); PLATELET COUNT (AUTO) 192 K/uL (179-408)
[2022-01-28] MEDS: BENAZEPRIL HCL 20 MG TABLET PO SCH ×2 (11:21→16:27)
[2022-01-28 12:00] VITALS: BP 111/55
[2022-01-28] MEDS ORDERED: FERR325T23 PO (13:03)
[2022-01-28] MEDS ORDERED: IRON SUCROSE COMPLEX 200 MG in IV NORMAL SALINE 100 ML IV SCH (14:00)
[2022-01-28 15:07] VITALS: BP 141/49
[2022-01-28 20:00] VITALS: BP 150/51
[2022-01-28] MEDS: ACETAMINOPHEN 325 MG TABLET PO PRN (20:44)
[2022-01-28] MEDS: TAMSULOSIN HCL 0.4 MG CAP.SR.24H PO SCH (20:44)
[2022-01-28] MEDS: ATORVASTATIN 40 MG TABLET PO SCH (20:44)
[2022-01-28] MEDS: MONTELUKAST SODIUM 10 MG TABLET PO SCH (20:44)
[2022-01-29 04:00] VITALS: BP 141/60
[2022-01-29] MEDS: PANTOPRAZOLE SODIUM 40 MG TABLET.DR PO SCH (06:34)
[2022-01-29] MEDS: CARVEDILOL 12.5 MG TABLET PO SCH ×2 (08:38→16:16)
[2022-01-29] MEDS: GUAIFENESIN/DEXTROMETHORPHAN 5 ML UDC PO PRN (08:38)
[2022-01-29] MEDS: NIFEdipine XL 60 MG TABSR PO SCH (08:38)
[2022-01-29] MEDS: DOCUSATE SODIUM 100 MG CAPSULE PO SCH ×2 (08:38→16:15)
[2022-01-29] MEDS: BENAZEPRIL HCL 20 MG TABLET PO SCH ×2 (08:38→16:16)
[2022-01-29] MEDS: CLOPIDOGREL 75 MG TABLET PO SCH (08:39)
[2022-01-29] MEDS: MIRALAX 17 GM POWD.PACK PO SCH (08:39)
[2022-01-29] MEDS: HEPARIN SODIUM,PORCINE 5,000 UNITS/ML VIAL SQ SCH (09:00)
--- NOTE | 2022-01-29 09:37 | NUR ---
PT WENT FOR MRI TO [facility] IN STABLE CONDITION
--- NOTE | 2022-01-29 10:49 | NUR ---
pt received back from mri in stable condition
[2022-01-29 11:12] VITALS: BP 129/43
--- NOTE | 2022-01-29 14:54 | NUR ---
dc folly catheter per md orders
[2022-01-29 15:06] VITALS: BP 130/68
[2022-01-29 16:16] VITALS: BP 130/68
--- NOTE | 2022-01-29 17:52 | NUR ---
dc orders received noted and carried out,dc heplock per md orders,dc instruction and education given to the pt pt left the facility via private car in stable condition
== END 2022-01-29 17:55 | disposition home or self-care (01) | DRG 689 ==
LOC: ER 02:07 → MEDSURG3 09:32
PROVIDERS: ADMIT Nurse Practitioner Family; ATTEND Registered Nurse
DX: N39.0 Urinary tract infection, site not specified (principal); N17.0 Acute kidney failure with tubular necrosis; N20.1 Calculus of ureter; I69.351 Hemiplegia and hemiparesis following cerebral infarction affecting right dominant side; E78.5 Hyperlipidemia, unspecified; E87.5 Hyperkalemia; G89.29 Other chronic pain; E88.09 Other disorders of plasma-protein metabolism, not elsewhere classified; N18.9 Chronic kidney disease, unspecified; J45.909 Unspecified asthma, uncomplicated; F32.A Depression, unspecified; Z20.822 Contact with and (suspected) exposure to COVID-19; I12.9 Hypertensive chronic kidney disease with stage 1 through stage 4 chronic kidney disease, or unspecified chronic kidney disease; E04.2 Nontoxic multinodular goiter; N63.10 Unspecified lump in the right breast, unspecified quadrant; B96.89 Other specified bacterial agents as the cause of diseases classified elsewhere; C79.51 Secondary malignant neoplasm of bone; M89.8X8 Other specified disorders of bone, other site
CPT/HCPCS: 36415; 70030-TC; 70450; 71045; 71250; 76641-TC; 76770; 82378; 82746; 82784; 83550; 83605; 83690; 83735; 84100; 84155; 84165; 84443; 84484; 85025; 85610; 85730; 86300; 86334; 87040; 93005; A4663; C1758; G0378; J0696; J1170; J1644; J1756; J1885; J2270; J2405; J2916; J3010; J3490; J7040

== ENCOUNTER 2022-04-12 17:30 | Emergency (ER) | payer MEDICARE, OTHER ==
[~2022-04-12] VITALS: Ht 121.9 cm; Wt 47.6 kg
[~2022-04-12 17:30] MED LIST changes: -BISA-79 PO; -BISA10SU61 RC; -DULO30CA2 PO; +FAMO40TA71 PO; +FERR325T23 PO; -HYDR-4209 PO; -MAGN30OR PO; +MONT10TA33 PO; -ONDA4TAB5 PO; -SULF1TAB48 PO; +TRAM50TA2 PO
--- NOTE | 2022-04-12 17:52 | NUR ---
MD@bedside, medical screening exam in progress
[2022-04-12] MEDS ORDERED: IV NORMAL SALINE 500 ML BAG IV ONE (18:00)
[2022-04-12] MEDS ORDERED: FAMOTIDINE. 20 MG/2 ML VIAL IV ONE ×2 (18:00→18:48)
[2022-04-12] MEDS ORDERED: IOHEXOL 300MG/ML 100 ML INFUS..BTL ONE (18:05)
[2022-04-12] MEDS ORDERED: IV NORMAL SALINE 250 ML IV ONE (18:05)
[2022-04-12] MEDS ORDERED: SWABABLE VALVE TRANSFER SET EA MC ONE (18:05)
[2022-04-12 18:30] LABS: HEMATOCRIT 34.6 % (31.2-41.9); MEAN CORPUSCULAR HEMOGLOBIN 30.9 uug (24.7-32.8); MEAN CORPUSCULAR VOLUME 93.3 fL (75.5-95.3); PLATELET COUNT (AUTO) 255 K/uL (179-408)
[2022-04-12 18:56] LABS: LIPASE 271 U/L (73-393)
[2022-04-12 18:57] LABS: ALANINE AMINOTRANSFERASE 9 U/L (14-59); ALKALINE PHOSPHATASE 29 U/L (50-136); ASPARTATE AMINOTRANSFERASE 14 U/L (15-37); BILIRUBIN,DIRECT 0.1 mg/dL (0.0-0.2); BILIRUBIN,TOTAL 0.4 mg/dL (0.2-1.0); CARBON DIOXIDE 25 mmol/L (21-32); CHLORIDE 107 mmol/L (98-107); CREATININE 1.6 mg/dL (0.6-1.3); GLUCOSE 126 mg/dL (74-106); POTASSIUM 5.5 mmol/L (3.5-5.1); TOTAL PROTEIN, SERUM 7.7 g/dL (6.4-8.2); UREA NITROGEN, BLOOD 40 mg/dL (7-18)
--- NOTE | 2022-04-12 18:58 | NUR ---
Patient taken to CT scan.
[2022-04-12] MEDS ORDERED: ONDANSETRON 4 MG/2 ML VIAL IV ONE (19:00)
[2022-04-12] MEDS ORDERED: MORPHINE SULFATE 4 MG/1 ML DISP.SYRIN IV ONE (19:00)
[2022-04-12] MEDS ORDERED: MORPHINE SULFATE 4 MG/1 ML DISP.SYRIN ONE (19:21)
[2022-04-12 20:05] LABS: *BILIRUBIN,URIN NEGATIVE (NEGATIVE); *CLARITY,URINE CLEAR (CLEAR); *COLOR,URINE YELLOW (YELLOW); *KETONES,URINE NEGATIVE (NEGATIVE); *UROBILINOGEN,URINE 0.2 E.U./dl (NORMAL); LEUKOCYTE ESTERASE ,URINE 2+ (NEGATIVE); NITRITE, URINE NEGATIVE (NEGATIVE); UGLUCOSE NEGATIVE (NEGATIVE)
[2022-04-12 20:06] LABS: *BLOOD, URINE NEGATIVE (NEGATIVE)
[2022-04-12] MEDS ORDERED: PROC5TAB59 PO (22:30)
[2022-04-12] MEDS ORDERED: HYDR-3972 PO (22:30)
[2022-04-12 22:56] VITALS: BP 150/70
== END 2022-04-12 22:57 | disposition home or self-care (01) ==
LOC: ER 17:33
DX: R10.30 Lower abdominal pain, unspecified (principal); R11.10 Vomiting, unspecified; Z20.822 Contact with and (suspected) exposure to COVID-19; Z87.442 Personal history of urinary calculi; Z87.440 Personal history of urinary (tract) infections; E78.5 Hyperlipidemia, unspecified; J45.909 Unspecified asthma, uncomplicated; I44.7 Left bundle-branch block, unspecified; F03.90 Unspecified dementia, unspecified severity, without behavioral disturbance, psychotic disturbance, mood disturbance, and anxiety; R53.1 Weakness; Z86.73 Personal history of transient ischemic attack (TIA), and cerebral infarction without residual deficits; I10 Essential (primary) hypertension; M40.209 Unspecified kyphosis, site unspecified; M19.90 Unspecified osteoarthritis, unspecified site
CPT/HCPCS: 99285; 74177; 96374; 71045; 96375; 87426; 80076; 80048; 81001; 83690; 85025; 85730; 84484 ×3; 36415; 93005; 73560; 83605; J3490; Q9967; J2270; J7040; A4663

== ENCOUNTER 2022-10-08 20:05 | Emergency (ER) | payer MEDICARE, OTHER ==
[~2022-10-08 20:05] MED LIST changes: +CEFU500T66 PO; +DULO30CA2 PO; +HYDR-3972 PO; +HYDR-894 PO; -PROP15DR EACHEYE
== END 2022-10-08 20:30 | disposition left against medical advice (07) ==
LOC: ER 20:05
DX: Z53.21 Procedure and treatment not carried out due to patient leaving prior to being seen by health care provider (principal)

== ENCOUNTER 2022-10-19 14:55 | Emergency (ER) | payer MEDICARE, OTHER ==
[~2022-10-19] VITALS: Ht 121.9 cm; Wt 44.9 kg
[2022-10-19] MEDS ORDERED: hydrALAZINE HCL 20 MG/1 ML VIAL IV ONE (16:00)
[2022-10-19] MEDS ORDERED: ONDANSETRON 4 MG/2 ML VIAL IV ONE (16:00)
[2022-10-19] MEDS ORDERED: ACETAMINOPHEN 325 MG TABLET PO ONE (16:00)
[2022-10-19] MEDS ORDERED: MORPHINE SULFATE 2 MG/1 ML DISP.SYRIN IV ONE (16:00)
[2022-10-19] MEDS ORDERED: hydrALAZINE HCL 20 MG/1 ML VIAL ONE (16:11)
[2022-10-19] MEDS ORDERED: ONDANSETRON 4 MG/2 ML VIAL ONE (16:11)
[2022-10-19] MEDS ORDERED: ACETAMINOPHEN 325 MG TABLET ONE (16:12)
[2022-10-19] MEDS ORDERED: MORPHINE SULFATE 2 MG/1 ML DISP.SYRIN ONE (16:12)
[2022-10-19 16:20] LABS: BASOPHILS % (AUTO) 0.6 % (0.0-2.0); EOSINOPHILS # (AUTO) 0.1 K/uL (0.0-0.7); EOSINOPHILS % (AUTO) 1.3 % (0.0-7.0); HEMATOCRIT 33.4 % (31.2-41.9); HEMOGLOBIN 11.1 g/dL (10.9-14.3); LYMPHOCYTES # (AUTO) 1.1 K/uL (0.8-4.8); MEAN CORPUSCULAR HEMOGLOBIN 31.4 uug (24.7-32.8); MEAN CORPUSCULAR HGB CONC 33 g/dL (32.3-35.6); MEAN CORPUSCULAR VOLUME 94.8 fL (75.5-95.3); MONOCYTES # (AUTO) 0.5 K/uL (0.1-1.30); MONOCYTES % (AUTO) 6.5 % (0.0-11.0); NEUTROPHILS # (AUTO) 5.9 K/uL (1.8-8.9); NEUTROPHILS % (AUTO) 77.6 % (38.5-71.5); PLATELET COUNT (AUTO) 238 K/uL (179-408); RED BLOOD CELL COUNT(AUTO) 3.52 MIL/uL (3.63-4.92); RED CELL DISTRIBUTION WIDTH 12.6 % (12.3-17.7); WHITE BLOOD COUNT (AUTO) 7.6 K/uL (3.8-11.8)
[2022-10-19 16:24] LABS: DIFFERENTIAL COMMENT 1
[2022-10-19 17:01] LABS: ALBUMIN 3.3 g/dL (3.4-5.0); ALKALINE PHOSPHATASE 22 U/L (50-136); ASPARTATE AMINOTRANSFERASE 13 U/L (15-37); BILIRUBIN,DIRECT 0.1 mg/dL (0.0-0.2); BILIRUBIN,TOTAL 0.3 mg/dL (0.2-1.0); LIPASE 137 U/L (73-393)
[2022-10-19 17:06] LABS: CALCIUM 8.8 mg/dL (8.5-10.1); CARBON DIOXIDE 23 mmol/L (21-32); CHLORIDE 105 mmol/L (98-107); CREATININE 1.6 mg/dL (0.6-1.3); GLUCOSE 103 mg/dL (74-106); POTASSIUM 5.3 mmol/L (3.5-5.1); SODIUM SERUM 139 mmol/L (136-145); UREA NITROGEN, BLOOD 42 mg/dL (7-18)
[2022-10-19 17:14] LABS: ALANINE AMINOTRANSFERASE 7 U/L (14-59)
[2022-10-19] MEDS ORDERED: POLY17PO4 PO (17:59)
[2022-10-19 18:16] LABS: *BILIRUBIN,URIN NEGATIVE (NEGATIVE); *BLOOD, URINE NEGATIVE (NEGATIVE); *CLARITY,URINE SLIGHTLY CLOUDY (CLEAR); *COLOR,URINE YELLOW (YELLOW); *KETONES,URINE NEGATIVE (NEGATIVE); *PROTEIN,URINE 2+ (NEGATIVE); *UROBILINOGEN,URINE 0.2 E.U./dl (NORMAL); LEUKOCYTE ESTERASE ,URINE 2+ (NEGATIVE); NITRITE, URINE NEGATIVE (NEGATIVE); UGLUCOSE NEGATIVE (NEGATIVE)
[2022-10-19 18:28] LABS: RBC,URINE 0-3 /HPF (0-3)
[2022-10-19] MEDS ORDERED: CEPH500C2 PO (18:38)
[2022-10-19 19:12] VITALS: BP 137/53; O2SAT 96
== END 2022-10-19 19:16 | disposition home or self-care (01) ==
LOC: ER 14:55
DX: R10.30 Lower abdominal pain, unspecified (principal); R11.2 Nausea with vomiting, unspecified; K59.00 Constipation, unspecified; R51.9 Headache, unspecified; R07.89 Other chest pain; I10 Essential (primary) hypertension; E78.5 Hyperlipidemia, unspecified; J45.909 Unspecified asthma, uncomplicated; K21.9 Gastro-esophageal reflux disease without esophagitis; Z79.899 Other long term (current) drug therapy; Z79.01 Long term (current) use of anticoagulants
CPT/HCPCS: 99285; 74176; 96374; 71045; 96375; 80076; 80048; 81001; 83690; 85025; 84484; 36415; 93005; J0360; J2405; J2270; A4663

== ENCOUNTER 2022-12-12 07:55 | Inpatient (IN) | payer MEDICARE, OTHER ==
[~2022-12-12] VITALS: Ht 152.4 cm; Wt 45.4 kg
[~2022-12-12 07:55] MED LIST changes: +CEPH500C2 PO; +POLY17PO4 PO
[2022-12-12 08:27] LABS: BASOPHILS % (AUTO) 0.2 % (0.0-2.0); DIFFERENTIAL COMMENT 1; EOSINOPHILS % (AUTO) 0.3 % (0.0-7.0); HEMATOCRIT 33.2 % (31.2-41.9); LYMPHOCYTES # (AUTO) 0.5 K/uL (0.8-4.8); MEAN CORPUSCULAR HEMOGLOBIN 31.5 uug (24.7-32.8); MEAN CORPUSCULAR HGB CONC 33 g/dL (32.3-35.6); MEAN CORPUSCULAR VOLUME 95.5 fL (75.5-95.3); MONOCYTES # (AUTO) 1.6 K/uL (0.1-1.30); MONOCYTES % (AUTO) 9.2 % (0.0-11.0); NEUTROPHILS # (AUTO) 14.9 K/uL (1.8-8.9); NEUTROPHILS % (AUTO) 87.3 % (38.5-71.5); PLATELET COUNT (AUTO) 215 K/uL (179-408); RED BLOOD CELL COUNT(AUTO) 3.48 MIL/uL (3.63-4.92); RED CELL DISTRIBUTION WIDTH 13.4 % (12.3-17.7); WHITE BLOOD COUNT (AUTO) 17.1 K/uL (3.8-11.8)
[2022-12-12] MEDS ORDERED: ONDANSETRON 4 MG/2 ML VIAL IV ONE (08:30)
[2022-12-12 08:43] LABS: ALANINE AMINOTRANSFERASE 11 U/L (14-59); ALBUMIN 3.3 g/dL (3.4-5.0); ALKALINE PHOSPHATASE 37 U/L (50-136); ASPARTATE AMINOTRANSFERASE 8 U/L (15-37); BILIRUBIN,DIRECT 0.1 mg/dL (0.0-0.2); BILIRUBIN,TOTAL 0.5 mg/dL (0.2-1.0); CALCIUM 8.9 mg/dL (8.5-10.1); CARBON DIOXIDE 20 mmol/L (21-32); CHLORIDE 109 mmol/L (98-107); CREATININE 1.5 mg/dL (0.6-1.3); GLUCOSE 146 mg/dL (74-106); LIPASE 681 U/L (73-393); POTASSIUM 4.3 mmol/L (3.5-5.1); SODIUM SERUM 140 mmol/L (136-145); TOTAL PROTEIN, SERUM 6.9 g/dL (6.4-8.2); UREA NITROGEN, BLOOD 49 mg/dL (7-18)
[2022-12-12] MEDS ORDERED: IV NORMAL SALINE 1000 ML BAG IV ONE (09:15)
[2022-12-12] MEDS ORDERED: ONDANSETRON 4 MG/2 ML VIAL ONE (09:23)
[2022-12-12 11:21] LABS: *BILIRUBIN,URIN NEGATIVE (NEGATIVE); *BLOOD, URINE NEGATIVE (NEGATIVE); *CLARITY,URINE CLEAR (CLEAR); *COLOR,URINE YELLOW (YELLOW); *KETONES,URINE NEGATIVE (NEGATIVE); *PROTEIN,URINE 1+ (NEGATIVE); *UROBILINOGEN,URINE 0.2 E.U./dl (NORMAL); LEUKOCYTE ESTERASE ,URINE NEGATIVE (NEGATIVE); NITRITE, URINE NEGATIVE (NEGATIVE); UGLUCOSE NEGATIVE (NEGATIVE)
[2022-12-12 12:42] LABS: SQUAMOUS EPITHELIAL CELL,UR FEW /HPF (NONE SEEN)
[2022-12-12 12:43] LABS: BACTERIA,URINE FEW /HPF (NONE SEEN); MUCUS,URINE FEW /LPF (0-FEW)
[2022-12-12] MEDS ORDERED: IV 1/2NS 1000 ML 1,000 ML IV PRN (15:15)
[2022-12-12] MEDS ORDERED: ONDANSETRON 4 MG/2 ML VIAL IV PRN (15:15)
[2022-12-12] MEDS ORDERED: REMEDY ESSENTIAL ZINC PASTE 113 GM TP PRN (15:15)
[2022-12-12 15:18] VITALS: BP 168/50; TEMP 98.4; O2SAT 98
[2022-12-12] MEDS ORDERED: DULOXETINE 30 MG CAPSULE.DR PO PRN (15:30)
[2022-12-12] MEDS: DOCUSATE SODIUM 100 MG CAPSULE PO SCH (17:00)
[2022-12-12] MEDS: FERROUS SULFATE 325 MG TABEC PO SCH (17:42)
[2022-12-12] MEDS: NIFEdipine XL 60 MG TABSR PO SCH (17:45)
[2022-12-12] MEDS ORDERED: levoFLOXacin 500 MG/D5W 500 MG in PREMIXED 1 EACH IV SCH (19:30)
[2022-12-12 20:00] VITALS: BP 136/44; TEMP 98.8; O2SAT 97
[2022-12-12] MEDS: ATORVASTATIN 40 MG TABLET PO SCH (21:48)
[2022-12-12] MEDS: MONTELUKAST SODIUM 10 MG TABLET PO SCH (21:48)
[2022-12-12] MEDS: HEPARIN SODIUM,PORCINE 5,000 UNITS/ML VIAL SQ SCH (21:53)
[2022-12-12] MEDS: METRONIDAZOLE 500 MG/NS 100ML 500 MG in PREMIXED 1 EACH IV SCH (23:35)
[2022-12-13 04:00] VITALS: BP 131/45; TEMP 98.7; O2SAT 97
[2022-12-13] MEDS: METRONIDAZOLE 500 MG/NS 100ML 500 MG in PREMIXED 1 EACH IV SCH ×3 (05:08→22:29)
[2022-12-13] MEDS: PANTOPRAZOLE SODIUM 40 MG TABLET.DR PO SCH (06:11)
[2022-12-13 07:11] LABS: BASOPHILS % (AUTO) 0.2 % (0.0-2.0); EOSINOPHILS # (AUTO) 0.1 K/uL (0.0-0.7); EOSINOPHILS % (AUTO) 1.1 % (0.0-7.0); HEMATOCRIT 27.4 % (31.2-41.9); HEMOGLOBIN 9.2 g/dL (10.9-14.3); LYMPHOCYTES % (AUTO) 10.3 % (20.5-51.5); MEAN CORPUSCULAR HGB CONC 33 g/dL (32.3-35.6); MEAN CORPUSCULAR VOLUME 95.9 fL (75.5-95.3); MONOCYTES % (AUTO) 9.6 % (0.0-11.0); NEUTROPHILS # (AUTO) 7.8 K/uL (1.8-8.9); NEUTROPHILS % (AUTO) 78.8 % (38.5-71.5); PLATELET COUNT (AUTO) 172 K/uL (179-408); RED BLOOD CELL COUNT(AUTO) 2.86 MIL/uL (3.63-4.92); RED CELL DISTRIBUTION WIDTH 13.4 % (12.3-17.7); WHITE BLOOD COUNT (AUTO) 9.9 K/uL (3.8-11.8)
[2022-12-13 07:16] LABS: DIFFERENTIAL COMMENT 1
[2022-12-13 07:28] LABS: ALANINE AMINOTRANSFERASE 11 U/L (14-59); ALBUMIN 2.6 g/dL (3.4-5.0); ALKALINE PHOSPHATASE 13 U/L (50-136); ASPARTATE AMINOTRANSFERASE 7 U/L (15-37); BILIRUBIN,TOTAL 0.4 mg/dL (0.2-1.0); CALCIUM 8.2 mg/dL (8.5-10.1); CARBON DIOXIDE 20 mmol/L (21-32); CHLORIDE 112 mmol/L (98-107); CREATININE 1.5 mg/dL (0.6-1.3); GLUCOSE 103 mg/dL (74-106); LIPASE 553 U/L (73-393); MAGNESIUM 2.1 mg/dL (1.8-2.4); PHOSPHOROUS 4.7 mg/dL (2.5-4.9); SODIUM SERUM 143 mmol/L (136-145); TOTAL PROTEIN, SERUM 5.5 g/dL (6.4-8.2); UREA NITROGEN, BLOOD 40 mg/dL (7-18)
[2022-12-13 08:01] LABS: CHOLESTEROL 115 mg/dL (<200); HDL CHOLESTEROL 46 mg/dL (40-60); TRIGLYCERIDES 80 MG/DL (30-150)
[2022-12-13] MEDS: DOCUSATE SODIUM 100 MG CAPSULE PO SCH ×2 (08:58→16:31)
[2022-12-13] MEDS: CLOPIDOGREL 75 MG TABLET PO SCH (08:58)
[2022-12-13] MEDS: FERROUS SULFATE 325 MG TABEC PO SCH ×2 (08:58→16:31)
[2022-12-13] MEDS: NIFEdipine XL 60 MG TABSR PO SCH ×2 (09:01→16:32)
[2022-12-13] MEDS: HEPARIN SODIUM,PORCINE 5,000 UNITS/ML VIAL SQ SCH ×2 (09:03→20:40)
[2022-12-13 11:06] VITALS: BP 149/43; TEMP 98.2; O2SAT 97
[2022-12-13 15:11] VITALS: BP 121/38; TEMP 98.6; O2SAT 96
[2022-12-13] MEDS: ACETAMINOPHEN 325 MG TABLET PO PRN (18:59)
[2022-12-13] MEDS: ATORVASTATIN 40 MG TABLET PO SCH (20:38)
[2022-12-13] MEDS: MONTELUKAST SODIUM 10 MG TABLET PO SCH (20:38)
[2022-12-13 20:43] VITALS: BP 124/38; TEMP 98.6; O2SAT 96
[2022-12-13] MEDS ORDERED: LEVOFLOXACIN/D5W 250 MG in PREMIX 1 EA IV SCH (21:00)
[2022-12-14 04:20] VITALS: BP 140/44; TEMP 98.4; O2SAT 95
[2022-12-14] MEDS: METRONIDAZOLE 500 MG/NS 100ML 500 MG in PREMIXED 1 EACH IV SCH ×2 (05:22→13:10)
[2022-12-14] MEDS: PANTOPRAZOLE SODIUM 40 MG TABLET.DR PO SCH (06:13)
[2022-12-14 06:43] LABS: BASOPHILS % (AUTO) 0.4 % (0.0-2.0); EOSINOPHILS # (AUTO) 0.1 K/uL (0.0-0.7); EOSINOPHILS % (AUTO) 1.1 % (0.0-7.0); HEMATOCRIT 26.3 % (31.2-41.9); LYMPHOCYTES % (AUTO) 17.2 % (20.5-51.5); MEAN CORPUSCULAR HEMOGLOBIN 32.2 uug (24.7-32.8); MEAN CORPUSCULAR HGB CONC 34 g/dL (32.3-35.6); MEAN CORPUSCULAR VOLUME 94.5 fL (75.5-95.3); MONOCYTES # (AUTO) 0.6 K/uL (0.1-1.30); MONOCYTES % (AUTO) 10.1 % (0.0-11.0); NEUTROPHILS # (AUTO) 4.3 K/uL (1.8-8.9); NEUTROPHILS % (AUTO) 71.2 % (38.5-71.5); PLATELET COUNT (AUTO) 163 K/uL (179-408); RED BLOOD CELL COUNT(AUTO) 2.78 MIL/uL (3.63-4.92); RED CELL DISTRIBUTION WIDTH 13.1 % (12.3-17.7); WHITE BLOOD COUNT (AUTO) 6.1 K/uL (3.8-11.8)
[2022-12-14 06:59] LABS: DIFFERENTIAL COMMENT 1
[2022-12-14 07:53] LABS: ALBUMIN 2.6 g/dL (3.4-5.0); BILIRUBIN,TOTAL 0.4 mg/dL (0.2-1.0); CALCIUM 7.9 mg/dL (8.5-10.1); CREATININE 1.3 mg/dL (0.6-1.3); MAGNESIUM 2.1 mg/dL (1.8-2.4); POTASSIUM 3.9 mmol/L (3.5-5.1); TOTAL PROTEIN, SERUM 5.6 g/dL (6.4-8.2)
[2022-12-14] MEDS: FERROUS SULFATE 325 MG TABEC PO SCH ×2 (08:50→17:06)
[2022-12-14] MEDS: CLOPIDOGREL 75 MG TABLET PO SCH (08:50)
[2022-12-14] MEDS: DOCUSATE SODIUM 100 MG CAPSULE PO SCH ×2 (08:50→17:07)
[2022-12-14] MEDS: NIFEdipine XL 60 MG TABSR PO SCH ×2 (08:50→17:07)
[2022-12-14] MEDS: HEPARIN SODIUM,PORCINE 5,000 UNITS/ML VIAL SQ SCH ×2 (08:51→20:47)
[2022-12-14] MEDS: CARVEDILOL 12.5 MG TABLET PO SCH ×2 (10:32→17:07)
[2022-12-14 11:12] VITALS: BP 145/47; TEMP 98.4; O2SAT 96
[2022-12-14 15:16] VITALS: BP 116/43; TEMP 97.8; O2SAT 95
[2022-12-14 20:38] VITALS: BP 100/52; TEMP 98.9; O2SAT 95
[2022-12-14] MEDS: MONTELUKAST SODIUM 10 MG TABLET PO SCH (20:44)
[2022-12-14] MEDS: ATORVASTATIN 40 MG TABLET PO SCH (20:44)
[2022-12-14] MEDS ORDERED: levoFLOXacin 500 MG TABLET PO SCH (20:45)
[2022-12-14] MEDS ORDERED: levoFLOXacin 250MG /D5W 50 ML IV SCH (21:00)
[2022-12-14] MEDS ORDERED: levoFLOXacin 250MG /D5W 50 ML IV ONE (22:10)
[2022-12-14] MEDS: METRONIDAZOLE 500 MG TABLET PO SCH (23:40)
[2022-12-15 04:03] VITALS: BP 157/46; TEMP 98.8; O2SAT 94
[2022-12-15] MEDS: PANTOPRAZOLE SODIUM 40 MG TABLET.DR PO SCH (06:07)
[2022-12-15] MEDS: METRONIDAZOLE 500 MG TABLET PO SCH ×2 (06:07→14:27)
[2022-12-15 07:09] LABS: BASOPHILS % (AUTO) 0.5 % (0.0-2.0); EOSINOPHILS # (AUTO) 0.1 K/uL (0.0-0.7); EOSINOPHILS % (AUTO) 1.6 % (0.0-7.0); HEMATOCRIT 28.4 % (31.2-41.9); HEMOGLOBIN 9.6 g/dL (10.9-14.3); LYMPHOCYTES # (AUTO) 1.3 K/uL (0.8-4.8); LYMPHOCYTES % (AUTO) 21.9 % (20.5-51.5); MEAN CORPUSCULAR HEMOGLOBIN 31.9 uug (24.7-32.8); MEAN CORPUSCULAR HGB CONC 34 g/dL (32.3-35.6); MONOCYTES # (AUTO) 0.7 K/uL (0.1-1.30); MONOCYTES % (AUTO) 12.3 % (0.0-11.0); NEUTROPHILS # (AUTO) 3.7 K/uL (1.8-8.9); NEUTROPHILS % (AUTO) 63.7 % (38.5-71.5); PLATELET COUNT (AUTO) 216 K/uL (179-408); RED BLOOD CELL COUNT(AUTO) 3.02 MIL/uL (3.63-4.92); RED CELL DISTRIBUTION WIDTH 12.9 % (12.3-17.7); WHITE BLOOD COUNT (AUTO) 5.8 K/uL (3.8-11.8)
[2022-12-15 07:24] LABS: DIFFERENTIAL COMMENT 1
[2022-12-15 07:27] LABS: CARBON DIOXIDE 20 mmol/L (21-32); CHLORIDE 109 mmol/L (98-107); CREATININE 1.2 mg/dL (0.6-1.3); GLUCOSE 108 mg/dL (74-106); SODIUM SERUM 141 mmol/L (136-145); UREA NITROGEN, BLOOD 24 mg/dL (7-18)
[2022-12-15 08:02] LABS: MAGNESIUM 1.9 mg/dL (1.8-2.4); PHOSPHOROUS 3.8 mg/dL (2.5-4.9)
[2022-12-15] MEDS: DOCUSATE SODIUM 100 MG CAPSULE PO SCH (09:22)
[2022-12-15] MEDS: NIFEdipine XL 60 MG TABSR PO SCH (09:23)
[2022-12-15] MEDS: FERROUS SULFATE 325 MG TABEC PO SCH (09:24)
[2022-12-15] MEDS: CLOPIDOGREL 75 MG TABLET PO SCH (09:24)
[2022-12-15] MEDS: CARVEDILOL 12.5 MG TABLET PO SCH (09:24)
[2022-12-15] MEDS: HEPARIN SODIUM,PORCINE 5,000 UNITS/ML VIAL SQ SCH (09:25)
[2022-12-15] MEDS: ACETAMINOPHEN 325 MG TABLET PO PRN (09:29)
[2022-12-15 11:44] VITALS: BP 133/46; TEMP 98.6; O2SAT 97
[2022-12-15] MEDS ORDERED: METR500T PO (11:59)
[2022-12-15] MEDS ORDERED: LEVO500T90 PO (11:59)
[2022-12-15 15:48] VITALS: BP 133/47; TEMP 98.7; O2SAT 96
[2022-12-17 02:06] LABS: CARCINOEMBRYONIC AG (CEA) 3.2 ng/mL (0.0-4.7)
== END 2022-12-15 17:55 | disposition home health service (06) | DRG 640 ==
LOC: ER 08:07 → MEDSURG3 14:01
PROVIDERS: ADMIT Nurse Practitioner Family; ATTEND Nurse Practitioner Family
DX: E86.0 Dehydration (principal); K85.90 Acute pancreatitis without necrosis or infection, unspecified; A09 Infectious gastroenteritis and colitis, unspecified; F03.93 Unspecified dementia, unspecified severity, with mood disturbance; N17.9 Acute kidney failure, unspecified; I69.351 Hemiplegia and hemiparesis following cerebral infarction affecting right dominant side; R65.10 Systemic inflammatory response syndrome (SIRS) of non-infectious origin without acute organ dysfunction; E78.5 Hyperlipidemia, unspecified; K21.9 Gastro-esophageal reflux disease without esophagitis; Z87.440 Personal history of urinary (tract) infections; Z96.642 Presence of left artificial hip joint; Z79.899 Other long term (current) drug therapy; D64.9 Anemia, unspecified; J45.909 Unspecified asthma, uncomplicated; I12.9 Hypertensive chronic kidney disease with stage 1 through stage 4 chronic kidney disease, or unspecified chronic kidney disease; N18.9 Chronic kidney disease, unspecified; Z79.02 Long term (current) use of antithrombotics/antiplatelets; I44.7 Left bundle-branch block, unspecified
CPT/HCPCS: 36415; 71045; 82378; 83550; 83690; 83735; 84100; 85025; 86300; 86301; 93005; A4663; C1758; G0378; J1644; J1956; J2405; J3490

== ENCOUNTER 2023-01-08 03:32 | Inpatient (IN) | payer MEDICARE, OTHER ==
[~2023-01-08] VITALS: Ht 152.4 cm; Wt 49.0 kg
[~2023-01-08 03:32] MED LIST changes: -BENA20TA9 PO; -CEPH500C2 PO; +LEVO500T90 PO; +METR500T PO; -MIRA25TA PO
[2023-01-08] MEDS ORDERED: ONDANSETRON 4 MG/2 ML VIAL IV ONE (04:15)
[2023-01-08] MEDS ORDERED: IV NORMAL SALINE 500 ML BAG IV ONE (04:15)
[2023-01-08] MEDS ORDERED: FAMOTIDINE. 20 MG/2 ML VIAL IV ONE (04:15)
[2023-01-08] MEDS ORDERED: CLOP75TA15 PO (04:25)
[2023-01-08] MEDS ORDERED: FERR-56 PO (04:25)
[2023-01-08] MEDS ORDERED: DULO30CA52 PO (04:25)
[2023-01-08] MEDS ORDERED: ONDA4TAB5 PO (04:25)
[2023-01-08] MEDS ORDERED: LEVE100S PO (04:25)
[2023-01-08] MEDS ORDERED: BENA20TA9 PO (04:25)
[2023-01-08 04:43] LABS: BASOPHILS # (AUTO) 0.1 K/UL (0.0-0.2); BASOPHILS % (AUTO) 0.7 % (0.0-2.0); EOSINOPHILS # (AUTO) 0.2 K/uL (0.0-0.7); EOSINOPHILS % (AUTO) 2.1 % (0.0-7.0); HEMATOCRIT 32.5 % (31.2-41.9); LYMPHOCYTES # (AUTO) 0.7 K/uL (0.8-4.8); LYMPHOCYTES % (AUTO) 9.2 % (20.5-51.5); MEAN CORPUSCULAR HEMOGLOBIN 32.2 uug (24.7-32.8); MEAN CORPUSCULAR HGB CONC 34 g/dL (32.3-35.6); MEAN CORPUSCULAR VOLUME 94.9 fL (75.5-95.3); MONOCYTES # (AUTO) 0.5 K/uL (0.1-1.30); MONOCYTES % (AUTO) 6.5 % (0.0-11.0); NEUTROPHILS # (AUTO) 6.5 K/uL (1.8-8.9); NEUTROPHILS % (AUTO) 81.5 % (38.5-71.5); PLATELET COUNT (AUTO) 235 K/uL (179-408); RED BLOOD CELL COUNT(AUTO) 3.42 MIL/uL (3.63-4.92); RED CELL DISTRIBUTION WIDTH 13.6 % (12.3-17.7)
[2023-01-08 05:00] LABS: CALCIUM 8.6 mg/dL (8.5-10.1); CARBON DIOXIDE 25 mmol/L (21-32); CHLORIDE 108 mmol/L (98-107); CREATININE 1.6 mg/dL (0.6-1.3); GLUCOSE 117 mg/dL (74-106); POTASSIUM 5.2 mmol/L (3.5-5.1); SODIUM SERUM 143 mmol/L (136-145); UREA NITROGEN, BLOOD 36 mg/dL (7-18)
[2023-01-08 05:05] LABS: DIFFERENTIAL COMMENT 1
[2023-01-08 05:05] LABS: *BILIRUBIN,URIN NEGATIVE (NEGATIVE); *BLOOD, URINE NEGATIVE (NEGATIVE); *CLARITY,URINE CLEAR (CLEAR); *COLOR,URINE YELLOW (YELLOW); *KETONES,URINE NEGATIVE (NEGATIVE); *PROTEIN,URINE 1+ (NEGATIVE); *UROBILINOGEN,URINE 0.2 E.U./dl (NORMAL); LEUKOCYTE ESTERASE ,URINE TRACE (NEGATIVE); NITRITE, URINE NEGATIVE (NEGATIVE); UGLUCOSE NEGATIVE (NEGATIVE)
[2023-01-08 05:09] LABS: ALANINE AMINOTRANSFERASE 12 U/L (14-59); ALBUMIN 3.3 g/dL (3.4-5.0); ALKALINE PHOSPHATASE 31 U/L (50-136); ASPARTATE AMINOTRANSFERASE 13 U/L (15-37); BILIRUBIN,DIRECT 0.1 mg/dL (0.0-0.2); BILIRUBIN,TOTAL 0.3 mg/dL (0.2-1.0); LIPASE 143 U/L (16-77); TOTAL PROTEIN, SERUM 6.5 g/dL (6.4-8.2)
[2023-01-08] MEDS ORDERED: hydrALAZINE HCL 20 MG/1 ML VIAL ONE (05:55)
[2023-01-08] MEDS ORDERED: MORPHINE SULFATE 2 MG/1 ML DISP.SYRIN ONE (05:55)
[2023-01-08 05:57] LABS: RBC,URINE 0-3 /HPF (0-3); SQUAMOUS EPITHELIAL CELL,UR MODERATE /HPF (NONE SEEN)
[2023-01-08 05:58] LABS: BACTERIA,URINE MODERATE /HPF (NONE SEEN)
[2023-01-08] MEDS ORDERED: MORPHINE SULFATE 2 MG/1 ML DISP.SYRIN IV ONE (06:00)
[2023-01-08] MEDS ORDERED: hydrALAZINE HCL 20 MG/1 ML VIAL IV ONE (06:00)
[2023-01-08] MEDS ORDERED: MORPHINE SULFATE 2 MG/1 ML DISP.SYRIN IV PRN (06:30)
[2023-01-08] MEDS ORDERED: MAGNESIUM HYDROXIDE 30 ML LIQUID UDC PO PRN (06:30)
[2023-01-08] MEDS ORDERED: ONDANSETRON 4 MG/2 ML VIAL IV PRN (06:30)
[2023-01-08] MEDS ORDERED: ACETAMINOPHEN 325 MG TABLET PO PRN (06:30)
[2023-01-08] MEDS ORDERED: hydrALAZINE HCL 20 MG/1 ML VIAL IV PRN (06:30)
[2023-01-08] MEDS ORDERED: REMEDY ESSENTIAL ZINC PASTE 113 GM TP PRN (06:30)
[2023-01-08] MEDS ORDERED: IV NS 1000 ML 1,000 ML IV SCH (06:45)
[2023-01-08 08:45] VITALS: BP 153/50; TEMP 98.7; O2SAT 97
[2023-01-08] MEDS ORDERED: INFLUENZA VACCINE 2023-2024 0.5 ML DISP.SYRIN IM ONE (11:45)
[2023-01-08] MEDS: levETIRAcetam 500 MG/5 ML LIQUID UDC PO SCH ×2 (14:21→20:58)
[2023-01-08 16:20] VITALS: BP 120/37; TEMP 97.7; O2SAT 96
[2023-01-08] MEDS ORDERED: DIATR MEGLU/DIATRIZOATE SODIUM 30 ML BOTTLE ONE (17:02)
[2023-01-08] MEDS: CEFTRIAXONE 1 G in IV DEXTROSE 5% 50 ML IV SCH (17:40)
[2023-01-08] MEDS ORDERED: IV D5 1/2 NS 1000 ML 1,000 ML IV PRN (17:45)
[2023-01-08] MEDS: METRONIDAZOLE 500 MG/NS 100ML 500 MG in PREMIXED 1 EACH IV SCH (20:59)
[2023-01-08 21:31] VITALS: BP 133/82; TEMP 98.8
[2023-01-09] MEDS: METRONIDAZOLE 500 MG/NS 100ML 500 MG in PREMIXED 1 EACH IV SCH ×3 (05:17→22:16)
[2023-01-09 05:20] VITALS: BP 138/76; TEMP 98.8
[2023-01-09 07:44] LABS: BASOPHILS % (AUTO) 0.5 % (0.0-2.0); EOSINOPHILS # (AUTO) 0.1 K/uL (0.0-0.7); EOSINOPHILS % (AUTO) 2.1 % (0.0-7.0); HEMATOCRIT 25.7 % (31.2-41.9); HEMOGLOBIN 8.7 g/dL (10.9-14.3); LYMPHOCYTES # (AUTO) 0.6 K/uL (0.8-4.8); LYMPHOCYTES % (AUTO) 11.4 % (20.5-51.5); MEAN CORPUSCULAR HEMOGLOBIN 32.5 uug (24.7-32.8); MEAN CORPUSCULAR HGB CONC 34 g/dL (32.3-35.6); MEAN CORPUSCULAR VOLUME 95.9 fL (75.5-95.3); MONOCYTES # (AUTO) 0.6 K/uL (0.1-1.30); MONOCYTES % (AUTO) 10.5 % (0.0-11.0); NEUTROPHILS # (AUTO) 4.2 K/uL (1.8-8.9); NEUTROPHILS % (AUTO) 75.5 % (38.5-71.5); PLATELET COUNT (AUTO) 179 K/uL (179-408); RED BLOOD CELL COUNT(AUTO) 2.68 MIL/uL (3.63-4.92); RED CELL DISTRIBUTION WIDTH 13.6 % (12.3-17.7); WHITE BLOOD COUNT (AUTO) 5.6 K/uL (3.8-11.8)
[2023-01-09 08:00] LABS: DIFFERENTIAL COMMENT 1
[2023-01-09 08:01] LABS: ALANINE AMINOTRANSFERASE 7 U/L (14-59); ALBUMIN 2.5 g/dL (3.4-5.0); ASPARTATE AMINOTRANSFERASE 9 U/L (15-37); BILIRUBIN,TOTAL 0.2 mg/dL (0.2-1.0); CALCIUM 7.9 mg/dL (8.5-10.1); CARBON DIOXIDE 21 mmol/L (21-32); CHLORIDE 114 mmol/L (98-107); CREATININE 1.5 mg/dL (0.6-1.3); GLUCOSE 104 mg/dL (74-106); MAGNESIUM 2.1 mg/dL (1.8-2.4); PHOSPHOROUS 6.1 mg/dL (2.5-4.9); POTASSIUM 4.5 mmol/L (3.5-5.1); SODIUM SERUM 146 mmol/L (136-145); TOTAL PROTEIN, SERUM 5.1 g/dL (6.4-8.2); UREA NITROGEN, BLOOD 32 mg/dL (7-18)
[2023-01-09 08:02] LABS: ALKALINE PHOSPHATASE < 10 U/L (50-136)
[2023-01-09 08:11] LABS: LIPASE 109 U/L (16-77)
[2023-01-09] MEDS: levETIRAcetam 500 MG/5 ML LIQUID UDC PO SCH ×2 (08:30→20:29)
[2023-01-09 09:29] LABS: IRON, SERUM 33 ug/dL (50-175)
[2023-01-09 11:16] VITALS: BP 170/48; TEMP 97.6; O2SAT 98
[2023-01-09] MEDS ORDERED: hydrALAZINE HCL 25 MG TABLET PO PRN (15:45)
[2023-01-09 16:05] VITALS: BP 157/50; TEMP 98.2; O2SAT 97
[2023-01-09] MEDS: CEFTRIAXONE 1 G in IV DEXTROSE 5% 50 ML IV SCH (16:11)
[2023-01-09] MEDS: NIFEdipine XL 60 MG TABSR PO SCH (16:11)
[2023-01-09 19:43] VITALS: BP 134/49; TEMP 98.3; O2SAT 98
[2023-01-10 00:08] VITALS: BP 124/40; TEMP 98
[2023-01-10 05:00] VITALS: BP 132/40; TEMP 98.1; O2SAT 96
[2023-01-10] MEDS: METRONIDAZOLE 500 MG/NS 100ML 500 MG in PREMIXED 1 EACH IV SCH ×3 (05:49→22:03)
[2023-01-10 07:18] LABS: *OCCULT BLOOD STOOL NEGATIVE (NEGATIVE)
[2023-01-10] MEDS: NIFEdipine XL 60 MG TABSR PO SCH (08:34)
[2023-01-10] MEDS: levETIRAcetam 500 MG/5 ML LIQUID UDC PO SCH ×2 (08:34→20:35)
[2023-01-10 11:30] VITALS: BP 143/47; TEMP 98.1; O2SAT 96
[2023-01-10 15:38] VITALS: BP 126/40; TEMP 98.4; O2SAT 97
[2023-01-10] MEDS: CEFTRIAXONE 1 G in IV DEXTROSE 5% 50 ML IV SCH (16:47)
[2023-01-10] MEDS: GLUCERNA SHAKE 237 ML CAN PO SCH (17:03)
[2023-01-10 20:00] VITALS: BP 158/52; TEMP 97.9; O2SAT 95
[2023-01-10 21:00] VITALS: BP 148/48
[2023-01-11 04:00] VITALS: BP 149/45; TEMP 98.2; O2SAT 95
[2023-01-11] MEDS: METRONIDAZOLE 500 MG/NS 100ML 500 MG in PREMIXED 1 EACH IV SCH ×2 (06:00→13:35)
[2023-01-11 06:55] LABS: BASOPHILS % (AUTO) 0.7 % (0.0-2.0); EOSINOPHILS # (AUTO) 0.1 K/uL (0.0-0.7); EOSINOPHILS % (AUTO) 2.2 % (0.0-7.0); HEMATOCRIT 26.5 % (31.2-41.9); HEMOGLOBIN 9.1 g/dL (10.9-14.3); LYMPHOCYTES # (AUTO) 0.9 K/uL (0.8-4.8); LYMPHOCYTES % (AUTO) 14.5 % (20.5-51.5); MEAN CORPUSCULAR HEMOGLOBIN 32.3 uug (24.7-32.8); MEAN CORPUSCULAR HGB CONC 34 g/dL (32.3-35.6); MEAN CORPUSCULAR VOLUME 94.3 fL (75.5-95.3); MONOCYTES # (AUTO) 0.5 K/uL (0.1-1.30); NEUTROPHILS # (AUTO) 4.3 K/uL (1.8-8.9); NEUTROPHILS % (AUTO) 73.6 % (38.5-71.5); PLATELET COUNT (AUTO) 185 K/uL (179-408); RED BLOOD CELL COUNT(AUTO) 2.81 MIL/uL (3.63-4.92); RED CELL DISTRIBUTION WIDTH 13.2 % (12.3-17.7); WHITE BLOOD COUNT (AUTO) 5.9 K/uL (3.8-11.8)
[2023-01-11 07:11] LABS: DIFFERENTIAL COMMENT 1
[2023-01-11 07:21] LABS: ASPARTATE AMINOTRANSFERASE 12 U/L (15-37); BILIRUBIN,TOTAL 0.2 mg/dL (0.2-1.0); CALCIUM 8.1 mg/dL (8.5-10.1); CARBON DIOXIDE 23 mmol/L (21-32); CHLORIDE 110 mmol/L (98-107); CREATININE 1.3 mg/dL (0.6-1.3); GLUCOSE 82 mg/dL (74-106); MAGNESIUM 2.2 mg/dL (1.8-2.4); PHOSPHOROUS 5.1 mg/dL (2.5-4.9); POTASSIUM 4.4 mmol/L (3.5-5.1); SODIUM SERUM 142 mmol/L (136-145); TOTAL PROTEIN, SERUM 5.2 g/dL (6.4-8.2); UREA NITROGEN, BLOOD 20 mg/dL (7-18)
[2023-01-11 07:25] LABS: ALANINE AMINOTRANSFERASE < 6 U/L (14-59); ALKALINE PHOSPHATASE < 10 U/L (50-136)
[2023-01-11 07:26] LABS: ALBUMIN 2.6 g/dL (3.4-5.0)
[2023-01-11] MEDS: levETIRAcetam 500 MG/5 ML LIQUID UDC PO SCH (08:34)
[2023-01-11] MEDS: NIFEdipine XL 60 MG TABSR PO SCH (08:35)
[2023-01-11] MEDS: GLUCERNA SHAKE 237 ML CAN PO SCH ×3 (08:36→17:00)
[2023-01-11 11:20] VITALS: BP 162/49; TEMP 98.4; O2SAT 96
[2023-01-11] MEDS ORDERED: MAGNESIUM HYDROXIDE 30 ML LIQUID UDC PO PRN (11:45)
[2023-01-11] MEDS: FOLIC ACID 1 MG TABLET PO SCH (13:30)
[2023-01-11 15:04] VITALS: BP 135/45; TEMP 98.3; O2SAT 96
[2023-01-11] MEDS: CEFTRIAXONE 1 G in IV DEXTROSE 5% 50 ML IV SCH (16:56)
[2023-01-11 20:00] VITALS: BP 145/48; TEMP 97.7; O2SAT 95
[2023-01-11] MEDS: levETIRAcetam 500 MG TABLET PO SCH (21:05)
[2023-01-11] MEDS: METRONIDAZOLE 500 MG TABLET PO SCH (21:07)
[2023-01-12 04:00] VITALS: BP 142/51; TEMP 98.9; O2SAT 96
[2023-01-12] MEDS: METRONIDAZOLE 500 MG TABLET PO SCH ×3 (05:08→21:48)
[2023-01-12 05:27] VITALS: BP 148/52; TEMP 97.7; O2SAT 97
[2023-01-12 07:17] LABS: BASOPHILS % (AUTO) 0.6 % (0.0-2.0); EOSINOPHILS # (AUTO) 0.1 K/uL (0.0-0.7); EOSINOPHILS % (AUTO) 2.7 % (0.0-7.0); HEMOGLOBIN 8.9 g/dL (10.9-14.3); LYMPHOCYTES % (AUTO) 19.3 % (20.5-51.5); MEAN CORPUSCULAR HEMOGLOBIN 32.5 uug (24.7-32.8); MEAN CORPUSCULAR HGB CONC 34 g/dL (32.3-35.6); MEAN CORPUSCULAR VOLUME 94.3 fL (75.5-95.3); MONOCYTES # (AUTO) 0.7 K/uL (0.1-1.30); MONOCYTES % (AUTO) 12.9 % (0.0-11.0); NEUTROPHILS # (AUTO) 3.4 K/uL (1.8-8.9); NEUTROPHILS % (AUTO) 64.5 % (38.5-71.5); PLATELET COUNT (AUTO) 188 K/uL (179-408); RED BLOOD CELL COUNT(AUTO) 2.75 MIL/uL (3.63-4.92); RED CELL DISTRIBUTION WIDTH 13.6 % (12.3-17.7); WHITE BLOOD COUNT (AUTO) 5.2 K/uL (3.8-11.8)
[2023-01-12 07:21] LABS: DIFFERENTIAL COMMENT 1
[2023-01-12 07:37] LABS: CALCIUM 8.4 mg/dL (8.5-10.1); CARBON DIOXIDE 23 mmol/L (21-32); CHLORIDE 109 mmol/L (98-107); CREATININE 1.2 mg/dL (0.6-1.3); GLUCOSE 101 mg/dL (74-106); POTASSIUM 4.9 mmol/L (3.5-5.1); SODIUM SERUM 140 mmol/L (136-145); UREA NITROGEN, BLOOD 22 mg/dL (7-18)
[2023-01-12] MEDS: levETIRAcetam 500 MG TABLET PO SCH ×2 (08:21→21:48)
[2023-01-12] MEDS: FOLIC ACID 1 MG TABLET PO SCH (08:21)
[2023-01-12] MEDS: NIFEdipine XL 60 MG TABSR PO SCH (08:21)
[2023-01-12] MEDS: GLUCERNA SHAKE 237 ML CAN PO SCH ×3 (08:23→17:07)
[2023-01-12 11:13] VITALS: BP 142/43; TEMP 98.7; O2SAT 96
[2023-01-12] MEDS ORDERED: NUT.237L36 PO (13:33)
[2023-01-12] MEDS ORDERED: FOLI1TAB94 PO (13:33)
[2023-01-12] MEDS ORDERED: NIFE-34 PO (13:33)
[2023-01-12] MEDS ORDERED: AMOX-430 PO (13:33)
[2023-01-12] MEDS ORDERED: LEVE500T9 PO (13:33)
[2023-01-12 15:08] VITALS: BP 128/47; TEMP 98.4; O2SAT 96
[2023-01-12 15:33] VITALS: BP 138/43; TEMP 98.3
[2023-01-12] MEDS ORDERED: LOPERAMIDE HCL 2 MG CAPSULE PO ONE (16:00)
[2023-01-12] MEDS: CEFTRIAXONE 1 G in IV DEXTROSE 5% 50 ML IV SCH (17:00)
[2023-01-12 20:00] VITALS: BP 139/58; TEMP 99
[2023-01-12] MEDS: ACIDOPHILUS/BULGARICUS CHEW TAB PO SCH (21:48)
[2023-01-13 05:20] VITALS: BP 148/48; TEMP 98.8; O2SAT 96
[2023-01-13] MEDS: METRONIDAZOLE 500 MG TABLET PO SCH ×2 (06:09→14:22)
[2023-01-13] MEDS: FOLIC ACID 1 MG TABLET PO SCH (08:20)
[2023-01-13] MEDS: NIFEdipine XL 60 MG TABSR PO SCH (08:20)
[2023-01-13] MEDS: GLUCERNA SHAKE 237 ML CAN PO SCH ×3 (08:20→17:30)
[2023-01-13] MEDS: levETIRAcetam 500 MG TABLET PO SCH (08:21)
[2023-01-13] MEDS: ACIDOPHILUS/BULGARICUS CHEW TAB PO SCH (08:21)
[2023-01-13 11:00] VITALS: BP 117/41; TEMP 98.3; O2SAT 96
[2023-01-13 15:15] VITALS: BP 139/47; TEMP 98.4; O2SAT 95
== END 2023-01-13 18:35 | disposition home health service (06) | DRG 438 ==
LOC: ER 03:35 → MEDSURG3 08:23 → TELE3 11:30 → MEDSURG3 01-10 16:10
PROVIDERS: ADMIT Internal Medicine; ATTEND Nurse Practitioner Acute Care
DX: K86.89 Other specified diseases of pancreas (principal); G92.8 Other toxic encephalopathy; N17.0 Acute kidney failure with tubular necrosis; A04.9 Bacterial intestinal infection, unspecified; D68.69 Other thrombophilia; N39.0 Urinary tract infection, site not specified; I69.351 Hemiplegia and hemiparesis following cerebral infarction affecting right dominant side; K85.90 Acute pancreatitis without necrosis or infection, unspecified; E86.0 Dehydration; D64.9 Anemia, unspecified; E78.5 Hyperlipidemia, unspecified; E87.5 Hyperkalemia; E88.09 Other disorders of plasma-protein metabolism, not elsewhere classified; E04.2 Nontoxic multinodular goiter; I25.10 Atherosclerotic heart disease of native coronary artery without angina pectoris; J45.909 Unspecified asthma, uncomplicated; F03.90 Unspecified dementia, unspecified severity, without behavioral disturbance, psychotic disturbance, mood disturbance, and anxiety; I12.9 Hypertensive chronic kidney disease with stage 1 through stage 4 chronic kidney disease, or unspecified chronic kidney disease; N18.9 Chronic kidney disease, unspecified; D72.822 Plasmacytosis; G40.909 Epilepsy, unspecified, not intractable, without status epilepticus; Z74.09 Other reduced mobility; D52.9 Folate deficiency anemia, unspecified; N18.2 Chronic kidney disease, stage 2 (mild); R93.1 Abnormal findings on diagnostic imaging of heart and coronary circulation; M48.00 Spinal stenosis, site unspecified; Z85.3 Personal history of malignant neoplasm of breast; Z79.899 Other long term (current) drug therapy; Z87.442 Personal history of urinary calculi; Z99.3 Dependence on wheelchair; E66.9 Obesity, unspecified; Z68.21 Body mass index [BMI] 21.0-21.9, adult; I70.0 Atherosclerosis of aorta
CPT/HCPCS: 36415; 71045; 74018; 74250; 83550; 83690; 83735; 84100; 84484; 85025; 86301; 90686; 93005; A4606; A4663; A6213; G0378; J0360; J0696; J2270; J2405; J3490; J7040; Q9963

== ENCOUNTER 2023-05-12 16:15 | Inpatient (IN) | payer MEDICARE, OTHER ==
[~2023-05-12] VITALS: Ht 152.4 cm; Wt 47.6 kg
[~2023-05-12 16:15] MED LIST changes: +AMOX-430 PO; -CEFU500T66 PO; +CLOP75TA15 PO; -CLOP75TA33 PO; -DULO30CA2 PO; +DULO30CA52 PO; +FERR-56 PO; -FERR325T23 PO; +FOLI1TAB94 PO; -HYDR-3972 PO; +LEVE100S PO; +LEVE500T9 PO; -LEVO500T90 PO; -METR500T PO; +NUT.237L36 PO; +ONDA4TAB5 PO; -POLY17PO4 PO
[2023-05-12 18:18] LABS: BASOPHILS % (AUTO) 0.4 % (0.0-2.0); EOSINOPHILS # (AUTO) 0.1 K/uL (0.0-0.7); EOSINOPHILS % (AUTO) 2.4 % (0.0-7.0); HEMATOCRIT 31.3 % (31.2-41.9); HEMOGLOBIN 10.6 g/dL (10.9-14.3); LYMPHOCYTES % (AUTO) 18.6 % (20.5-51.5); MEAN CORPUSCULAR HEMOGLOBIN 31.5 uug (24.7-32.8); MEAN CORPUSCULAR HGB CONC 34 g/dL (32.3-35.6); MEAN CORPUSCULAR VOLUME 93.2 fL (75.5-95.3); MONOCYTES # (AUTO) 0.5 K/uL (0.1-1.30); MONOCYTES % (AUTO) 10.1 % (0.0-11.0); NEUTROPHILS # (AUTO) 3.7 K/uL (1.8-8.9); NEUTROPHILS % (AUTO) 68.5 % (38.5-71.5); PLATELET COUNT (AUTO) 204 K/uL (179-408); RED BLOOD CELL COUNT(AUTO) 3.35 MIL/uL (3.63-4.92); RED CELL DISTRIBUTION WIDTH 13.3 % (12.3-17.7); WHITE BLOOD COUNT (AUTO) 5.4 K/uL (3.8-11.8)
[2023-05-12 18:31] LABS: CALCIUM 8.6 mg/dL (8.5-10.1); CARBON DIOXIDE 24 mmol/L (21-32); CHLORIDE 107 mmol/L (98-107); CREATININE 1.5 mg/dL (0.6-1.3); GLUCOSE 108 mg/dL (74-106); POTASSIUM 4.9 mmol/L (3.5-5.1); SODIUM SERUM 141 mmol/L (136-145); UREA NITROGEN, BLOOD 37 mg/dL (7-18)
[2023-05-12 18:41] LABS: ALANINE AMINOTRANSFERASE 18 U/L (14-59); ALBUMIN 3.3 g/dL (3.4-5.0); ALKALINE PHOSPHATASE 50 U/L (50-136); ASPARTATE AMINOTRANSFERASE 22 U/L (15-37); BILIRUBIN,TOTAL 0.2 mg/dL (0.2-1.0); TOTAL PROTEIN, SERUM 7.1 g/dL (6.4-8.2)
[2023-05-12 18:53] LABS: BILIRUBIN,DIRECT 0.1 mg/dL (0.0-0.2)
[2023-05-12] MEDS ORDERED: ACETAMINOPHEN 325 MG TABLET-SA PATIENTS-PAIN ONLY PO PRN (21:45)
[2023-05-12] MEDS ORDERED: levETIRAcetam 500 MG TABLET PO SCH (21:45)
[2023-05-12] MEDS ORDERED: MORPHINE SULFATE 2 MG/1 ML DISP.SYRIN IV PRN (22:00)
[2023-05-12] MEDS ORDERED: ONDANSETRON 4 MG/2 ML VIAL IV PRN (22:00)
[2023-05-13] MEDS ORDERED: levETIRAcetam 500 MG/5 ML LIQUID UDC ONE (00:43)
[2023-05-13] MEDS: levETIRAcetam 500 MG/5 ML LIQUID UDC PO SCH (00:43)
[2023-05-13 01:10] VITALS: BP 160/47; TEMP 98.5; O2SAT 95
[2023-05-13 06:40] VITALS: BP 148/40; TEMP 97.5; O2SAT 94
[2023-05-13 07:14] LABS: BASOPHILS % (AUTO) 0.5 % (0.0-2.0); EOSINOPHILS # (AUTO) 0.1 K/uL (0.0-0.7); EOSINOPHILS % (AUTO) 2.5 % (0.0-7.0); HEMATOCRIT 25.7 % (31.2-41.9); HEMOGLOBIN 8.9 g/dL (10.9-14.3); LYMPHOCYTES # (AUTO) 0.9 K/uL (0.8-4.8); LYMPHOCYTES % (AUTO) 20.3 % (20.5-51.5); MEAN CORPUSCULAR HGB CONC 34 g/dL (32.3-35.6); MEAN CORPUSCULAR VOLUME 93.1 fL (75.5-95.3); MONOCYTES # (AUTO) 0.5 K/uL (0.1-1.30); MONOCYTES % (AUTO) 10.5 % (0.0-11.0); NEUTROPHILS # (AUTO) 2.9 K/uL (1.8-8.9); NEUTROPHILS % (AUTO) 66.2 % (38.5-71.5); PLATELET COUNT (AUTO) 178 K/uL (179-408); RED BLOOD CELL COUNT(AUTO) 2.77 MIL/uL (3.63-4.92); RED CELL DISTRIBUTION WIDTH 13.3 % (12.3-17.7); WHITE BLOOD COUNT (AUTO) 4.4 K/uL (3.8-11.8)
[2023-05-13 07:56] LABS: ALANINE AMINOTRANSFERASE 14 U/L (14-59); ALBUMIN 2.7 g/dL (3.4-5.0); ALKALINE PHOSPHATASE 32 U/L (50-136); ASPARTATE AMINOTRANSFERASE 15 U/L (15-37); BILIRUBIN,TOTAL 0.2 mg/dL (0.2-1.0); CALCIUM 8.4 mg/dL (8.5-10.1); CARBON DIOXIDE 22 mmol/L (21-32); CHLORIDE 111 mmol/L (98-107); CHOLESTEROL 130 mg/dL (<200); CREATININE 1.4 mg/dL (0.6-1.3); GLUCOSE 149 mg/dL (74-106); HDL CHOLESTEROL 49 mg/dL (40-60); MAGNESIUM 2.3 mg/dL (1.8-2.4); NT-PRO BNP 608 pg/mL (0-125); PHOSPHOROUS 5.5 mg/dL (2.5-4.9); POTASSIUM 4.1 mmol/L (3.5-5.1); SODIUM SERUM 142 mmol/L (136-145); THYROID STIMULATING HORMONE 1.659 mIU/mL (0.358-3.740); TOTAL PROTEIN, SERUM 5.7 g/dL (6.4-8.2); TRIGLYCERIDES 59 MG/DL (30-150); UREA NITROGEN, BLOOD 36 mg/dL (7-18)
[2023-05-13 07:57] VITALS: BP 152/46; TEMP 98.3; O2SAT 97
[2023-05-13 08:06] LABS: DIFFERENTIAL COMMENT 1
[2023-05-13] MEDS: PANTOPRAZOLE SODIUM 40 MG TABLET.DR PO SCH (08:26)
[2023-05-13] MEDS: FOLIC ACID 1 MG TABLET PO SCH (08:26)
[2023-05-13] MEDS: DOCUSATE SODIUM 100 MG CAPSULE PO SCH (08:26)
[2023-05-13] MEDS: CLOPIDOGREL 75 MG TABLET PO SCH (08:26)
[2023-05-13] MEDS: CARVEDILOL 12.5 MG TABLET PO SCH (08:26)
[2023-05-13] MEDS ORDERED: NIFE60TA73 PO (10:38)
[2023-05-13] MEDS: hydrALAZINE HCL 20 MG/1 ML VIAL IV ONE (16:21)
[2023-05-13] MEDS ORDERED: hydrALAZINE HCL 20 MG/1 ML VIAL IV PRN (17:00)
[2023-05-13] MEDS: hydrALAZINE HCL 25 MG TABLET PO SCH (17:44)
[2023-05-13] MEDS: ACETAMINOPHEN 325 MG TABLET PO PRN (18:26)
[2023-05-13 20:00] VITALS: BP 158/43; TEMP 97.5; O2SAT 96
[2023-05-13] MEDS ORDERED: SWABABLE VALVE TRANSFER SET EA MC ONE (20:51)
[2023-05-13] MEDS ORDERED: IOHEXOL 350 100 ML INFUS..BTL ONE (20:51)
[2023-05-13] MEDS ORDERED: IV NORMAL SALINE 250 ML IV ONE (20:51)
[2023-05-13] MEDS: DULOXETINE 30 MG CAPSULE.DR PO SCH (20:55)
[2023-05-13] MEDS: MONTELUKAST SODIUM 10 MG TABLET PO SCH (20:55)
[2023-05-13] MEDS: ATORVASTATIN 40 MG TABLET PO SCH (20:55)
[2023-05-13] MEDS: ASPIRIN EC 81 MG TABLET.DR PO SCH (20:56)
[2023-05-14 04:00] VITALS: BP 155/48; TEMP 98.2; O2SAT 94
[2023-05-14 09:00] VITALS: BP 158/55; TEMP 98; O2SAT 94
[2023-05-14] MEDS: TRAMADOL HCL 50 MG TABLET PO PRN (13:38)
[2023-05-14 13:50] LABS: BASOPHILS % (AUTO) 0.6 % (0.0-2.0); EOSINOPHILS # (AUTO) 0.1 K/uL (0.0-0.7); EOSINOPHILS % (AUTO) 0.9 % (0.0-7.0); HEMATOCRIT 29.1 % (31.2-41.9); HEMOGLOBIN 9.9 g/dL (10.9-14.3); LYMPHOCYTES # (AUTO) 0.9 K/uL (0.8-4.8); LYMPHOCYTES % (AUTO) 16.5 % (20.5-51.5); MEAN CORPUSCULAR HEMOGLOBIN 31.9 uug (24.7-32.8); MEAN CORPUSCULAR HGB CONC 34 g/dL (32.3-35.6); MEAN CORPUSCULAR VOLUME 93.5 fL (75.5-95.3); MONOCYTES # (AUTO) 0.4 K/uL (0.1-1.30); MONOCYTES % (AUTO) 7.8 % (0.0-11.0); NEUTROPHILS # (AUTO) 4.3 K/uL (1.8-8.9); NEUTROPHILS % (AUTO) 74.2 % (38.5-71.5); PLATELET COUNT (AUTO) 200 K/uL (179-408); RED BLOOD CELL COUNT(AUTO) 3.11 MIL/uL (3.63-4.92); RED CELL DISTRIBUTION WIDTH 13.6 % (12.3-17.7); WHITE BLOOD COUNT (AUTO) 5.7 K/uL (3.8-11.8)
[2023-05-14 13:51] LABS: DIFFERENTIAL COMMENT 1
[2023-05-14 14:01] LABS: CALCIUM 8.3 mg/dL (8.5-10.1); CARBON DIOXIDE 20 mmol/L (21-32); CHLORIDE 111 mmol/L (98-107); CREATININE 1.4 mg/dL (0.6-1.3); GLUCOSE 151 mg/dL (74-106); MAGNESIUM 2.3 mg/dL (1.8-2.4); PHOSPHOROUS 5.4 mg/dL (2.5-4.9); POTASSIUM 4.8 mmol/L (3.5-5.1); SODIUM SERUM 142 mmol/L (136-145); UREA NITROGEN, BLOOD 33 mg/dL (7-18)
[2023-05-14 14:16] VITALS: BP 160/55; TEMP 98.2; O2SAT 94
[2023-05-14 16:00] VITALS: BP 183/54; TEMP 97.8; O2SAT 96
[2023-05-14] MEDS ORDERED: IV NORMAL SALINE 250 ML IV ONE (16:13)
[2023-05-14] MEDS ORDERED: SWABABLE VALVE TRANSFER SET EA MC ONE (16:13)
[2023-05-14] MEDS ORDERED: IOHEXOL 350 100 ML INFUS..BTL ONE (16:13)
[2023-05-14 17:26] VITALS: BP 174/51; TEMP 98.2; O2SAT 94
[2023-05-14 20:00] VITALS: BP 145/55; TEMP 98.1; O2SAT 97
[2023-05-14] MEDS: levETIRAcetam 500 MG TABLET PO SCH (21:00)
[2023-05-14] MEDS ORDERED: levETIRAcetam 500 MG/5 ML LIQUID UDC PO SCH (22:15)
[2023-05-14] MEDS: NIFEdipine XL 90 MG TABSR PO SCH (22:15)
[2023-05-14] MEDS ORDERED: NIFE90TA2 PO (23:00)
[2023-05-15] VITALS: BP 147/41; TEMP 98.7; O2SAT 94
[2023-05-15 04:00] VITALS: BP 133/52; TEMP 98; O2SAT 94
[2023-05-15 07:33] LABS: BASOPHILS # (AUTO) 0.2 K/UL (0.0-0.2); EOSINOPHILS # (AUTO) 0.1 K/uL (0.0-0.7); EOSINOPHILS % (AUTO) 1.7 % (0.0-7.0); HEMATOCRIT 26.3 % (31.2-41.9); HEMOGLOBIN 8.9 g/dL (10.9-14.3); LYMPHOCYTES # (AUTO) 0.8 K/uL (0.8-4.8); LYMPHOCYTES % (AUTO) 14.2 % (20.5-51.5); MEAN CORPUSCULAR HEMOGLOBIN 31.8 uug (24.7-32.8); MEAN CORPUSCULAR HGB CONC 34 g/dL (32.3-35.6); MEAN CORPUSCULAR VOLUME 94.1 fL (75.5-95.3); MONOCYTES # (AUTO) 0.6 K/uL (0.1-1.30); MONOCYTES % (AUTO) 10.2 % (0.0-11.0); NEUTROPHILS # (AUTO) 3.9 K/uL (1.8-8.9); NEUTROPHILS % (AUTO) 69.9 % (38.5-71.5); PLATELET COUNT (AUTO) 193 K/uL (179-408); RED CELL DISTRIBUTION WIDTH 13.5 % (12.3-17.7); WHITE BLOOD COUNT (AUTO) 5.5 K/uL (3.8-11.8)
[2023-05-15 07:45] LABS: DIFFERENTIAL COMMENT 1
[2023-05-15 07:51] LABS: CALCIUM 8.2 mg/dL (8.5-10.1); CARBON DIOXIDE 22 mmol/L (21-32); CHLORIDE 110 mmol/L (98-107); CREATININE 1.5 mg/dL (0.6-1.3); GLUCOSE 86 mg/dL (74-106); MAGNESIUM 2.3 mg/dL (1.8-2.4); PHOSPHOROUS 5.7 mg/dL (2.5-4.9); POTASSIUM 4.8 mmol/L (3.5-5.1); SODIUM SERUM 142 mmol/L (136-145); UREA NITROGEN, BLOOD 36 mg/dL (7-18)
[2023-05-15 11:55] VITALS: TEMP 98; O2SAT 94
[2023-05-15 11:58] VITALS: BP 125/40
[2023-05-15 16:00] VITALS: BP 95/45; TEMP 98.3; O2SAT 93
[2023-05-15] MEDS ORDERED: ASPI-495 PO (16:55)
[2023-05-16 23:06] LABS: FOLATE (FOLIC ACID), SERUM >20.0 ng/mL (>3.0)
[2023-05-20 13:10] LABS: METHYLMALONIC ACID 574 nmol/L (0-378)
== END 2023-05-15 16:35 | disposition home health service (06) | DRG 305 ==
LOC: ER 16:17 → TELE3 21:00
PROVIDERS: ADMIT Internal Medicine; ATTEND Nurse Practitioner Acute Care
PROC: 05HB33Z Insertion of Infusion Device into Right Basilic Vein, Percutaneous Approach (ICD-10-PCS; principal; 2023-05-14)
DX: I16.0 Hypertensive urgency (principal); E44.1 Mild protein-calorie malnutrition; I69.351 Hemiplegia and hemiparesis following cerebral infarction affecting right dominant side; K86.2 Cyst of pancreas; F03.93 Unspecified dementia, unspecified severity, with mood disturbance; G93.40 Encephalopathy, unspecified; N17.9 Acute kidney failure, unspecified; I12.9 Hypertensive chronic kidney disease with stage 1 through stage 4 chronic kidney disease, or unspecified chronic kidney disease; I1A.0 Resistant hypertension; N18.9 Chronic kidney disease, unspecified; R10.31 Right lower quadrant pain; N20.0 Calculus of kidney; E88.09 Other disorders of plasma-protein metabolism, not elsewhere classified; K21.9 Gastro-esophageal reflux disease without esophagitis; E86.0 Dehydration; E78.5 Hyperlipidemia, unspecified; D69.6 Thrombocytopenia, unspecified; E83.39 Other disorders of phosphorus metabolism; I25.10 Atherosclerotic heart disease of native coronary artery without angina pectoris; M06.9 Rheumatoid arthritis, unspecified; M81.0 Age-related osteoporosis without current pathological fracture; E83.51 Hypocalcemia; R29.709 NIHSS score 9; Z79.899 Other long term (current) drug therapy; Z87.440 Personal history of urinary (tract) infections; M40.209 Unspecified kyphosis, site unspecified; K57.30 Diverticulosis of large intestine without perforation or abscess without bleeding; D64.9 Anemia, unspecified; M89.58 Osteolysis, other site; M48.061 Spinal stenosis, lumbar region without neurogenic claudication; M54.16 Radiculopathy, lumbar region
CPT/HCPCS: 36415; 70450; 70496; 71045; 72131; 82746; 83735; 83921; 84100; 84443; 84484; 85025; 85730; 93005; A4606; A4663; G0378; J0360; Q9967

== ENCOUNTER 2023-06-22 15:15 | Inpatient (IN) | payer MEDICARE, OTHER ==
[~2023-06-22] VITALS: Ht 152.4 cm; Wt 49.9 kg
[~2023-06-22 15:15] MED LIST changes: -AMOX-430 PO; +ASPI-495 PO; -LEVE500T9 PO; -NIFE-34 PO; +NIFE90TA2 PO; -NUT.237L36 PO; -TRAM50TA2 PO
[2023-06-22] MEDS ORDERED: DEXAMETHASONE SOD PHOSPHATE 10 MG INJ ONE (17:30)
[2023-06-22] MEDS ORDERED: CEFTRIAXONE /D5W 50ML IVPB **ER PYXIS IV ONE (17:30)
[2023-06-22] MEDS ORDERED: VANCOMYCIN IV 200 ML ONE (17:31)
[2023-06-22] MEDS ORDERED: AZITHROMYCIN 250 MG TABLET ONE (17:31)
[2023-06-22 17:37] LABS: BASOPHILS # (AUTO) 0.1 K/UL (0.0-0.2); BASOPHILS % (AUTO) 1.3 % (0.0-2.0); EOSINOPHILS # (AUTO) 0.1 K/uL (0.0-0.7); EOSINOPHILS % (AUTO) 1.5 % (0.0-7.0); HEMOGLOBIN 10.5 g/dL (10.9-14.3); LYMPHOCYTES # (AUTO) 0.6 K/uL (0.8-4.8); LYMPHOCYTES % (AUTO) 14.7 % (20.5-51.5); MEAN CORPUSCULAR HEMOGLOBIN 30.5 uug (24.7-32.8); MEAN CORPUSCULAR HGB CONC 33 g/dL (32.3-35.6); MEAN CORPUSCULAR VOLUME 92.8 fL (75.5-95.3); MONOCYTES # (AUTO) 0.5 K/uL (0.1-1.30); NEUTROPHILS # (AUTO) 2.7 K/uL (1.8-8.9); NEUTROPHILS % (AUTO) 68.5 % (38.5-71.5); PLATELET COUNT (AUTO) 158 K/uL (179-408); RED BLOOD CELL COUNT(AUTO) 3.44 MIL/uL (3.63-4.92); WHITE BLOOD COUNT (AUTO) 3.9 K/uL (3.8-11.8)
[2023-06-22 17:47] LABS: CALCIUM 8.4 mg/dL (8.5-10.1); CARBON DIOXIDE 21 mmol/L (21-32); CHLORIDE 108 mmol/L (98-107); CREATININE 1.4 mg/dL (0.6-1.3); DIFFERENTIAL COMMENT 1; GLUCOSE 100 mg/dL (74-106); POTASSIUM 4.4 mmol/L (3.5-5.1); SODIUM SERUM 141 mmol/L (136-145); UREA NITROGEN, BLOOD 29 mg/dL (7-18)
[2023-06-22] MEDS: CEFTRIAXONE 1 G in IV DEXTROSE 5% 50 ML IV ONE (17:47)
[2023-06-22] MEDS: IV NORMAL SALINE 1000 ML BAG IV ONE (17:47)
[2023-06-22] MEDS: DEXAMETHASONE SOD PHOSPHATE 4 MG INJ IV ONE (17:47)
[2023-06-22] MEDS: AZITHROMYCIN 250 MG TABLET PO ONE (17:47)
[2023-06-22] MEDS: VANCOMYCIN IV 1,000 MG in IV DEXTROSE 5% 250 ML IV ONE (17:49)
[2023-06-22] MEDS ORDERED: BENZ-13 PO (17:50)
[2023-06-22] MEDS ORDERED: TRAM50TA2 PO (17:50)
[2023-06-22 18:03] LABS: ALANINE AMINOTRANSFERASE 14 U/L (14-59); ALBUMIN 3.4 g/dL (3.4-5.0); ALKALINE PHOSPHATASE 30 U/L (50-136); ASPARTATE AMINOTRANSFERASE 11 U/L (15-37); BILIRUBIN,DIRECT 0.1 mg/dL (0.0-0.2); BILIRUBIN,TOTAL 0.4 mg/dL (0.2-1.0); NT-PRO BNP 678 pg/mL (0-125); TOTAL PROTEIN, SERUM 6.9 g/dL (6.4-8.2)
[2023-06-22 22:35] VITALS: BP 154/46; TEMP 99.9; O2SAT 93
[2023-06-22] MEDS ORDERED: REMEDY ESSENTIAL ZINC PASTE 113 GM TP PRN (23:30)
[2023-06-22] MEDS ORDERED: ONDANSETRON 4 MG/2 ML VIAL IV PRN (23:30)
[2023-06-22 23:46] LABS: *BILIRUBIN,URIN NEGATIVE (NEGATIVE); *BLOOD, URINE NEGATIVE (NEGATIVE); *CLARITY,URINE CLEAR (CLEAR); *COLOR,URINE YELLOW (YELLOW); *KETONES,URINE NEGATIVE (NEGATIVE); *PROTEIN,URINE 1+ (NEGATIVE); *UROBILINOGEN,URINE 0.2 E.U./dl (NORMAL); LEUKOCYTE ESTERASE ,URINE NEGATIVE (NEGATIVE); NITRITE, URINE NEGATIVE (NEGATIVE); PH,URINE 5.5 (5.0-8.0); UGLUCOSE NEGATIVE (NEGATIVE)
[2023-06-23] VITALS (10 sets, daily range): BP systolic 107–161; BP diastolic 39–63; TEMP 98.5–98.9; O2SAT 96–99
[2023-06-23] MEDS: IV NS 1000 ML 1,000 ML IV PRN (00:20)
[2023-06-23 00:47] LABS: BACTERIA,URINE FEW /HPF (NONE SEEN); RBC,URINE 0-3 /HPF (0-3); SQUAMOUS EPITHELIAL CELL,UR FEW /HPF (NONE SEEN); WBC,URINE NONE SEEN /HPF (0-3)
[2023-06-23 00:48] LABS: COARSE GRANULAR CASTS,URINE 0-3 /LPF
[2023-06-23 06:26] LABS: BASOPHILS % (AUTO) 0.3 % (0.0-2.0); HEMATOCRIT 29.3 % (31.2-41.9); HEMOGLOBIN 9.9 g/dL (10.9-14.3); LYMPHOCYTES # (AUTO) 0.4 K/uL (0.8-4.8); LYMPHOCYTES % (AUTO) 13.7 % (20.5-51.5); MEAN CORPUSCULAR HEMOGLOBIN 31.3 uug (24.7-32.8); MEAN CORPUSCULAR HGB CONC 34 g/dL (32.3-35.6); MEAN CORPUSCULAR VOLUME 92.7 fL (75.5-95.3); MONOCYTES # (AUTO) 0.3 K/uL (0.1-1.30); MONOCYTES % (AUTO) 8.7 % (0.0-11.0); NEUTROPHILS # (AUTO) 2.5 K/uL (1.8-8.9); NEUTROPHILS % (AUTO) 77.3 % (38.5-71.5); PLATELET COUNT (AUTO) 150 K/uL (179-408); RED BLOOD CELL COUNT(AUTO) 3.16 MIL/uL (3.63-4.92); WHITE BLOOD COUNT (AUTO) 3.3 K/uL (3.8-11.8)
[2023-06-23 06:30] LABS: DIFFERENTIAL COMMENT 1
[2023-06-23 06:36] LABS: CALCIUM 7.8 mg/dL (8.5-10.1); CREATININE 1.3 mg/dL (0.6-1.3); MAGNESIUM 2.1 mg/dL (1.8-2.4); PHOSPHOROUS 5.3 mg/dL (2.5-4.9); POTASSIUM 4.7 mmol/L (3.5-5.1)
[2023-06-23] MEDS: ENSURE ENLIVE (VAN) 240 ML LIQUID PO SCH (11:10)
[2023-06-23] MEDS: IPRATROPIUM BROMIDE 0.5 MG/2.5 ML NEBU NEB SCH (12:30)
[2023-06-23] MEDS: ALBUTEROL SULFATE 1.25 MG/3 ML NEBU NEB SCH (12:30)
[2023-06-23] MEDS: NIFEdipine XL 90 MG TABSR PO SCH (14:07)
[2023-06-23] MEDS: BENZONATATE 100 MG CAPSULE PO SCH (14:07)
[2023-06-23] MEDS: CARVEDILOL 12.5 MG TABLET PO SCH (14:07)
[2023-06-23] MEDS: ASPIRIN EC 81 MG TABLET.DR PO SCH (14:07)
[2023-06-23] MEDS: levETIRAcetam 500 MG/5 ML LIQUID UDC PO SCH (14:07)
[2023-06-23] MEDS: CLOPIDOGREL 75 MG TABLET PO SCH (14:08)
[2023-06-23] MEDS: DOCUSATE SODIUM 100 MG CAPSULE PO SCH (14:08)
[2023-06-23] MEDS: FOLIC ACID 1 MG TABLET PO SCH (14:08)
[2023-06-23] MEDS: FERROUS SULFATE 325 MG TABEC PO SCH (14:08)
[2023-06-23] MEDS: hydrALAZINE HCL 25 MG TABLET PO SCH (14:08)
[2023-06-23] MEDS: CEFTRIAXONE 1 G in IV DEXTROSE 5% 50 ML IV SCH (17:30)
[2023-06-23] MEDS: AZITHROMYCIN IV 250 MG in IV DEXTROSE 5% 250 ML IV SCH (18:34)
[2023-06-23] MEDS: ACETAMINOPHEN 325 MG TABLET PO PRN (18:34)
[2023-06-23] MEDS: MONTELUKAST SODIUM 10 MG TABLET PO SCH (20:11)
[2023-06-23] MEDS: DULOXETINE 30 MG CAPSULE.DR PO SCH (20:11)
[2023-06-23] MEDS: ATORVASTATIN 40 MG TABLET PO SCH (20:11)
[2023-06-23] MEDS: TRAMADOL HCL 50 MG TABLET PO PRN (20:19)
[2023-06-24] VITALS (10 sets, daily range): BP systolic 103–167; BP diastolic 36–58; TEMP 97.1–98.3; O2SAT 92–98
[2023-06-24] MEDS: PANTOPRAZOLE SODIUM 40 MG TABLET.DR PO SCH (06:10)
[2023-06-24 06:36] LABS: BASOPHILS % (AUTO) 0.6 % (0.0-2.0); EOSINOPHILS # (AUTO) 0.1 K/uL (0.0-0.7); EOSINOPHILS % (AUTO) 0.9 % (0.0-7.0); HEMATOCRIT 28.9 % (31.2-41.9); HEMOGLOBIN 9.9 g/dL (10.9-14.3); LYMPHOCYTES # (AUTO) 0.9 K/uL (0.8-4.8); LYMPHOCYTES % (AUTO) 16.7 % (20.5-51.5); MEAN CORPUSCULAR HEMOGLOBIN 31.7 uug (24.7-32.8); MEAN CORPUSCULAR HGB CONC 34 g/dL (32.3-35.6); MEAN CORPUSCULAR VOLUME 93.2 fL (75.5-95.3); MONOCYTES # (AUTO) 0.8 K/uL (0.1-1.30); MONOCYTES % (AUTO) 13.8 % (0.0-11.0); NEUTROPHILS # (AUTO) 3.7 K/uL (1.8-8.9); PLATELET COUNT (AUTO) 158 K/uL (179-408); RED BLOOD CELL COUNT(AUTO) 3.11 MIL/uL (3.63-4.92); RED CELL DISTRIBUTION WIDTH 13.9 % (12.3-17.7); WHITE BLOOD COUNT (AUTO) 5.5 K/uL (3.8-11.8)
[2023-06-24 06:49] LABS: CALCIUM 7.5 mg/dL (8.5-10.1); CREATININE 1.3 mg/dL (0.6-1.3); MAGNESIUM 2.1 mg/dL (1.8-2.4); PHOSPHOROUS 4.6 mg/dL (2.5-4.9); POTASSIUM 4.7 mmol/L (3.5-5.1)
[2023-06-24 07:26] LABS: DIFFERENTIAL COMMENT 1
[2023-06-25] VITALS (12 sets, daily range): BP systolic 104–173; BP diastolic 45–54; TEMP 97.8–98.9; O2SAT 92–99
[2023-06-25 06:56] LABS: BASOPHILS # (AUTO) 0.1 K/UL (0.0-0.2); BASOPHILS % (AUTO) 1.3 % (0.0-2.0); HEMATOCRIT 28.9 % (31.2-41.9); HEMOGLOBIN 9.7 g/dL (10.9-14.3); LYMPHOCYTES % (AUTO) 21.6 % (20.5-51.5); MEAN CORPUSCULAR HGB CONC 34 g/dL (32.3-35.6); MEAN CORPUSCULAR VOLUME 92.2 fL (75.5-95.3); MONOCYTES # (AUTO) 0.6 K/uL (0.1-1.30); MONOCYTES % (AUTO) 14.5 % (0.0-11.0); NEUTROPHILS # (AUTO) 2.7 K/uL (1.8-8.9); NEUTROPHILS % (AUTO) 61.6 % (38.5-71.5); PLATELET COUNT (AUTO) 159 K/uL (179-408); RED BLOOD CELL COUNT(AUTO) 3.13 MIL/uL (3.63-4.92); RED CELL DISTRIBUTION WIDTH 13.7 % (12.3-17.7); WHITE BLOOD COUNT (AUTO) 4.4 K/uL (3.8-11.8)
[2023-06-25 07:01] LABS: DIFFERENTIAL COMMENT 1
[2023-06-25 07:18] LABS: CALCIUM 7.5 mg/dL (8.5-10.1); CREATININE 1.2 mg/dL (0.6-1.3); POTASSIUM 4.5 mmol/L (3.5-5.1)
[2023-06-25 07:19] LABS: THYROID STIMULATING HORMONE 1.021 mIU/mL (0.358-3.740)
[2023-06-26] VITALS (7 sets, daily range): BP systolic 109–160; BP diastolic 40–59; TEMP 97.6–98.6; O2SAT 92–98
[2023-06-26 08:12] LABS: BASOPHILS % (AUTO) 0.6 % (0.0-2.0); EOSINOPHILS # (AUTO) 0.1 K/uL (0.0-0.7); EOSINOPHILS % (AUTO) 1.5 % (0.0-7.0); HEMATOCRIT 28.5 % (31.2-41.9); HEMOGLOBIN 9.6 g/dL (10.9-14.3); LYMPHOCYTES # (AUTO) 1.1 K/uL (0.8-4.8); LYMPHOCYTES % (AUTO) 23.5 % (20.5-51.5); MEAN CORPUSCULAR HGB CONC 34 g/dL (32.3-35.6); MEAN CORPUSCULAR VOLUME 92.4 fL (75.5-95.3); MONOCYTES # (AUTO) 0.7 K/uL (0.1-1.30); MONOCYTES % (AUTO) 16.4 % (0.0-11.0); NEUTROPHILS # (AUTO) 2.6 K/uL (1.8-8.9); PLATELET COUNT (AUTO) 156 K/uL (179-408); RED BLOOD CELL COUNT(AUTO) 3.09 MIL/uL (3.63-4.92); RED CELL DISTRIBUTION WIDTH 13.7 % (12.3-17.7); WHITE BLOOD COUNT (AUTO) 4.5 K/uL (3.8-11.8)
[2023-06-26 08:19] LABS: DIFFERENTIAL COMMENT 1
[2023-06-26 08:37] LABS: CALCIUM 7.5 mg/dL (8.5-10.1); CARBON DIOXIDE 20 mmol/L (21-32); CHLORIDE 108 mmol/L (98-107); CREATININE 1.2 mg/dL (0.6-1.3); GLUCOSE 84 mg/dL (74-106); POTASSIUM 4.8 mmol/L (3.5-5.1); SODIUM SERUM 138 mmol/L (136-145); UREA NITROGEN, BLOOD 22 mg/dL (7-18)
[2023-06-26 14:43] LABS: BAND % (MANUAL) 9 % (0-10); LYMPHOCYTES % (MANUAL) 19 % (20-40); MONOCYTES % (MANUAL) 15 % (2-10); NEUTROPHILS % (MANUAL) 57 % (42-75)
[2023-06-26 14:44] LABS: PLATELET ESTIMATE DECREASED
[2023-06-26] MEDS: LACTULOSE 20 G/30 ML LIQUID UDC PO ONE (18:23)
[2023-06-27] VITALS (13 sets, daily range): BP systolic 119–171; BP diastolic 44–65; TEMP 97.5–98.6; O2SAT 94–99
[2023-06-27] MEDS: hydrALAZINE HCL 25 MG TABLET PO PRN (04:11)
[2023-06-27 06:32] LABS: BASOPHILS % (AUTO) 0.5 % (0.0-2.0); EOSINOPHILS # (AUTO) 0.1 K/uL (0.0-0.7); HEMATOCRIT 29.2 % (31.2-41.9); LYMPHOCYTES % (AUTO) 17.6 % (20.5-51.5); MEAN CORPUSCULAR HEMOGLOBIN 31.3 uug (24.7-32.8); MEAN CORPUSCULAR HGB CONC 34 g/dL (32.3-35.6); MEAN CORPUSCULAR VOLUME 91.7 fL (75.5-95.3); MONOCYTES # (AUTO) 0.8 K/uL (0.1-1.30); MONOCYTES % (AUTO) 13.3 % (0.0-11.0); NEUTROPHILS # (AUTO) 3.9 K/uL (1.8-8.9); NEUTROPHILS % (AUTO) 66.6 % (38.5-71.5); PLATELET COUNT (AUTO) 166 K/uL (179-408); RED BLOOD CELL COUNT(AUTO) 3.18 MIL/uL (3.63-4.92); RED CELL DISTRIBUTION WIDTH 13.5 % (12.3-17.7); WHITE BLOOD COUNT (AUTO) 5.9 K/uL (3.8-11.8)
[2023-06-27 06:39] LABS: DIFFERENTIAL COMMENT 1
[2023-06-27 06:45] LABS: CALCIUM 7.9 mg/dL (8.5-10.1); CARBON DIOXIDE 20 mmol/L (21-32); CHLORIDE 109 mmol/L (98-107); CREATININE 1.1 mg/dL (0.6-1.3); GLUCOSE 90 mg/dL (74-106); POTASSIUM 4.3 mmol/L (3.5-5.1); SODIUM SERUM 138 mmol/L (136-145); UREA NITROGEN, BLOOD 19 mg/dL (7-18)
[2023-06-27 08:06] LABS: CANCER ANTIGEN 15-3 7.7 U/mL (0.0-25.0); CARBOHYDRATE ANTIGEN, 19-9 8 U/mL (0-35); CARCINOEMBRYONIC AG (CEA) 3.7 ng/mL (0.0-4.7); FOLATE (FOLIC ACID), SERUM >20.0 ng/mL (>3.0)
[2023-06-27] MEDS ORDERED: methylPREDNISolone 1 PACK TAB.DS.PK [4MG TAB] PO ONE (11:15)
[2023-06-27] MEDS: methylPREDNISolone 4 MG TABLET (DAY#1) PO ONE (11:26)
[2023-06-27] MEDS: methylPREDNISolone 4 MG TABLET (DAY#1 PC LUNCH) PO ONE (12:43)
[2023-06-27] MEDS: methylPREDNISolone 4 MG TABLET (DAY#1, PC DINNER) PO ONE (17:43)
[2023-06-27] MEDS: methylPREDNISolone 4 MG TABLET (DAY#1, HS) PO ONE (20:34)
[2023-06-28] VITALS (10 sets, daily range): BP systolic 116–182; BP diastolic 40–58; TEMP 98.2–98.5; O2SAT 90–99
[2023-06-28 07:00] LABS: BASOPHILS % (AUTO) 0.1 % (0.0-2.0); HEMATOCRIT 28.5 % (31.2-41.9); HEMOGLOBIN 9.9 g/dL (10.9-14.3); LYMPHOCYTES # (AUTO) 0.7 K/uL (0.8-4.8); LYMPHOCYTES % (AUTO) 16.4 % (20.5-51.5); MEAN CORPUSCULAR HEMOGLOBIN 31.7 uug (24.7-32.8); MEAN CORPUSCULAR HGB CONC 35 g/dL (32.3-35.6); MEAN CORPUSCULAR VOLUME 91.3 fL (75.5-95.3); MONOCYTES # (AUTO) 0.3 K/uL (0.1-1.30); MONOCYTES % (AUTO) 7.2 % (0.0-11.0); NEUTROPHILS # (AUTO) 3.3 K/uL (1.8-8.9); NEUTROPHILS % (AUTO) 76.3 % (38.5-71.5); PLATELET COUNT (AUTO) 169 K/uL (179-408); RED BLOOD CELL COUNT(AUTO) 3.12 MIL/uL (3.63-4.92); RED CELL DISTRIBUTION WIDTH 13.5 % (12.3-17.7); WHITE BLOOD COUNT (AUTO) 4.3 K/uL (3.8-11.8)
[2023-06-28 07:17] LABS: DIFFERENTIAL COMMENT 1
[2023-06-28 07:20] LABS: CALCIUM 7.9 mg/dL (8.5-10.1); CARBON DIOXIDE 21 mmol/L (21-32); CHLORIDE 108 mmol/L (98-107); CREATININE 1.1 mg/dL (0.6-1.3); GLUCOSE 114 mg/dL (74-106); PHOSPHOROUS 4.9 mg/dL (2.5-4.9); POTASSIUM 4.7 mmol/L (3.5-5.1); SODIUM SERUM 138 mmol/L (136-145); UREA NITROGEN, BLOOD 20 mg/dL (7-18)
[2023-06-28] MEDS: methylPREDNISolone 4 MG TABLET (DAY#2, ACB) PO ONE (09:01)
[2023-06-28] MEDS: FLUTICASONE PROP NASAL SPRAY 16 GM BOTTLE NS SCH (10:35)
[2023-06-28] MEDS: ENSURE ENLIVE (VAN) 240 ML LIQUID PO SCH (12:25)
[2023-06-28] MEDS: methylPREDNISolone 4 MG TABLET (DAY#2, PC LUNCH) PO ONE (12:25)
[2023-06-28] MEDS: methylPREDNISolone 4 MG TABLET (DAY#2, PC DINNER) PO ONE (17:45)
[2023-06-28] MEDS ORDERED: IPRATROPIUM BROMIDE 0.5 MG/2.5 ML NEBU ONE (19:30)
[2023-06-28] MEDS ORDERED: ALBUTEROL SULFATE 2.5 MG/3 ML NEBU ONE (19:30)
[2023-06-28] MEDS: levETIRAcetam 500 MG TABLET PO SCH (22:07)
[2023-06-28] MEDS: methylPREDNISolone 4 MG TABLET (DAY#2, HS) PO ONE (22:07)
[2023-06-29] VITALS (14 sets, daily range): BP systolic 119–191; BP diastolic 44–63; TEMP 97.5–98.5; O2SAT 94–99
[2023-06-29] MEDS: IPRATROPIUM BROMIDE 0.5 MG/2.5 ML NEBU NEB PRN (02:41)
[2023-06-29] MEDS: ALBUTEROL SULFATE 1.25 MG/3 ML NEBU NEB PRN (02:42)
[2023-06-29 04:06] LABS: ERYTHROPOIETIN 8.9 mIU/mL (2.6-18.5)
[2023-06-29 06:41] LABS: CALCIUM 7.9 mg/dL (8.5-10.1); CARBON DIOXIDE 22 mmol/L (21-32); CHLORIDE 106 mmol/L (98-107); CREATININE 1.2 mg/dL (0.6-1.3); GLUCOSE 109 mg/dL (74-106); POTASSIUM 4.7 mmol/L (3.5-5.1); SODIUM SERUM 137 mmol/L (136-145); UREA NITROGEN, BLOOD 28 mg/dL (7-18)
[2023-06-29 06:56] LABS: BASOPHILS % (AUTO) 0.1 % (0.0-2.0); EOSINOPHILS % (AUTO) 0.1 % (0.0-7.0); HEMATOCRIT 28.7 % (31.2-41.9); HEMOGLOBIN 9.7 g/dL (10.9-14.3); LYMPHOCYTES # (AUTO) 0.6 K/uL (0.8-4.8); LYMPHOCYTES % (AUTO) 9.6 % (20.5-51.5); MEAN CORPUSCULAR HEMOGLOBIN 30.8 uug (24.7-32.8); MEAN CORPUSCULAR HGB CONC 34 g/dL (32.3-35.6); MONOCYTES # (AUTO) 0.2 K/uL (0.1-1.30); NEUTROPHILS # (AUTO) 4.9 K/uL (1.8-8.9); NEUTROPHILS % (AUTO) 86.2 % (38.5-71.5); PLATELET COUNT (AUTO) 181 K/uL (179-408); RED BLOOD CELL COUNT(AUTO) 3.15 MIL/uL (3.63-4.92); RED CELL DISTRIBUTION WIDTH 13.5 % (12.3-17.7); WHITE BLOOD COUNT (AUTO) 5.7 K/uL (3.8-11.8)
[2023-06-29 06:57] LABS: DIFFERENTIAL COMMENT 1
[2023-06-29] MEDS: methylPREDNISolone 4 MG TABLET (DAY#3, ACB) PO ONE (08:18)
[2023-06-29] MEDS: methylPREDNISolone 4 MG TABLET (DAY#3, PC LUNCH) PO ONE (13:04)
[2023-06-29] MEDS: methylPREDNISolone 4 MG TABLET (DAY#3, PC DINNER) PO ONE (17:46)
[2023-06-29] MEDS: methylPREDNISolone 4 MG TABLET (DAY#3, HS) PO ONE (20:49)
[2023-06-30] VITALS (7 sets, daily range): BP systolic 113–186; BP diastolic 44–58; TEMP 97.4–98.6; O2SAT 93–98
[2023-06-30] MEDS: methylPREDNISolone 4 MG TABLET (DAY#4, ACB) PO ONE (06:42)
[2023-06-30 08:27] LABS: BASOPHILS % (AUTO) 0.1 % (0.0-2.0); EOSINOPHILS % (AUTO) 0.1 % (0.0-7.0); HEMATOCRIT 28.4 % (31.2-41.9); HEMOGLOBIN 9.7 g/dL (10.9-14.3); LYMPHOCYTES # (AUTO) 1.2 K/uL (0.8-4.8); LYMPHOCYTES % (AUTO) 15.2 % (20.5-51.5); MEAN CORPUSCULAR HGB CONC 34 g/dL (32.3-35.6); MEAN CORPUSCULAR VOLUME 90.6 fL (75.5-95.3); MONOCYTES # (AUTO) 0.7 K/uL (0.1-1.30); MONOCYTES % (AUTO) 9.3 % (0.0-11.0); NEUTROPHILS # (AUTO) 5.8 K/uL (1.8-8.9); NEUTROPHILS % (AUTO) 75.3 % (38.5-71.5); PLATELET COUNT (AUTO) 201 K/uL (179-408); RED BLOOD CELL COUNT(AUTO) 3.13 MIL/uL (3.63-4.92); RED CELL DISTRIBUTION WIDTH 13.2 % (12.3-17.7); WHITE BLOOD COUNT (AUTO) 7.7 K/uL (3.8-11.8)
[2023-06-30 08:52] LABS: CALCIUM 7.7 mg/dL (8.5-10.1); CREATININE 1.3 mg/dL (0.6-1.3); POTASSIUM 4.5 mmol/L (3.5-5.1)
[2023-06-30 09:08] LABS: DIFFERENTIAL COMMENT 1
[2023-06-30] MEDS ORDERED: Lactose-Free Food PO (11:08)
[2023-06-30] MEDS ORDERED: ALBU1.25 NEB ×2 (11:08)
[2023-06-30] MEDS ORDERED: BENZ-38 PO (11:08)
[2023-06-30] MEDS ORDERED: FLUT16SP16 NS (11:08)
[2023-06-30] MEDS ORDERED: METH4TAB PO ×2 (11:08)
[2023-06-30] MEDS ORDERED: LEVE500T9 PO (11:08)
[2023-06-30] MEDS: methylPREDNISolone 4 MG TABLET (DAY#4, PC LUNCH) PO ONE (12:18)
[2023-06-30] MEDS ORDERED: methylPREDNISolone 4 MG TABLET (DAY#4, HS) PO ONE (21:00)
[2023-07-01] MEDS ORDERED: methylPREDNISolone 4 MG TABLET (DAY#5, ACB) PO ONE (07:30)
[2023-07-01] MEDS ORDERED: NEBU-273 MC (09:48)
[2023-07-01] MEDS ORDERED: NEBU-171 MC (09:48)
[2023-07-01] MEDS ORDERED: ALBU8.5H8 INH (09:51)
[2023-07-01] MEDS ORDERED: methylPREDNISolone 4 MG TABLET (DAY#5, HS) PO ONE (21:00)
[2023-07-02] MEDS ORDERED: methylPREDNISolone 4 MG TABLET (DAY#6, ACB) PO ONE (07:30)
== END 2023-06-30 19:25 | disposition home health service (06) | DRG 193 ==
LOC: ER 15:22 → TELE3 21:50 → MEDSURG3 06-27 10:05
PROVIDERS: ADMIT Nurse Practitioner Acute Care; ATTEND Nurse Practitioner Acute Care
DX: J12.3 Human metapneumovirus pneumonia (principal); G93.41 Metabolic encephalopathy; J96.01 Acute respiratory failure with hypoxia; E44.1 Mild protein-calorie malnutrition; N17.9 Acute kidney failure, unspecified; I69.351 Hemiplegia and hemiparesis following cerebral infarction affecting right dominant side; N39.0 Urinary tract infection, site not specified; J44.0 Chronic obstructive pulmonary disease with (acute) lower respiratory infection; F03.93 Unspecified dementia, unspecified severity, with mood disturbance; R62.7 Adult failure to thrive; D69.6 Thrombocytopenia, unspecified; E86.0 Dehydration; K86.9 Disease of pancreas, unspecified; N20.0 Calculus of kidney; D47.2 Monoclonal gammopathy; K21.9 Gastro-esophageal reflux disease without esophagitis; D72.822 Plasmacytosis; M89.9 Disorder of bone, unspecified; D52.9 Folate deficiency anemia, unspecified; I13.10 Hypertensive heart and chronic kidney disease without heart failure, with stage 1 through stage 4 chronic kidney disease, or unspecified chronic kidney disease; N18.2 Chronic kidney disease, stage 2 (mild); Z66 Do not resuscitate; E78.5 Hyperlipidemia, unspecified; E83.51 Hypocalcemia; E83.39 Other disorders of phosphorus metabolism; G40.909 Epilepsy, unspecified, not intractable, without status epilepticus; E04.2 Nontoxic multinodular goiter; N63.0 Unspecified lump in unspecified breast; M89.58 Osteolysis, other site; R73.9 Hyperglycemia, unspecified; I44.7 Left bundle-branch block, unspecified; R32 Unspecified urinary incontinence; Z96.642 Presence of left artificial hip joint; Z98.890 Other specified postprocedural states; M40.209 Unspecified kyphosis, site unspecified; Z79.02 Long term (current) use of antithrombotics/antiplatelets; Z79.82 Long term (current) use of aspirin; Z87.440 Personal history of urinary (tract) infections
CPT/HCPCS: 36415; 70030-TC; 71045; 82378; 82668; 82746; 83550; 83605; 83735; 84100; 84443; 84484; 85025; 85730; 86300; 86301; 87040; 93005; 94640; 94664; 94760; A4606; A4663; A6213; G0378; J0456; J0696; J1100; J3370; J3535; J3590; J7040; J7050; J7509; Q0144